=== PATIENT | female | born 1985 | race Caucasian/White ===

== ENCOUNTER 2018-07-19 02:44 | Emergency (ER) | payer MEDICARE, OTHER ==
[2018-07-19 03:05] VITALS: TEMP 98
[2018-07-19] MEDS ORDERED: MORPHINE SULFATE 4 MG/ML SYRINGE IV STA (03:27)
[2018-07-19] MEDS ORDERED: SODIUM CHLORIDE 0.9% 1,000 ML IV STA (03:27)
[2018-07-19 03:29] LABS: Amorphous Sediment,Urine Rare /hpf; Appearance,Urine Cloudy (Clear); Bacteria,Urine Rare /hpf; Bilirubin,Urine Negative (Negative); Blood,Urine Negative (Negative); Color,Urine Yellow; Glucose,Urine (UA) 4+ (Negative); Ketones,Urine Negative (Negative); Leukocyte Esterase,Urine Negative (Negative); Mucus,Urine Occasional /hpf; Nitrite,Urine Negative (Negative); Protein,Urine Negative (Negative); Specific Gravity,Urine 1.022 (1.001-1.035); Squamous Epithelial Cell,Urine 1 /hpf (0-4); Urobilinogen,Urine <2.0 mg/dL (<2.0); WBC,Urine 1 /hpf (0-5)
--- NOTE | 2018-07-19 03:31 | ED ---
General Adult HPI - General Chief complaint: Abdominal Pain Stated complaint: Abd pain Time Seen by Provider: 07/19/18 03:07 Source: patient, RN notes reviewed, old records reviewed Mode of arrival: ambulatory Limitations: no limitations - History of Present Illness Initial comments: 32-year-old female presenting for evaluation of anterior abdominal pain. Patient has previous history of multiple hernias status post repair. She states she feels she may have injured her abdominal wall wall moving furniture. She states she has a constant burning pain in the center and right side of her abdomen worse with movement. She's had some nausea and diaphoresis associated with this pain. No history of appendectomy or cholecystectomy. She denies changes in her bowels. No dysuria or hematuria. - Related Data Home Medications Medication Instructions Recorded Confirmed Albuterol(Dose Unknown) 3 - 4 puff INHALATION DIRECTED 09/05/14 09/30/14 PRN Atenolol [Tenormin] 50 mg PO 1500 09/05/14 09/30/14 Gemfibrozil [Lopid] 600 mg PO BID 09/05/14 09/30/14 HYDROcodone/APAP 7.5-325MG [[place] 1 each PO TID PRN 09/05/14 09/30/14 7.5-325] LORazepam [Ativan] 1 mg PO BID 09/05/14 09/30/14 Omeprazole [PriLOSEC] 20 mg PO 1500 09/05/14 09/30/14 Ondansetron HCl [Zofran] 8 mg PO Q12HR PRN 09/05/14 09/30/14 buPROPion HCL [Wellbutrin XL] 450 mg PO DAILY 09/05/14 09/30/14 metFORMIN HCL 1,000 mg PO BID 09/05/14 09/30/14 ALPRAZolam [Xanax] 0.5 mg PO BID PRN 09/26/14 09/30/14 Allergies Allergy/AdvReac Type Severity Reaction Status Date / Time ketorolac tromethamine Allergy Severe rash,bliste Verified 09/26/14 09:06 [From Toradol] rs prochlorperazine edisylate Allergy Severe Dyspnea Verified 09/26/14 09:06 [From Compazine] prochlorperazine maleate Allergy Severe Dyspnea Verified 09/26/14 09:06 [From Compazine] promethazine HCl Allergy Severe hives, Verified 09/26/14 09:06 [From Phenergan] jittery adhesive tape Allergy Severe BLISTERS Uncoded 09/26/14 09:06 Review of Systems ROS Statement: Those systems with pertinent positive or pertinent negative responses have been documented in the HPI. ROS Other: All systems not noted in ROS Statement are negative. Past Medical History Past Medical History: Asthma, Diabetes Mellitus, GERD/Reflux, Hypertension, Supraventricular Tachycardia (SVT) History of Any Multi-Drug Resistant Organisms: None Reported Past Surgical History: Cardiac Ablation, Hernia Repair Additional Past Surgical History / Comment(s): CARDIAC ABLATION X2, CERVIX SURGERY Past Anesthesia/Blood Transfusion Reactions: Postoperative Nausea & Vomiting (PONV) Past Psychological History: Anxiety, Depression Smoking Status: Never smoker Past Alcohol Use History: None Reported Past Drug Use History: None Reported - Past Family History Father Family Medical History: Cancer, Pulmonary Embolus Mother Family Medical History: Cancer Sister(s) Family Medical History: Cancer General Exam Limitations: no limitations General appearance: alert, in no apparent distress Head exam: Present: atraumatic, normocephalic Eye exam: Present: normal appearance, PERRL ENT exam: Present: normal exam Neck exam: Present: normal inspection. Absent: tenderness, meningismus Respiratory exam: Present: normal lung sounds bilaterally. Absent: respiratory distress, wheezes Cardiovascular Exam: Present: regular rate, normal rhythm GI/Abdominal exam: Present: soft, tenderness (Anterior midline and right upper quadrant abdominal tenderness.). Absent: distended Extremities exam: Present: normal inspection, normal capillary refill. Absent: pedal edema Back exam: Present: normal inspection Neurological exam: Present: alert, oriented X3, CN II-XII intact. Absent: motor sensory deficit Psychiatric exam: Present: normal affect, normal mood Skin exam: Present: warm, dry, intact Course Vital Signs 07/19/18 07/19/18 03:01 04:54 Temperature 98.0 F Pulse Rate 92 70 Respiratory 18 19 Rate Blood Pressure 188/78 128/74 O2 Sat by Pulse 98 96 Oximetry Medical Decision Making - Medical Decision Making 31-year-old female with abdominal pain. CT obtained, negative for any acute intra-abdominal pathology, no hernia, no signs of infection or inflammation, no gallbladder pathology. Patient has mild leukocytosis, other laboratory studies including complete metabolic panel are unremarkable. Patient's given antiemetic and pain medication emergency department. She is feeling somewhat better. Vital signs of normalized. She will be discharged home. She will rest and return with any worsening or changing symptoms. - Lab Data Result diagrams: 07/19/18 03:39 07/19/18 03:39 Lab Results 07/19/18 07/19/18 07/19/18 Range/Units 03:20 03:20 03:39 WBC (3.8-10.6) k/uL RBC (3.80-5.40) m/uL Hgb (11.4-16.0) gm/dL Hct (34.0-46.0) % MCV (80.0-100.0) fL MCH (25.0-35.0) pg MCHC (31.0-37.0) g/dL RDW (11.5-15.5) % Plt Count (150-450) k/uL Neutrophils % % Lymphocytes % % Monocytes % % Eosinophils % % Basophils % % Neutrophils # (1.3-7.7) k/uL Lymphocytes # (1.0-4.8) k/uL Monocytes # (0-1.0) k/uL Eosinophils # (0-0.7) k/uL Basophils # (0-0.2) k/uL Sodium 137 (137-145) mmol/L Potassium 4.3 (3.5-5.1) mmol/L Chloride 105 (98-107) mmol/L Carbon Dioxide 24 (22-30) mmol/L Anion Gap 8 mmol/L BUN 10 (7-17) mg/dL Creatinine 0.54 (0.52-1.04) mg/dL Est GFR (CKD-EPI)AfAm >90 (>60 ml/min/1.73 sqM) Est GFR (CKD-EPI)NonAf >90 (>60 ml/min/1.73 sqM) Glucose 162 H (74-99) mg/dL Calcium 9.6 (8.4-10.2) mg/dL Total Bilirubin 0.5 (0.2-1.3) mg/dL AST 36 (14-36) U/L ALT 47 (9-52) U/L Alkaline Phosphatase 80 (38-126) U/L Total Protein 7.3 (6.3-8.2) g/dL Albumin 4.3 (3.5-5.0) g/dL Amylase 62 (30-110) U/L Lipase 185 (23-300) U/L Urine Color Yellow Urine Appearance Cloudy H (Clear) Urine pH 7.0 (5.0-8.0) Ur Specific [place] 1.022 (1.001-1.035) Urine Protein Negative (Negative) Urine Glucose (UA) 4+ H (Negative) Urine Ketones Negative (Negative) Urine Blood Negative (Negative) Urine Nitrite Negative (Negative) Urine Bilirubin Negative (Negative) Urine Urobilinogen <2.0 (<2.0) mg/dL Ur Leukocyte Esterase Negative (Negative) Urine WBC 1 (0-5) /hpf Ur Squamous Epith Cells 1 (0-4) /hpf Amorphous Sediment Rare H (None) /hpf Urine Bacteria Rare H (None) /hpf Urine Mucus Occasional H (None) /hpf Urine HCG, Qual Not Detected (Not Detectd) 07/19/18 Range/Units 03:39 WBC 12.9 H (3.8-10.6) k/uL RBC 4.94 (3.80-5.40) m/uL Hgb 14.2 (11.4-16.0) gm/dL Hct 41.3 (34.0-46.0) % MCV 83.5 (80.0-100.0) fL MCH 28.8 (25.0-35.0) pg MCHC 34.5 (31.0-37.0) g/dL RDW 13.3 (11.5-15.5) % Plt Count 263 (150-450) k/uL Neutrophils % 68 % Lymphocytes % 23 % Monocytes % 5 % Eosinophils % 2 % Basophils % 1 % Neutrophils # 8.8 H (1.3-7.7) k/uL Lymphocytes # 3.0 (1.0-4.8) k/uL Monocytes # 0.6 (0-1.0) k/uL Eosinophils # 0.2 (0-0.7) k/uL Basophils # 0.1 (0-0.2) k/uL Sodium (137-145) mmol/L Potassium (3.5-5.1) mmol/L Chloride (98-107) mmol/L Carbon Dioxide (22-30) mmol/L Anion Gap mmol/L BUN (7-17) mg/dL Creatinine (0.52-1.04) mg/dL Est GFR (CKD-EPI)AfAm (>60 ml/min/1.73 sqM) Est GFR (CKD-EPI)NonAf (>60 ml/min/1.73 sqM) Glucose (74-99) mg/dL Calcium (8.4-10.2) mg/dL Total Bilirubin (0.2-1.3) mg/dL AST (14-36) U/L ALT (9-52) U/L Alkaline Phosphatase (38-126) U/L Total Protein (6.3-8.2) g/dL Albumin (3.5-5.0) g/dL Amylase (30-110) U/L Lipase (23-300) U/L Urine Color Urine Appearance (Clear) Urine pH (5.0-8.0) Ur Specific [place] (1.001-1.035) Urine Protein (Negative) Urine Glucose (UA) (Negative) Urine Ketones (Negative) Urine Blood (Negative) Urine Nitrite (Negative) Urine Bilirubin (Negative) Urine Urobilinogen (<2.0) mg/dL Ur Leukocyte Esterase (Negative) Urine WBC (0-5) /hpf Ur Squamous Epith Cells (0-4) /hpf Amorphous Sediment (None) /hpf Urine Bacteria (None) /hpf Urine Mucus (None) /hpf Urine HCG, Qual (Not Detectd) Disposition Clinical Impression: Abdominal pain Disposition: HOME SELF-CARE Condition: Good Instructions (If sedation given, give patient instructions): Abdominal Pain (ED) Is patient prescribed a controlled substance at d/c from ED?: No Referrals: America Tijerina MD [Primary Care Provider] - 1-2 days Time of Disposition: 05:03
[2018-07-19] MEDS ORDERED: ONDANSETRON 4 MG/2 ML VIAL IVP STA (03:42)
[2018-07-19 03:56] LABS: Albumin 4.3 g/dL (3.5-5.0); Amylase 62 U/L (30-110); Anion Gap 8 mmol/L; Blood Urea Nitrogen 10 mg/dL (7-17); Calcium 9.6 mg/dL (8.4-10.2); Carbon Dioxide 24 mmol/L (22-30); Chloride 105 mmol/L (98-107); Glucose 162 mg/dL (74-99); Lipase 185 U/L (23-300); Sodium 137 mmol/L (137-145); Total Bilirubin 0.5 mg/dL (0.2-1.3); Total Protein 7.3 g/dL (6.3-8.2)
[2018-07-19 03:58] LABS: Basophils # (A) 0.1 k/uL (0-0.2); Basophils % (A) 1 %; Eosinophils # (A) 0.2 k/uL (0-0.7); Eosinophils % (A) 2 %; HCT 41.3 % (34.0-46.0); HGB 14.2 gm/dL (11.4-16.0); Lymphocytes % (A) 23 %; MCH 28.8 pg (25.0-35.0); MCHC 34.5 g/dL (31.0-37.0); MCV 83.5 fL (80.0-100.0); Mean Platelet Volume 7.6; Monocytes # (A) 0.6 k/uL (0-1.0); Monocytes % (A) 5 %; Neutrophils # (A) 8.8 k/uL (1.3-7.7); Neutrophils % (A) 68 %; Platelet Count 263 k/uL (150-450); RBC 4.94 m/uL (3.80-5.40); RDW 13.3 % (11.5-15.5); WBC 12.9 k/uL (3.8-10.6)
[2018-07-19 04:26] LABS: ALT 47 U/L (9-52); AST 36 U/L (14-36); Alkaline Phosphatase 80 U/L (38-126); Potassium 4.3 mmol/L (3.5-5.1)
--- NOTE | 2018-07-19 04:48 | CT ---
EXAM: CT Abdomen and Pelvis With Intravenous Contrast CLINICAL HISTORY: ITS.REASON CT Reason: abdominal pain TECHNIQUE: Axial computed tomography images of the abdomen and pelvis with intravenous contrast. This CT exam was performed using one or more of the following dose reduction techniques: automated exposure control, adjustment of the mA and/or kV according to patient size, and/or use of iterative reconstruction technique. COMPARISON: No relevant prior studies available. FINDINGS: Lung bases: Unremarkable. No mass. No consolidation. ABDOMEN: Liver: Unremarkable. No mass. Gallbladder and bile ducts: No abnormal ductal dilation or stones. Pancreas: Unremarkable. No mass. No ductal dilation. Spleen: Unremarkable. No splenomegaly. Adrenals: Unremarkable. No mass. Kidneys and ureters: Unremarkable. No solid mass. No hydronephrosis. Stomach and bowel: No obstruction. No mucosal thickening. PELVIS: Appendix: No findings to suggest acute appendicitis. Bladder: Unremarkable. No mass. Reproductive: 3 cm right adnexal cyst. ABDOMEN and PELVIS: Intraperitoneal space: Unremarkable. No free air. No significant fluid collection. Bones/joints: No acute fracture. No dislocation. Soft tissues: Unremarkable. Vasculature: No abdominal aortic aneurysm. Lymph nodes: Unremarkable. No enlarged lymph nodes. IMPRESSION: 3 cm right adnexal cyst.
[2018-07-19 04:55] VITALS: BP 128/74; PULSE 70; RESP 19
== END 2018-07-19 05:14 | disposition home or self-care (01) ==
LOC: EC 02:44
DX: R10.9 Unspecified abdominal pain (principal); R11.0 Nausea; R61 Generalized hyperhidrosis; Z32.02 Encounter for pregnancy test, result negative; D72.829 Elevated white blood cell count, unspecified; J45.909 Unspecified asthma, uncomplicated; E11.9 Type 2 diabetes mellitus without complications; I10 Essential (primary) hypertension; F41.9 Anxiety disorder, unspecified; F32.9 Major depressive disorder, single episode, unspecified; K21.9 Gastro-esophageal reflux disease without esophagitis; Z79.84 Long term (current) use of oral hypoglycemic drugs; Z79.899 Other long term (current) drug therapy; Z88.6 Allergy status to analgesic agent; Z88.8 Allergy status to other drugs, medicaments and biological substances; Z91.048 Other nonmedicinal substance allergy status
CPT/HCPCS: 99284; 96374; 96375; 96361; 36415; 80053; 82150; 83690; 85025; 81001; 81025; 74177; J2270; J2405; Q9967

== ENCOUNTER 2018-11-22 00:43 | Emergency (ER) | payer MEDICARE, OTHER ==
[2018-11-22 00:58] VITALS: TEMP 98.4
[2018-11-22 01:12] LABS: Appearance,Urine Clear (Clear); Bilirubin,Urine Negative (Negative); Blood,Urine Negative (Negative); Color,Urine Yellow; Glucose,Urine (UA) 4+ (Negative); Ketones,Urine Trace (Negative); Leukocyte Esterase,Urine Negative (Negative); Nitrite,Urine Negative (Negative); Protein,Urine Negative (Negative); Specific Gravity,Urine 1.045 (1.001-1.035); Urobilinogen,Urine <2.0 mg/dL (<2.0)
[2018-11-22] MEDS ORDERED: MORPHINE SULFATE 4 MG/ML SYRINGE IVP STA (01:14)
[2018-11-22] MEDS ORDERED: SODIUM CHLORIDE 0.9% 1,000 ML IV ONE (01:14)
[2018-11-22] MEDS ORDERED: SODIUM CHLORIDE 0.9% 1,000 ML IV SCH (01:15)
[2018-11-22 01:47] LABS: African American GFR (CKD) >90 (>60 ml/min/1.73 sqM); Albumin 4.5 g/dL (3.5-5.0); Amylase 64 U/L (30-110); Anion Gap 13 mmol/L; Carbon Dioxide 19 mmol/L (22-30); Chloride 107 mmol/L (98-107); Glucose 144 mg/dL (74-99); Sodium 139 mmol/L (137-145); Total Bilirubin 0.5 mg/dL (0.2-1.3); Total Protein 7.7 g/dL (6.3-8.2)
[2018-11-22 01:49] LABS: Potassium 4.2 mmol/L (3.5-5.1)
[2018-11-22 01:50] LABS: ALT 49 U/L (9-52); AST 35 U/L (14-36); Alkaline Phosphatase 87 U/L (38-126); Blood Urea Nitrogen 11 mg/dL (7-17)
[2018-11-22 02:07] LABS: Basophils # (A) 0.1 k/uL (0-0.2); Basophils % (A) 1 %; Eosinophils # (A) 0.3 k/uL (0-0.7); Eosinophils % (A) 2 %; HCT 39.2 % (34.0-46.0); HGB 15.7 gm/dL (11.4-16.0); Lymphocytes # (A) 3.2 k/uL (1.0-4.8); Lymphocytes % (A) 29 %; MCH 33.8 pg (25.0-35.0); MCV 84.7 fL (80.0-100.0); Mean Platelet Volume 8.2; Monocytes # (A) 0.5 k/uL (0-1.0); Monocytes % (A) 5 %; Neutrophils % (A) 63 %; Platelet Count 264 k/uL (150-450); RBC 4.63 m/uL (3.80-5.40); RDW 15.2 % (11.5-15.5); WBC 11.2 k/uL (3.8-10.6)
--- NOTE | 2018-11-22 02:08 | ED ---
Abdominal Pain HPI - General Source: patient, RN notes reviewed, old records reviewed Mode of arrival: ambulatory Limitations: no limitations <Maddison Gracia - Last Filed: 11/22/18 02:07> <Ruy Mckeon - Last Filed: 11/22/18 07:07> - General Chief Complaint: Abdominal Pain Stated Complaint: Pelvic Pain Time Seen by Provider: 11/22/18 01:13 - History of Present Illness Initial Comments: Patient is a 32-year-old female presents weren't normal today with chief complaint of right-sided lower abdominal pain for the past 3 hours. She complains of nausea and vomiting. No fevers. Patient states that she's had hi story of ovarian problems because a Twisting in her abdomen. She reports she's had this pain off and on for the past year but more persistent and more severe over the past 3 hours. (Maddison Gracia) - Related Data Home Medications Medication Instructions Recorded Confirmed Albuterol(Dose Unknown) 3 - 4 puff INHALATION DIRECTED 09/05/14 09/30/14 PRN Atenolol [Tenormin] 50 mg PO 1500 09/05/14 09/30/14 Gemfibrozil [Lopid] 600 mg PO BID 09/05/14 09/30/14 HYDROcodone/APAP 7.5-325MG [[place] 1 each PO TID PRN 09/05/14 09/30/14 7.5-325] LORazepam [Ativan] 1 mg PO BID 09/05/14 09/30/14 Omeprazole [PriLOSEC] 20 mg PO 1500 09/05/14 09/30/14 Ondansetron HCl [Zofran] 8 mg PO Q12HR PRN 09/05/14 09/30/14 buPROPion HCL [Wellbutrin XL] 450 mg PO DAILY 09/05/14 09/30/14 metFORMIN HCL 1,000 mg PO BID 09/05/14 09/30/14 ALPRAZolam [Xanax] 0.5 mg PO BID PRN 09/26/14 09/30/14 Allergies Allergy/AdvReac Type Severity Reaction Status Date / Time ketorolac tromethamine Allergy Severe rash,bliste Verified 11/22/18 00:58 [From Toradol] rs prochlorperazine edisylate Allergy Severe Dyspnea Verified 11/22/18 00:58 [From Compazine] prochlorperazine maleate Allergy Severe Dyspnea Verified 11/22/18 00:58 [From Compazine] promethazine HCl Allergy Severe hives, Verified 11/22/18 00:58 [From Phenergan] jittery adhesive tape Allergy Severe BLISTERS Uncoded 11/22/18 00:58 Review of Systems ROS Other: All systems not noted in ROS Statement are negative. <Maddison Gracia - Last Filed: 11/22/18 02:07> ROS Other: All systems not noted in ROS Statement are negative. <Ruy Mckeon - Last Filed: 11/22/18 07:07> ROS Statement: Those systems with pertinent positive or pertinent negative responses have been documented in the HPI. Past Medical History Past Medical History: Asthma, Diabetes Mellitus, GERD/Reflux, Hypertension, Supraventricular Tachycardia (SVT) History of Any Multi-Drug Resistant Organisms: None Reported Past Surgical History: Cardiac Ablation, Hernia Repair Additional Past Surgical History / Comment(s): CARDIAC ABLATION X2, CERVIX SURGERY Past Anesthesia/Blood Transfusion Reactions: Postoperative Nausea & Vomiting (PONV) Past Psychological History: Anxiety, Depression Smoking Status: Never smoker Past Alcohol Use History: None Reported Past Drug Use History: None Reported - Past Family History Father Family Medical History: Cancer, Pulmonary Embolus Mother Family Medical History: Cancer Sister(s) Family Medical History: Cancer <Maddison Gracia - Last Filed: 11/22/18 02:07> General Exam Limitations: no limitations General appearance: alert, in no apparent distress Head exam: Present: atraumatic, normocephalic, normal inspection Eye exam: Present: normal appearance, PERRL, EOMI. Absent: scleral icterus, conjunctival injection, periorbital swelling ENT exam: Present: normal exam, mucous membranes moist Neck exam: Present: normal inspection. Absent: tenderness, meningismus, lymphadenopathy Respiratory exam: Present: normal lung sounds bilaterally. Absent: respiratory distress, wheezes, rales, rhonchi, stridor Cardiovascular Exam: Present: regular rate, normal rhythm, normal heart sounds. Absent: systolic murmur, diastolic murmur, rubs, gallop, clicks GI/Abdominal exam: Present: soft, normal bowel sounds. Absent: distended, tenderness, guarding, rebound, rigid <SadiamarcoraviMaddison - Last Filed: 11/22/18 02:07> Course Vital Signs 11/22/18 11/22/18 11/22/18 00:54 03:01 06:03 Temperature 98.4 F Pulse Rate 97 83 82 Respiratory 18 18 16 Rate Blood Pressure 134/99 130/81 135/84 O2 Sat by Pulse 97 95 97 Oximetry Medical Decision Making - Lab Data Result diagrams: 11/22/18 01:25 <Maddison Gracia - Last Filed: 11/22/18 02:07> - Lab Data Result diagrams: 11/22/18 01:25 11/22/18 01:25 <Ruy Mckeon - Last Filed: 11/22/18 07:07> - Lab Data Lab Results 11/22/18 11/22/18 11/22/18 Range/Units 00:58 00:58 01:25 WBC (3.8-10.6) k/uL RBC (3.80-5.40) m/uL Hgb (11.4-16.0) gm/dL Hct (34.0-46.0) % MCV (80.0-100.0) fL MCH (25.0-35.0) pg MCHC (31.0-37.0) g/dL RDW (11.5-15.5) % Plt Count (150-450) k/uL Neutrophils % % Lymphocytes % % Monocytes % % Eosinophils % % Basophils % % Neutrophils # (1.3-7.7) k/uL Lymphocytes # (1.0-4.8) k/uL Monocytes # (0-1.0) k/uL Eosinophils # (0-0.7) k/uL Basophils # (0-0.2) k/uL Sodium 139 (137-145) mmol/L Potassium 4.2 (3.5-5.1) mmol/L Chloride 107 (98-107) mmol/L Carbon Dioxide 19 L (22-30) mmol/L Anion Gap 13 mmol/L BUN 11 (7-17) mg/dL Creatinine 0.66 (0.52-1.04) mg/dL Est GFR (CKD-EPI)AfAm >90 (>60 ml/min/1.73 sqM) Est GFR (CKD-EPI)NonAf >90 (>60 ml/min/1.73 sqM) Glucose 144 H (74-99) mg/dL Calcium 10.0 (8.4-10.2) mg/dL Total Bilirubin 0.5 (0.2-1.3) mg/dL AST 35 (14-36) U/L ALT 49 (9-52) U/L Alkaline Phosphatase 87 (38-126) U/L Total Protein 7.7 (6.3-8.2) g/dL Albumin 4.5 (3.5-5.0) g/dL Amylase 64 (30-110) U/L Lipase 142 (23-300) U/L Urine Color Yellow Urine Appearance Clear (Clear) Urine pH 6.0 (5.0-8.0) Ur Specific [place] 1.045 H (1.001-1.035) Urine Protein Negative (Negative) Urine Glucose (UA) 4+ H (Negative) Urine Ketones Trace H (Negative) Urine Blood Negative (Negative) Urine Nitrite Negative (Negative) Urine Bilirubin Negative (Negative) Urine Urobilinogen <2.0 (<2.0) mg/dL Ur Leukocyte Esterase Negative (Negative) Urine HCG, Qual Not Detected (Not Detectd) Blood Type Blood Type Recheck Bld Type Recheck Status Antibody Screen Spec Expiration Date 11/22/18 11/22/18 Range/Units 01:25 01:25 WBC 11.2 H (3.8-10.6) k/uL RBC 4.63 (3.80-5.40) m/uL Hgb 15.7 (11.4-16.0) gm/dL Hct 39.2 (34.0-46.0) % MCV 84.7 (80.0-100.0) fL MCH 33.8 (25.0-35.0) pg MCHC 39.9 H (31.0-37.0) g/dL RDW 15.2 (11.5-15.5) % Plt Count 264 (150-450) k/uL Neutrophils % 63 % Lymphocytes % 29 % Monocytes % 5 % Eosinophils % 2 % Basophils % 1 % Neutrophils # 7.0 (1.3-7.7) k/uL Lymphocytes # 3.2 (1.0-4.8) k/uL Monocytes # 0.5 (0-1.0) k/uL Eosinophils # 0.3 (0-0.7) k/uL Basophils # 0.1 (0-0.2) k/uL Sodium (137-145) mmol/L Potassium (3.5-5.1) mmol/L Chloride (98-107) mmol/L Carbon Dioxide (22-30) mmol/L Anion Gap mmol/L BUN (7-17) mg/dL Creatinine (0.52-1.04) mg/dL Est GFR (CKD-EPI)AfAm (>60 ml/min/1.73 sqM) Est GFR (CKD-EPI)NonAf (>60 ml/min/1.73 sqM) Glucose (74-99) mg/dL Calcium (8.4-10.2) mg/dL Total Bilirubin (0.2-1.3) mg/dL AST (14-36) U/L ALT (9-52) U/L Alkaline Phosphatase (38-126) U/L Total Protein (6.3-8.2) g/dL Albumin (3.5-5.0) g/dL Amylase (30-110) U/L Lipase (23-300) U/L Urine Color Urine Appearance (Clear) Urine pH (5.0-8.0) Ur Specific [place] (1.001-1.035) Urine Protein (Negative) Urine Glucose (UA) (Negative) Urine Ketones (Negative) Urine Blood (Negative) Urine Nitrite (Negative) Urine Bilirubin (Negative) Urine Urobilinogen (<2.0) mg/dL Ur Leukocyte Esterase (Negative) Urine HCG, Qual (Not Detectd) Blood Type A Positive Blood Type Recheck A Pos Bld Type Recheck Status No Antibody Screen NEGATIVE Spec Expiration Date 11/25/20187 Disposition <Maddison Gracia - Last Filed: 11/22/18 02:07> Is patient prescribed a controlled substance at d/c from ED?: No <Ruy Mckeon - Last Filed: 11/22/18 07:07> Clinical Impression: Abdominal pain Disposition: HOME SELF-CARE Condition: Good Instructions (If sedation given, give patient instructions): Abdominal Pain (ED) Referrals: America Tijerina MD [Primary Care Provider] - 1-2 days Ernestine Austin MD [STAFF PHYSICIAN] - 1-2 days
[2018-11-22 02:25] LABS: MCHC 39.9 g/dL (31.0-37.0)
[2018-11-22] MEDS ORDERED: ONDANSETRON 4 MG/2 ML VIAL IVP STA (02:45)
[2018-11-22] MEDS ORDERED: ONDANSETRON 4 MG/2 ML VIAL ONE (03:59)
[2018-11-22] MEDS ORDERED: MORPHINE SULFATE 4 MG/ML SYRINGE ONE (03:59)
--- NOTE | 2018-11-22 05:34 | US ---
EXAMINATION TYPE: US transvaginal DATE OF EXAM: 11/22/2018 COMPARISON: CT, US CLINICAL HISTORY: Pain. Severe pelvic pain, worse right side. Cervix surgery. . TECHNIQUE: Transvaginal (TV). Date of LMP: Unknown, pt states she hasn't had periods since the surgery on her cervix a couple years ago. EXAM MEASUREMENTS: Uterus: 9.3 x 5.1 x 3.7 cm Endometrial Stripe: not clearly defined Right Ovary: 3.4 x 2.3 x 2.1 cm Left Ovary: 3.2 x 2.0 x 2.0 cm 1. Uterus: Anteverted Anechoic area seen right uterus: 0.8 x 0.6 x 0.6 cm. Consider fibroid versus benign cyst. Cluster of mixed/cystic areas mid uterus measurin.1 x 1.3 x 0.7 cm. Consider fibroids. Anechoic area seen right cervix measuring 1.1 x 1.1 x 1.0 probably represents a nabothian cyst. 2. Endometrium: not clearly defined 3. Right Ovary: Indistinct borders. Limited. No gross abnormalities otherwise. 4. Left Ovary: Indistinct borders. Limited. No gross adenopathy otherwise. Spectral, color and waveform doppler imaging shows good arterial and venous flow within the ovaries; there is no evidence for ovarian torsion. 5. Bilateral Adnexa: Within normal limits. 6. Posterior cul-de-sac: Within normal limits. IMPRESSION: View small fibroids and nabothian cysts. No endometrial complex abnormalities. Normal ovaries with no adnexal masses or significant free pelvic fluid.
[2018-11-22 06:04] VITALS: BP 135/84; PULSE 82; RESP 16
--- NOTE | 2018-11-22 09:01 | CT ---
EXAM: CT Abdomen and Pelvis With Intravenous Contrast CLINICAL HISTORY: Abdominal pain RLQ. TECHNIQUE: Axial computed tomography images of the abdomen and pelvis with intravenous contrast. This CT exam was performed using one or more of the following dose reduction techniques: automated exposure control, adjustment of the mA and/or kV according to patient size, and/or use of iterative reconstruction technique. COMPARISON: CT abdomen pelvis 07/19/18 FINDINGS: Lung bases: Unremarkable. No mass. No consolidation. ABDOMEN: Liver: Unremarkable. No mass. Gallbladder and bile ducts: Unremarkable. No calcified stones. No ductal dilation. Pancreas: Unremarkable. No mass. No ductal dilation. Spleen: Unremarkable. No splenomegaly. Adrenals: Unremarkable. No mass. Kidneys and ureters: Unremarkable. No solid mass. No hydronephrosis. Stomach and bowel: Unremarkable. No obstruction. No mucosal thickening. PELVIS: Appendix: No findings to suggest acute appendicitis. Bladder: Unremarkable. No mass. Reproductive: Unremarkable as visualized. ABDOMEN and PELVIS: Intraperitoneal space: Unremarkable. No free air. No significant fluid collection. Bones/joints: No acute fracture. No dislocation. Soft tissues: Unremarkable. Vasculature: Unremarkable. No abdominal aortic aneurysm. Lymph nodes: Unremarkable. No enlarged lymph nodes. IMPRESSION: No acute or inflammatory disease or bowel obstruction.
== END 2018-11-22 07:11 | disposition home or self-care (01) ==
LOC: EC 00:43
DX: R10.31 Right lower quadrant pain (principal); R11.2 Nausea with vomiting, unspecified; K21.9 Gastro-esophageal reflux disease without esophagitis; E11.9 Type 2 diabetes mellitus without complications; I10 Essential (primary) hypertension; J45.909 Unspecified asthma, uncomplicated; F41.9 Anxiety disorder, unspecified; F32.9 Major depressive disorder, single episode, unspecified; Z79.84 Long term (current) use of oral hypoglycemic drugs; Z79.899 Other long term (current) drug therapy; Z88.6 Allergy status to analgesic agent; Z88.8 Allergy status to other drugs, medicaments and biological substances; Z91.048 Other nonmedicinal substance allergy status; Z98.890 Other specified postprocedural states
CPT/HCPCS: 36415; 86900; 86901; 80053; 82150; 83690; 85025; 86850; 81003; 81025; 93975; 76830; 74177; 99284; 96374; 96375; 96361; J2270; J2405; Q9967

== ENCOUNTER 2019-07-21 18:35 | Emergency (ER) | payer MEDICARE, OTHER ==
[2019-07-21 18:42] VITALS: RESP 18; TEMP 97.9
[2019-07-21] MEDS ORDERED: ASPIRIN 81 MG PO STA (19:13)
--- NOTE | 2019-07-21 19:33 | XR ---
EXAMINATION TYPE: XR chest 1V portable DATE OF EXAM: 07/21/2019 Comparison: None Clinical History: 33-year-old female cough Findings: The cardiomediastinal silhouette, aorta, and pulmonary vasculature are within normal limits. Hazy de nsities related to large patient body habitus. Otherwise, lungs and pleural spaces are clear. Impression: No acute cardiopulmonary process.
[2019-07-21] MEDS ORDERED: LORazepam 1 MG TAB PO STA (19:34)
[2019-07-21 19:36] LABS: Basophils # (A) 0.1 k/uL (0-0.2); Basophils % (A) 1 %; Eosinophils # (A) 0.3 k/uL (0-0.7); Eosinophils % (A) 3 %; HCT 44.8 % (34.0-46.0); HGB 15.3 gm/dL (11.4-16.0); Lymphocytes # (A) 2.3 k/uL (1.0-4.8); Lymphocytes % (A) 24 %; MCH 29.7 pg (25.0-35.0); MCHC 34.1 g/dL (31.0-37.0); MCV 87.1 fL (80.0-100.0); Mean Platelet Volume 8.2; Monocytes # (A) 0.5 k/uL (0-1.0); Monocytes % (A) 6 %; Neutrophils # (A) 6.2 k/uL (1.3-7.7); Neutrophils % (A) 65 %; Platelet Count 304 k/uL (150-450); RBC 5.14 m/uL (3.80-5.40); RDW 12.8 % (11.5-15.5); WBC 9.5 k/uL (3.8-10.6)
--- NOTE | 2019-07-21 19:40 | ED ---
General Adult HPI - General Chief complaint: Chest Pain Stated complaint: Chest pain/sob/sore throat Time Seen by Provider: 07/21/19 18:50 Source: patient, RN notes reviewed Mode of arrival: ambulatory Limitations: no limitations - History of Present Illness Initial comments: 33-year-old female with a past medical history of asthma, diabetes mellitus, h ypertension, SVT with cardiac ablation presents to the emergency department for chest pain. Patient has had chest pressure and pain for the past 3 weeks on and off. She has also had shortness of breath intermittently. She has also had a sore throat and bilateral ear pain. She denies cough. Denies smoking history. States she was seen at [facility] 3 weeks ago and started on Isreal vix.Patient has no other complaints at this time including shortness of breath, chest pain, abdominal pain, nausea or vomiting, headache, or visual changes. - Related Data Home Medications Medication Instructions Recorded Confirmed Albuterol(Dose Unknown) 3 - 4 puff INHALATION DIRECTED 09/05/14 09/30/14 PRN Atenolol [Tenormin] 50 mg PO 1500 09/05/14 09/30/14 Gemfibrozil [Lopid] 600 mg PO BID 09/05/14 09/30/14 HYDROcodone/APAP 7.5-325MG [[place] 1 each PO TID PRN 09/05/14 09/30/14 7.5-325] LORazepam [Ativan] 1 mg PO BID 09/05/14 09/30/14 Omeprazole [PriLOSEC] 20 mg PO 1500 09/05/14 09/30/14 Ondansetron HCl [Zofran] 8 mg PO Q12HR PRN 09/05/14 09/30/14 buPROPion HCL [Wellbutrin XL] 450 mg PO DAILY 09/05/14 09/30/14 metFORMIN HCL 1,000 mg PO BID 09/05/14 09/30/14 ALPRAZolam [Xanax] 0.5 mg PO BID PRN 09/26/14 09/30/14 Allergies Allergy/AdvReac Type Severity Reaction Status Date / Time ketorolac tromethamine Allergy Severe rash,bliste Verified 07/21/19 18:42 [From Toradol] rs prochlorperazine edisylate Allergy Severe Dyspnea Verified 07/21/19 18:42 [From Compazine] prochlorperazine maleate Allergy Severe Dyspnea Verified 07/21/19 18:42 [From Compazine] promethazine HCl Allergy Severe hives, Verified 07/21/19 18:42 [From Phenergan] jittery adhesive tape Allergy Severe BLISTERS Uncoded 07/21/19 18:42 Review of Systems ROS Statement: Those systems with pertinent positive or pertinent negative responses have been documented in the HPI. ROS Other: All systems not noted in ROS Statement are negative. Past Medical History Past Medical History: Asthma, Diabetes Mellitus, GERD/Reflux, Hypertension, Supraventricular Tachycardia (SVT) History of Any Multi-Drug Resistant Organisms: None Reported Past Surgical History: Cardiac Ablation, Hernia Repair Additional Past Surgical History / Comment(s): CARDIAC ABLATION X2, CERVIX SURGERY Past Anesthesia/Blood Transfusion Reactions: Postoperative Nausea & Vomiting (PONV) Past Psychological History: Anxiety, Depression Smoking Status: Never smoker Past Alcohol Use History: None Reported Past Drug Use History: None Reported - Past Family History Father Family Medical History: Cancer, Pulmonary Embolus Mother Family Medical History: Cancer Sister(s) Family Medical History: Cancer General Exam Limitations: no limitations General appearance: alert, in no apparent distress Head exam: Present: atraumatic, normocephalic, normal inspection Eye exam: Present: normal appearance, PERRL, EOMI. Absent: scleral icterus, conjunctival injection, periorbital swelling ENT exam: Present: normal exam, normal oropharynx (Uvula midline, no tonsillar exudates bilaterally), mucous membranes moist, TM's normal bilaterally, normal external ear exam Neck exam: Present: normal inspection, full ROM. Absent: tenderness, meningismus, lymphadenopathy Respiratory exam: Present: normal lung sounds bilaterally, chest wall tenderness (Anterior chest wall tenderness to palpation). Absent: respiratory distress, w heezes, rales, rhonchi, stridor Cardiovascular Exam: Present: regular rate, normal rhythm, normal heart sounds. Absent: systolic murmur, diastolic murmur, rubs, gallop, clicks GI/Abdominal exam: Present: soft, normal bowel sounds. Absent: distended, tenderness, guarding, rebound, rigid Neurological exam: Present: alert Psychiatric exam: Present: normal affect, normal mood Course Vital Signs 0407/21/19 07/21/19 18:38 19:20 20:55 Temperature 97.9 F Pulse Rate 88 95 Pulse Rate [ 81 Ophthalmic Assistant ] Respiratory 18 18 Rate Blood Pressure 148/107 142/97 O2 Sat by Pulse 99 98 Oximetry EKG Findings - EKG Comments: EKG Findings:: Normal sinus rhythm, ventricular rate 90, WI interval 176, QTc 459 Medical Decision Making - Medical Decision Making 33-year-old female presents to the emergency department for a chief complaint of chest pain. Patient states this pain worsens with deep breathing. She has also had shortness of breath associated with this as well as a cough and ear pain. Patient was concerned she could have COVID. She does have reproducible chest pain. Describes the pain as bees staying her chest. Vitals are stable. CBC CMP is unremarkable. EKG shows a normal sinus rhythm without ST elevation or depression. Troponin is negative. D-dimer is negative. Patient symptoms are very atypical. She patient has low cardiac risk and a heart score of 2. This has been ongoing for weeks and troponin is negative. I discussed with the patient and she does feel comfortable going home. She will follow up with primary care and cardiology. She will return here for any worsening symptoms. - Lab Data Result diagrams: 07/21/19 19:05 07/21/19 19:05 Lab Results 07/21/19 07/21/19 07/21/19 Range/Units 19:05 19:05 19:05 WBC 9.5 (3.8-10.6) k/uL RBC 5.14 (3.80-5.40) m/uL Hgb 15.3 (11.4-16.0) gm/dL Hct 44.8 (34.0-46.0) % MCV 87.1 (80.0-100.0) fL MCH 29.7 (25.0-35.0) pg MCHC 34.1 (31.0-37.0) g/dL RDW 12.8 (11.5-15.5) % Plt Count 304 (150-450) k/uL Neutrophils % 65 % Lymphocytes % 24 % Monocytes % 6 % Eosinophils % 3 % Basophils % 1 % Neutrophils # 6.2 (1.3-7.7) k/uL Lymphocytes # 2.3 (1.0-4.8) k/uL Monocytes # 0.5 (0-1.0) k/uL Eosinophils # 0.3 (0-0.7) k/uL Basophils # 0.1 (0-0.2) k/uL PT 9.4 (9.0-12.0) sec INR 0.9 (<1.2) APTT 23.9 (22.0-30.0) sec D-Dimer 0.37 (<0.60) mg/L FEU Sodium 137 (137-145) mmol/L Potassium 3.9 (3.5-5.1) mmol/L Chloride 103 (98-107) mmol/L Carbon Dioxide 21 L (22-30) mmol/L Anion Gap 13 mmol/L BUN 8 (7-17) mg/dL Creatinine 0.59 (0.52-1.04) mg/dL Est GFR (CKD-EPI)AfAm >90 (>60 ml/min/1.73 sqM) Est GFR (CKD-EPI)NonAf >90 (>60 ml/min/1.73 sqM) Glucose 153 H (74-99) mg/dL Calcium 9.1 (8.4-10.2) mg/dL Magnesium 1.6 (1.6-2.3) mg/dL Total Bilirubin 0.3 (0.2-1.3) mg/dL AST 33 (14-36) U/L ALT 46 H (4-34) U/L Alkaline Phosphatase 92 (38-126) U/L Troponin I (0.000-0.034) ng/mL Total Protein 8.0 (6.3-8.2) g/dL Albumin 4.5 (3.5-5.0) g/dL Coronavirus (PCR) (Not Detectd) Group A Strep Rapid (Negative) 07/21/19 07/21/19 Range/Units 19:05 19:17 WBC (3.8-10.6) k/uL RBC (3.80-5.40) m/uL Hgb (11.4-16.0) gm/dL Hct (34.0-46.0) % MCV (80.0-100.0) fL MCH (25.0-35.0) pg MCHC (31.0-37.0) g/dL RDW (11.5-15.5) % Plt Count (150-450) k/uL Neutrophils % % Lymphocytes % % Monocytes % % Eosinophils % % Basophils % % Neutrophils # (1.3-7.7) k/uL Lymphocytes # (1.0-4.8) k/uL Monocytes # (0-1.0) k/uL Eosinophils # (0-0.7) k/uL Basophils # (0-0.2) k/uL PT (9.0-12.0) sec INR (<1.2) APTT (22.0-30.0) sec D-Dimer (<0.60) mg/L FEU Sodium (137-145) mmol/L Potassium (3.5-5.1) mmol/L Chloride (98-107) mmol/L Carbon Dioxide (22-30) mmol/L Anion Gap mmol/L BUN (7-17) mg/dL Creatinine (0.52-1.04) mg/dL Est GFR (CKD-EPI)AfAm (>60 ml/min/1.73 sqM) Est GFR (CKD-EPI)NonAf (>60 ml/min/1.73 sqM) Glucose (74-99) mg/dL Calcium (8.4-10.2) mg/dL Magnesium (1.6-2.3) mg/dL Total Bilirubin (0.2-1.3) mg/dL AST (14-36) U/L ALT (4-34) U/L Alkaline Phosphatase (38-126) U/L Troponin I <0.012 (0.000-0.034) ng/mL Total Protein (6.3-8.2) g/dL Albumin (3.5-5.0) g/dL Coronavirus (PCR) Not Detected (Not Detectd) Group A Strep Rapid Negative (Negative) Disposition Clinical Impression: Atypical chest pain, Pharyngitis Disposition: HOME SELF-CARE Condition: Good Instructions (If sedation given, give patient instructions): Chest Pain (ED) Additional Instructions: Please follow up with primary care and cardiology. Return if you have any worsening symptoms. Is patient prescribed a controlled substance at d/c from ED?: No Referrals: America Tijerina MD [Primary Care Provider] - 1-2 days Time of Disposition: 20:58
[2019-07-21 19:49] LABS: D-Dimer 0.37 mg/L FEU (<0.60); INR 0.9 (<1.2)
[2019-07-21 19:50] LABS: Partial Thromboplastin Time 23.9 sec (22.0-30.0); Prothrombin Time 9.4 sec (9.0-12.0)
[2019-07-21 20:11] LABS: ALT 46 U/L (4-34); AST 33 U/L (14-36); African American GFR (CKD) >90 (>60 ml/min/1.73 sqM); Albumin 4.5 g/dL (3.5-5.0); Alkaline Phosphatase 92 U/L (38-126); Anion Gap 13 mmol/L; Blood Urea Nitrogen 8 mg/dL (7-17); Calcium 9.1 mg/dL (8.4-10.2); Carbon Dioxide 21 mmol/L (22-30); Chloride 103 mmol/L (98-107); Glucose 153 mg/dL (74-99); Magnesium 1.6 mg/dL (1.6-2.3); Non-African American GFR(CKD) >90 (>60 ml/min/1.73 sqM); Potassium 3.9 mmol/L (3.5-5.1); Sodium 137 mmol/L (137-145); Total Bilirubin 0.3 mg/dL (0.2-1.3)
[2019-07-21 20:56] VITALS: BP 142/97; PULSE 95
== END 2019-07-21 21:05 | disposition home or self-care (01) ==
LOC: EC 18:35
DX: Z03.818 Encounter for observation for suspected exposure to other biological agents ruled out (principal); J02.9 Acute pharyngitis, unspecified; R07.89 Other chest pain; J45.909 Unspecified asthma, uncomplicated; I10 Essential (primary) hypertension; K21.9 Gastro-esophageal reflux disease without esophagitis; F41.9 Anxiety disorder, unspecified; F32.9 Major depressive disorder, single episode, unspecified; E11.9 Type 2 diabetes mellitus without complications; Z79.02 Long term (current) use of antithrombotics/antiplatelets; Z79.51 Long term (current) use of inhaled steroids; Z79.84 Long term (current) use of oral hypoglycemic drugs; Z79.899 Other long term (current) drug therapy; Z88.6 Allergy status to analgesic agent; Z88.8 Allergy status to other drugs, medicaments and biological substances; Z91.048 Other nonmedicinal substance allergy status; Z86.79 Personal history of other diseases of the circulatory system; Z98.890 Other specified postprocedural states
CPT/HCPCS: 36415; 71045; 80053; 83735; 84484; 85025; 85379; 85610; 85730; 87081; 87430; 87635; 93005; 99285

== ENCOUNTER → 2019-11-06 | Outpatient (CLI) | payer MEDICARE, OTHER | END | disposition home or self-care (01) | LOC: LABWHC1 14:41 | PROVIDERS: ATTEND Internal Medicine | DX: Z20.828 Contact with and (suspected) exposure to other viral communicable diseases (principal) | CPT/HCPCS: U0003; C9803 ==

== ENCOUNTER → 2019-11-22 | Outpatient (CLI) | payer MEDICARE, OTHER ==
--- NOTE | 2019-11-22 11:42 | FL ---
EXAMINATION TYPE: FL barium swallow DATE OF EXAM: 11/22/2019 CLINICAL INDICATION: 33-year-old female R13.10, dysphagia, pain, difficulty swallowing since tonsille ctomy 2 months ago. COMPARISON: None Total Fluoroscopy Time: 1 minute 43 seconds. Total images: 35 FINDINGS: The swallowing mechanism is normal and hypopharyngeal anatomy is preserved. The cervical and thoracic portions have a normal course and caliber and normal motility. The mucosa is normal and no persistent filling defect is encountered. A tiny hiatal hernia is demonstrated. Gastroesophageal reflux could not be elicited during the course of the exam. IMPRESSION: Incidental tiny hiatal hernia. Gastroesophageal reflux could not be elicited during the course of the exam. Otherwise, unremarkable esophagram.
== END | disposition home or self-care (01) ==
LOC: RADUSWWP 10:06
PROVIDERS: ATTEND Otolaryngology
DX: R13.10 Dysphagia, unspecified (principal)
CPT/HCPCS: 74220

== ENCOUNTER 2020-01-03 07:18 | Day surgery (SDC) | payer MEDICARE, OTHER ==
[2020-01-01 11:20] VITALS: BMI 38.4
[~2020-01-03 07:18] MED LIST: LACTATED RINGERS 1,000 ML IV SCH; LIDOCAINE 1% (10MG/ML) FOR IV START INTRADERMA PRN
[2020-01-03 07:35] VITALS: TEMP 98.1
[2020-01-03] MEDS ORDERED: GLYCOPYRROLATE 0.2 MG/ML 2 ML VIAL ONE (07:53)
[2020-01-03] MEDS ORDERED: KETAMINE 10 MG/ML 20 ML VIAL ONE (07:53)
[2020-01-03] MEDS ORDERED: PROPOFOL 10 MG/ML 20 ML VIAL IV ONE (07:53)
[2020-01-03] MEDS ORDERED: LIDOCAINE 1% INJ 10MG/ML (20 ML MDV) ONE (07:53)
[2020-01-03] MEDS ORDERED: MIDAZOLAM 2 MG/2 ML VIAL ONE (07:53)
--- NOTE | 2020-01-03 07:55 | P.GSHP ---
History of Present Illness H&P Date: 01/03/20 Chief Complaint: Dysphagia, GERD Is a 34-year-old female been safe for EGD. She's had issues with dysphagia and GERD. She is known to have a hiatal hernia. Past Medical History Past Medical History: Asthma, Diabetes Mellitus, GERD/Reflux, Hypertension, Supraventricular Tachycardia (SVT) Additional Past Medical History / Comment(s): SVT- CARDIAC ABLATION CORRECTED IT , MIGRAINE HEADACHES History of Any Multi-Drug Resistant Organisms: None Reported Past Surgical History: Cardiac Ablation, Hernia Repair, Tonsillectomy, Tubal Ligation, Uterine Ablation Additional Past Surgical History / Comment(s): CARDIAC ABLATION X2, CERVIX SURGERY Past Anesthesia/Blood Transfusion Reactions: Postoperative Nausea & Vomiting (PONV) Past Psychological History: Anxiety, Depression Smoking Status: Never smoker Past Alcohol Use History: None Reported Past Drug Use History: None Reported - Past Family History Father Family Medical History: Cancer, Pulmonary Embolus Mother Family Medical History: Cancer Sister(s) Family Medical History: Cancer Medications and Allergies Home Medications Medication Instructions Recorded Confirmed Type Albuterol(Dose Unknown) 2 - 3 puff INHALATION Q4H PRN 09/05/14 01/01/20 History Atenolol [Tenormin] 50 mg PO 1500 09/05/14 01/01/20 History Gemfibrozil [Lopid] 600 mg PO BID 09/05/14 01/01/20 History LORazepam [Ativan] 1 mg PO BID 09/05/14 01/01/20 History Omeprazole [PriLOSEC] 20 mg PO 1500 09/05/14 01/01/20 History Ondansetron HCl [Zofran] 8 mg PO Q12HR PRN 09/05/14 01/01/20 History buPROPion HCL [Wellbutrin XL] 450 mg PO DAILY 09/05/14 01/01/20 History sitaGLIPtin PHOS/metFORMIN HCL 1 each PO DAILY 01/01/20 01/01/20 History [Janumet 50-1,000 mg Tablet] Allergies Allergy/AdvReac Type Severity Reaction Status Date / Time ketorolac tromethamine Allergy Severe rash,bliste Verified 01/01/20 11:06 [From Toradol] rs prochlorperazine edisylate Allergy Severe Dyspnea Verified 01/01/20 11:06 [From Compazine] prochlorperazine maleate Allergy Severe Dyspnea Verified 01/01/20 11:06 [From Compazine] promethazine HCl Allergy Severe hives, Verified 01/01/20 11:06 [From Phenergan] jittery adhesive tape Allergy Severe BLISTERS Uncoded 01/01/20 11:06 Surgical - Exam Vital Signs Temp Pulse Resp BP Pulse Ox 98.1 F 89 20 135/84 97 01/03/20 07:33 01/03/20 07:33 01/03/20 07:33 01/03/20 07:33 01/03/20 07:33 - General well developed, well nourished, no distress - Eyes PERRL - ENT normal pinna - Neck no masses - Respiratory normal expansion - Cardiovascular Rhythm: regular - Abdomen Abdomen: soft, non tender Assessment and Plan Assessment: GERD, dysphagia. We'll perform EGD.
[2020-01-03 07:56] LABS: Glucose,Whole Blood 127 mg/dL (75-99)
--- NOTE | 2020-01-03 08:04 | P.OP ---
Date of Procedure: 01/03/20 Preoperative Diagnosis: GERD Dysphagia Postoperative Diagnosis: Antral gastritis Retained gastric food No evidence of significant esophagitis Procedure(s) Performed: EGD Anesthesia: MAC Surgeon: jC Rudd Pathology: other (Antral, esophagus) Condition: stable Disposition: PACU Description of Procedure: The patient's placed on the endoscopy table in the lateral position which she received IV sedation. The gastro-/oropharynx passed in the esophagus and stomach. Scope was then placed through the pylorus. The first and second portion of the duodenum appeared normal. Scope was then brought back the antrum and this was mildly inflamed. Biopsies performed. The scope was then retroflexed and there was retained food in the stomach. The GE junction was at 440 cm. There was a tiny hiatal hernia. The distal esophagus appeared normal. A random biopsies performed. The proximal esophagus appeared normal. Scope was withdrawn for patient. Due to the patient's minimal endoscopic findings she is scheduled for HIDA scan.
[2020-01-03 08:11] VITALS: RESP 16
[2020-01-03 09:08] VITALS: BP 132/74; PULSE 88
--- NOTE | 2020-01-03 14:42 | NM ---
EXAMINATION TYPE: NM hepatobiliary w CCK DATE OF EXAM: 01/03/2020 COMPARISON: CT abdomen pelvis 11/13 HISTORY: Indigestion TECHNIQUE: After the intravenous administration of 5.0 mCi Tc 99m Mebrofenin hepatobiliary scintigrap hy is performed. Immediate images post injection. FINDINGS: There is satisfactory initial accumulation and clearance of tracer by the liver. The gallbladder is visualized within 45 minutes. The small bowel activity is noted within 30 minutes. At one hour CCK was administered, patient was injected with 2.3 mcg of Kinevac, and gallbladder ejection fraction is calculated at 56 %, in the normal range. Therefore there is no scintigraphic evidence of cystic or c ommon bile duct obstruction, acute or chronic cholecystitis, or biliary dyskinesia. IMPRESSION: Exam is within normal limits.
== END 2020-01-03 09:08 | disposition home or self-care (01) ==
LOC: ORWHC2ENDO 07:18
PROVIDERS: ATTEND Surgery
DX: K29.50 Unspecified chronic gastritis without bleeding (principal); K44.9 Diaphragmatic hernia without obstruction or gangrene; R13.10 Dysphagia, unspecified; K21.9 Gastro-esophageal reflux disease without esophagitis; J45.909 Unspecified asthma, uncomplicated; E11.9 Type 2 diabetes mellitus without complications; I10 Essential (primary) hypertension; I47.1 Supraventricular tachycardia; G43.909 Migraine, unspecified, not intractable, without status migrainosus; F41.9 Anxiety disorder, unspecified; F32.9 Major depressive disorder, single episode, unspecified; Z98.51 Tubal ligation status; Z98.890 Other specified postprocedural states; Z80.9 Family history of malignant neoplasm, unspecified; Z82.49 Family history of ischemic heart disease and other diseases of the circulatory system; Z79.84 Long term (current) use of oral hypoglycemic drugs; Z79.899 Other long term (current) drug therapy; Z88.6 Allergy status to analgesic agent; Z88.8 Allergy status to other drugs, medicaments and biological substances; Z91.09 Other allergy status, other than to drugs and biological substances
CPT/HCPCS: 81025; 88305; 78227; 43239; A9537; J2250; J2805; J2001; J2704

== ENCOUNTER → 2020-08-01 | Outpatient (CLI) | payer MEDICARE, OTHER | END | disposition home or self-care (01) | LOC: LABWHC1 16:24 | PROVIDERS: ATTEND Internal Medicine | DX: U07.1 COVID-19 (principal) | CPT/HCPCS: U0003; C9803; U0005 ==

== ENCOUNTER 2020-12-15 16:38 | Observation (INO) | payer MEDICARE, OTHER ==
[2020-12-15] MEDS ORDERED: SODIUM CHLORIDE 0.9% 1,000 ML IV ONE (17:42)
[2020-12-15] MEDS ORDERED: ONDANSETRON 4 MG/2 ML VIAL IVP STA (17:42)
[2020-12-15] MEDS ORDERED: MORPHINE SULFATE 4 MG/ML SYRINGE IVP STA ×2 (17:42→19:33)
--- NOTE | 2020-12-15 18:01 | ED ---
General Adult HPI - General Chief complaint: Chest Pain Stated complaint: abd pain/vomiting Time Seen by Provider: 12/15/20 17:37 Source: patient, EMS Mode of arrival: EMS Limitations: no limitations - History of Present Illness Initial comments: This is a 35-year-old female with a history of pancreatitis who presents emergency department for abdominal pain and chest pain. She states that her symptoms started 2 days ago. She started having epigastric and right upper quadrant abdominal pain with radiation to her back. She states that yesterday she developed some right-sided burning chest pain as well. She attributes this to the multiple times that she's vomited. She denies any hematemesis. She states that she has had a few episodes of diarrhea however no blood in the stool. Denies fevers or chills. No lightheadedness. She states that this feels similar to when she had pancreatitis in the past. She states this is secondary to her triglycerides. She states he has lost weight however. No other acute complaints. - Related Data Home Medications Medication Instructions Recorded Confirmed LORazepam [Ativan] 1 mg PO TID PRN 09/05/14 12/15/20 Omeprazole [PriLOSEC] 20 mg PO DAILY 09/05/14 12/15/20 Ondansetron HCl [Zofran] 8 mg PO Q12HR PRN 09/05/14 12/15/20 buPROPion HCL [Wellbutrin XL] 150 mg PO DAILY 09/05/14 12/15/20 sitaGLIPtin PHOS/metFORMIN HCL 1 tab PO BID 01/01/20 12/15/20 [Janumet 50-1,000 mg Tablet] Albuterol Nebulized [Ventolin 2.5 mg INHALATION RT-Q6H PRN 12/15/20 12/15/20 Nebulized] Albuterol Sulfate [Ventolin HFA] 2 puff INHALATION RT-QID PRN 12/15/20 12/15/20 Fenofibrate Nanocrystallized 48 mg PO BID 12/15/20 12/15/20 [Fenofibrate] Insulin Glargine,Hum.rec.anlog 10 unit SQ HS 12/15/20 12/15/20 [Basaglar Kwikpen U-100] Insuln Asp Prt/Insulin Aspart See Protocol SQ AC-TID PRN 12/15/20 12/15/20 [NovoLOG MIX 70-30 VIAL] Lurasidone [Latuda] 40 mg PO HS 12/15/20 12/15/20 Rosuvastatin Calcium [Crestor] 20 mg PO DAILY 12/15/20 12/15/20 atenoloL [Tenormin] 25 mg PO DAILY 12/15/20 12/15/20 buPROPion HCL [Wellbutrin XL] 300 mg PO DAILY 12/15/20 12/15/20 Allergies Allergy/AdvReac Type Severity Reaction Status Date / Time ketorolac tromethamine Allergy Severe rash,bliste Verified 12/15/20 18:26 [From Toradol] rs prochlorperazine edisylate Allergy Severe Dyspnea Verified 12/15/20 18:26 [From Compazine] prochlorperazine maleate Allergy Severe Dyspnea Verified 12/15/20 18:26 [From Compazine] promethazine HCl Allergy Severe hives, Verified 12/15/20 18:26 [From Phenergan] jittery adhesive tape Allergy Severe BLISTERS Uncoded 01/01/20 11:06 Review of Systems ROS Statement: Those systems with pertinent positive or pertinent negative responses have been documented in the HPI. ROS Other: All systems not noted in ROS Statement are negative. Past Medical History Past Medical History: Asthma, Diabetes Mellitus, GERD/Reflux, Hypertension, Supraventricular Tachycardia (SVT) Additional Past Medical History / Comment(s): SVT- CARDIAC ABLATION CORRECTED IT , MIGRAINE HEADACHES History of Any Multi-Drug Resistant Organisms: None Reported Past Surgical History: Cardiac Ablation, Hernia Repair, Tonsillectomy, Tubal Ligation, Uterine Ablation Additional Past Surgical History / Comment(s): CARDIAC ABLATION X2, CERVIX SURGERY Past Anesthesia/Blood Transfusion Reactions: Postoperative Nausea & Vomiting (PONV) Past Psychological History: Anxiety, Depression Smoking Status: Never smoker Past Alcohol Use History: None Reported Past Drug Use History: None Reported - Past Family History Father Family Medical History: Cancer, Pulmonary Embolus Mother Family Medical History: Cancer Sister(s) Family Medical History: Cancer General Exam - General Exam Comments Initial Comments: Constitutional: Awake alert Appears comfortable Head: Normocephalic atraumatic Eyes: no conjunctival injection No scleral icterus EOMI Neck: No JVD Supple Heart: Regular rate rhythm normal S1-S2 no murmurs Lungs: Clear to auscultation bilaterally No wheezing No rales Abdomen: Soft nondistended tenderness in the right upper quadrant epigastric region without rebound or guarding Extremities: Non edematous DP pulses intact Radial pulses intact Neuro: A&Ox3 No focal neurologic deficits Psych: Appropriate mood and affect Limitations: no limitations Course Vital Signs 12/15/20 12/15/20 12/15/20 16:44 16:50 17:50 Temperature 99.3 F Pulse Rate 108 H Respiratory 18 18 18 Rate Blood Pressure 150/101 O2 Sat by Pulse 95 Oximetry 12/15/20 19:45 Temperature Pulse Rate 104 H Respiratory 18 Rate Blood Pressure 139/95 O2 Sat by Pulse Oximetry EKG Findings - EKG Comments: EKG Findings:: EKG showing sinus tachycardia with a rate of 111. No abnormal ST 7 changes or T-wave inversions. QTC is 151. Other intervals normal. No ectopy. Medical Decision Making - Medical Decision Making This is a 35 year old female who presents emergency department for epigastric abdominal pain. The patient was quite uncomfortable on arrival to the emergency department. She was tender in the epigastric and right upper quadrant regions.. This may represent her pancreatitis. Ultrasound and blood work was performed that was unremarkable. Patient required another dose of morphine and I tried some Pepcid at the same time. This did not seem to improve her symptoms very much. She was still quite tender on reexam. A computed tomography scan was performed that did not reveal any acute abnormalities. At this time I do not have a good etiology for the patient's symptoms however she continues to have quite a bit of abdominal pain. Going to keep her in observation for further evaluation by GI. Dr. Peña except the patient for admission. - Lab Data Result diagrams: 12/15/20 17:58 12/15/20 17:58 Lab Results 12/15/20 12/15/20 12/15/20 Range/Units 17:58 17:58 17:58 WBC 9.5 (3.8-10.6) k/uL RBC 5.31 (3.80-5.40) m/uL Hgb 15.6 (11.4-16.0) gm/dL Hct 44.0 (34.0-46.0) % MCV 82.9 (80.0-100.0) fL MCH 29.4 (25.0-35.0) pg MCHC 35.4 (31.0-37.0) g/dL RDW 13.3 (11.5-15.5) % Plt Count 299 (150-450) k/uL MPV 10.7 Neutrophils % 78 % Lymphocytes % 12 % Monocytes % 6 % Eosinophils % 2 % Basophils % 0 % Neutrophils # 7.4 (1.3-7.7) k/uL Lymphocytes # 1.2 (1.0-4.8) k/uL Monocytes # 0.6 (0-1.0) k/uL Eosinophils # 0.2 (0-0.7) k/uL Basophils # 0.0 (0-0.2) k/uL PT 11.0 (9.0-12.0) sec INR 1.0 (<1.2) APTT 18.3 L (22.0-30.0) sec D-Dimer (<0.60) mg/L FEU Sodium 137 (137-145) mmol/L Potassium 4.5 (3.5-5.1) mmol/L Chloride 103 (98-107) mmol/L Carbon Dioxide 23 (22-30) mmol/L Anion Gap 11 mmol/L BUN 10 (7-17) mg/dL Creatinine 0.66 (0.52-1.04) mg/dL Est GFR (CKD-EPI)AfAm >90 (>60 ml/min/1.73 sqM) Est GFR (CKD-EPI)NonAf >90 (>60 ml/min/1.73 sqM) Glucose 127 H (74-99) mg/dL Calcium 9.9 (8.4-10.2) mg/dL Magnesium 1.6 (1.6-2.3) mg/dL Total Bilirubin 0.6 (0.2-1.3) mg/dL AST 36 (14-36) U/L ALT 40 H (4-34) U/L Alkaline Phosphatase 78 (38-126) U/L Troponin I (0.000-0.034) ng/mL Total Protein 7.6 (6.3-8.2) g/dL Albumin 4.7 (3.5-5.0) g/dL Amylase 45 (30-110) U/L Lipase 95 (23-300) U/L HCG, Qual Urine Color Urine Appearance (Clear) Urine pH (5.0-8.0) Ur Specific [place] (1.001-1.035) Urine Protein (Negative) Urine Glucose (UA) (Negative) Urine Ketones (Negative) Urine Blood (Negative) Urine Nitrite (Negative) Urine Bilirubin (Negative) Urine Urobilinogen (<2.0) mg/dL Ur Leukocyte Esterase (Negative) 12/15/20 12/15/20 12/15/20 Range/Units 17:58 19:31 21:36 WBC (3.8-10.6) k/uL RBC (3.80-5.40) m/uL Hgb (11.4-16.0) gm/dL Hct (34.0-46.0) % MCV (80.0-100.0) fL MCH (25.0-35.0) pg MCHC (31.0-37.0) g/dL RDW (11.5-15.5) % Plt Count (150-450) k/uL MPV Neutrophils % % Lymphocytes % % Monocytes % % Eosinophils % % Basophils % % Neutrophils # (1.3-7.7) k/uL Lymphocytes # (1.0-4.8) k/uL Monocytes # (0-1.0) k/uL Eosinophils # (0-0.7) k/uL Basophils # (0-0.2) k/uL PT (9.0-12.0) sec INR (<1.2) APTT (22.0-30.0) sec D-Dimer 0.47 (<0.60) mg/L FEU Sodium (137-145) mmol/L Potassium (3.5-5.1) mmol/L Chloride (98-107) mmol/L Carbon Dioxide (22-30) mmol/L Anion Gap mmol/L BUN (7-17) mg/dL Creatinine (0.52-1.04) mg/dL Est GFR (CKD-EPI)AfAm (>60 ml/min/1.73 sqM) Est GFR (CKD-EPI)NonAf (>60 ml/min/1.73 sqM) Glucose (74-99) mg/dL Calcium (8.4-10.2) mg/dL Magnesium (1.6-2.3) mg/dL Total Bilirubin (0.2-1.3) mg/dL AST (14-36) U/L ALT (4-34) U/L Alkaline Phosphatase (38-126) U/L Troponin I <0.012 (0.000-0.034) ng/mL Total Protein (6.3-8.2) g/dL Albumin (3.5-5.0) g/dL Amylase (30-110) U/L Lipase (23-300) U/L HCG, Qual Urine Color Yellow Urine Appearance Clear (Clear) Urine pH 5.5 (5.0-8.0) Ur Specific [place] 1.024 (1.001-1.035) Urine Protein Trace H (Negative) Urine Glucose (UA) Negative (Negative) Urine Ketones 1+ H (Negative) Urine Blood Negative (Negative) Urine Nitrite Negative (Negative) Urine Bilirubin Negative (Negative) Urine Urobilinogen <2.0 (<2.0) mg/dL Ur Leukocyte Esterase Negative (Negative) 12/15/20 Range/Units 21:36 WBC (3.8-10.6) k/uL RBC (3.80-5.40) m/uL Hgb (11.4-16.0) gm/dL Hct (34.0-46.0) % MCV (80.0-100.0) fL MCH (25.0-35.0) pg MCHC (31.0-37.0) g/dL RDW (11.5-15.5) % Plt Count (150-450) k/uL MPV Neutrophils % % Lymphocytes % % Monocytes % % Eosinophils % % Basophils % % Neutrophils # (1.3-7.7) k/uL Lymphocytes # (1.0-4.8) k/uL Monocytes # (0-1.0) k/uL Eosinophils # (0-0.7) k/uL Basophils # (0-0.2) k/uL PT (9.0-12.0) sec INR (<1.2) APTT (22.0-30.0) sec D-Dimer (<0.60) mg/L FEU Sodium (137-145) mmol/L Potassium (3.5-5.1) mmol/L Chloride (98-107) mmol/L Carbon Dioxide (22-30) mmol/L Anion Gap mmol/L BUN (7-17) mg/dL Creatinine (0.52-1.04) mg/dL Est GFR (CKD-EPI)AfAm (>60 ml/min/1.73 sqM) Est GFR (CKD-EPI)NonAf (>60 ml/min/1.73 sqM) Glucose (74-99) mg/dL Calcium (8.4-10.2) mg/dL Magnesium (1.6-2.3) mg/dL Total Bilirubin (0.2-1.3) mg/dL AST (14-36) U/L ALT (4-34) U/L Alkaline Phosphatase (38-126) U/L Troponin I (0.000-0.034) ng/mL Total Protein (6.3-8.2) g/dL Albumin (3.5-5.0) g/dL Amylase (30-110) U/L Lipase (23-300) U/L HCG, Qual Not Detected Urine Color Urine Appearance (Clear) Urine pH (5.0-8.0) Ur Specific [place] (1.001-1.035) Urine Protein (Negative) Urine Glucose (UA) (Negative) Urine Ketones (Negative) Urine Blood (Negative) Urine Nitrite (Negative) Urine Bilirubin (Negative) Urine Urobilinogen (<2.0) mg/dL Ur Leukocyte Esterase (Negative) Disposition Clinical Impression: Epigastric pain Disposition: ADMITTED IP TO THIS [facility] Condition: Stable Referrals: America Tijerina MD [Primary Care Provider] - 1-2 days
[2020-12-15 18:12] LABS: ALT 40 U/L (4-34); AST 36 U/L (14-36); African American GFR (CKD) >90 (>60 ml/min/1.73 sqM); Albumin 4.7 g/dL (3.5-5.0); Alkaline Phosphatase 78 U/L (38-126); Amylase 45 U/L (30-110); Anion Gap 11 mmol/L; Blood Urea Nitrogen 10 mg/dL (7-17); Calcium 9.9 mg/dL (8.4-10.2); Carbon Dioxide 23 mmol/L (22-30); Chloride 103 mmol/L (98-107); Glucose 127 mg/dL (74-99); Lipase 95 U/L (23-300); Magnesium 1.6 mg/dL (1.6-2.3); Non-African American GFR(CKD) >90 (>60 ml/min/1.73 sqM); Potassium 4.5 mmol/L (3.5-5.1); Sodium 137 mmol/L (137-145); Total Bilirubin 0.6 mg/dL (0.2-1.3); Total Protein 7.6 g/dL (6.3-8.2)
[2020-12-15 18:23] LABS: Partial Thromboplastin Time 18.3 sec (22.0-30.0)
[2020-12-15 18:30] LABS: Basophils % (A) 0 %; Eosinophils # (A) 0.2 k/uL (0-0.7); Eosinophils % (A) 2 %; HGB 15.6 gm/dL (11.4-16.0); Lymphocytes # (A) 1.2 k/uL (1.0-4.8); Lymphocytes % (A) 12 %; MCH 29.4 pg (25.0-35.0); MCHC 35.4 g/dL (31.0-37.0); MCV 82.9 fL (80.0-100.0); Mean Platelet Volume 10.7; Monocytes # (A) 0.6 k/uL (0-1.0); Monocytes % (A) 6 %; Neutrophils # (A) 7.4 k/uL (1.3-7.7); Neutrophils % (A) 78 %; Platelet Count 299 k/uL (150-450); RBC 5.31 m/uL (3.80-5.40); RDW 13.3 % (11.5-15.5); WBC 9.5 k/uL (3.8-10.6)
--- NOTE | 2020-12-15 18:36 | XR ---
EXAMINATION TYPE: XR chest 1V portable DATE OF EXAM: 12/15/2020 COMPARISON: 07/21/2019. HISTORY: Right-sided chest pain. TECHNIQUE: Single frontal view of the chest is obtained. FINDINGS: There is no focal air space opacity, pleural effusion, or pneumothorax seen. The cardiac silhouette size is within normal limits. The osseous structures are intact. IMPRESSION: No acute process.
[2020-12-15] MEDS ORDERED: FAMOTIDINE 20 MG/2 ML VIAL IV STA (19:33)
--- NOTE | 2020-12-15 20:30 | US ---
EXAMINATION TYPE: US abdomen limited DATE OF EXAM: 12/15/2020 COMPARISON: NONE CLINICAL HISTORY: RUQ pain. EXAM MEASUREMENTS: Liver Length: 16.1cm Gallbladder Wall: 0.3 cm CBD: 0.3 cm Right Kidney: 13.1 x 4.8 x 5.1 cm Patient of large body habitus. Pancreas: Somewhat obscured by bowel gas, portions visualized wnl Liver: wnl, as seen somewhat limited visualization Gallbladder: wnl Evidence for sonographic Edge's sign: patient very tender CBD: wnl Right Kidney: measures large IMPRESSION: No definite sonographic evidence for acute abnormality or cholelithiasis.
--- NOTE | 2020-12-15 21:36 | CT ---
EXAMINATION TYPE: CT abdomen pelvis w con DATE OF EXAM: 12/15/2020 COMPARISON: Same-day ultrasound. HISTORY: epigastric pain CT DLP: 1686.3 mGycm Automated exposure control for dose reduction was used. TECHNIQUE: Helical acquisition of images was performed from the lung bases through the pelvis. CONTRAST: Performed without Oral Contrast and with IV Contrast, patient injected with 100 mL of Isovue 300. FINDINGS: LUNG BASES: Mild lingula atelectasis. Otherwise no acute abnormality is appreciated. LIVER/GB: No significant abnormality is appreciated. PANCREAS: No significant abnormality is seen. SPLEEN: No significant abnormality is seen. ADRENALS: No significant abnormality is seen. KIDNEYS: No significant abnormality is seen. FREE AIR: No free air is visualized. RETROPERITONEAL ADENOPATHY: None visualized REPRODUCTIVE ORGANS: No significant abnormality is seen URINARY BLADDER: No significant abnormality is seen. PELVIC ADENOPATHY: None visualized. OSSEOUS STRUCTURES: No significant abnormality is seen. BOWEL: No significant abnormality is seen. OTHER: None IMPRESSION: NO DEFINITE ACUTE ABNORMALITY.
[2020-12-15] MEDS ORDERED: MAG HYDROX/AL HYDROX/SIMETH 30 ML, HYOSCYAMINE ELIXIR 10 ML, LIDOCAINE VISCOUS 2% 10 ML PO STA ×3 (21:46)
[2020-12-15 21:58] LABS: Appearance,Urine Clear (Clear); Bilirubin,Urine Negative (Negative); Blood,Urine Negative (Negative); Color,Urine Yellow; Glucose,Urine (UA) Negative (Negative); Ketones,Urine 1+ (Negative); Leukocyte Esterase,Urine Negative (Negative); Nitrite,Urine Negative (Negative); PH, Urine 5.5 (5.0-8.0); Protein,Urine Trace (Negative); Specific Gravity,Urine 1.024 (1.001-1.035); Urobilinogen,Urine <2.0 mg/dL (<2.0)
[2020-12-15] MEDS ORDERED: ACETAMINOPHEN TAB 325 MG TAB PO PRN (22:06)
[2020-12-15] MEDS ORDERED: NALOXONE 0.4 MG/ML 1 ML VIAL IV PRN (22:06)
[2020-12-15] MEDS: SODIUM CHLORIDE 0.9% 1,000 ML IV SCH (22:51)
[2020-12-15] MEDS: MORPHINE SULFATE 4 MG/ML SYRINGE IV PRN (23:35)
[2020-12-16] MEDS ORDERED: ALBUTEROL NEBULIZED 2.5 MG/3 ML INHALATION PRN (00:37)
[2020-12-16] MEDS ORDERED: ALBUTEROL HFA INHALER INHALATION PRN (00:37)
[2020-12-16] MEDS: ONDANSETRON 4 MG/2 ML VIAL IVP PRN ×3 (01:22→14:46)
[2020-12-16 01:23] LABS: Glucose,Whole Blood 131 mg/dL (75-99)
[2020-12-16] MEDS: MORPHINE SULFATE 4 MG/ML SYRINGE IV PRN ×5 (02:35→20:09)
[2020-12-16 06:04] LABS: Basophils % (A) 1 %; Eosinophils # (A) 0.2 k/uL (0-0.7); Eosinophils % (A) 3 %; HGB 12.7 gm/dL (11.4-16.0); Lymphocytes # (A) 2.1 k/uL (1.0-4.8); Lymphocytes % (A) 25 %; MCH 27.9 pg (25.0-35.0); MCHC 32.4 g/dL (31.0-37.0); MCV 85.9 fL (80.0-100.0); Mean Platelet Volume 8.2; Monocytes # (A) 0.7 k/uL (0-1.0); Monocytes % (A) 8 %; Neutrophils % (A) 61 %; Platelet Count 270 k/uL (150-450); RBC 4.54 m/uL (3.80-5.40); RDW 12.8 % (11.5-15.5); WBC 8.2 k/uL (3.8-10.6)
[2020-12-16 06:16] LABS: ALT 37 U/L (4-34); AST 35 U/L (14-36); African American GFR (CKD) >90 (>60 ml/min/1.73 sqM); Albumin 3.7 g/dL (3.5-5.0); Alkaline Phosphatase 60 U/L (38-126); Anion Gap 8 mmol/L; Blood Urea Nitrogen 8 mg/dL (7-17); Carbon Dioxide 23 mmol/L (22-30); Chloride 105 mmol/L (98-107); Glucose 120 mg/dL (74-99); Non-African American GFR(CKD) >90 (>60 ml/min/1.73 sqM); Potassium 3.6 mmol/L (3.5-5.1); Sodium 136 mmol/L (137-145); Total Bilirubin 0.4 mg/dL (0.2-1.3); Total Protein 6.3 g/dL (6.3-8.2)
[2020-12-16 06:39] LABS: Glucose,Whole Blood 120 mg/dL (75-99)
[2020-12-16] MEDS: INSULIN ASPART (NovoLOG) 100 UNIT/ML VIAL SQ SCH ×4 (06:40→20:27)
[2020-12-16] MEDS: SODIUM CHLORIDE 0.9% 1,000 ML IV SCH ×3 (06:40→20:00)
[2020-12-16] MEDS: LORazepam 1 MG TAB PO PRN ×2 (08:19→20:14)
[2020-12-16] MEDS: atenoloL 25 MG TAB PO SCH (08:19)
[2020-12-16] MEDS: buPROPion XL 150 MG TAB.ER.24H PO SCH (08:20)
[2020-12-16] MEDS: ATORVASTATIN 40 MG TAB PO SCH (08:20)
[2020-12-16] MEDS: FENOFIBRATE 54 MG TAB PO SCH ×2 (08:21→20:14)
[2020-12-16] MEDS ORDERED: buPROPion XL 300 MG TAB.ER.24H PO SCH (09:00)
--- NOTE | 2020-12-16 10:22 | P.HPIM ---
History of Present Illness 35-year-old female came in with complains of epigastric abdominal pain along with nausea vomiting as will his diarrhea was started on Tuesday. Patient denied any fever patient denied any flulike symptoms. Patient the nausea did im prove patient diarrhea resolved and didn't have any diarrhea since last night. Patient did have history of hepatitis in the past patient present lipase is within normal limits. Patient had a CT of the abdomen and ultrasound of the abdomen which did not show any significant abnormality no cholelithiasis patient's abdominal pain is mostly on the right side crampy in nature moderate severity. REVIEW OF SYSTEMS: CONSTITUTIONAL: No fever, no malaise, no fatigue. HEENT: No recent visual problems or hearing problems. Denied any sore throat. CARDIOVASCULAR: No chest pain, orthopnea, PND, no palpitations, no syncope. PULMONARY: No shortness of breath, no cough, no hemoptysis. GASTROINTESTINAL: As mentioned in HPI NEUROLOGICAL: No headaches, no weakness, no numbness. HEMATOLOGICAL: Denies any bleeding or petechiae. GENITOURINARY: Denies any burning micturition, frequency, or urgency. MUSCULOSKELETAL/RHEUMATOLOGICAL: Denies any joint pain, swelling, or any muscle pain. ENDOCRINE: Denies any polyuria or polydipsia. The rest of the 14-point review of systems is negative. PHYSICAL EXAMINATION: GENERAL: The patient is alert and oriented x3, not in any acute distress. Well developed, well nourished. HEENT: Pupils are round and equally reacting to light. EOMI. No scleral icterus. No conjunctival pallor. Normocephalic, atraumatic. No pharyngeal erythema. No thyromegaly. CARDIOVASCULAR: S1 and S2 present. No murmurs, rubs, or gallops. PULMONARY: Chest is clear to auscultation, no wheezing or crackles. ABDOMEN: Soft, mild tenderness on the right side of the abdomen, nondistended, normoactive bowel sounds. No palpable organomegaly. MUSCULOSKELETAL: No joint swelling or deformity. EXTREMITIES: No cyanosis, clubbing, or pedal edema. NEUROLOGICAL: Gross neurological examination did not reveal any focal deficits. SKIN: No rashes. Assessment and plan -Abdominal pain: Most probably secondary to gastroenteritis or gastritis continued with Protonix patient will be started on clear liquid diet advance as tolerated. Gastric body was consulted from ER -Tachycardia secondary to intravascular depletion and dehydration with nausea vomiting and diarrhea patient will be continued on IV fluids patient was receiving 1 30 mL/h which will cut down 200s is proud -Asthma without any acute exacerbation and stent-type 2 diabetes mellitus hold off on her home regimen patient will be deciding scale insulin -Gastric esophageal reflux disease -History of for suprapubic tachycardia -Hypertension -Depression DVT prophylaxis: Early ambulation Past Medical History Past Medical History: Asthma, Diabetes Mellitus, GERD/Reflux, Hypertension, Supraventricular Tachycardia (SVT) Additional Past Medical History / Comment(s): SVT- CARDIAC ABLATION CORRECTED IT , MIGRAINE HEADACHES, pancreatitis, 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 COVID in 2020. History of Any Multi-Drug Resistant Organisms: None Reported Past Surgical History: Cardiac Ablation, Hernia Repair, Tonsillectomy, Tubal Ligation, Uterine Ablation Additional Past Surgical History / Comment(s): CARDIAC ABLATION X2, CERVIX SURGERY. Past Anesthesia/Blood Transfusion Reactions: Postoperative Nausea & Vomiting (PONV) Past Psychological History: Anxiety, Depression Smoking Status: Never smoker Past Alcohol Use History: None Reported Past Drug Use History: None Reported - Past Family History Father Family Medical History: Cancer, Pulmonary Embolus Mother Family Medical History: Cancer Sister(s) Family Medical History: Cancer Medications and Allergies Home Medications Medication Instructions Recorded Confirmed Type LORazepam [Ativan] 1 mg PO TID PRN 09/05/14 12/15/20 History Omeprazole [PriLOSEC] 20 mg PO DAILY 09/05/14 12/15/20 History Ondansetron HCl [Zofran] 8 mg PO Q12HR PRN 09/05/14 12/15/20 History buPROPion HCL [Wellbutrin XL] 150 mg PO DAILY 09/05/14 12/15/20 History sitaGLIPtin PHOS/metFORMIN HCL 1 tab PO BID 01/01/20 12/15/20 History [Janumet 50-1,000 mg Tablet] Albuterol Nebulized [Ventolin 2.5 mg INHALATION RT-Q6H PRN 12/15/20 12/15/20 History Nebulized] Albuterol Sulfate [Ventolin HFA] 2 puff INHALATION RT-QID PRN 12/15/20 12/15/20 History Fenofibrate Nanocrystallized 48 mg PO BID 12/15/20 12/15/20 History [Fenofibrate] Insulin Glargine,Hum.rec.anlog 10 unit SQ HS 12/15/20 12/15/20 History [Basaglar Michellepen U-100] Insuln Asp Prt/Insulin Aspart See Protocol SQ AC-TID PRN 12/15/20 12/15/20 Histo ry [NovoLOG MIX 70-30 VIAL] Lurasidone [Latuda] 40 mg PO HS 12/15/20 12/15/20 History Rosuvastatin Calcium [Crestor] 20 mg PO DAILY 12/15/20 12/15/20 History atenoloL [Tenormin] 25 mg PO DAILY 12/15/20 12/15/20 History buPROPion HCL [Wellbutrin XL] 300 mg PO DAILY 12/15/20 12/15/20 History Allergies Allergy/AdvReac Type Severity Reaction Status Date / Time ketorolac tromethamine Allergy Severe rash,bliste Verified 12/16/20 01:38 [From Toradol] rs prochlorperazine edisylate Allergy Severe Dyspnea Verified 12/16/20 01:38 [From Compazine] prochlorperazine maleate Allergy Severe Dyspnea Verified 12/16/20 01:38 [From Compazine] promethazine HCl Allergy Severe hives, Verified 12/16/20 01:38 [From Phenergan] jittery adhesive tape Allergy Severe BLISTERS Uncoded 12/16/20 01:38 Physical Exam Vitals: Vital Signs Temp Pulse Pulse Resp BP BP Pulse Ox 12/16/20 07:55 98.0 F 89 16 122/76 94 L 12/16/20 01:04 98.1 F 91 18 138/93 95 12/15/20 22:46 98.2 F 101 H 20 137/95 95 12/15/20 19:45 104 H 18 139/95 12/15/20 17:50 18 12/15/20 16:50 18 12/15/20 16:44 99.3 F 108 H 18 150/101 95 Intake and Output 12/15/20 12/16/20 12/16/20 22:59 06:59 14:59 Other: Voiding Method Toilet # Voids 2 Weight 106.141 kg 107.1 kg Results CBC & Chem 7: 12/16/20 05:34 12/16/20 05:34 Labs: Abnormal Lab Results - Last 24 Hours (Table) 12/15/20 12/15/20 12/15/20 Range/Units 17:58 17:58 21:36 APTT 18.3 L (22.0-30.0) sec Sodium (137-145) mmol/L Glucose 127 H (74-99) mg/dL POC Glucose (mg/dL) (75-99) mg/dL ALT 40 H (4-34) U/L Urine Protein Trace H (Negative) Urine Ketones 1+ H (Negative) 12/16/20 12/16/20 12/16/20 Range/Units 01:20 05:34 06:37 APTT (22.0-30.0) sec Sodium 136 L (137-145) mmol/L Glucose 120 H (74-99) mg/dL POC Glucose (mg/dL) 131 H 120 H (75-99) mg/dL ALT 37 H (4-34) U/L Urine Protein (Negative) Urine Ketones (Negative) Thrombosis Risk Factor Assmnt - Choose All That Apply Each Factor Represents 1 point: Obesity (BMI >25), Swollen legs (current) Other Risk Factors: Yes Each Risk Factor Represents 3 Points: Family history of DVT/PE Other congenital or acquired thrombophilia - If yes, enter type in comment: No Thrombosis Risk Factor Assessment Total Risk Factor Score: 5 Thrombosis Risk Factor Assessment Level: High Risk
[2020-12-16] MEDS: PANTOPRAZOLE 40 MG/10 ML VIAL IVP SCH ×2 (10:27→20:14)
[2020-12-16 12:24] LABS: Glucose,Whole Blood 123 mg/dL (75-99)
[2020-12-16] MEDS ORDERED: INSULIN ASPART (NovoLOG) 100 UNIT/ML VIAL SQ SCH (12:30)
[2020-12-16 14:43] LABS: Hemoglobin A1C 6.9 % (4.0-6.0)
[2020-12-16] MEDS ORDERED: LACTATED RINGERS 1,000 ML IV SCH (16:00)
--- NOTE | 2020-12-16 17:23 | P.CONS ---
History of Present Illness - Reason for Consult Consult date: 12/16/20 Epigastric pain Requesting physician: Samson Balderrama - Chief Complaint Epigastric pain - History of Present Illness This is a 35-year-old white female who presented to the emergency department yesterday with complaints of epigastric pain associated with nausea, vomiting an d diarrhea that began on Tuesday. She has a past medical history of diabetes mellitus, hypertension and hyperlipidemia. Patient states she does have a history of acid reflux and has been on omeprazole which was recently increased to twice a day. She denies any regular NSAID use. Denies any previous history of peptic ulcer disease. She does have a history of an EGD for dysphagia done in January 2020 by with findings of antral gastritis and retained gastric food in the stomach. Patient denies any history of diabetic gastroparesis. She does state that she was hospitalized in June of this year for coping pneumonia was transferred down to [place], she was also diagnosed with pancreatitis at that time related to high triglycerides in the 13,000. Patient states she still having epigastric discomfort, no further vomiting but some mild nausea. States diarrhea has improved. Last time she had diarrhea was yesterday. States she was having diarrhea up to 8 times a day and noted it to be very dark. She denies any hematemesis or coffee-ground emesis. Labs are unremarkable. WBC 8.2 hemoglobin 12.7 hematocrit 39 platelet count 270,000 INR 1.0 BUN 8 creatinine 0.7 total bilirubin 0.4 AST 35 AST 37 alkaline phosphatase 60 amylase 45 lipase 95. Patient has been afebrile. Abdominal pain improving some. Review of Systems REVIEW OF SYSTEMS: CARDIOPULMONARY: No chest pain or shortness of breath. Gastrointestinal: Epigastric pain associated with nausea and vomiting. No hematemesis, coffee-ground emesis. No rectal bleeding, or melena. Diarrhea, reportedly dark. GENITOURINARY: No dysuria or hematuria. MUSCULOSKELETAL: Reports normal range of motion., Joint pain. SKIN: No rashes. No jaundice. ENDOCRINE: No chills, fevers. No excessive weight gain or loss. No polydipsia or polyuria. PSYCHIATRIC: Unremarkable. NEUROLOGY: No change in mental status. Denies dizziness, headache. ENT: Vision unremarkable. CONSTITUTIONAL: No recent weight loss. No fever, chills, night sweats. Past Medical History Past Medical History: Asthma, Diabetes Mellitus, GERD/Reflux, Hypertension, Supraventricular Tachycardia (SVT) Additional Past Medical History / Comment(s): SVT- CARDIAC ABLATION CORRECTED IT , MIGRAINE HEADACHES, pancreatitis, 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 COVID in 2020. History of Any Multi-Drug Resistant Organisms: None Reported Past Surgical History: Cardiac Ablation, Hernia Repair, Tonsillectomy, Tubal Ligation, Uterine Ablation Additional Past Surgical History / Comment(s): CARDIAC ABLATION X2, CERVIX SURGERY. Past Anesthesia/Blood Transfusion Reactions: Postoperative Nausea & Vomiting (PONV) Past Psychological History: Anxiety, Depression Smoking Status: Never smoker Past Alcohol Use History: None Reported Past Drug Use History: None Reported - Past Family History Father Family Medical History: Cancer, Pulmonary Embolus Mother Family Medical History: Cancer Sister(s) Family Medical History: Cancer Medications and Allergies Home Medications Medication Instructions Recorded Confirmed Type LORazepam [Ativan] 1 mg PO TID PRN 09/05/14 12/15/20 History Omeprazole [PriLOSEC] 20 mg PO DAILY 09/05/14 12/15/20 History Ondansetron HCl [Zofran] 8 mg PO Q12HR PRN 09/05/14 12/15/20 History buPROPion HCL [Wellbutrin XL] 150 mg PO DAILY 09/05/14 12/15/20 History sitaGLIPtin PHOS/metFORMIN HCL 1 tab PO BID 01/01/20 12/15/20 History [Janumet 50-1,000 mg Tablet] Albuterol Nebulized [Ventolin 2.5 mg INHALATION RT-Q6H PRN 12/15/20 12/15/20 History Nebulized] Albuterol Sulfate [Ventolin HFA] 2 puff INHALATION RT-QID PRN 12/15/20 12/15/20 History Fenofibrate Nanocrystallized 48 mg PO BID 12/15/20 12/15/20 History [Fenofibrate] Insulin Glargine,Hum.rec.anlog 10 unit SQ HS 12/15/20 12/15/20 History [Basaglar Kwikpen U-100] Insuln Asp Prt/Insulin Aspart See Protocol SQ AC-TID PRN 12/15/20 12/15/20 History [NovoLOG MIX 70-30 VIAL] Lurasidone [Latuda] 40 mg PO HS 12/15/20 12/15/20 History Rosuvastatin Calcium [Crestor] 20 mg PO DAILY 12/15/20 12/15/20 History atenoloL [Tenormin] 25 mg PO DAILY 12/15/20 12/15/20 History buPROPion HCL [Wellbutrin XL] 300 mg PO DAILY 12/15/20 12/15/20 History Allergies Allergy/AdvReac Type Severity Reaction Status Date / Time ketorolac tromethamine Allergy Severe rash,bliste Verified 12/16/20 01:38 [From Toradol] rs prochlorperazine edisylate Allergy Severe Dyspnea Verified 12/16/20 01:38 [From Compazine] prochlorperazine maleate Allergy Severe Dyspnea Verified 12/16/20 01:38 [From Compazine] promethazine HCl Allergy Severe hives, Verified 12/16/20 01:38 [From Phenergan] jittery adhesive tape Allergy Severe BLISTERS Uncoded 12/16/20 01:38 Physical Exam Vitals: Vital Signs Temp Pulse Pulse Resp BP BP Pulse Ox 12/16/20 07:55 98.0 F 89 16 122/76 94 L 12/16/20 01:04 98.1 F 91 18 138/93 95 12/15/20 22:46 98.2 F 101 H 20 137/95 95 12/15/20 19:45 104 H 18 139/95 12/15/20 17:50 18 12/15/20 16:50 18 12/15/20 16:44 99.3 F 108 H 18 150/101 95 Intake and Output 12/15/20 12/16/20 12/16/20 22:59 06:59 14:59 Other: Voiding Method Toilet # Voids 2 Weight 106.141 kg 107.1 kg General appearance: The patient is alert, oriented, appears in no acute distress. HET: Head is normocephalic and atraumatic. Conjunctiva pink. Sclera anicteric. Neck: Supple without lymphadenopathy. Trachea midline. Heart: S1 S2. Regular rate and rhythm. Lungs: Clear to auscultation. Abdomen: Soft, epigastric tenderness, nondistended with bowel sounds. No guarding or rigidity. Skin: No rashes. No jaundice. Extremities: Normal skin color and turgor. No pedal edema. Neurological: No focal deficits. Alert and oriented 3.. Results CBC & Chem 7: 12/16/20 05:34 12/16/20 05:34 Labs: Abnormal Lab Results - Last 24 Hours (Table) 12/15/20 12/15/20 12/15/20 Range/Units 17:58 17:58 21:36 APTT 18.3 L (22.0-30.0) sec Sodium (137-145) mmol/L Glucose 127 H (74-99) mg/dL POC Glucose (mg/dL) (75-99) mg/dL ALT 40 H (4-34) U/L Urine Protein Trace H (Negative) Urine Ketones 1+ H (Negative) 12/16/20 12/16/20 12/16/20 Range/Units 01:20 05:34 06:37 APTT (22.0-30.0) sec Sodium 136 L (137-145) mmol/L Glucose 120 H (74-99) mg/dL POC Glucose (mg/dL) 131 H 120 H (75-99) mg/dL ALT 37 H (4-34) U/L Urine Protein (Negative) Urine Ketones (Negative) Assessment and Plan (1) Epigastric pain Narrative/Plan: 35-year-old female who presented to the emergency department yesterday with complaints of epigastric pain associated with nausea vomiting and diarrhea since Tuesday. Patient states she was having up to 8 bowel movements a day which she reports as loose and dark. Denies any bright red blood. Denies any hematemesis or coffee-ground emesis. Patient does have a history of acid reflux and takes omeprazole which was recently increased to twice a day. She does have a history of diabetes mellitus, hypertension and hyperlipidemia. She's been afebrile with improvement in her nausea vomiting and diarrhea. Stool cultures have been ordered. He denies any recent traveling or sick contacts. She does have a history of EGD in January 2020 done by or dysphagia. Findings included antral gastritis and retained gastric food in the stomach. Patient denies any previous history of diabetic gastroparesis. Labs are unremarkable. Possible etiologies could include peptic ulcer disease, gastroparesis, gastritis or esophagitis. Will proceed with EGD tomorrow. Patient is agreeable with plan. Current Visit: Yes Status: Acute Code(s): R10.13 - EPIGASTRIC PAIN SNOMED Code(s): 12716013 Plan: 1. Patient may have full liquid diet, nothing by mouth after midnight 2. Protonix 40 mg twice a day 3. Antiemetics as needed 4. Stool cultures ordered 5. Will proceed with EGD tomorrow. Procedure discussed with patient in detail including risk and benefits. Patient is willing to proceed. Thank you for this consultation, we will continue to follow. Dr. Abhishek Austin I agree with the dictator's note, documented as a scribe by Aditi Lomeli.
[2020-12-16 17:44] LABS: Glucose,Whole Blood 101 mg/dL (75-99)
[2020-12-16 20:22] LABS: Glucose,Whole Blood 138 mg/dL (75-99)
[2020-12-16] MEDS ORDERED: LURASIDONE 40 MG TAB PO SCH (21:00)
[2020-12-16] MEDS ORDERED: INSULIN DETEMIR (LEVEMIR) 100 UNIT/ML SYR SQ SCH (21:00)
[2020-12-17] MEDS: ONDANSETRON 4 MG/2 ML VIAL IVP PRN ×3 (00:18→13:39)
[2020-12-17] MEDS: MORPHINE SULFATE 4 MG/ML SYRINGE IV PRN ×3 (00:21→09:22)
[2020-12-17] MEDS: PANTOPRAZOLE 40 MG/10 ML VIAL IVP SCH (05:26)
[2020-12-17] MEDS: SODIUM CHLORIDE 0.9% 1,000 ML IV SCH ×2 (05:26→11:02)
[2020-12-17 06:35] LABS: Glucose,Whole Blood 120 mg/dL (75-99)
[2020-12-17] MEDS: INSULIN ASPART (NovoLOG) 100 UNIT/ML VIAL SQ SCH ×2 (06:39→12:50)
[2020-12-17] MEDS: buPROPion XL 150 MG TAB.ER.24H PO SCH (08:18)
[2020-12-17] MEDS: ATORVASTATIN 40 MG TAB PO SCH (08:18)
[2020-12-17] MEDS: FENOFIBRATE 54 MG TAB PO SCH (08:19)
[2020-12-17] MEDS: atenoloL 25 MG TAB PO SCH (08:21)
[2020-12-17 11:03] LABS: Glucose,Whole Blood 122 mg/dL (75-99)
[2020-12-17] MEDS ORDERED: LACTATED RINGERS 1,000 ML IV SCH (11:30)
[2020-12-17] MEDS ORDERED: MIDAZOLAM 2 MG/2 ML VIAL ONE (11:55)
[2020-12-17] MEDS ORDERED: PROPOFOL 10 MG/ML 20 ML VIAL IV ONE (11:55)
[2020-12-17] MEDS ORDERED: KETAMINE 10 MG/ML 20 ML VIAL ONE (11:55)
[2020-12-17] MEDS ORDERED: LIDOCAINE 1% INJ 10MG/ML (20 ML MDV) ONE (11:55)
[2020-12-17] MEDS ORDERED: fentaNYL (PF) 50 MCG/ML 2 ML AMP ONE (11:55)
[2020-12-17] MEDS ORDERED: IV FLUID CONTINUATION 1,000 ML IV ONE (11:56)
--- NOTE | 2020-12-17 12:09 | P.PCN ---
Date of Procedure: 12/17/20 Procedure(s) Performed: BRIEF HISTORY: Patient is a [35-year-old, pleasant, white female scheduled for an upper endoscopy as a part of evaluation of acute onset of severe epigastric pain for the last 3-4 days duration associated with nausea vomiting.. PROCEDURE PERFORMED: Esophagogastroduodenoscopy with biopsy. PREOPERATIVE DIAGNOSIS: Epigastric pain/nausea vomiting. IV sedation per anesthesia. PROCEDURE: After informed consent was obtained, the patient was brought into the endoscopy unit. IV sedation was administered by Anesthesia under continuous monitoring. Initially the Olympus GIF-140 video endoscope was inserted into the mouth. Esophagus intubated without any difficulty. It was gradually advanced into the stomach and duodenum and carefully examined. The bulb and the second part of the duodenum appeared normal. The scope at this time was withdrawn to the stomach, adequately insufflated with air, and upon careful examination, mucosa of the antrum had mild diffuse gastritis and biopsies were done from this area. There were multiple polyps noted in the body and fundus of the stomach which were biopsied. The rest of the mucosa, body, cardia and the fundus appeared normal. The scope was then withdrawn into the esophagus. The GE junction was located at 39 cm from the incisors. The esophagus appeared normal. There were no erosions or ulcerations seen and the patient tolerated the procedure well. IMPRESSION: 1. Mild diffuse gastritis. 2. And multiple gastric polyps 3. No evidence of esophagitis or peptic ulcer disease,. RECOMMENDATIONS: The findings of this examination were discussed with the patient. She was advised to follow with the biopsy results. Continue with Protonix 40 mg daily and Zofran as needed. Advance diet as tolerated].
[2020-12-17 12:51] LABS: Glucose,Whole Blood 125 mg/dL (75-99)
--- NOTE | 2020-12-17 13:49 | P.DS ---
Providers Date of admission: 12/15/20 22:06 Attending physician: Sandra Peña Consults: 12/15/20 22:07 Consult Physician Routine Consulting Provider: Ernestine Austin Consult Reason/Comments: Epigastric pain Do you want consulting provider notified?: Yes, Notify in am Primary care physician: [facility] Course: 35-year-old female came in with complains of epigastric abdominal pain along with nausea vomiting as will his diarrhea was started on Tuesday. Patient denied any fever patient denied any flulike symptoms. Patient the nausea did improve patient diarrhea resolved and didn't have any diarrhea since last night. Patient did have history of hepatitis in the past patient present lipase is within normal limits. Patient had a CT of the abdomen and ultrasound of the abdomen which did not show any significant abnormality no cholelithiasis patient's abdominal pain is mostly on the right side crampy in nature moderate severity. 11/16/2020 Patient did undergo upper GI endoscopy which showed diffuse gastritis. If patient can tolerate the full liquid diet patient will be discharged today earlier today morning patient was still having abdominal discomfort and was still nauseous. Patient is presently on Protonix patient will be discharged on Protonix 40 g twice a day for about a month with follow-up with gastroneurology and PCP as outpatient. Patient had multiple gastric polyps as well. PHYSICAL EXAMINATION: GENERAL: The patient is alert and oriented x3, not in any acute distress. Well developed, well nourished. HEENT: Pupils are round and equally reacting to light. EOMI. No scleral icterus. No conjunctival pallor. Normocephalic, atraumatic. No pharyngeal erythema. No thyromegaly. CARDIOVASCULAR: S1 and S2 present. No murmurs, rubs, or gallops. PULMONARY: Chest is clear to auscultation, no wheezing or crackles. ABDOMEN: Soft, mild tenderness on the right side of the abdomen, nondistended, normoactive bowel sounds. No palpable organomegaly. MUSCULOSKELETAL: No joint swelling or deformity. EXTREMITIES: No cyanosis, clubbing, or pedal edema. NEUROLOGICAL: Gross neurological examination did not reveal any focal deficits. SKIN: No rashes. Assessment and plan -Abdominal pain: Continue to diffuse gastritis continue with Protonix upper GI endoscopy results as mentioned above no evidence of esophagitis -Tachycardia secondary to intravascular depletion and dehydration with nausea vomiting, improved now patient's IV fluids will be cut down and will be discontinued if she is being discharged -Asthma without any acute exacerbation -type 2 diabetes mellitus -Gastric esophageal reflux disease -History of for suprapubic tachycardia -Hypertension -Depression Patient Condition at Discharge: Stable Plan - Discharge Summary Discharge Rx Participant: No New Discharge Prescriptions: New Pantoprazole Sodium [Protonix] 40 mg PO BID #60 tab Continue Ondansetron HCl [Zofran] 8 mg PO Q12HR PRN PRN Reason: Nausea buPROPion HCL [Wellbutrin XL] 150 mg PO DAILY LORazepam [Ativan] 1 mg PO TID PRN PRN Reason: Anxiety sitaGLIPtin PHOS/metFORMIN HCL [Janumet 50-1,000 mg Tablet] 1 tab PO BID Rosuvastatin Calcium [Crestor] 20 mg PO DAILY Lurasidone [Latuda] 40 mg PO HS Fenofibrate Nanocrystallized [Fenofibrate] 48 mg PO BID Albuterol Sulfate [Ventolin HFA] 2 puff INHALATION RT-QID PRN PRN Reason: Shortness Of Breath Insuln Asp Prt/Insulin Aspart [NovoLOG MIX 70-30 VIAL] See Protocol SQ AC-TID PRN PRN Reason: high blood sugar buPROPion HCL [Wellbutrin XL] 300 mg PO DAILY atenoloL [Tenormin] 25 mg PO DAILY Insulin Glargine,Hum.rec.anlog [Basaglar Kwikpen U-100] 10 unit SQ HS Albuterol Nebulized [Ventolin Nebulized] 2.5 mg INHALATION RT-Q6H PRN PRN Reason: Shortness Of Breath Discontinued Omeprazole [PriLOSEC] 20 mg PO DAILY Discharge Medication List LORazepam [Ativan] 1 mg PO TID PRN 09/05/14 [History] Ondansetron HCl [Zofran] 8 mg PO Q12HR PRN 09/05/14 [History] buPROPion HCL [Wellbutrin XL] 150 mg PO DAILY 09/05/14 [History] sitaGLIPtin PHOS/metFORMIN HCL [Janumet 50-1,000 mg Tablet] 1 tab PO BID 01/01/20 [History] Albuterol Nebulized [Ventolin Nebulized] 2.5 mg INHALATION RT-Q6H PRN 12/15/20 [History] Albuterol Sulfate [Ventolin HFA] 2 puff INHALATION RT-QID PRN 12/15/20 [History] Fenofibrate Nanocrystallized [Fenofibrate] 48 mg PO BID 12/15/20 [History] Insulin Glargine,Hum.rec.anlog [Basaglar Kwikpen U-100] 10 unit SQ HS 12/15/20 [History] Insuln Asp Prt/Insulin Aspart [NovoLOG MIX 70-30 VIAL] See Protocol SQ AC-TID PRN 12/15/20 [History] Lurasidone [Latuda] 40 mg PO HS 12/15/20 [History] Rosuvastatin Calcium [Crestor] 20 mg PO DAILY 12/15/20 [History] atenoloL [Tenormin] 25 mg PO DAILY 12/15/20 [History] buPROPion HCL [Wellbutrin XL] 300 mg PO DAILY 12/15/20 [History] Pantoprazole Sodium [Protonix] 40 mg PO BID #60 tab 12/17/20 [Rx] Follow up Appointment(s)/Referral(s): America Tijerina MD [Primary Care Provider] - 3 Days
[2020-12-17 14:14] VITALS: BP 112/76; PULSE 78; RESP 20; TEMP 98.3
== END 2020-12-17 15:30 | disposition home or self-care (01) ==
LOC: EC 16:38 → 6NMEDSUR 22:06 → 6PED 23:33
PROVIDERS: ADMIT Hospitalist; ATTEND Hospitalist
DX: K29.70 Gastritis, unspecified, without bleeding (principal); K31.7 Polyp of stomach and duodenum; E86.9 Volume depletion, unspecified; E86.0 Dehydration; E11.9 Type 2 diabetes mellitus without complications; I10 Essential (primary) hypertension; J45.909 Unspecified asthma, uncomplicated; K21.9 Gastro-esophageal reflux disease without esophagitis; E78.5 Hyperlipidemia, unspecified; G43.909 Migraine, unspecified, not intractable, without status migrainosus; F32.9 Major depressive disorder, single episode, unspecified; F41.9 Anxiety disorder, unspecified; E66.9 Obesity, unspecified; Z68.39 Body mass index [BMI] 39.0-39.9, adult; Z20.822 Contact with and (suspected) exposure to COVID-19; Z79.4 Long term (current) use of insulin; Z79.899 Other long term (current) drug therapy; Z88.5 Allergy status to narcotic agent; Z88.8 Allergy status to other drugs, medicaments and biological substances; Z91.048 Other nonmedicinal substance allergy status; Z86.79 Personal history of other diseases of the circulatory system; Z98.51 Tubal ligation status; Z98.890 Other specified postprocedural states; Z80.9 Family history of malignant neoplasm, unspecified; Z82.49 Family history of ischemic heart disease and other diseases of the circulatory system
CPT/HCPCS: 96376 ×4; 96375 ×2; 96361; 96374; 99285; 36415; 93005; 85379; 88305; 80053 ×2; 82150; 83690; 83735; 84484; 85025 ×2; 85610; 85730; 81003; 88342; 84703; 87045; 87077; 87186; 87046; 83036; 87635; 71045; 76705; 74177; 43239; G0378 ×3; J2250; J2270 ×3; J2405 ×3; J2001; J3010; J2704; C9113 ×2; Q9967

== ENCOUNTER 2022-04-11 02:19 | Emergency (ER) | payer MEDICARE, OTHER ==
[2022-04-11] MEDS ORDERED: SODIUM CHLORIDE 0.9% 1,000 ML IV STA (02:27)
--- NOTE | 2022-04-11 02:27 | ED ---
Chest Pain HPI <Jeremy Jordan - Last Filed: 04/11/22 08:08> - General Source: patient, RN notes reviewed, old records reviewed Mode of arrival: ambulatory Limitations: no limitations - History of Present Illness MD Complaint: chest pain -: hour(s) Onset: during rest, after eating Pain Location: substernal Pain Radiation: none Severity: moderate Severity scale (1-10): 4 Quality: tightness, sharp Consistency: intermittent Improves With: nothing Worsens With: eating Anginal Symptoms: nausea Other Symptoms: palpitations Treatments Prior to Arrival: none <Jonathon Shay - Last Filed: 04/11/22 21:38> - General Chief Complaint: Chest Pain Stated Complaint: chest pain Time Seen by Provider: 04/11/22 02:27 - History of Present Illness Initial Comments: This is a 36-year-old female to the emergency department for evaluation today. Patient presents today for evaluation of chest pain and abdominal pain with indigestion. She has chest pain / abdominal pain tonight twice the second time more severe both times after eating. THese symptoms are worse and with nausea and vomiting. She has history of diabetes high blood pressureas well as SVT. Patient chest pain tonight was different patient believes it was more abdominal pain and epigastric pain with indigestion. Patient has no cough congestion shortness of breath, no travel history or sick contacts, no fevers (Jonathon Shay) - Related Data Home Medications Medication Instructions Recorded Confirmed LORazepam [Ativan] 1 mg PO TID PRN 09/05/14 12/15/20 Ondansetron HCl [Zofran] 8 mg PO Q12HR PRN 09/05/14 12/15/20 buPROPion HCL [Wellbutrin XL] 150 mg PO DAILY 09/05/14 12/15/20 sitaGLIPtin PHOS/metFORMIN HCL 1 tab PO BID 01/01/20 12/15/20 [Janumet 50-1,000 mg Tablet] Albuterol Nebulized [Ventolin 2.5 mg INHALATION RT-Q6H PRN 12/15/20 12/15/20 Nebulized] Albuterol Sulfate [Ventolin HFA] 2 puff INHALATION RT-QID PRN 12/15/20 12/15/20 Fenofibrate Nanocrystallized 48 mg PO BID 12/15/20 12/15/20 [Fenofibrate] Insulin Glargine,Hum.rec.anlog 10 unit SQ HS 12/15/20 12/15/20 [Basaglar Kwikpen U-100] Insuln Asp Prt/Insulin Aspart See Protocol SQ AC-TID PRN 12/15/20 12/15/20 [NovoLOG MIX 70-30 VIAL] Lurasidone [Latuda] 40 mg PO HS 12/15/20 12/15/20 Rosuvastatin Calcium [Crestor] 20 mg PO DAILY 12/15/20 12/15/20 atenoloL [Tenormin] 25 mg PO DAILY 12/15/20 12/15/20 buPROPion HCL [Wellbutrin XL] 300 mg PO DAILY 12/15/20 12/15/20 Previous Rx's Medication Instructions Recorded Ondansetron Odt [Zofran Odt] 4 mg PO Q8HR PRN #20 tab 12/17/20 Pantoprazole Sodium [Protonix] 40 mg PO BID #60 tab 12/17/20 Allergies Allergy/AdvReac Type Severity Reaction Status Date / Time ketorolac tromethamine Allergy Severe rash,bliste Verified 12/16/20 01:38 [From Toradol] rs prochlorperazine edisylate Allergy Severe Dyspnea Verified 12/16/20 01:38 [From Compazine] prochlorperazine maleate Allergy Severe Dyspnea Verified 12/16/20 01:38 [From Compazine] promethazine HCl Allergy Severe hives, Verified 12/16/20 01:38 [From Phenergan] jittery adhesive tape Allergy Severe BLISTERS Uncoded 12/16/20 01:38 Review of Systems ROS Other: All systems not noted in ROS Statement are negative. <Jeremy Jordan - Last Filed: 04/11/22 08:08> ROS Other: All systems not noted in ROS Statement are negative. <Jonathon Shay - Last Filed: 04/11/22 21:38> ROS Statement: Those systems with pertinent positive or pertinent negative responses have been documented in the HPI. EKG Findings - EKG Comments: EKG Findings:: EKG interpreted by me tachycardia 114 RI 173 QRS 101 QTC 380 <Jonathon Shay - Last Filed: 04/11/22 21:38> Past Medical History Past Medical History: Asthma, Diabetes Mellitus, GERD/Reflux, Hypertension, Supraventricular Tachycardia (SVT) Additional Past Medical History / Comment(s): SVT- CARDIAC ABLATION CORRECTED IT , MIGRAINE HEADACHES History of Any Multi-Drug Resistant Organisms: None Reported Past Surgical History: Cardiac Ablation, Hernia Repair, Tonsillectomy, Tubal Ligation, Uterine Ablation Additional Past Surgical History / Comment(s): CARDIAC ABLATION X2, CERVIX SURGERY Past Anesthesia/Blood Transfusion Reactions: Postoperative Nausea & Vomiting (PO NV) Past Psychological History: Anxiety, Depression Smoking Status: Never smoker Past Alcohol Use History: None Reported Past Drug Use History: None Reported - Past Family History Father Family Medical History: Cancer, Pulmonary Embolus Mother Family Medical History: Cancer Sister(s) Family Medical History: Cancer <Jonathon Shay Last Filed: 04/11/22 21:38> General Exam Limitations: no limitations General appearance: alert, in no apparent distress, anxious Head exam: Present: atraumatic, normocephalic, normal inspection Eye exam: Present: normal appearance, PERRL, EOMI. Absent: scleral icterus, conjunctival injection, periorbital swelling ENT exam: Present: normal exam, mucous membranes moist Neck exam: Present: normal inspection. Absent: tenderness, meningismus, lymphad enopathy Respiratory exam: Present: normal lung sounds bilaterally. Absent: respiratory distress, wheezes, rales, rhonchi, stridor Cardiovascular Exam: Present: normal rhythm, tachycardia, normal heart sounds. Absent: systolic murmur, diastolic murmur, rubs, gallop, clicks GI/Abdominal exam: Present: soft, normal bowel sounds. Absent: distended, tenderness, guarding, rebound, rigid Extremities exam: Present: normal inspection, full ROM, normal capillary refill. Absent: tenderness, pedal edema, joint swelling, calf tenderness Back exam: Present: normal inspection Neurological exam: Present: alert, oriented X3, CN II-XII intact Psychiatric exam: Present: normal affect, normal mood Skin exam: Present: warm, dry, intact, normal color. Absent: rash <Jonathon Shay Last Filed: 04/11/22 21:38> Course <Jonathon Shay Filed: 04/11/22 21:38> Vital Signs 04/11/22 04/11/22 04/11/22 02:22 02:54 06:59 Temperature 97.4 F L Pulse Rate 109 H 113 H 106 H Respiratory 18 16 18 Rate Blood Pressure 158/109 152/94 150/92 O2 Sat by Pulse 97 96 97 Oximetry 04/11/22 08:18 Temperature 98.6 F Pulse Rate 92 Respiratory 20 Rate Blood Pressure 130/95 O2 Sat by Pulse 98 Oximetry - Reevaluation(s) Reevaluation #1: 04/11/22 03:01 Medical record is reviewed (Jonathon Shay) Reevaluation #2: 04/11/22 05:02 patient symptoms are mildly improved after second dosing of medication (Jonathon Shay) Reevaluation #4: 04/11/22 03:02 Differential Chest Pain: Stable Angina, Unstable Angina, STEMI, NSTEMI Aortic Dissection, Pneumothorax, Musculoskeletal, Esophageal Spasm GERD, Cholecystitis, Pancreatitis, Zoster, this is not meant to be an all-inclusive list. (Jonathon Shay) Reevaluation #5: 04/11/22 03:02 Was pt. sent in by a medical professional or institution? @ -no Did you speak to anyone other than the patient for history? @ -no Did you review nursing and triage notes? @ -agree Were old charts reviewed? @ -no Differential Diagnosis? @ -prior EKG interpreted by me (3pts min.)? @ -yes X-rays interpreted by me (1pt min.)? @ -no CT interpreted by me (1pt min.)? @ -[none] U/S interpreted by me (1pt. min.)? @ -[none] What testing was considered but not performed? (CT, X-rays, U/S, labs)? Why? @ -no What meds were considered but not given? Why? @ -[none] Did you discuss the management of the patient with other professionals? @ -no Did you reconcile home meds? @ -[none] Was smoking cessation discussed for >3mins.? @ -[none] Was critical care preformed (if so, how long)? @ -[none] Were there social determinants of health that impacted care today? How? (Homelessness, low income, unemployed, alcoholism, drug addiction, transportation, low edu. Level, literacy, decrease access to med. care, mcc, rehab)? @ -no Was there de-escalation of care discussed even if they declined? (Discuss DNR or withdrawal of care, Hospice)? @ -no What co-morbidities impacted this encounter? (DM, HTN, Smoking, COPD, CAD, Cancer, CVA, Hep., AIDS, mental health diagnosis, sleep apnea, morbid obesity)? @ -no Was patient admitted / discharged? @ - Undiagnosed new problem with uncertain prognosis? @ -[none] Drug Therapy requiring intensive monitoring for toxicity (Heparin, Nitro, Insulin, Cardizem)? @ -[none] Were any procedures done? @ -[none] Diagnosis/symptom? @ -[default] Acute, or Chronic, or Acute on Chronic? @ -[default] Uncomplicated (without systemic symptoms) or Complicated (systemic symptoms)? @ -[default] Side effects of treatment? @ -[none] Exacerbation, Progression, or Severe Exacerbation] @ -[no] Poses a threat to life or bodily function? @ -[no] 04/11/22 05:02 (Jonathon Shay) Chest Pain MDM <Jeremy Jordan - Last Filed: 04/11/22 08:08> - MDM Patient was signed out to me pending results of gallbladder ultrasound as well as lipase and urinalysis. Patient presented for abdominal pain. Workup +5 was relatively unremarkable except for a slightly elevated lactic acid which improved following 1 L fluid bolus. Patient does have slightly elevated ALT as well. Troponin was undetectable. Lipase returned within normal limits. Gbariel arrington does have 4+ glucose in her urine but no evidence of DKA. She is only mildly hyperglycemic in the 200s. Remainder the labs are unremarkable. Gallbladder ultrasound was interpreted by myself and revealed no acute process. No evidence of cholecystitis or cholelithiasis. CT abdomen and pelvis as well as chest x-ray were interpreted by the prior physician as revealing no acute process. Patient does have ovarian cysts according to radiology. Chest x-ray showed no acute process either. Cardiac labs were undetectable and EKG showed sinus tachycardia. On reevaluation, patient's pain is improved. We discussed her workup. I believe it is safer to be discharged home. She was in agreement this plan. I did offer her home antimanic medications which she declined. Strict return precautions were discussed. We discussed that she falls under the category of diagnosis is abdominal pain of unknown etiology. I instructed the patient to follow up with their PCP in the next 1-3 days. I explained that the patient should return to the emergency department if they experience any worsening symptoms. Strict return precautions were discussed with the patient. The patient expressed understanding of these instructions. I answered all questions that the patient had. The patient was discharged home in good condition with their prescriptions and follow up information. Diagnosis/symptom? @ -Abdominal pain of unknown etiology Acute, or Chronic, or Acute on Chronic? @ -Acute Uncomplicated (without systemic symptoms) or Complicated (systemic symptoms)? @ -Uncomplicated Side effects of treatment? @ -none Exacerbation, Progression, or Severe Exacerbation] @ -no Poses a threat to life or bodily function? @ -no (Jeremy Jordan) Disposition Is patient prescribed a controlled substance at d/c from ED?: No Time of Disposition: 08:00 <Jeremy Jordan - Last Filed: 04/11/22 08:08> Is patient prescribed a controlled substance at d/c from ED?: No <Jonathon Shay - Last Filed: 04/11/22 21:38> Clinical Impression: Abdominal pain of unknown etiology, Epigastric pain, Abdominal pain, Atypical chest pain, Nausea and vomiting Disposition: HOME SELF-CARE Condition: Good Instructions (If sedation given, give patient instructions): Abdominal Pain (ED) Referrals: America Tijerina MD [Primary Care Provider] - 1-2 days
[2022-04-11] MEDS ORDERED: ONDANSETRON 4 MG/2 ML VIAL IVP STA (02:46)
[2022-04-11] MEDS ORDERED: MORPHINE SULFATE 4 MG/ML SYRINGE IVP STA (02:46)
[2022-04-11 02:52] LABS: Basophils # (A) 0.1 k/uL (0-0.2); Basophils % (A) 1 %; Eosinophils # (A) 0.2 k/uL (0-0.7); Eosinophils % (A) 2 %; HCT 41.2 % (34.0-46.0); HGB 14.2 gm/dL (11.4-16.0); Lymphocytes # (A) 2.4 k/uL (1.0-4.8); Lymphocytes % (A) 23 %; MCH 28.5 pg (25.0-35.0); MCHC 34.4 g/dL (31.0-37.0); MCV 82.8 fL (80.0-100.0); Mean Platelet Volume 8.6; Monocytes # (A) 0.5 k/uL (0-1.0); Monocytes % (A) 5 %; Neutrophils # (A) 6.9 k/uL (1.3-7.7); Neutrophils % (A) 67 %; Platelet Count 303 k/uL (150-450); RBC 4.98 m/uL (3.80-5.40); RDW 13.9 % (11.5-15.5); WBC 10.3 k/uL (3.8-10.6)
[2022-04-11 03:00] LABS: INR 0.9 (<1.2); Partial Thromboplastin Time 22.7 sec (22.0-30.0); Prothrombin Time 9.9 sec (9.0-12.0)
[2022-04-11 03:04] LABS: ALT 50 U/L (4-34); AST 36 U/L (14-36); African American GFR (CKD) >90 (>60 ml/min/1.73 sqM); Albumin 4.6 g/dL (3.5-5.0); Alkaline Phosphatase 72 U/L (38-126); Anion Gap 12 mmol/L; Blood Urea Nitrogen 11 mg/dL (7-17); Calcium 9.9 mg/dL (8.4-10.2); Carbon Dioxide 20 mmol/L (22-30); Chloride 106 mmol/L (98-107); Glucose 244 mg/dL (74-99); Magnesium 1.4 mg/dL (1.6-2.3); Non-African American GFR(CKD) >90 (>60 ml/min/1.73 sqM); Phosphorus 3.5 mg/dL (2.5-4.5); Sodium 138 mmol/L (137-145); Total Bilirubin 0.3 mg/dL (0.2-1.3); Total Protein 7.4 g/dL (6.3-8.2)
--- NOTE | 2022-04-11 03:13 | XR ---
EXAMINATION TYPE: XR chest 2V DATE OF EXAM: 04/11/2022 COMPARISON: 12/15/2020 HISTORY: Weakness TECHNIQUE: FINDINGS: Heart and mediastinum are normal. Lungs are clear. Diaphragm is normal. Bony thorax appears normal IMPRESSION: Normal chest. No adverse change.
[2022-04-11] MEDS ORDERED: HYDROmorphone 1 MG/ML 1 ML SYRINGE IVP STA ×2 (03:36→07:17)
[2022-04-11] MEDS ORDERED: PANTOPRAZOLE 40 MG/10 ML VIAL IVP STA (03:36)
--- NOTE | 2022-04-11 05:02 | CT ---
EXAMINATION TYPE: CT abdomen pelvis w con DATE OF EXAM: 04/11/2022 COMPARISON: 12/15/2020 HISTORY: WEAKNESS, CHEST PAIN CT DLP: 2075.9 mGycm Automated exposure control for dose reduction was used. CONTRAST: Performed with IV Contrast, patient injected with 100 mL of Isovue 300. Images obtained from the diaphragm to the floor the pelvis with IV contrast. The lung bases are clear. No pleural effusion. Heart size is normal. No pericardial effusion. Liver spleen and stomach pancreas appear intact. Gallbladder is mildly contracted. The bile ducts are not dilated. There is no adrenal mass. Kidneys show satisfactory contrast opacification. No hydronephrosis. Delaye d images show normal renal excretion. No retroperitoneal adenopathy. The bladder distends smoothly. T here is bilateral ovarian cysts that measure 2.8 cm. Uterus is anteverted. No inguinal hernia. No tian e fluid in the pelvis. The lumbar vertebra have normal alignment. Disc spaces are normal. Posterior elements are intact. No compression fracture. The bony pelvis is intact. The hip joints are intact. There is no mesenteric edema. No ascites or free air. No sign of a bowel obstruction. There are sigmo id diverticula. No diverticulitis. Cecum is in the midline. The appendix appears normal and is superi or. IMPRESSION: Negative CT scan abdomen and pelvis. Normal appendix. Bilateral ovarian cysts are increased compared to old exam.
[2022-04-11] MEDS ORDERED: MAG HYDROX/AL HYDROX/SIMETH 30 ML, HYOSCYAMINE ELIXIR 10 ML, LIDOCAINE VISCOUS 2% 10 ML PO STA ×3 (07:32)
[2022-04-11 07:50] LABS: Appearance,Urine Clear (Clear); Bilirubin,Urine Negative (Negative); Blood,Urine Negative (Negative); Color,Urine Light Yellow; Glucose,Urine (UA) 4+ (Negative); Ketones,Urine Trace (Negative); Leukocyte Esterase,Urine Negative (Negative); Nitrite,Urine Negative (Negative); PH, Urine 5.5 (5.0-8.0); Protein,Urine Negative (Negative); Specific Gravity,Urine 1.032 (1.001-1.035); Urobilinogen,Urine <2.0 mg/dL (<2.0)
--- NOTE | 2022-04-11 08:01 | US ---
EXAMINATION TYPE: US gallbladder DATE OF EXAM: 04/11/2022 COMPARISON: NONE CLINICAL HISTORY: pain. TECHNIQUE: Multiple sonographic images of the right upper quadrant are obtained. FINDINGS: EXAM MEASUREMENTS: Liver Length: 18.7 cm Gallbladder Wall: .3 cm CBD: 0.4 cm Right Kidney: 14.4 x 5.0 x 5.1 cm ENT SURGEON NOTES: Pancreas: Tail obscured by overlying bowel gas Liver: Increased attenuation Gallbladder: No stones seen, no wall thickening or pericholecystic fluid. Evidence for sonographic Edge's sign: No CBD: wnl Right Kidney: wnl IMPRESSION: 1. No evidence for acute process. 2. Hepatic steatosis.
[2022-04-11 08:19] VITALS: BP 130/95; PULSE 92; RESP 20; TEMP 98.6
== END 2022-04-11 08:25 | disposition home or self-care (01) ==
LOC: EC 02:19
DX: R10.13 Epigastric pain (principal); R11.2 Nausea with vomiting, unspecified; J45.909 Unspecified asthma, uncomplicated; E11.9 Type 2 diabetes mellitus without complications; I10 Essential (primary) hypertension; F41.9 Anxiety disorder, unspecified; F32.A Depression, unspecified; Z88.6 Allergy status to analgesic agent; Z88.8 Allergy status to other drugs, medicaments and biological substances; Z91.048 Other nonmedicinal substance allergy status; Z79.4 Long term (current) use of insulin; Z79.899 Other long term (current) drug therapy
CPT/HCPCS: 36415; 93005; 80053; 83605; 83690; 83735; 84100; 84443; 84484; 85025; 85610; 85730; 81003; 71046; 76705; 74177; 99285; 96374; 96375 ×4; 96376; 96361; J2270; J2405; J1170; C9113; Q9967; J1790

== ENCOUNTER → 2022-06-10 | Outpatient (CLI) | payer MEDICARE, OTHER ==
[2022-06-10 11:49] VITALS: BP 130/85; PULSE 92; RESP 18; TEMP 98.2
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
== END ==
LOC: PNWHC3 10:27
PROVIDERS: ATTEND Specialist
DX: M47.26 Other spondylosis with radiculopathy, lumbar region (principal); M51.36 Other intervertebral disc degeneration, lumbar region; M48.061 Spinal stenosis, lumbar region without neurogenic claudication; J45.909 Unspecified asthma, uncomplicated; E11.9 Type 2 diabetes mellitus without complications; K21.9 Gastro-esophageal reflux disease without esophagitis; I10 Essential (primary) hypertension; F32.9 Major depressive disorder, single episode, unspecified; F41.9 Anxiety disorder, unspecified; Z91.048 Other nonmedicinal substance allergy status; Z88.1 Allergy status to other antibiotic agents
CPT/HCPCS: 99211

== ENCOUNTER 2022-06-29 09:02 | Day surgery (SDC) | payer MEDICARE, OTHER ==
[2022-06-29 09:29] VITALS: TEMP 97.3
[2022-06-29] MEDS ORDERED: LACTATED RINGERS 1,000 ML IV ONE (09:41)
[2022-06-29] MEDS ORDERED: LIDOCAINE 1% (10MG/ML) FOR IV START INTRADERMA ONE (09:41)
[2022-06-29] MEDS ORDERED: fentaNYL (PF) 50 MCG/ML 2 ML AMP ONE (09:48)
[2022-06-29] MEDS ORDERED: MIDAZOLAM 2 MG/2 ML VIAL ONE (09:48)
[2022-06-29] MEDS ORDERED: IOPAMIDOL M200 10 ML VIAL ONE (09:48)
[2022-06-29] MEDS ORDERED: methylPREDNISolone ACETATE 40 MG/ML 1 ML VIAL ONE (09:48)
--- NOTE | 2022-06-29 10:06 | P.PCN ---
Date of Procedure: 06/29/22 Procedure(s) Performed: PREOPERATIVE DIAGNOSIS: 1-Lumbar radiculopathy . 2-lumbar degenerative disc disease. 3-lumbar spondylosis with lumbar facet arthropathy without myelopathy POSTOPERATIVE DIAGNOSIS: 1-lumbar radiculopathy. 2-lumbar degenerative disc disease. 3-lumbar spondylosis with facet arthropathy without myelopathy PROCEDURE 1. Transforaminal epidural steroid injection under fluoroscopic guidance at bilateral L5-S1 level. (Fluoroscopy images stored on file in the radiology Department ) 2. Lumbar epidurogram . ANESTHESIA: Local with 1% lidocaine 3 ml , moderate sedation with intravenous Versed 2 mg and fentanyle 100 micrograms. Sedation start time : 09 . Sedation. stop time : 1003 . EBL: Minimal PROCEDURE INDICATION: The patient with low back pain and radiculopathy symptoms unresponsive to conservative treatment. PROCEDURE DESCRIPTION / TECHNIQUE: The patient was seen and identified in the preoperative area. Risks, benefits, complications, and alternatives were discussed with the patient. The patient agreed to proceed with the procedure and signed the consent. IV was started, and vital signs were stable. Patient was taken to the OR and time out was completed. The patient was placed in the prone position on procedure table and a pillow was placed under the abdomen to reduce lumbar lordosis. The lumbosacral area was prepped and draped in the usual sterile fashion. Critical pause was taken. Vital signs were closely monitored during the procedure. Conscious sedation was used during the procedure to decrease patient s anxiety. Using oblique fluoroscopy, the chin of the ``Chris dog at right L5-S1 level was identified, and the skin and deeper tissues just below was localized with 1% lidocaine. Subsequently, a 22-gauge 5-inch spinal needle was advanced under a tunneled view fluoroscopic guidance just underneath the chin of the ``Chris dog at the right L5-S1 Under lateral fluoroscopy, the needle was then advanced to the posterior border of the interforaminal space. After negative aspiration of CSF and blood and with no paresthesias, 1 mL Isovue 200 contrast dye was injected excellent epidurogram and outlining of the nerve root Subsequently, 3 mL of block solution containing 20 mg Depo-Medrol and 2 mL of 0.9% normal saline PF was injected. Needle was removed and the same procedure was repeated at the left L5-S1 level . At the end of the procedure, skin was cleansed, and bandages were applied. COMPLICATIONS:none DISPOSITION / PLANS: The patient was placed in a supine position and transferred to the recovery area in a stable condition for observation. There was no evidence of lower extremity motor or sensory deficit after the procedure. Patient was discharged from the recovery room after meeting discharge criteria. Home discharge instructions were given to the patient by the staff. The patient was reexamined prior to discharge.
[2022-06-29] MEDS ORDERED: IV FLUID CONTINUATION 1,000 ML IV ONE (10:07)
[2022-06-29 10:15] VITALS: RESP 15
[2022-06-29 10:26] VITALS: BP 157/93; PULSE 90
[2022-06-29] MEDS ORDERED: LIDOCAINE 1% (10MG/ML) FOR IV START INTRADERMA PRN (11:02)
[2022-06-29] MEDS ORDERED: LACTATED RINGERS 1,000 ML IV SCH (11:02)
--- NOTE | 2022-06-29 11:15 | FL ---
Intraoperative/procedural fluoroscopic services were provided. Total fluoroscopy time is 7 seconds wi th a total of 1 submitted images to PACS. Please see the operative/procedural note for further detail s. DAP: [id number]
== END 2022-06-29 11:00 | disposition home or self-care (01) ==
LOC: ORPAIN 09:02
PROVIDERS: ATTEND Specialist
DX: M51.16 Intervertebral disc disorders with radiculopathy, lumbar region (principal); M47.26 Other spondylosis with radiculopathy, lumbar region; Z88.8 Allergy status to other drugs, medicaments and biological substances
CPT/HCPCS: 81025; 64483; 99152; J2250; J1030; J3010; Q9966

== ENCOUNTER → 2022-07-22 | Outpatient (CLI) | payer MEDICARE, OTHER ==
[2022-07-22 11:36] VITALS: BP 145/95; PULSE 90; RESP 16; TEMP 98
--- NOTE | 2022-07-22 13:52 | P.PAINPG ---
PQRS Measure Charge Sheet Comment: A 36 yr old female with a history of severe and chronic LBP secondary to lumbar DDD and spondylosis with facet arthropathy without myelopathy presents today for evaluation s/p BL TFESI L5-S1. Pt states she experienced 70 % pain relief x 3 wks s/p procedure. Pain level is provoked at 7 /10 in intensity, con stant, localized in the lumbar spine, sharp in character w shooting towards the LLE. Pain is provoked by bending, lifting. Pain is alleviated with medications, topicals, injections, PT integrated with massage in 2018, chiropractic treatments semiweekly for 2 months in 2020 which provoked pain, laying supine and rest. Interventional pain procedures completed include BL TFESI L5-S1 x1 Patient is currently on Ibu Patient denies any side effects of the medication(s), denies excessive drowsiness or sleepiness, denies suicidal ideation and reports that the current pain medication is helping to control the pain and improve activities of daily living. Patient denies any motor or sensory deficits. Patient denies any fever or night sweats, denies any change in the bowel movements or urination. Physical Examination: -Constitutional: Cooperative. Not in acute distress . - Neurologic: Cranial nerve II to XII intact. No focal neurological deficits. - Psychatric: Alert & oriented x 3. Matching mood & appropriate affect. Judgment and insight intact. - Musculoskeletal: Cervical spine: Muscle bulk/ tone/ strength in the bilateral upper extremities normal Vertebral body tenderness to palpation over Spurling test positive Distraction test positive Facet loading test positive TTP Thoracic spine Muscle bulk / tone/ strength in the bilateral paraspinal muscles normal Vertebral body tender to palpation over Facet loading test positive TTP Lumbar spine: Motor bulk/ tone/ strength lower extremities , thigh and legs : 5/5 Deep tendon reflexes : Normal Knee Jerk. Normal Ankle Jerk . Vertebral body tenderness to palpation over L4 Lumbar Facet Loading Test positive Straight Leg Raise: positive at 30 degrees right side/ left side Gaenslen's Test positive Sacral spine : Severe tenderness over the Sacroiliac joint: right side / left side Range of motion: Flexion of the lumbar spine <60 degrees Range of motion: Extension of the lumbar spine <20 degrees Gaenslen's Test positive right side / left side Melanie test: positive right side / left side Thigh Thrust Test positive right side / left side Sacral Thrust Test positive right side / left side Assessment and plan: Chronic LBP secondary to lumbar DDD, spondylosis with facet arthropathy without myelopathy Recommendation of BL TFESI L4-L5 #2. May need a series of injections for optimal pain relief. Risks, benefits of procedure discussed and pt verbalized understanding. Admits to anticoagulant use or medical history of diabetes. Protocol for discontinuation/ continuation of medications edgar procedure discussed. All questions answered. I have spent less than 30 minutes on patient care today. Dr Yarbrough was available by phone for the evaluation of this patient. The time was used to review the medical records including relevant urine studies and Prescription history (MAPs), review of the available imaging, evaluation and examination of the patient, coordination of care with the medical staff and if applicable referring physicians, as well as creation of the medical record PQRS Narrative: Smoking Status Never smoker Hx Alcohol Use (MH) No Home Medications: Ambulatory Orders LORazepam [Ativan] 1 mg PO TID PRN 09/05/14 Ondansetron HCl [Zofran] 8 mg PO Q12HR PRN 09/05/14 buPROPion HCL [Wellbutrin XL] 150 mg PO DAILY 09/05/14 sitaGLIPtin PHOS/metFORMIN HCL [Janumet 50-1,000 mg Tablet] 1 tab PO BID 01/01/20 Albuterol Nebulized [Ventolin Nebulized] 2.5 mg INHALATION RT-Q6H PRN 12/15/20 Albuterol Sulfate [Ventolin HFA] 2 puff INHALATION RT-QID PRN 12/15/20 Fenofibrate Nanocrystallized [Fenofibrate] 48 mg PO BID 12/15/20 Insulin Glargine,Hum.rec.anlog [Basaglar Kwikpen U-100] 10 unit SQ HS 12/15/20 Insuln Asp Prt/Insulin Aspart [NovoLOG MIX 70-30 VIAL] See Protocol SQ AC-TID PRN 12/15/20 Lurasidone [Latuda] 40 mg PO HS 12/15/20 Rosuvastatin Calcium [Crestor] 20 mg PO DAILY 12/15/20 atenoloL [Tenormin] 25 mg PO DAILY 12/15/20 buPROPion HCL [Wellbutrin XL] 300 mg PO DAILY 12/15/20 Ondansetron Odt [Zofran Odt] 4 mg PO Q8HR PRN #20 tab 12/17/20 Pantoprazole Sodium [Protonix] 40 mg PO BID #60 tab 12/17/20 Controlled Substance Measures - Controlled Substance Measures Is patient prescribed a controlled substance at discharge?: No
== END ==
LOC: PNWHC3 08:22
PROVIDERS: ATTEND Anesthesiology
DX: M51.36 Other intervertebral disc degeneration, lumbar region (principal); M47.816 Spondylosis without myelopathy or radiculopathy, lumbar region; G89.29 Other chronic pain; Z88.8 Allergy status to other drugs, medicaments and biological substances; Z88.1 Allergy status to other antibiotic agents; Z91.048 Other nonmedicinal substance allergy status
CPT/HCPCS: 99211

== ENCOUNTER 2022-08-24 06:22 | Day surgery (SDC) | payer MEDICARE, OTHER ==
[2022-08-24 06:41] LABS: Glucose,Whole Blood 74 mg/dL (70-110)
[2022-08-24] MEDS ORDERED: DEXTROSE 50% SYRINGE 50 ML IVP ONE (06:44)
[2022-08-24 06:50] VITALS: RESP 18; TEMP 98.8
[2022-08-24] MEDS ORDERED: LACTATED RINGERS 1,000 ML IV ONE (06:50)
[2022-08-24 06:57] LABS: Glucose,Whole Blood 149 mg/dL (70-110)
[2022-08-24] MEDS ORDERED: LIDOCAINE 1% (10MG/ML) FOR IV START INTRADERMA PRN (06:57)
[2022-08-24] MEDS ORDERED: LACTATED RINGERS 1,000 ML IV SCH (06:57)
[2022-08-24] MEDS ORDERED: methylPREDNISolone ACETATE 40 MG/ML 1 ML VIAL ONE (07:07)
[2022-08-24] MEDS ORDERED: IOPAMIDOL M200 10 ML VIAL ONE (07:07)
[2022-08-24] MEDS ORDERED: fentaNYL (PF) 50 MCG/ML 2 ML AMP ONE (07:07)
[2022-08-24] MEDS ORDERED: MIDAZOLAM 2 MG/2 ML VIAL ONE (07:07)
--- NOTE | 2022-08-24 07:25 | P.PCN ---
Date of Procedure: 08/24/22 Procedure(s) Performed: PREOPERATIVE DIAGNOSIS: 1-Lumbar radiculopathy . 2-lumbar degenerative disc disease. 3-lumbar spondylosis with lumbar facet arthropathy without myelopathy POSTOPERATIVE DIAGNOSIS: 1-lumbar radiculopathy. 2-lumbar degenerative disc disease. 3-lumbar spondylosis with facet arthropathy without myelopathy PROCEDURE 1. Transforaminal epidural steroid injection under fluoroscopic guidance at bilateral L4-5 level. (Fluoroscopy images stored on file in the radiology Department ) 2. Lumbar epidurogram . ANESTHESIA: Local with 1% lidocaine 3 ml , moderate sedation with intravenous Versed 2 mg and fentanyle 100 micrograms. Sedation start time : 706 . Sedation. stop time : 719 . EBL: Minimal PROCEDURE INDICATION: The patient with low back pain and radiculopathy symptoms unresponsive to conservative treatment. PROCEDURE DESCRIPTION / TECHNIQUE: The patient was seen and identified in the preoperative area. Risks, benefits, complications, and alternatives were discussed with the patient. The patient agreed to proceed with the procedure and signed the consent. IV was started, and vital signs were stable. Patient was taken to the OR and time out was completed. The patient was placed in the prone position on procedure table and a pillow was placed under the abdomen to reduce lumbar lordosis. The lumbosacral area was prepped and draped in the usual sterile fashion. Critical pause was taken. Vital signs were closely monitored during the procedure. Conscious sedation was used during the procedure to decrease patient s anxiety. Using oblique fluoroscopy, the chin of the ``Chris dog at right L4-5 level was identified, and the skin and deeper tissues just below was localized with 1% lidocaine. Subsequently, a 22-gauge 5-inch spinal needle was advanced under a tunneled view fluoroscopic guidance just underneath the chin of the ``Chris dog at the right L5-S1 Under lateral fluoroscopy, the needle was then advanced to the posterior border of the interforaminal space. After negative aspiration of CSF and blood and with no paresthesias, 1 mL Isovue 200 contrast dye was injected excellent epidurogram and outlining of the nerve root Subsequently, 3 mL of block solution containing 20 mg Depo-Medrol and 2 mL of 0.9% normal saline PF was injected. Needle was removed and the same procedure was repeated at the left L4-5 level . At the end of the procedure, skin was cleansed, and bandages were applied. COMPLICATIONS:none DISPOSITION / PLANS: The patient was placed in a supine position and transferred to the recovery area in a stable condition for observation. There was no evidence of lower extremity motor or sensory deficit after the procedure. Patient was discharged from the recovery room after meeting discharge criteria. Home discharge instructions were given to the patient by the staff. The patient was reexamined prior to discharge.
[2022-08-24] MEDS ORDERED: IV FLUID CONTINUATION 1,000 ML IV ONE (07:27)
[2022-08-24 07:29] VITALS: BP 142/82; PULSE 90
--- NOTE | 2022-08-24 07:40 | FL ---
Intraoperative/procedural fluoroscopic services were provided. Total fluoroscopy time is 12.0 seconds with a total of 2 submitted images to PACS. Please see the operative/procedural note for further det ails. DAP: [id number] [id number]
== END 2022-08-24 08:10 | disposition home or self-care (01) ==
LOC: ORPAIN 06:22
PROVIDERS: ATTEND Specialist
DX: M51.16 Intervertebral disc disorders with radiculopathy, lumbar region (principal); M47.26 Other spondylosis with radiculopathy, lumbar region
CPT/HCPCS: 81025; 64483; 99152; J2250; J1030; J3010; Q9966

== ENCOUNTER → 2022-10-28 | Outpatient (CLI) | payer MEDICARE, OTHER ==
[2022-10-28 17:01] LABS: Basophils # (A) 0.05 X 10*3/uL (0.00-0.10); Basophils % (A) 0.5 %; Eosinophils # (A) 0.32 X 10*3/uL (0.04-0.35); Eosinophils % (A) 3.5 %; HGB 14.3 d/dL (12.0-15.0); Lymphocytes # (A) 2.52 X 10*3/uL (0.90-5.00); Lymphocytes % (A) 27.4 %; MCH 29.9 pg (27.0-32.0); MCV 87.9 FL (80.0-97.0); Mean Platelet Volume 11.2 FL (9.5-12.2); Monocytes # (A) 0.61 X 10*3/uL (0.20-1.00); Monocytes % (A) 6.6 %; NRBC Per 100 WBC 0 X 10*3/uL (0.00-0.01); Neutrophils # (A) 5.62 X 10*3/uL (1.80-7.70); Neutrophils % (A) 61.2 %; Platelet Count 350 X 10*3/uL (140-440); RBC 4.78 X 10*6/uL (4.10-5.20); RDW 12.8 % (11.5-14.5); WBC 9.19 X 10*3/uL (4.50-10.00)
[2022-10-28 17:13] LABS: BUN/Creat Ratio 13.57 Ratio (12.00-20.00); Blood Urea Nitrogen 9.5 mg/dL (9.0-27.0); Calcium 9.7 mg/dL (8.7-10.3); Carbon Dioxide 20.7 mmol/L (21.6-31.8); Chloride 104 mmol/L (96-109); Glucose 144 mg/dL (70-110); Potassium 4.3 mmol/L (3.5-5.5); Sodium 137 mmol/L (135-145)
== END | disposition home or self-care (01) ==
LOC: LABPAT 10:24
PROVIDERS: ATTEND Orthopaedic Surgery
DX: Z01.818 Encounter for other preprocedural examination (principal); M47.816 Spondylosis without myelopathy or radiculopathy, lumbar region; M48.061 Spinal stenosis, lumbar region without neurogenic claudication; Z22.322 Carrier or suspected carrier of Methicillin resistant Staphylococcus aureus
CPT/HCPCS: 80048; 85025; 87070; 93005

== ENCOUNTER 2022-11-08 11:17 | Inpatient (IN) | payer MEDICARE, OTHER ==
--- NOTE | 2022-11-08 06:27 | P.HPOR ---
History of Present Illness H&P Date: 10/28/22 .D:Date: 10/28/22 : 01:22pm .T:Title: [facility] Date of :[birth year] R14 Allergies: Age: 36 year Height: 5'5" Weight: 250 lbs BP:/ BMI: 41.60 kg/m2 Occupation: Unemployed VAS: 5 CHIEF COMPLAINT: Re-check on low back pain and status post bilateral SI injections DOI: Chronic DOS: N/A HISTORY: Xrays No new xrays taken in office Trauma or injury No Work-Related No Pain description Aching & throbbing Location Posterior Patient notes that their pain radiates to the bilateral lower extremities Activity Modification Yes Hand Dominance Right TREATMENTS COMPLETED: 6 weeks of PT completed? Month and Year of last PT date? Yes, in 2019 How many sessions? 12 Did it help? No, exacerbated symptoms Physician directed home exercise completed? Yes, Patient has trialed the physician directed home exercise program without relief of their symptoms. Medications Yes; List: Ibuprofen Alternative interventions Chiropractic: yes Massage therapy: yes R.I.C.E: yes Brace: No Injections Yes, How many? 3 Did they help? No RFA:No SUBJECTIVE: Mrs. Paulino presents to the office today for a recheck of her low back pain after undergoing bilateral SI joint injections. The patient reports experiencing only 3 days of 75% relief of her symptoms following the injections. The patient continues to report an ache-like, throbbing pain throughout the lumbar spine that radiates down into the posterior aspects of the bilateral lower extremities. The patient notes numbness and tingling throughout the left lower extremity. She states her left leg is worse than her right. The patient states her symptoms are exacerbated by prolonged activity, going from a seated to standing position, and when walking up the stairs. The patient notes that her symptoms make it difficult for her to complete her daily tasks. The patient reports severe sleep disturbances due to her ongoing symptoms. The patient states her symptoms have become unlivable. She has trialed conservative treatment measures in the form of physical therapy, at home stretches/exercises, at home ice/heat therapies, activity modification, lumbar epidural steroid injections, SI joint injections, manager care management, and massage therapy, all with no significant or sustained relief. The patient is currently taking Ibup rofen for relief of her symptoms. The patient ambulates independently today. HPI: Mrs. Paulino presents to the office on 09/23/22 for a recheck of her low back pain after undergoing bilateral transforaminal injections at L5-S1. The patient denies experiencing any relief of her symptoms following the injections. The patient continues to report an ache-like, throbbing pain throughout the lumbar spine that radiates down into the posterior aspects of the bilateral lower extremities. The patient notes increased numbness throughout the left lower extremity. The patient states her symptoms are exacerbated by prolonged activity, going from a seated to standing position, and when walking up the stairs. The patient notes that her symptoms make it difficult for her to complete her daily tasks. The patient reports severe sleep disturbances due to her ongoing symptoms. The patient states her symptoms have become intractable. She has trialed conservative treatment measures in the form of physical therapy, at home stretches/exercises, at home ice/heat therapies, activity modification, lumbar epidural steroid injections, manager care management, and massage therapy, all with no significant or sustained relief. The patient is currently taking Ibup rofen for relief of her symptoms. The patient ambulates independently today. Mrs. Paulino presents to the office on 06/16/2022 for a recheck of her low back pain Patient continues to report an increasing lower back pain. Patient reports an aching and throbbing lumbar pain that radiates into the right lower extremity, associated with numbness and tingling. Patient denies any falls or injuries since last visit. She states she is unable to do the activities she would like and the pain is impeding her daily living. For her symptoms, she has been taking motrin with little relief. Patient feels at this time she has exhausted all conservative measures. Mrs. Paulino presents to the office on 05/17/2022 for a recheck of her low back pain and MRI and CT results. Patient continues to report an increasing lower back pain. Patient reports an aching and throbbing lumbar pain that radiates into the right lower extremity, associated with numbness and tingling. Patient denies any falls or injuries since last visit. Patient is very emotional throughout visit. She states she is unable to do the activities she would like and the pain is impeding her daily living. For her symptoms, she has been taking meloxicam with little relief. CT scan and MRI results have been reviewed and discussed. Patient feels at this time she has exhausted all conservative measures. Discussed with patient to consult with PM&R to discuss treatment plans and trial injections. Patient verbalizes understanding and is agreeable, but would like to speak with Dr. Stone. Ms. Paulino presents to the office on 04/28/2022 for an evaluation of their low back pain. Patient reports an aching and throbbing lumbar pain ongoing for a few years and has progressed since 2019 with no known injury or trauma to indicate an exact onset of their symptoms. In addition to their lumbar pain, they do report that it radiates into the right lower extremity, associated with numbness and tingling. Patient has complaints of having multiple falls and current being on a treadmill. Patient states she utilizes a cane when she can feel her legs getting tired. Overall the patient has seen a progressive increase in symptoms since their onset. Ms. Paulino symptoms are exacerbated with any prolonged activity, ambulation, sitting, standing, and changing positions, due to this they notes that it is increasingly difficult for Ms. Paulino to complete many of their daily tasks. Patient is having moderate sleep disturbances as well due to their ongoing pain and associated symptoms. Regarding treatments, the patient has previously trialed the above listed modalities. Patient denies trialing any other modalities at this time. For their symptoms, the patient has been taking Motrin 800mg. Otherwise the patient denies any f/c/sob/cp, no bladder or bowel retention/incontinence, no perineal numbness/tingling, and ambulates independently. The patients' past social, medical, family, surgical history, as well as review of systems, have been reviewed. Please refer to the Neurosurgery History and Physical form that has been scanned in to our electronic medical record system. 14 points review of systems completed and as stated in HPI, all other systems reviewed are negative. Social History: Reviewed, see appropriate section of the chart for details. P3 Family History: Reviewed, see appropriate section of the chart for details. P2 Past Medical History: Reviewed, see appropriate section of the chart for details. [id number] Medications: Rx: CeleBREX 200 mg capsule Ref: 0 PHYSICALEXAMINATION: General:Awake, alert, appropriate for age, in no acute distress. HEENT:No unusual neck masses around region of lateral neck triangle, thyroid, supraclavicular groove Heart:Regular rate and rhythm, normal S1, S2 and no murmur/gallop. Lungs:Clear to auscultation bilaterally with no use of accessory muscles. Extremities:Skin warm and dry without acute lesions, coloration, temperature, skin intact, no tenderness or erythema Integument: Hairy patches: ABSENT Dorsal skin dimples:ABSENT Cafe au lait spots:ABSENT Surgical incisions:n/a Palpation: Please see Pain drawing on Intake sheet for further detail. Midline spinal tenderness: No E6 Cervical Tenderness: No E6 Paralumbar tenderness: Yes E6 Parathoracic tenderness: No E6 Buttocks tenderness: No E6 Sacroiliac Tenderness: No POSTURAL and MUSCULO-SKELETAL EVALUATION: Coronal Balance: NEUTRAL Recumbent testing: Patient is able to lay flat on back Sagittal Balance: NEUTRAL Shoulder Profile: LEVEL Pelvic Girdle: LEVEL Neck ROM: UNRESTRICTED Lumbar ROM: RESTRICTED Shoulder ROM: Symmetrical Hip ROM: Symmetrical Knee ROM: Symmetrical Hands: Normal appearance, symmetrical Feet: Normal appearance, Symmetrical VASCULAR STATUS : LEFTRIGHT Wrist Pulses INTACT INTACT Pedal Pulses (Dors. pedis & post.tibialis) INTACT INTACT Color NORMAL NORMAL Edema Absent Absent NEUROLOGIC EXAMINATION: Mental Status:Awake and alert, fully oriented, with normal attention, concentration and memory, and fluent, appropriate speech. Cranial Nerves: I: Olfactory not tested. II: Visual acuity normal, no visual field deficit noted with confrontation. III,IV: Normal pupillary reflexes & intact extraocular movements without nystagmus. V,: Intact symmetrical facial sensation. VII: Intact symmetrical facial motor movement VIII: Hearing intact. IX,X: Intact gag, swallow, & normal voice. XI: Sternocleidomastoid, trapezius function intact. XII: Tongue midline with normal movements. L'hermitte's Sign: Negative / absent Spurling'Sign: Absent bilaterally. Cubital percussion test: Absent bilaterally. Brownlee-Tinel sign - Carpal region: Absent bilaterally. Straight Leg Raising: Absent bilaterally. Crossed straight leg raise: negative O8 MOTOR EXAM (0-5/5, N/T Muscle appearance: Symmetrical, without signs of atrophy or dystrophy UPPER EXTREMITY RIGHT LEFT Shoulder Abduction 5/5 5/5 Biceps 5/5 5/5 Triceps 5/5 5/5 Wrist Extension 5/5 5/5 Hand Intrinsic 5/5 5/5 Knitting Machine Fixer 5/5 5/5 Hand and finger dexterity intact bilaterally? yes Disdiadochokinesis examination negative bilaterally? yes LOWER EXTREMITY RIGHT LEFT Hip Flexion 4/5 4/5 Knee Extension 4/5 4/5 Knee Flexion 4/5 4/5 Dorsiflexion 4/5 4/5 Plantarflexion 4/5 4/5 EHL 4/5 4/5 FHL 4/5 4/5 Toe heel walk / heel-toe walk intact while maintaining satisfactory balance? yes Squatting/straightening w/o assistance to a min of 60 degree knee flexion? No Single leg stance: intact Trendelenburg sign negative bilaterally REFLEXES(0-4/2, NT)Upper Extremity Lower Extremity Right 2 2 Left 2 2 Pathological Reflexes RIGHT LEFT Brownlee's Absent Absent Clonus Absent Absent Babinski Absent Absent Sensory system (0-4, N/T) Test type RU MITCHELL RL LL Joint-Position 2 2 2 2 Vibration 2 2 2 2 Pain & LT sense 2 2 2 2 Dermatomal Deficit: None None L4-L5 L5-S1 Gait and Functional Evaluation: Ambulatory aids:Cane, Independent Romberg's test:Intact bilaterally Steady Gait RADIOGRAPHIC STUDIES: XRay Lumbar Multiview (AP, Lateral, Flexion, Extension) with AP pelvis; 5 views taken at [facility] on 04/28/22: Mild spondylitic and degenerative changes with preserved alignment. Mild grade 1 anterior listhesis L5 on S1 vertebral body heights are preserved. Multilevel degenerative disc space. No acute osseous abnormalities. CT scancompleted at [facility] from 05/06/22 of LumbarSpine: IMPRESSION: 1. No evidence of fracture of the lumbar spine. 2. Facet arthropathy worse in the lower lumbar spine with at least moderate L5- S1 neural foraminal stenosis. MRI scancompleted [facility] from05/05/22 of LumbarSpine: IMPRESSION: 1. Disc desiccation L4-5 and L5-S1. 2. Facet hypertrophy L5-S1 and L4-5. Some minimal posterior lateral thecal sac compression at L4-5 from facet hypertrophy and ligamentum flavum laxity may be present. 3. Very minimal grade 1 spondylolisthesis of L5 anteriorly on S1 may be present. IMPRESSION: It was my pleasure to have seen and examined Gaby. I reviewed the patient's clinical syndrome, physical findings, and imaging studies during the appointment today. It is my impression that the patient has a diagnosis of. 1. L5-S1 grade 1 spondylolisthesis 2.L5-S1 spondylosis and stenosis 3. L4-5 spondylosis 4. Bilateral Sacroiliitis I outlined the natural course history without intervention and various interventional options. PLAN: Based on my findings I suggest the following course of action: -I discussed treatment options with the patient, including operative and non- operative options, and they have elected to proceed with the following surgical procedure: lumbar L5-S1 Minimally Invasive Transforaminal Lumbar Interbody Fusion The indications, risks, benefits, and alternatives to surgery were discussed with the patient and family at length. Specifically (but not limited to) the risks of infection, stiffness, recurrence of symptoms, need for revision surgery, local numbness, neurovascular injury, and blood clots were discussed. The patient's questions were answered. The decision to proceed was made. Consent will be obtained for the procedure. -Patient to obtain pre-operative clearance from primary care physician -Ambulate daily -Take medications as directed -Ice and rest for pain and swelling control. Spine Surgery Risk Review Ms. Paulino is presenting for evaluation of low back pain. It was my pleasure to have seen and examined Ms. Paulino. In our visit today we have had a chance to go over subjective complaints, physical examination findings and treatments including the natural course history without intervention and various interventional options. The patients imaging demonstrates: XRay Lumbar Multiview (AP, Lateral, Flexion, Extension) with AP pelvis; 5 views taken at [facility] on 04/28/22: Mild spondylitic and degenerative changes with preserved alignment. Mild grade 1 anterior listhesis L5 on S1 vertebral body heights are preserved. Multilevel degenerative disc space. No acute osseous abnormalities. CT scancompleted at [facility] from 05/06/22 of LumbarSpine: IMPRESSION: 1. No evidence of fracture of the lumbar spine. 2. Facet arthropathy worse in the lower lumbar spine with at least moderate L5- S1 neural foraminal stenosis. MRI scancompleted [facility] from05/05/22 of LumbarSpine: IMPRESSION: 1. Disc desiccation L4-5 and L5-S1. 2. Facet hypertrophy L5-S1 and L4-5. Some minimal posterior lateral thecal sac compression at L4-5 from facet hypertrophy and ligamentum flavum laxity may be present. 3. Very minimal grade 1 spondylolisthesis of L5 anteriorly on S1 may be present. On physical exam, Ms. Paulino demonstrates: Mrs. Paulino presents to the office today for a recheck of her low back pain after undergoing bilateral SI joint injections. The patient reports experiencing only 3 days of 75% relief of her symptoms following the injections. The patient continues to report an ache-like, throbbing pain throughout the lumbar spine that radiates down into the posterior aspects of the bilateral lower extremiti es. The patient notes numbness and tingling throughout the left lower extremity. She states her left leg is worse than her right. The patient states her symptoms are exacerbated by prolonged activity, going from a seated to standing position, and when walking up the stairs. The patient notes that her symptoms make it difficult for her to complete her daily tasks. The patient reports severe sleep disturbances due to her ongoing symptoms. The patient states her symptoms have become unlivable. She has trialed conservative treatment measures in the form of physical therapy, at home stretches/exercises, at home ice/heat therapies, activity modification, lumbar epidural steroid injections, SI joint injections, manager care management, and massage therapy, all with no significant or sustained relief. The patient is currently taking Ibuprofen for relief of her symptoms. The patient ambulates independently today. I have explained to the patient that as their condition progresses it will cause further neurological deficits and eventual paralysis. Based on the patients imaging, physical exam, and the rapid progression and disabling nature of their symptoms, at this time I recommend surgery in the form of a: lumbar L5-S1 Minimally Invasive Transforaminal Lumbar Interbody Fusion I discussed the risk and benefits of this procedure at length with Ms. Paulino. The patient [significant other] agreed to considered pursuing the procedure abovementioned. Prior to surgery, she should follow up with her PCP (Cardio, ID, IM etc) for clearance. Questions were invited and answered, and the patient wishes to proceed as outlined below. Currently, I am recommendin. lumbar L5-S1 Minimally Invasive Transforaminal Lumbar Interbody Fusion 2.Follow up with PCP for surgical clearance 3.Review of surgical risks and benefits as well as an educational packet on the proposed surgical procedure. Risks: All surgical procedures come with inherent risks, including those related to positioning, anesthesia, intraoperative findings, and postoperative complications. It is important to understand that surgery does not come with any guarantee of a successful outcome as complications and adverse events are always possible. The patient was given a handout in office today discussing the surgical procedure and risks associated with the intervention, both of which were discussed with the patient. These risks include but are not limited to the following: * Experiencing same, different or even worse symptoms in back, neck, arms, or legs compared to before surgery. Requiring further surgery or other forms of treatment presently or at some time in the future at same or other levels of the intended spine surgery. On an extreme but fortunately relatively rare basis severe complication such as blindness, stroke, heart attack, temporary and/or permanent nerve injury, paralysis, coma, or may occur, sometimes without known explanation. Surgical complications may include but are not limited to risk of infection, fluid accumulation in the surgical dissection site, including a seroma or hematoma, that requires additional surgery, wound drainage, bleeding, new numbness or weakness, vision changes/loss, spinal fluid leakage, non-healing and/or infected incision, headaches, difficulty or inability to swallow, hoarseness, hemopneumothorax, pneumothorax, impotence, retrograde ejaculation, vaginal dryness; injury to nerves, spinal cord, blood vessels, lymphatics or other vital organs (i.e., bowel injury, injury to the great vessels); heterotopic bone formation; complications related to the hardware such as s crews, rods, cages including misplaced hardware, device failure, instrumentation at the wrong spine level, hardware fracture/breakage, or hardware loosening; vertebral failure of the spinal column above or below the newly placed hardware; retained surgical instrumentations or devices and the need for further surgery. * Medical risks of the planned spine surgery include but are not limited to generalized Infections to the whole body or local areas outside of the surgical site (sepsis), heart attack, bleeding, anaphylaxis, meningitis, seizure, epilepsy, hearing loss, burn swartz, laceration of the head or other areas of the body, bruising, hypersensitivity of the skin, bladder over distension; allergic reaction; shoulder injury related to positioning; fat, blood and air clots to other areas of the body like heart, lungs, brain; failure of internal organs such as lungs, kidneys, liver and excessive bleeding. If blood transfusions are necessary, note that transfusions may cause intolerance reactions such as anaphylaxis or other complex reactions. Despite best efforts, the results of spine surgery might not heal in terms of bone, soft tissues such as skin, fascia, ligaments, and joints. Additionally, in order to achieve best possible results, spine surgery may be carried out beyond the initially planned levels and involve decompression, fusion including insertion of hardware at levels other than the original intended area of surgical interest change some portions of the procedure in order to ensure the best possible outcomes. With spine surgery and spinal fusion, there are different off label uses of instrumentation (devices, implants and hardware) as well as biological substances (bone morphogenic proteins, demineralized bone matrix) as well as using extra bone from allograft sources (i.e. cadaver bone) or autograft (iliac crest bone, ribs, or the spine itself). The patient has been given information about these practices and their inherent risks and benefits. [facility] is an educational center that serves as a training facility for neurosurgical and orthopedic [employer] and Nursing students. Physician assistants are medically trained surgical providers who function in the outpatient, inpatient, and operating room setting under the direct supervision of the attending surgeon. [facility] has multiple operating rooms with single and overlapping rooms running daily. They currently function under the required guidelines as produced by the [facility] Finance Committee with regards to the overlapping rooms and will continue to comply with changes to this policy as they occur. The requirements include and are complied with as follows: (1) the critical portions of the overlapping rooms will not occur at the same time, (2) the attending physician will be physically present during the critical portions of the procedure and immediately available during the entire case, and (3) a back-up attending is designated should the primary attending not be immediately available. The patient has had a chance to review all the listed information, has been given print outs detailing this information, and has had all his/her questions answered to their satisfaction. It was my pleasure to have seen and examined Ms. Paulino. In our visit today we have had a chance to go over my understanding of our patient's current condition, the natural course history without intervention and various interventional options. Questions were invited and answered, and the patient wishes to proceed as outlined above. I have seen and examined the patient for 25 minutes and we have spent more than 50% of the time in repeat and detailed counseling about the patient's condition, its natural course history with out and as much as can be predicted with surgery and re-review of various surgical treatment options. In conclusion, Ms. Paulino and her spouse requested we proceed with the above suggested surgery and are willing to accept risks and limitations of the suggested surgery as nature of the disease process and our best attempts at treatment for the condition. Thank you again for allowing us to be part of your patient's care. Please don't hesitate to contact me if you have any further questions. Signed and authenticated by: rizwan Stone DO [facility] [address] [place] [address] Follow- up: Pre-operatively Patient Education: (Informational booklet, instructions, etc) given at today's appointment: Yes .ED:Patient Education: Y Medications Reviewed: YES In our visit today Ms. Paulino and I have had a chance to go over my understanding of the patient's current condition, the natural course history without intervention and various interventional options. Questions were invited and answered, and the patient wishes to proceed as outlined above. I will be sure to keep you updated afterMs. Paulino returns here for further follow-up. Thank you again for your referral. Please do not hesitate to contact me if you have any further questions. Signed and authenticated by: Bandar Stone DO [facility] [address] [place] [address] This message is confidential, intended only for the named recipient(s) and may contain information that is privileged or exempt from disclosure under applicable law. If you are not the intended recipient(s), you are notified that the dissemination, distribution or copying of this information is strictly prohibited. If you received this message in error, please notify the sender then delete this message. Patient verbalizes understanding of the information discussed. The above note was initiated by Mark Beatty, physician recording assistant education director for Dr. Bandar Stone. This note has been reviewed by Dr. Stone, who has made his personal changes and impressions for this document. CC: America Tijerina M.D. # SIGNED BY Bandar Stone ([facility])11/08/2022 06:26AM Past Medical History Past Medical History: Asthma, Diabetes Mellitus, GERD/Reflux, Hypertension, Musculoskeletal Disorder, Supraventricular Tachycardia (SVT) Additional Past Medical History / Comment(s): SVT- CARDIAC ABLATION CORRECTED IT , MIGRAINE HEADACHES History of Any Multi-Drug Resistant Organisms: None Reported Past Surgical History: Cardiac Ablation, Hernia Repair, Tonsillectomy, Tubal Ligation, Uterine Ablation Additional Past Surgical History / Comment(s): CARDIAC ABLATION X2, CERVIX SURGERY ,PAIN CLINIC PROCEDURES Past Anesthesia/Blood Transfusion Reactions: Postoperative Nausea & Vomiting (PONV) Additional Past Anesthesia/Blood Transfusion Reaction / Comment(s): only antinausea med. can take is zofran Smoking Status: Never smoker - Past Family History Mother Family Medical History: Cancer, CVA/TIA Additional Family Medical History / Comment(s): of a CVA. Father Family Medical History: Cancer, Pulmonary Embolus Sister(s) Family Medical History: Cancer Medications and Allergies Home Medications Medication Instructions Recorded Confirmed Type LORazepam [Ativan] 1 mg PO TID PRN 09/05/14 11/01/22 History Ondansetron HCl [Zofran] 8 mg PO Q12HR PRN 09/05/14 11/01/22 History buPROPion HCL [Wellbutrin XL] 150 mg PO 1500 09/05/14 11/01/22 History Albuterol Nebulized [Ventolin 2.5 mg INHALATION RT-Q6H PRN 12/15/20 11/01/22 History Nebulized] Albuterol Sulfate [Ventolin HFA] 2 puff INHALATION RT-QID PRN 12/15/20 11/01/22 History Fenofibrate Nanocrystallized 96 mg PO 1500 12/15/20 11/01/22 History [Fenofibrate] Insulin Glargine,Hum.rec.anlog 16 unit SQ 0800,199912/15/20 11/01/22 History [Basaglar Kwikpen U-100] Rosuvastatin Calcium [Crestor] 20 mg PO 1500 12/15/20 11/01/22 History atenoloL [Tenormin] 25 mg PO 1500 12/15/20 11/01/22 History buPROPion HCL [Wellbutrin XL] 300 mg PO 1500 12/15/20 11/01/22 History Pantoprazole Sodium [Protonix] 40 mg PO BID #60 tab 12/17/20 11/01/22 Rx metFORMIN HCL [Glucophage] 1,000 mg PO BID 08/20/22 11/01/22 History Dulaglutide [Trulicity] 3 mg SQ FR 11/01/22 11/01/22 History Insulin Aspart [NovoLOG Flexpen] See Protocol SQ DIRECTED 11/01/22 11/01/22 History Allergies Allergy/AdvReac Type Severity Reaction Status Date / Time ketorolac tromethamine Allergy Severe rash,bliste Verified 11/01/22 10:15 [From Toradol] rs prochlorperazine edisylate Allergy Severe Dyspnea Verified 11/01/22 10:15 [From Compazine] prochlorperazine maleate Allergy Severe Dyspnea Verified 11/01/22 10:15 [From Compazine] promethazine HCl Allergy Severe hives, Verified 11/01/22 10:15 [From Phenergan] jittery droperidol Allergy Dyspnea Verified 11/01/22 10:15 adhesive tape Allergy Severe BLISTERS Uncoded 11/01/22 10:15 Physical Examination Osteopathic Statement: *. No significant issues noted on an osteopathic structural exam other than those noted in the History and Physical/Consult.
[~2022-11-08 11:17] MED LIST changes: +ACETAMINOPHEN TAB 500 MG TAB PO PRN; +DEXAMETHASONE SOD PHOSPHATE 4 MG/ML 1 ML VIAL IV ONE; +GABAPENTIN 300 MG CAP PO PRN; +HYDROmorphone 0.5 MG/0.5 ML SYRINGE IVP PRN; -LACTATED RINGERS 1,000 ML IV SCH; +ONDANSETRON 4 MG/2 ML VIAL IVP ONE; +ONDANSETRON 4 MG/2 ML VIAL IVP PRN; +TRANEXAMIC 1,000 MG/100ML-NACL 1,000 MG in SALINE 1 100ML.BAG IVPB PRN; +droPERidol 5 MG/2 ML VIAL IVP ONE
[2022-11-08 12:39] LABS: Glucose,Whole Blood 132 mg/dL (70-110)
[2022-11-08] MEDS ORDERED: MIDAZOLAM 2 MG/2 ML VIAL IVP ONE (12:50)
[2022-11-08] MEDS ORDERED: DEXAMETHASONE SOD PHOSPHATE 4 MG/ML 1 ML VIAL IVP ONE (12:56)
[2022-11-08] MEDS: LACTATED RINGERS 1,000 ML IV SCH ×3 (12:56→20:27)
[2022-11-08] MEDS ORDERED: LIDOCAINE 2% INJ 20 MG/ML (2 ML VIAL) ONE (13:37)
[2022-11-08] MEDS ORDERED: KETAMINE 10 MG/ML 20 ML VIAL ONE (13:37)
[2022-11-08] MEDS ORDERED: PROPOFOL 10 MG/ML 20 ML VIAL IV ONE (13:37)
[2022-11-08] MEDS ORDERED: MIDAZOLAM 2 MG/2 ML VIAL ONE (13:37)
[2022-11-08] MEDS ORDERED: fentaNYL (PF) 50 MCG/ML 2 ML AMP ONE (13:37)
[2022-11-08] MEDS ORDERED: ROCURONIUM 10 MG/ML (5 ML VIAL) IV ONE (13:37)
[2022-11-08] MEDS ORDERED: SUCCINYLCHOLINE CHLORIDE 200 MG/10 ML VIAL IV ONE (13:37)
[2022-11-08] MEDS ORDERED: TRANEXAMIC 1,000 MG/100ML-NACL PREMIX BAG ONE (13:37)
[2022-11-08] MEDS ORDERED: GELATIN SPONGE,ABSORB (LARGE) 1 EACH SPONGE TOPICAL ONE (13:42)
[2022-11-08] MEDS ORDERED: THROMBIN (BOVINE) 5,000 UNIT VIAL TOPICAL ONE (14:23)
[2022-11-08] MEDS ORDERED: HYDROcodone/APAP 5-325MG 1 EACH TAB PO PRN (15:41)
[2022-11-08] MEDS ORDERED: CYCLOBENZAPRINE 5 MG TAB PO PRN (15:41)
[2022-11-08] MEDS ORDERED: HYDROcodone/APAP 10-325MG 1 EACH TAB PO PRN ×2 (15:41→16:36)
[2022-11-08] MEDS ORDERED: MAGNESIUM HYDROXIDE 2,400 MG/30 ML CUP PO PRN (15:41)
[2022-11-08] MEDS ORDERED: SENNOSIDES-DOCUSATE SODIUM 1 EACH TAB PO PRN (15:41)
[2022-11-08] MEDS ORDERED: LACTATED RINGERS 1,000 ML IV ONE (15:56)
--- NOTE | 2022-11-08 16:04 | P.OP ---
Date of Procedure: 11/08/22 Preoperative Diagnosis: 1. L5-S1 SPONDYLOLISTHESIS, GRADE I WITH SPONDYLOSIS AND STENOSIS 2. LOW BACK PAIN 3. LLE RADICULOPATHY WITH WEAKNESS 4. LE PARESTHESIAS Postoperative Diagnosis: 1. L5-S1 SPONDYLOLISTHESIS, GRADE I WITH SPONDYLOSIS AND STENOSIS 2. LOW BACK PAIN 3. LLE RADICULOPATHY WITH WEAKNESS 4. LE PARESTHESIAS Procedure(s) Performed: 1. L5-S1 POSTERIOLATERAL AND INTERBODY FUSION (60262) 2. L5-S1 INSTRUMENTATION (75870) 3. LAMINOFORAMINOTOMY L5-S1 FOR DECOMPRESSION AND CAGE PLACEMENT (12964) 4. INSERTION OF INTERBODY DEVICE (96408) USE OF IONM ALL SCREWS TESTING 20 MA AND ABOVE USE OF IO MICROSCOPE Implants: -GLOBUS CREO MIS SCREW AND SAMMY SYSTEM -LIE SPINE PROLIFT CAGE -MAGNATOS, ALLOCELL, AUTOGRAFT Anesthesia: LEEANN Surgeon: Bandar Stone Ramp Manager #1: Armond Ramos (WAS PRESENT AND ASSISTED WITH ALL ASPECTS OF THE CASE FROM POSITION TO CLOSURE) Estimated Blood Loss (ml): 150 IV fluids (ml): 1,600 Urine output (ml): 250 Pathology: none sent Condition: stable Disposition: PACU Indications for Procedure: Ms. Paulino is presenting for evaluation of low back pain. It was my pleasure to have seen and examined Ms. Paulino. In our visit today we have had a chance to go over subjective complaints, physical examination findings and treatments including the natural course history without intervention and various interventional options. The patients imaging demonstrates: XRay Lumbar Multiview (AP, Lateral, Flexion, Extension) with AP pelvis; 5 views taken at [facility] on 04/28/22: Mild spondylitic and degenerative changes with preserved alignment. Mild grade 1 anterior listhesis L5 on S1 vertebral body heights are preserved. Multilevel degenerative disc space. No acute osseous abnormalities. CT [facility] from 05/06/22 of LumbarSpine: IMPRESSION: 1. No evidence of fracture of the lumbar spine. 2. Facet arthropathy worse in the lower lumbar spine with at least moderate L5- S1 neural foraminal stenosis[facility]: IMPRESSION: 1. Disc desiccation L4-5 and L5-S1. 2. Facet hypertrophy L5-S1 and L4-5. Some minimal posterior lateral thecal sac compression at L4-5 from facet hypertrophy and ligamentum flavum laxity may be present. 3. Very minimal grade 1 spondylolisthesis of L5 anteriorly on S1 may be present. On physical exam, Ms. Paulino demonstrates: Mrs. Paulino presents to the office today for a recheck of her low back pain after undergoing bilateral SI joint injections. The patient reports experiencing only 3 days of 75% relief of her symptoms following the injections. The patient continues to report an ache-like, throbbing pain throughout the lumbar spine that radiates down into the posterior aspects of the bilateral lower extremities. The patient notes numbness and tingling throughout the left lower extremity. She states her left leg is worse than her right. The patient states her symptoms are exacerbated by prolonged activity, going from a seated to standing position, and when walking up the stairs. The patient notes that her symptoms make it difficult for her to complete her daily tasks. The patient reports severe sleep disturbances due to her ongoing symptoms. The patient states her symptoms have become unlivable. She has trialed conservative treatment measures in the form of physical therapy, at home stretches/exercises, at home ice/heat therapies, activity modification, lumbar epidural steroid injections, SI joint injections, direct care supervisor, and massage therapy, all with no significant or sustained relief. The patient is currently taking Ibuprofen for relief of her symptoms. The patient ambulates independently today. I have explained to the patient that as their condition progresses it will cause further neurological deficits and eventual paralysis. Based on the patients imaging, physical exam, and the rapid progression and disabling nature of their symptoms, at this time I recommend surgery in the form of a: lumbar L5-S1 Minimally Invasive Transforaminal Lumbar Interbody Fusion I discussed the risk and benefits of this procedure at length with Ms. Paulino. The patient [significant other] agreed to considered pursuing the procedure abovementioned. Prior to surgery, she should follow up with her PCP (Cardio, ID, IM etc) for clearance. Questions were invited and answered, and the patient wishes to proceed as outlined below. Currently, I am recommendin. lumbar L5-S1 Minimally Invasive Transforaminal Lumbar Interbody Fusion Description of Procedure: L5-S1 MIS TLIF The patient was seen and examined in the preoperative area. All preoperative protocols were followed. Informed consent was obtained risks and benefits of the procedure were discussed at length. Risks including bleeding infection damage to the surrounding tissue and risk of reoperation were discussed with the patient. Risk of anesthesia up to and including was a discussed with the patient. These are outlined in the risk review. They were willing to accept these risks and all the risks of surgery. The patient was given a weight-based dose of antibiotics in the form of 2 g Ancef. The patient was seen and evaluated by the anesthesia team who deemed them fit for surgery. The site was marked, the patient was willing to proceed with the procedure. The patient was transferred to the operative suite by the Department of anesthesia. They were then drifted off to sleep by the department anesthesia and GETA was performed. The patient tolerated this well. Hadring catheter was placed by nursing staff, a-traumatically. Once confirmation of lines and ventilation the patient was transferred to a prone Darnell table very carefully. All bony prominences including wrists, elbows, axilla, chest, hips, and thighs, and feet were padded very well. Special attention was paid to the genitalia, and these were padded accordingly. SCDs were placed on bilateral lower extremities and were connected. Arms were well padded and placed on arm boards up and out in the 90/90 position. Once in position, again we confirmed good ventilation capabilities and that lines were running appropriately. The patients Lumbar spine was then exposed. 1010s were placed outlining the incision site. Standard alcohol was used to clean the incision site and allowed to dry. C-arm was used to needle localize the pedicles at L5-S1 and bio-lyly the patient and confirm level for incision which was marked with a skin marker. Operative briefing was performed with all teams and everyone in agreement to proceed. The patient was then prepped and draped in a normal sterile fashion. Timeout was then performed, and all parties agreed with the procedure to be performed. C arm was then used to target pedicles bilaterally at L5-S1. Jamshidi was used and bi-planar fluoroscopy was used to access L5 pedicles. Once accessed wires were placed in their void. This was repeated at S1 bilaterally. Skin incision was then made along these wires and perfect scalpel was used over the wire to create a path and measure screw length. Screws were then placed over wires on the contralateral side. Once screw was at the back of the body wire was removed. The screws were confirmed to be in good position on AP and lateral. We then tested screws and they all tested above 20 mA. Attention was then turned to interbody fusion at L5-S1. Tubular retractor system was placed at the interspace of L5-S1 using biplanar c arm. Once in position and dilated up to 26mm tube it was locked to the bed and confirmed in good position. Microscope was then brought in for visualization. Limited myomectomy was performed and laminectomy, complete facetectomy and foraminotomy performed at L5-S1 using high speed jono and Kerrison rongure. The ligamentum was removed and dural sac decompressed. Exiting and traversing roots visualized and decompressed. Neural elements were then protected, and disc space accessed with an osteotome. Sequential shaving then done under lateral imaging and complete discectomy performed using annalise, pituitary and curette. Once good bleeding endplates accomplished and good height congregation with trials, a combination of autograft, allograft and synthetic placed anterior in the disc space. The cage was then selected and impacted into place under lateral imaging. The cage was then expanded restoring height, lordosis and alignment. The cage was backfilled with bone graft through a funnel. The loading unit operator crimping removed and area inspected. Good cage placement, stable cage and no injuries. Area was irrigated copiously, and meticulous hemostasis achieved. The tubular retractor was then removed under direct visualization. Screws were then selected and placed over the previously placed wires on the ipsilateral side. This was done in the fashion described above. Screws were then tested, and all tested above 20 mA. Shells were then placed on the tabs. Sammy length was then measured, and rods selected. They were then placed through the MIS tabs, subfascial. These were then locked into place with set screws and final tightened. Sammy holders removed and images taken showing good placement of rods good lordosis and congregation of height. Tabs were broken off. Wounds were then copiously irrigated with NSS. Whitewood used for TP decortication and mixture of MagnatOs, allograft and autograft packed posterolateral. Facia was then closed with 0 Vircyl on a Scorpion suture passer for MIS closure. Deep subq closed with 0 Vicryl. Superficial subq closed with 2-0 Vicryl and skin with shweta. Wound edges approximated very well. Wound was then cleaned with alcohol and dried. Wounds dressed in Optifoam dressings. The patient was then transferred off the table back to their hospital bed a- traumatically. They were extubated by the department of anesthesia. They were then transferred to PACU in stable condition having tolerated the procedure with no complications.
[2022-11-08 16:24] LABS: Glucose,Whole Blood 169 mg/dL (70-110)
[2022-11-08] MEDS ORDERED: LORazepam 2 MG/ML INJ IV ONE (16:41)
[2022-11-08] MEDS ORDERED: HYDROmorphone 1 MG/ML 1 ML SYRINGE IVP ONE (16:41)
[2022-11-08] MEDS: HYDROmorphone 0.5 MG/0.5 ML SYRINGE IVP PRN (16:50)
--- NOTE | 2022-11-08 16:57 | FL ---
Intraoperative/procedural fluoroscopic services were provided. Total fluoroscopy time is 2 minutes 28 seconds with a total of 3 submitted images to PACS. Please see the operative/procedural note for fur ther details. DAP: 2.6329 Gycm2
[2022-11-08] MEDS ORDERED: fentaNYL (PF) 50 MCG/ML 2 ML AMP IVP ONE ×2 (17:22→17:32)
[2022-11-08] MEDS: HYDROmorphone 1 MG/ML 1 ML SYRINGE IVP PRN ×2 (18:55→21:59)
[2022-11-08] MEDS: GABAPENTIN 300 MG CAP PO SCH ×2 (19:57→19:59)
[2022-11-08] MEDS: ACETAMINOPHEN TAB 325 MG TAB PO SCH ×2 (19:59→23:50)
[2022-11-08] MEDS: ONDANSETRON 4 MG/2 ML VIAL IVP PRN (21:07)
[2022-11-08 21:22] LABS: Glucose,Whole Blood 163 mg/dL (70-110)
[2022-11-08] MEDS: diazePAM 5 MG TAB PO PRN (22:08)
[2022-11-08] MEDS ORDERED: CALCIUM CARBONATE 500 MG CHEWABLE PO STA (23:11)
[2022-11-08] MEDS ORDERED: PANTOPRAZOLE 40 MG/10 ML VIAL IVP ONE (23:33)
--- NOTE | 2022-11-09 00:39 | P.CONS ---
History of Present Illness - Reason for Consult Consult date: 11/08/22 - History of Present Illness The patient is a 36-year-old female with a PMH of type II DM, hypertension, asthma, hyperlipidemia who was admitted to the hospital for elective lumbosacral decompression and fusion fusion with interbody device insertion. The patient was seen postoperatively on the surgical unit. She reported ongoing 5 out of 10 lower back pain. She also reported nausea with nonbloody nonbilious emesis. She denied experienced chest discomfort or shortness of breath. She also denied sore throat, fever, chills. The patient also reported mild left hand numbness without weakness. Denied speech or visual abnormalities. Review of systems: Pertinent positives and negatives as discussed in HPI, a complete review of systems was performed and all other systems are negative. Physical examination: Vital signs reviewed General: non toxic, no distress, appears at stated age, morbidly obese Derm: no unusual rashes/lesions, warm Head: atraumatic, normocephalic, symmetric Eyes: EOMI, no lid lag, anicteric sclera, pupils equal round reactive to light ENT: Nose and ears atraumatic Neck: No cervical lymphadenopathy, trachea midline, supple Mouth: no lip lesion, mucus membranes moist Cardiovascular: S1S2 reg, no murmur, positive dorsalis pedis pulse bilateral, no edema Lungs: CTA bilateral, no rhonchi, no rales, no accessory muscle use Abdominal: soft, nontender to palpation, no guarding Ext: muscle strength 5 out of 5 in all 4 extremities grossly, no gross muscle atrophy, no contractures, multiple lumbosacral dressings noted without surrounding abnormalities Neuro: CN II-XI grossly intact, no gross focal neuro deficits Psych: Alert, oriented, appropriate affect Assessment: Postoperative nausea and vomiting Status post lumbosacral decompression and fusion with interbody device insertion Chronic conditions: Type II DM, hypertension, asthma, hyperlipidemia Plan: Zofran ordered Anesthesiology made aware regarding the patient's left hand numbness without any additional deficits Continue with patient's home medications with insulin sliding scale and blood glucose monitoring Defer management of pain control and DVT prophylaxis to the primary surgery service We appreciate this opportunity to be involved in this patient's care. We will follow the patient with you. For any further questions, please not hesitate to contact the sound inpatient team. Past Medical History Past Medical History: Asthma, Diabetes Mellitus, GERD/Reflux, Hypertension, Musculoskeletal Disorder, Supraventricular Tachycardia (SVT) Additional Past Medical History / Comment(s): SVT- CARDIAC ABLATION CORRECTED IT , MIGRAINE HEADACHES History of Any Multi-Drug Resistant Organisms: None Reported Past Surgical History: Cardiac Ablation, Hernia Repair, Tonsillectomy, Tubal Ligation, Uterine Ablation Additional Past Surgical History / Comment(s): CARDIAC ABLATION X2, CERVIX SURGERY ,PAIN CLINIC PROCEDURES Past Anesthesia/Blood Transfusion Reactions: Postoperative Nausea & Vomiting (PONV) Additional Past Anesthesia/Blood Transfusion Reaction / Comm: only antinausea med. can take is zofran Smoking Status: Never smoker - Past Family History Mother Family Medical History: Cancer, CVA/TIA Additional Family Medical History / Comment(s): of a CVA. Father Family Medical History: Cancer, Pulmonary Embolus Sister(s) Family Medical History: Cancer Medications and Allergies Home Medications Medication Instructions Recorded Confirmed Type LORazepam [Ativan] 1 mg PO TID PRN 09/05/14 11/08/22 History Ondansetron HCl [Zofran] 8 mg PO Q12HR PRN 09/05/14 11/08/22 History buPROPion HCL [Wellbutrin XL] 150 mg PO 1500 09/05/14 11/08/22 History Albuterol Nebulized [Ventolin 2.5 mg INHALATION RT-Q6H PRN 12/15/20 11/08/22 History Nebulized] Albuterol Sulfate [Ventolin HFA] 2 puff INHALATION RT-QID PRN 12/15/20 11/08/22 History Fenofibrate Nanocrystallized 96 mg PO 149912/15/20 11/08/22 History [Fenofibrate] Insulin Glargine,Hum.rec.anlog 16 unit SQ 0800,199912/15/20 11/08/22 History [Basaglar Kwikpen U-100] Rosuvastatin Calcium [Crestor] 20 mg PO 149912/15/20 11/08/22 History atenoloL [Tenormin] 25 mg PO 1500 12/15/20 11/08/22 History buPROPion HCL [Wellbutrin XL] 300 mg PO 1500 12/15/20 11/08/22 History Pantoprazole Sodium [Protonix] 40 mg PO BID #60 tab 12/17/20 11/08/22 Rx metFORMIN HCL [Glucophage] 1,000 mg PO BID 08/20/22 11/08/22 History Dulaglutide [Trulicity] 3 mg SQ FR 11/01/22 11/08/22 History Insulin Aspart [NovoLOG Flexpen] See Protocol SQ DIRECTED 11/01/22 11/08/22 History Allergies Allergy/AdvReac Type Severity Reaction Status Date / Time ketorolac tromethamine Allergy Severe rash,bliste Verified 11/08/22 11:59 [From Toradol] rs prochlorperazine edisylate Allergy Severe Dyspnea Verified 11/08/22 11:59 [From Compazine] prochlorperazine maleate Allergy Severe Dyspnea Verified 11/08/22 11:59 [From Compazine] promethazine HCl Allergy Severe hives, Verified 11/08/22 11:59 [From Phenergan] jittery droperidol Allergy Dyspnea Verified 11/08/22 11:59 metoclopramide [From Reglan] AdvReac Unknown Verified 11/08/22 11:59 adhesive tape Allergy Severe BLISTERS Uncoded 11/08/22 11:59 Physical Exam Vitals: Vital Signs Temp Pulse Resp BP Pulse Ox 11/08/22 18:12 115 H 17 128/68 93 L 11/08/22 17:42 121 H 16 136/72 93 L 11/08/22 17:27 115 H 16 149/92 97 11/08/22 17:12 115 H 18 140/72 95 11/08/22 16:57 112 H 15 154/84 98 11/08/22 16:42 112 H 22 181/116 98 11/08/22 16:27 110 H 20 156/78 94 L 11/08/22 16:12 97.7 F 112 H 16 161/83 95 11/08/22 12:54 98.5 F 74 16 159/74 98 Intake and Output 11/08/22 11/08/22 11/09/22 14:59 22:59 06:59 Intake Total 1550 500 Output Total 1825 Balance 1550 -1325 Intake: IV 1550 500 Output: Urine 1675 Estimated Blood Loss 150 Other: Weight 109.4 kg Results Labs: Abnormal Lab Results - Last 24 Hours (Table) 08/14/23 08/14/23 08/14/23 Range/Units 12:34 16:18 21:18 POC Glucose (mg/dL) 132 H 169 H 163 H (70-110) mg/dL
[2022-11-09] MEDS: HYDROmorphone 1 MG/ML 1 ML SYRINGE IVP PRN ×6 (01:01→23:39)
[2022-11-09] MEDS: ONDANSETRON 4 MG/2 ML VIAL IVP PRN ×2 (02:45→09:06)
[2022-11-09] MEDS: ACETAMINOPHEN TAB 325 MG TAB PO SCH ×4 (05:11→23:45)
[2022-11-09 07:31] LABS: Glucose,Whole Blood 140 mg/dL (70-110)
[2022-11-09] MEDS: INSULIN ASPART (NovoLOG) 100 UNIT/ML VIAL SQ SCH ×4 (07:33→21:42)
[2022-11-09] MEDS ORDERED: DEXAMETHASONE SOD PHOSPHATE 4 MG/ML 1 ML VIAL IVP ONE (08:35)
[2022-11-09] MEDS: diazePAM 5 MG TAB PO PRN ×2 (08:53→22:32)
[2022-11-09] MEDS: CYCLOBENZAPRINE 5 MG TAB PO SCH ×3 (08:53→21:42)
[2022-11-09] MEDS: GABAPENTIN 300 MG CAP PO SCH ×4 (08:53→20:02)
[2022-11-09] MEDS: PANTOPRAZOLE 40 MG TABLET PO SCH ×2 (08:53→20:01)
[2022-11-09 09:10] LABS: BUN/Creat Ratio 14.29 Ratio (12.00-20.00); Carbon Dioxide 21.8 mmol/L (21.6-31.8); Chloride 99 mmol/L (96-109); Glucose 121 mg/dL (70-110); Potassium 3.7 mmol/L (3.5-5.5); Sodium 134 mmol/L (135-145)
[2022-11-09 09:23] LABS: HCT 38.5 % (37.2-46.3); HGB 12.7 d/dL (12.0-15.0); MCH 28.3 pg (27.0-32.0); MCV 85.9 FL (80.0-97.0); Mean Platelet Volume 10.9 FL (9.5-12.2); NRBC Per 100 WBC 0 X 10*3/uL (0.00-0.01); Platelet Count 326 X 10*3/uL (140-440); RBC 4.48 X 10*6/uL (4.10-5.20); RDW 12.8 % (11.5-14.5); WBC 12.65 X 10*3/uL (4.50-10.00)
[2022-11-09 09:24] LABS: Basophils # (A) 0.03 X 10*3/uL (0.00-0.10); Basophils % (A) 0.2 %; Eosinophils # (A) 0.04 X 10*3/uL (0.04-0.35); Eosinophils % (A) 0.3 %; Lymphocytes % (A) 17.4 %; Monocytes # (A) 1.14 X 10*3/uL (0.20-1.00); Neutrophils # (A) 9.19 X 10*3/uL (1.80-7.70); Neutrophils % (A) 72.7 %
--- NOTE | 2022-11-09 09:44 | CT ---
EXAMINATION TYPE: CT lumbar spine wo con CT DLP: 1986.3 mGycm, Automated exposure control for dose reduction was used. DATE OF EXAM: 11/09/2022 8:37 AM COMPARISON: 05/06/2022 . CLINICAL INDICATION:Female, 36 years old with history of s/p L5-S1 MIS TLIF; PHH, s/p L5-S1 MIS TLIF TECHNIQUE: Multiple axial images were obtained from the midportion of T11 through the sacroiliac daily nts. Soft tissue and bone windows in coronal and sagittal planes were obtained and reviewed. Contrast used: mL of , none. Oral contrast used: none. FINDINGS: Alignment: There are 5 lumbar type vertebral bodies within normal alignment. Bone: No evidence of fracture is identified. Interval postsurgical change at L5-S1. Hardware appears intact. Mild multilevel facet joint arthropathy. Discs: T12-L1: No spinal canal or neural foraminal stenosis is identified. L1-L2: No spinal canal or neural foraminal stenosis is identified. L2-L3: No spinal canal or neural foraminal stenosis is identified. L3-L4: Facet joint arthropathy and disc bulging result with mild spinal canal stenosis and mild to mo derate bilateral neural foraminal stenosis. L4-L5: Facet joint arthropathy and disc bulging result with mild spinal canal stenosis and moderate bilateral neural foraminal stenosis. L5-S1: Discectomy at this level. Post surgical changes at this level with hardware intact. There brenden ins moderate to severe right neural foraminal stenosis. The left neural foramen appears patent second ariadna to postsurgical change. Other: Small hiatal hernia. IMPRESSION: L5-S1 post surgical change with severe right neural foraminal stenosis. The left neural foramen is pa tent secondary to post surgical change. No evidence of fracture. No evidence for significant spinal c anal stenosis.
--- NOTE | 2022-11-09 10:06 | P.PN ---
Subjective Progress Note Date: 11/09/22 Principal diagnosis: 1. L5-S1 grade 1 spondylolisthesis 2.L5-S1 spondylosis and stenosis 3. L4-5 spondylosis 4. Bilateral Sacroiliitis Patient seen and examined this morning. Upon entering the room patient is very tearful, resting in bed. Patient has complained of significant lower back pain. Ice packs are present. Medications will be adjusted. Surgical dressings to the paralumbar region are clean dry and intact. VSS. Patient does report since procedure she continues to have right lower extremity numbness into her toes. Educated patient that she will be working with physical therapy today. Encouraged use of incentive spirometer. No acute events overnight. Objective - Vital Signs Vital signs: Vital Signs Temp 98.5 F 11/09/22 07:26 Pulse 98 11/09/22 07:26 Resp 18 11/09/22 07:26 BP 124/82 11/09/22 07:26 Pulse Ox 96 11/09/22 07:26 FiO2 Intake & Output 11/08/22 11/09/22 11/09/22 18:59 06:59 18:59 Intake Total 2049 60 Output Total 825 2100 Balance 1225 -2039 Weight 109.4 kg Intake: IV 2049 Oral 60 Output: Urine 675 1500 Oral Regurgitation 600 Estimated Blood Loss 150 Other: Voiding Method Indwelling Catheter - Exam Physical Examination General: The patient is awake and alert, in no acute distress Skin: Skin is warm and dry with no obvious rashes or lesions. Surgical incisions to the paralumbar region, dressing is clean dry and intact. No active drainage. Eye: Pupils are equal, round and reactive to light, extra-ocular movements are intact; there is normal conjunctiva bilaterally. Neck: The neck is supple, there is no tenderness and ROM intact. Cardiovascular: There is a regular rate and rhythm. No murmur, rub or gallop is appreciated. Respiratory: Lungs are clear to auscultation, respirations are non-labored, breath sounds are equal. Gastrointestinal: Soft, non-distended, non-tender abdomen. Back: There is no tenderness to palpation in the midline, paralumbar, parathoracic or buttocks region. There is no obvious deformity . Musculoskeletal: ROM limited secondary to pain and stiffness from surgical procedure. Muscle strength in all major muscle groups of bilateral upper extremities 5/5, bilateral lower extremities 4/5. Neurological: CN 2-12 intact. There are no obvious motor or sensory deficits. Movement and coordination equal and intact. Sensory exam to light touch intact C5-T1 and intact from L2-S1. Reflexes 2/4 in bilateral upper and lower extremities. Negative Hoffmans, babinski, and clonus signs. Psychiatric: Cooperative, appropriate mood & affect, normal judgment. - Labs CBC & Chem 7: 11/09/22 05:27 11/09/22 05:27 Labs: Abnormal Lab Results - Last 24 Hours (Table) 11/08/22 11/08/22 11/08/22 Range/Units 12:34 16:18 21:18 POC Glucose (mg/dL) 132 H 169 H 163 H (70-110) mg/dL 11/09/22 Range/Units 07:29 POC Glucose (mg/dL) 140 H (70-110) mg/dL Assessment and Plan Assessment: Postop day 1: L5-S1 minimally invasive TLIF 1. L5-S1 grade 1 spondylolisthesis 2.L5-S1 spondylosis and stenosis 3. L4-5 spondylosis 4. Bilateral Sacroiliitis Plan: -Appreciate senior business consultant and team management. -Activity: Ambulate QID, OOB all meals, up and about, limit lifting bending twisting to less than 5 lbs. Use walker or cane if needed for stability. -Daily PT/OT, increase ambulation strength and balance. -Pain control: Medications adjusted -Meds: reviewed -GI ppx: senna, Miralax -DVT PPX: OK to restart Heparin tonight -Hygiene: Shower today. Maintain dressing clean and dry. Meticulous cleaning after BMs away from the incision site -Encourage IS 10x/hr -Dispo: Anticipate discharge home tomorrow with homecare *I reviewed and discussed this case with my attending Dr. Stone, whom has reviewed this chart and films and is in agreement with assessment and plan of care as outlined above. I have personally seen and examined the patient, performed the documentation and the assessment and plan as written. Number of minutes spent on the visit: 20m.
--- NOTE | 2022-11-09 10:55 | P.PN ---
Subjective Progress Note Date: 11/09/22 Pt still nauseous and in pain this AM. Gen: awake, alert HEENT: normocephalic, atraumatic, good hearing acuity, moist mucous membranes Resp: good air exchange, breathing comfortably with no accessory muscle use CVS: good distal perfusion x 4, GI: soft, NTTP, ND : no SPT, no CVAT, franks catheter not present MSK: no pitting edema, no clubbing Neuro: non-focal, moving all extremities Psych: cooperative, euthymic mood Hospital Course: The patient is a 36-year-old female with a PMH of type II DM, hypertension, asthma, hyperlipidemia who was admitted to the hospital for elective lumbosacral decompression and fusion fusion with interbody device insertion. Assessment: Postoperative nausea and vomiting Status post lumbosacral decompression and fusion with interbody device insertion Chronic conditions: Type II DM, hypertension, asthma, hyperlipidemia Plan: Zofran ordered Anesthesiology made aware regarding the patient's left hand numbness without any additional deficits Continue with patient's home medications with insulin sliding scale and blood glucose monitoring Defer management of pain control and DVT prophylaxis to the primary surgery service Objective - Vital Signs Vital signs: Vital Signs Temp 98.5 F 11/09/22 07:26 Pulse 98 11/09/22 07:26 Resp 18 11/09/22 07:26 BP 124/82 11/09/22 07:26 Pulse Ox 96 11/09/22 07:26 FiO2 Intake & Output 11/08/22 11/09/22 11/09/22 18:59 06:59 18:59 Intake Total 2049 60 Output Total 825 2100 Balance 1225 -204 Weight 109.4 kg Intake: IV 0 Oral 60 Output: Urine 675 1500 Oral Regurgitation 600 Estimated Blood Loss 150 Other: Voiding Method Indwelling Catheter Indwelling Catheter - Labs CBC & Chem 7: 11/09/22 05:27 11/09/22 05:27 Labs: Abnormal Lab Results - Last 24 Hours (Table) 11/08/22 11/08/22 11/08/22 Range/Units 12:34 16:18 21:18 WBC (4.50-10.00) X 10*3/uL Neutrophils # (1.80-7.70) X 10*3/uL Monocytes # (0.20-1.00) X 10*3/uL Sodium (135-145) mmol/L Anion Gap (4.00-12.00) mmol/L Glucose (70-110) mg/dL POC Glucose (mg/dL) 132 H 169 H 163 H (70-110) mg/dL 11/09/22 11/09/22 11/09/22 Range/Units 05:27 05:27 07:29 WBC 12.65 H (4.50-10.00) X 10*3/uL Neutrophils # 9.19 H (1.80-7.70) X 10*3/uL Monocytes # 1.14 H (0.20-1.00) X 10*3/uL Sodium 134 L (135-145) mmol/L Anion Gap 13.20 H (4.00-12.00) mmol/L Glucose 121 H (70-110) mg/dL POC Glucose (mg/dL) 140 H (70-110) mg/dL
[2022-11-09 12:03] LABS: Glucose,Whole Blood 194 mg/dL (70-110)
[2022-11-09] MEDS: LACTATED RINGERS 1,000 ML IV SCH (14:26)
[2022-11-09] MEDS: atenoloL 25 MG TAB PO SCH (15:18)
[2022-11-09] MEDS: buPROPion XL 300 MG TAB.ER.24H PO SCH (15:19)
[2022-11-09] MEDS: ATORVASTATIN 40 MG TAB PO SCH (15:19)
[2022-11-09] MEDS: buPROPion XL 150 MG TAB.ER.24H PO SCH (15:20)
[2022-11-09 17:18] LABS: Glucose,Whole Blood 193 mg/dL (70-110)
[2022-11-09 21:26] LABS: Glucose,Whole Blood 161 mg/dL (70-110)
[2022-11-10] MEDS: HYDROmorphone 1 MG/ML 1 ML SYRINGE IVP PRN ×4 (03:23→15:21)
[2022-11-10] MEDS: ACETAMINOPHEN TAB 325 MG TAB PO SCH ×3 (06:24→17:58)
[2022-11-10 07:08] LABS: Glucose,Whole Blood 147 mg/dL (70-110)
[2022-11-10] MEDS: INSULIN ASPART (NovoLOG) 100 UNIT/ML VIAL SQ SCH ×4 (07:18→21:24)
--- NOTE | 2022-11-10 08:25 | P.PN ---
Subjective Progress Note Date: 11/10/22 Principal diagnosis: 1. L5-S1 grade 1 spondylolisthesis 2.L5-S1 spondylosis and stenosis 3. L4-5 spondylosis 4. Bilateral Sacroiliitis Patient seen and examined this morning. Patient resting comfortably in bed. She has complaint of significant lower back pain with activity. Medications have been adjusted. Surgical dressings to the paralumbar region are clean dry and intact. VSS. Patient does report improvement of LLE radiculopathy since the procedure. She states she has been up to [facility], urinating without difficulty. Pateint has not had BM yet, is requesting stool softeners. Patient is looking forward to working with PT and ambulating in hallway. If patient tolerates activity and her pain is managed, she may be discharged later today vs tomorrow. Encouraged use of incentive spirometer. No acute events overnight. Objective - Vital Signs Vital signs: Vital Signs Temp 97.9 F 11/10/22 07:09 Pulse 77 11/10/22 07:09 Resp 18 11/10/22 07:09 BP 110/73 11/10/22 07:09 Pulse Ox 95 11/10/22 07:09 FiO2 Intake & Output 11/09/22 11/10/22 11/10/22 18:59 06:59 18:59 Intake Total 600 Output Total 200 Balance -200 600 Intake: Oral 600 Output: Urine 200 Other: Voiding Method Indwelling Catheter Indwelling Catheter # Voids 1 1 - Exam Physical Examination General: The patient is awake and alert, in no acute distress Skin: Skin is warm and dry with no obvious rashes or lesions. Surgical incisions to the paralumbar region, dressing is clean dry and intact. No active drainage. Eye: Pupils are equal, round and reactive to light, extra-ocular movements are intact; there is normal conjunctiva bilaterally. Neck: The neck is supple, there is no tenderness and ROM intact. Cardiovascular: There is a regular rate and rhythm. No murmur, rub or gallop is appreciated. Respiratory: Lungs are clear to auscultation, respirations are non-labored, breath sounds are equal. Gastrointestinal: Soft, non-distended, non-tender abdomen. Back: There is no tenderness to palpation in the midline, paralumbar, parathoracic or buttocks region. There is no obvious deformity . Musculoskeletal: ROM limited secondary to pain and stiffness from surgical procedure. Muscle strength in all major muscle groups of bilateral upper extremities 5/5, bilateral lower extremities 4/5. Neurological: CN 2-12 intact. There are no obvious motor or sensory deficits. Movement and coordination equal and intact. Sensory exam to light touch intact C5-T1 and intact from L2-S1. Reflexes 2/4 in bilateral upper and lower e xtremities. Negative Hoffmans, babinski, and clonus signs. Psychiatric: Cooperative, appropriate mood & affect, normal judgment. - Labs CBC & Chem 7: 11/09/22 05:27 11/09/22 05:27 Labs: Abnormal Lab Results - Last 24 Hours (Table) 11/09/22 11/09/22 11/09/22 Range/Units 05:27 05:27 12:01 WBC 12.65 H (4.50-10.00) X 10*3/uL Neutrophils # 9.19 H (1.80-7.70) X 10*3/uL Monocytes # 1.14 H (0.20-1.00) X 10*3/uL Sodium 134 L (135-145) mmol/L Anion Gap 13.20 H (4.00-12.00) mmol/L Glucose 121 H (70-110) mg/dL POC Glucose (mg/dL) 194 H (70-110) mg/dL 11/09/22 11/09/22 11/10/22 Range/Units 17:17 21:24 07:07 WBC (4.50-10.00) X 10*3/uL Neutrophils # (1.80-7.70) X 10*3/uL Monocytes # (0.20-1.00) X 10*3/uL Sodium (135-145) mmol/L Anion Gap (4.00-12.00) mmol/L Glucose (70-110) mg/dL POC Glucose (mg/dL) 193 H 161 H 147 H (70-110) mg/dL Assessment and Plan Assessment: Postop day 2: L5-S1 minimally invasive TLIF 1. L5-S1 grade 1 spondylolisthesis 2.L5-S1 spondylosis and stenosis 3. L4-5 spondylosis 4. Bilateral Sacroiliitis Plan: -Appreciate territory sales consultant and team management. -Activity: Ambulate QID, OOB all meals, up and about, limit lifting bending twisting to less than 5 lbs. Use walker or cane if needed for stability. -Daily PT/OT, increase ambulation strength and balance. -Pain control: Medications adjusted -Meds: reviewed -GI ppx: senna, Miralax -DVT PPX: Heparin -Hygiene: Shower today. Maintain dressing clean and dry. Meticulous cleaning after BMs away from the incision site -Encourage IS 10x/hr -Dispo: Anticipate discharge home later today vs tomorrow with homecare *I reviewed and discussed this case with my attending Dr. Stone, whom has reviewed this chart and films and is in agreement with assessment and plan of care as outlined above. I have personally seen and examined the patient, performed the documentation and the assessment and plan as written. Number of minutes spent on the visit: 20m.
[2022-11-10] MEDS: GABAPENTIN 300 MG CAP PO SCH ×3 (08:43→19:50)
[2022-11-10] MEDS: PANTOPRAZOLE 40 MG TABLET PO SCH ×2 (08:51→21:23)
[2022-11-10] MEDS: CYCLOBENZAPRINE 10 MG TAB PO SCH ×3 (08:51→21:24)
[2022-11-10] MEDS: oxyCODONE-APAP 10-325MG 1 EACH TAB PO PRN ×3 (08:51→22:33)
[2022-11-10] MEDS: diazePAM 5 MG TAB PO PRN ×2 (10:28→21:24)
--- NOTE | 2022-11-10 10:29 | P.PN ---
Subjective Progress Note Date: 11/10/22 No new complaints. Gen: awake, alert HEENT: normocephalic, atraumatic, good hearing acuity, moist mucous membranes Resp: good air exchange, breathing comfortably with no accessory muscle use CVS: good distal perfusion x 4, GI: soft, NTTP, ND : no SPT, no CVAT, franks catheter not present MSK: no pitting edema, no clubbing Neuro: non-focal, moving all extremities Psych: cooperative, euthymic mood Hospital Course: The patient is a 36-year-old female with a PMH of type II DM, hypertension, asthma, hyperlipidemia who was admitted to the hospital for elective lumbosacral decompression and fusion fusion with interbody device insertion. Assessment: Postoperative nausea and vomiting Status post lumbosacral decompression and fusion with interbody device insertion Chronic conditions: Type II DM, hypertension, asthma, hyperlipidemia Plan: Zofran ordered Anesthesiology made aware regarding the patient's left hand numbness without any additional deficits Continue with patient's home medications with insulin sliding scale and blood glucose monitoring Defer management of pain control and DVT prophylaxis to the primary surgery service Objective - Vital Signs Vital signs: Vital Signs Temp 97.9 F 11/10/22 07:09 Pulse 77 11/10/22 07:09 Resp 18 11/10/22 07:09 BP 110/73 11/10/22 07:09 Pulse Ox 95 11/10/22 07:09 FiO2 Intake & Output 11/09/22 11/10/22 11/10/22 18:59 06:59 18:59 Intake Total 600 Output Total 200 Balance -200 600 Intake: Oral 600 Output: Urine 200 Other: Voiding Method Indwelling Catheter Indwelling Catheter Indwelling Catheter # Voids 1 1 2 - Labs CBC & Chem 7: 11/09/22 05:27 11/09/22 05:27 Labs: Abnormal Lab Results - Last 24 Hours (Table) 11/09/22 11/09/22 11/09/22 Range/Units 12:01 17:17 21:24 POC Glucose (mg/dL) 194 H 193 H 161 H (70-110) mg/dL 11/10/22 Range/Units 07:07 POC Glucose (mg/dL) 147 H (70-110) mg/dL
[2022-11-10 11:57] LABS: Glucose,Whole Blood 264 mg/dL (70-110)
[2022-11-10] MEDS: LACTATED RINGERS 1,000 ML IV SCH (13:30)
[2022-11-10] MEDS: atenoloL 25 MG TAB PO SCH (15:21)
[2022-11-10] MEDS: buPROPion XL 300 MG TAB.ER.24H PO SCH (15:21)
[2022-11-10] MEDS: buPROPion XL 150 MG TAB.ER.24H PO SCH (15:21)
[2022-11-10] MEDS: ATORVASTATIN 40 MG TAB PO SCH (15:21)
[2022-11-10 17:10] LABS: Glucose,Whole Blood 268 mg/dL (70-110)
[2022-11-10 21:03] LABS: Glucose,Whole Blood 184 mg/dL (70-110)
[2022-11-10] MEDS: HEPARIN SODIUM,PORCINE 5,000 UNIT/ML 1 ML VIAL SQ SCH (21:24)
[2022-11-11] MEDS: ACETAMINOPHEN TAB 325 MG TAB PO SCH ×3 (00:17→11:58)
[2022-11-11] MEDS: HYDROmorphone 0.5 MG/0.5 ML SYRINGE IVP PRN (00:44)
[2022-11-11] MEDS: oxyCODONE-APAP 10-325MG 1 EACH TAB PO PRN ×4 (02:29→14:56)
[2022-11-11 07:06] LABS: Glucose,Whole Blood 106 mg/dL (70-110)
[2022-11-11] MEDS: INSULIN ASPART (NovoLOG) 100 UNIT/ML VIAL SQ SCH ×2 (07:29→13:46)
[2022-11-11] MEDS: PANTOPRAZOLE 40 MG TABLET PO SCH (08:54)
[2022-11-11] MEDS: GABAPENTIN 300 MG CAP PO SCH (08:54)
[2022-11-11] MEDS: HEPARIN SODIUM,PORCINE 5,000 UNIT/ML 1 ML VIAL SQ SCH (08:54)
[2022-11-11] MEDS: CYCLOBENZAPRINE 10 MG TAB PO SCH (08:54)
--- NOTE | 2022-11-11 10:43 | P.PN ---
Subjective Progress Note Date: 11/11/22 Principal diagnosis: s/p L5-S1 MIS TLIF Patient was evaluated today at bedside, patient is resting in the hospital bed. Patient is feeling a lot better today after having no pain medications which around. She was able to have a bowel movement yesterday. She is urinating with no difficulty. She is utilizing a walker for ambulation. She is very eager home at this time. She denies headaches, lightheadedness, chest pain or shortness of breath. Objective - Vital Signs Vital signs: Vital Signs Temp 98.0 F 11/11/22 07:07 Pulse 86 11/11/22 07:07 Resp 16 11/11/22 07:07 BP 122/87 11/11/22 07:07 Pulse Ox 93 L 11/11/22 07:07 FiO2 Intake & Output 11/10/22 11/11/22 11/11/22 18:59 06:59 18:59 Other: Voiding Method Indwelling Catheter Toilet # Voids 1 1 # Bowel Movements 1 - Exam Gen: AOx3, NAD VSS stable at this time Integument: Postoperative bandages are in good position condition, no drainage is appreciated Palpation: Mild tenderness with palpation of the lower lumbar spine ROM: Full range of motion in all major muscles of the bilateral upper and lower extremities, no focal deficits Sensory Exam: Senory exam to light touch is intact C5-T1 Senosry exam to light touch is intact L2-S1 Motor: 5/5 strength operation the bilateral upper extremities with shoulder elevation, shoulder abduction, elbow extension, elbow, wrist extension, wrist flexion, cornice upholsterer 4+/5 strength appreciated in the bilateral lower extremities with hip flexion, knee extension, knee flexion, plantar flexion, dorsiflexion, EHL, FHL Reflexes: 2/4 in all UE and LE Negative Lars's, Babinski, clonus bilaterally Special Test: Negative straight leg raise bilaterally, negative logroll maneuver bilaterally - Labs CBC & Chem 7: 11/09/22 05:27 11/09/22 05:27 Labs: Abnormal Lab Results - Last 24 Hours (Table) 11/10/22 11/10/22 11/10/22 Range/Units 11:56 17:09 21:02 POC Glucose (mg/dL) 264 H 268 H 184 H (70-110) mg/dL Assessment and Plan Assessment: Postoperative day #3 status post L5-S1 minimally invasive TLIF Plan: Pain control, plan for discharge home on Percocet 10 mg/325 mg. We'll also utilize Flexeril Wound care instructions were discussed, this to include when to remove bandages and shower instructions Recommending weight-bear as tolerated with walker. Patient will avoid bending, lifting and twisting at this time GI prophylaxis, patient was sent home on postoperative Other medical office supervisor recommendations appreciated Discharge planning: Patient stable for discharge home today Time with Patient: Less than 30
--- NOTE | 2022-11-11 10:52 | P.DS ---
Providers Date of admission: 11/11/22 07:20 Expected date of discharge: 11/11/22 Attending physician: Bandar Stone DO Consults: 11/08/22 15:41 Consult Physician Routine Consulting Provider: Yohana Macias Consult Reason/Comments: medical management s/p L5-S1 MIS TLIF Do you want consulting provider notified?: Yes Primary care physician: America Tijerina Hospital Course: Date of admission: 11/08/2022 Date of discharge: 11/11/2022 Admission diagnosis: Low back pain, L4-L5 spondylosis, L5-S1 spondylosis and stenosis, grade 1 spondylolisthesis listhesis of L5-S1 Discharge diagnosis: Status post L5-S1 minimally invasive TLIF Attending physician: Dr. Stone Surgical procedures: L5-S1 minimally invasive TLIF Brief history: Patient is a 36-year-old female who has been following in the outpatient setting with Dr. Stone with regards to low back pain and bilateral sacroiliitis. Patient has undergone previous SI joint injections. She has also undergone multiple conservative measures with regards to L4-S1 spondylosis with L5-S1 stenosis and spondylolisthesis. Patient had failed outpatient conservative measures, she was scheduled for a elective L5-S1 mini katlyn invasive transforaminal lumbar interbody fusion Hospital course: Details of patient's surgery can be found in operative report. Patient tolerated the procedure well and was subsequently transported to orthopedic floor. Patient's orthopeidc and medical care was provided daily. Patient had daily laboratory tests performed for evaluation of overall blood counts. Patient had daily physical therapy to include strengthening range of motion as well as education with walker ambulation. Patient was treated with heparin for their postoperative DVT prophylaxis during their inpatient stay. Patient was noted to have a relatively uneventful postoperative course. Patient reported satisfactory pain control with oral pain medications by postoperative day 3 Patient showed satisfactory progress with physical therapy. Patient moved steadily through the program and had no difficulty meeting the goals by postoperative day 3. Given patient's otherwise satisfactory course and having met physical therapy goals, plan is to discharge patient home on postoperative day 3. Discharge condition/disposition: Patient will be discharged home in stable condition. Discharge medications: Instructions are given on resumption of patient's normal daily medications per primary care recommendation, in addition patient will be prescribed Percocet 10 mg/325 mg, Flexeril 10 mg, Duricef 500 mg, senna S, Mi rilax. Spine Discharge and Recovery Instructions Medications: See medication list All medication refills should be obtained through your primary care doctor or your clinic spine surgeon. Please discuss prescription refills at your follow up appointment. Do not call the hospital for medication refills. Dressing: Leave your dressing in place for a total of 5 days post operatively. Then you may remove your dressing and leave open to air. Keep the area clean and if not able to keep area clean, then cover with sterile gauze and tape. Showering: You may shower 3 days after your procedure allowing soap and water to run over incision. Do not scrub. Do not soak. Blot dry. Follow up: Please confirm a follow up appointment with your surgeon 3 weeks post operatively. Please make an appointment to follow up with your PCP in 1-2 weeks after surgery for evaluation 3 phase, 3-week plan POST OP WEEKS 1-3 1. Lifting/carrying/pushing/pulling limited to less than 5 pounds. 2. Do not sit for longer than 15 minutes at one time. Get up and walk around. Prolonged sitting is NOT advised. If you lay down, see if you can tolerate laying down on you front (belly side) 3. Walk for periods of 15 minutes = 1 mile but no longer; do it multiple times times each day. 4. Ice your low back after activity. POST OP WEEKS 3-6 1. Lifting limited to less than 20 pounds. 2. Do not sit for longer than 30 minutes at a time. Frequently change positions. Use a sit-to stand workstation or take frequent breaks from sitting if you have returned to work. 3. Walk for 30 minutes each day. If possible, do these three or more times a day POST OP WEEKS 6+ At your 6-week appointment we will give you a physical therapy referral to focus on a core stabilization and strengthening program. You should also work on leg & buttock strengthening, hamstring & quadriceps stretching, and continue a low impact aerobic activity program such as swimming, walking, or riding a stationary bicycle. During the initial 6 weeks after your surgery, you are at the highest risk of re-injuring your spine. You should generally avoid BLTs (bending, lifting and twisting combination motions) and follow the above guidelines to reduce the chance of reinjury. You can anticipate post op appointments in our office at approximately 3 weeks and 6 weeks after your surgery. INCISION CARE: If your incision is not draining you do NOT need to cover it with a dressing. Keep your incision clean, dry and intact. In most cases, we apply skin glue, shweta or sutures to the incision at the time of surgery. This will be like a crust or have the appearance of a scab and will fall off in time on its own. The stitches or shweta need to be removed at 3 weeks post op appointment. You may begin to shower 3 days after surgery (this allows the glue to slaughter well). However, please avoid scrubbing the incision site or peeling off any of the skin glue. This will ensure optimal healing of your incision. Also, during this time avoid soaking the incision area in water - this includes swimming pools, hot tubs or baths. No ointments, lotions or oils on the incision until your surgeon allows. Leave shweta, sutures or glue in place. Neurological dysfunction that comes on suddenly can also be a sign of a stroke. Below some common symptoms of a stroke are listed: B - balance difficulty such as sudden onset walking or leaning to one side - NEW E - eye problem such as sudden double vision or trouble seeing on one side - NEW F - Facial weakness or numbness on one side - NEW A - Arm or leg weakness or numbness on one side - NEW S - Slurred speech or difficulty with word finding - NEW T - Time is BRAIN! Call 911 as soon as you recognize these symptoms Diet: Consume a regular diet rich in vegetables and lean protein such as chicken or fish. You should consume in a ratio of approximately 20% fats|40% carbohydrates|40%protein. Vegetables, sweet potatoes, brown rice or quinoa are examples of good carbohydrates. Chips, white bread, cookies and sweets/sugar are examples of bad carbohydrates. Limit your bad carbs, go wild with good carbs. "Life's Simple 7" Guidelines as per [place] [employer] These will help you reclaim your life after surgery and dry plasterer helper in your recovery, keeping in mind your restrictions. (1) Get Active. Physical activity can help people lose weight, control high blood pressure and cholesterol, feel emotionally better, and sleep better. (2) Control Cholesterol. Avoid a diet high in saturated fat, trans fat, & cholesterol. Limit whole milk & cream, ice cream, butter, egg yolks, processed meats (like sausage and hot dogs), and fatty meats. Choose healthy foods that are low in saturated fat, trans fat and cholesterol which include: Fruits and vegetables, fiber rich grain products (like whole grain pasta and brown rice), lean meat such as chicken, fish, nuts, seeds, and legumes. (3) Eat Better. Eat small portions. Shop at the grocery with a list and do not stray from it. Tips for a healthy diet include: Limit sodium intake to less than 1500mg daily, avoid prepackaged, processed, and fast foods, choose a diet rich in fruits, vegetables, and whole grain, high fiber foods, and limit saturated & cholesterol in your diet. (4) Manage Blood Pressure. If you have high blood pressure, you should have a cuff at home so that you can check your blood pressure regularly. Be sure you have a good cuff. An arm one is generally better than a wrist one. Bring the cuff to a doctor's appointment to validate that the measurements that your cuff are taking are accurate. Take your blood pressure twice daily when you are sitting down and relaxing. Record the numbers in a log and bring this log with you to your doctors' appointments. (5) Lose Weight if your BMI is above 25. A healthy BMI is between 19-25. To calculate Your BMI, you may use a Standard BMI Calculator on the NIH BMI website: <www.nhlbi.nih.gov/guidelines/obesity/BMI/bmicalc.htm>. Weigh oneself daily. If you are overweight, set a goal to lose weight. A pound a week loss if needed is a good target. (6) Reduce Blood Sugar. Limit foods and liquids with "added sugars." (Added sugars include sucrose, fructose, glucose, maltose, dextrose, high fructose corn syrup, corn syrup, concentrated fruit juice and honey). (7) Stop Smoking. If you smoke, quitting smoking is one of the best things that you can do for your health. Smoking increases your risk of heart attack, stroke, and peripheral vascular disease, which is a build-up of plaque in your arteries. Please discard all the cigarettes and lighters in your house. Have a plan for what you will do when you have the urge to smoke. Direct and second- hand smoke shortens your life as well as the lives of your family, friends and others around you. For your health and the health of those around you, please consider quitting! Proper Bending Body Mechanics: Maintain a wide stance with one foot slightly in front of the other. Keep your back straight. Bend utilizing the strength in your hips and knees. Do not bend at the waist. Maintain the lifted object at your waist-level close to your body. Avoid lifting weight that causes immediately pain or pain anywhere in the body afterwards. Smoking/Nicotine If there was ever one thing that you could do to increase your overall health, decrease your risk of cardiovascular problems by about 39% the second you make the choice, it is to STOP SMOKING. Your body's most instant gratification is the second you stop smoking. We have all heard the studies, read the articles but it is true, smoking is extremely bad for your overall health, and moreover it is detrimental to your bone health. Nicotine, IN ANY FORM, kills bone cells, prevents your body from healing fractures, and significantly prolongs healing after surgery. In spine surgery specifically, it increases your risk of not healing your bones to create a fusion and increases your risk of having a revision surgery due to this up to 60%. I know it is hard. I know it feels impossible. But there are ways. Take control of your life. We are here to help you through it. And when you are ready, ask us and we can direct you to help if you desire. Use the START Plan to Quit Smoking (please visit the Helpguide.org website listed below for more information): S = Set a quit date. Choose a date within the next 2 weeks, so you have enough time to prepare without losing your motivation to quit. If you mainly smoke at work, quit on the weekend, so you have a few days to adjust to the change. T = Tell family, friends, and co-workers that you plan to quit. Let your friends and family in on your plan to quit smoking and tell them you need their support and encouragement to stop. Look for a quit dean who wants to stop smoking as well. You can help each other get through the rough times. A = Anticipate and plan for the challenges you'll face while quitting. Most people who begin smoking again do so within the first 3 months. You can help yourself make it through by preparing ahead for common challenges, such as nicotine withdrawal and cigarette cravings. R = Remove cigarettes and other tobacco products from your home, car, and work. Throw away all your cigarettes (no emergency pack!), lighters, ashtrays, and matches. Wash your clothes and freshen up anything that smells like smoke. Shampoo your car, clean your drapes and carpet, and steam your furniture. T = Talk to your doctor about getting help to quit. Your doctor can prescribe medication to help with withdrawal and suggest other alternatives. If you can't see a doctor, you can get many products over the counter at your local pharmacy or grocery store, including the nicotine patch, nicotine lozenges, and nicotine gum. Resources for Quitting Smoking: <https://www.[facility].gov/documents/[facility]/Quit_Tobacco_Resources_for_patients_313480_7.pdf> Supplementation: Take recommended dosages of Vitamin D and Calcium to help fortify your bones and help them to heal. See your health maintenance packet for dosages and recommended levels. DVT/VTE prophylaxis: You will be given compression stockings from the hospital. Wear these daily for the first two weeks after surgery. You may take them off at night. You may be prescribed a medication to help thin your blood. Take this as directed. If you are not prescribed this medication, early and frequent ambulation has been shown to be the best prophylaxis to deep vein thrombosis and sequelae related to this event. Procedures: L5-S1 minimally invasive TLIF Patient Condition at Discharge: Good Plan - Discharge Summary Discharge Rx Participant: Yes New Discharge Prescriptions: New cefaDROXiL [Duricef] 500 mg PO Q12HR 5 Days #10 cap Cyclobenzaprine [Flexeril] 10 mg PO TID PRN #30 tab PRN Reason: Muscle Spasm oxyCODONE HCL/ACETAMINOPHEN [Percocet 10-325 mg] 1 - 2 tab PO Q4HR PRN 3 Days #42 tab PRN Reason: Pain Sennosides/Docusate Sodium [Senna-S 8.6-50 mg Tablet] 2 each PO DAILY PRN #30 tablet PRN Reason: Constipation polyethylene glycoL 3350 [Miralax] 17 gm PO DAILY PRN #21 packet PRN Reason: Constipation Continue Ondansetron HCl [Zofran] 8 mg PO Q12HR PRN PRN Reason: Nausea buPROPion HCL [Wellbutrin XL] 150 mg PO 1500 Rosuvastatin Calcium [Crestor] 20 mg PO 1500 Fenofibrate Nanocrystallized [Fenofibrate] 96 mg PO 1500 Albuterol Sulfate [Ventolin HFA] 2 puff INHALATION RT-QID PRN PRN Reason: Shortness Of Breath Insulin Aspart [NovoLOG Flexpen] See Protocol SQ DIRECTED Dulaglutide [Trulicity] 3 mg SQ FR buPROPion HCL [Wellbutrin XL] 300 mg PO 1500 atenoloL [Tenormin] 25 mg PO 1500 Insulin Glargine,Hum.rec.anlog [Basaglar Kwikpen U-100] 16 unit SQ 0800,1999 Albuterol Nebulized [Ventolin Nebulized] 2.5 mg INHALATION RT-Q6H PRN PRN Reason: Shortness Of Breath Pantoprazole Sodium [Protonix] 40 mg PO BID #60 tab metFORMIN HCL [Glucophage] 1,000 mg PO BID No Action LORazepam [Ativan] 1 mg PO TID PRN PRN Reason: Anxiety Discharge Medication List LORazepam [Ativan] 1 mg PO TID PRN 09/05/14 [History] Ondansetron HCl [Zofran] 8 mg PO Q12HR PRN 09/05/14 [History] buPROPion HCL [Wellbutrin XL] 150 mg PO 1500 09/05/14 [History] Albuterol Nebulized [Ventolin Nebulized] 2.5 mg INHALATION RT-Q6H PRN 12/15/20 [History] Albuterol Sulfate [Ventolin HFA] 2 puff INHALATION RT-QID PRN 12/15/20 [History] Fenofibrate Nanocrystallized [Fenofibrate] 96 mg PO 1500 12/15/20 [History] Insulin Glargine,Hum.rec.anlog [Basaglar Kwikpen U-100] 16 unit SQ 0800,2000 12/15/20 [History] Rosuvastatin Calcium [Crestor] 20 mg PO 1500 12/15/20 [History] atenoloL [Tenormin] 25 mg PO 1500 12/15/20 [History] buPROPion HCL [Wellbutrin XL] 300 mg PO 1500 12/15/20 [History] Pantoprazole Sodium [Protonix] 40 mg PO BID #60 tab 12/17/20 [Rx] metFORMIN HCL [Glucophage] 1,000 mg PO BID 08/20/22 [History] Dulaglutide [Trulicity] 3 mg SQ FR 11/01/22 [History] Insulin Aspart [NovoLOG Flexpen] See Protocol SQ DIRECTED 11/01/22 [History] Cyclobenzaprine [Flexeril] 10 mg PO TID PRN #30 tab 11/11/22 [Rx] Sennosides/Docusate Sodium [Senna-S 8.6-50 mg Tablet] 2 each PO DAILY PRN #30 tablet 11/11/22 [Rx] cefaDROXiL [Duricef] 500 mg PO Q12HR 5 Days #10 cap 11/11/22 [Rx] oxyCODONE HCL/ACETAMINOPHEN [Percocet 10-325 mg] 1 - 2 tab PO Q4HR PRN 3 Days #42 tab 11/11/22 [Rx] polyethylene glycoL 3350 [Miralax] 17 gm PO DAILY PRN #21 packet 11/11/22 [Rx] Follow up Appointment(s)/Referral(s): America Tijerina MD [Primary Care Provider] - 1 Week Bandar Stone DO [Doctor of Osteopathic Medicine] - 2 Weeks Activity/Diet/Wound Care/Special Instructions: Diabetic Instructions: - Resume metformin and Trulicity - Continue to monitor blood sugar on your dexcom - Tomorrow resume Basaglar 10 units in the morning, then monitor sugars throughout the day if they remain greater than 180 and your morning fasting is greater than 150 the following morning then resume basaglar 10 units in the evening. THen slow up titrate back to your 16 units twice daily based on blood sugars. Spine Discharge and Recovery Instructions Medications: See medication list All medication refills should be obtained through your primary care doctor or your clinic spine surgeon. Please discuss prescription refills at your follow up appointment. Do not call the hospital for medication refills. Dressing: Leave your dressing in place for a total of 5 days post operatively. Then you may remove your dressing and leave open to air. Keep the area clean and if not able to keep area clean, then cover with sterile gauze and tape. Showering: You may shower 3 days after your procedure allowing soap and water to run over incision. Do not scrub. Do not soak. Blot dry. Follow up: Please confirm a follow up appointment with your surgeon 3 weeks post operatively. Please make an appointment to follow up with your PCP in 1-2 weeks after surgery for evaluation 3 phase, 3-week plan POST OP WEEKS 1-3 1. Lifting/carrying/pushing/pulling limited to less than 5 pounds. 2. Do not sit for longer than 15 minutes at one time. Get up and walk around. Prolonged sitting is NOT advised. If you lay down, see if you can tolerate laying down on you front (belly side) 3. Walk for periods of 15 minutes = 1 mile but no longer; do it multiple times times each day. 4. Ice your low back after activity. POST OP WEEKS 3-6 1. Lifting limited to less than 20 pounds. 2. Do not sit for longer than 30 minutes at a time. Frequently change positions. Use a sit-to stand workstation or take frequent breaks from sitting if you have returned to work. 3. Walk for 30 minutes each day. If possible, do these three or more times a day POST OP WEEKS 6+ At your 6-week appointment we will give you a physical therapy referral to focus on a core stabilization and strengthening program. You should also work on leg & buttock strengthening, hamstring & quadriceps stretching, and continue a low impact aerobic activity program such as swimming, walking, or riding a [employer] bicycle. During the initial 6 weeks after your surgery, you are at the highest risk of re-injuring your spine. You should generally avoid BLTs (bending, lifting and twisting combination motions) and follow the above guidelines to reduce the chance of reinjury. You can anticipate post op appointments in our office at approximately 3 weeks and 6 weeks after your surgery. INCISION CARE: If your incision is not draining you do NOT need to cover it with a dressing. Keep your incision clean, dry and intact. In most cases, we apply skin glue, shweta or sutures to the incision at the time of surgery. This will be like a crust or have the appearance of a scab and will fall off in time on its own. The stitches or shweta need to be removed at 3 weeks post op appointment. You may begin to shower 3 days after surgery (this allows the glue to slaughter well). However, please avoid scrubbing the incision site or peeling off any of the skin glue. This will ensure optimal healing of your incision. Also, during this time avoid soaking the incision area in water - this includes swimming pools, hot tubs or baths. No ointments, lotions or oils on the incision until your surgeon allows. Leave shweta, sutures or glue in place. Neurological dysfunction that comes on suddenly can also be a sign of a stroke. Below some common symptoms of a stroke are listed: B - balance difficulty such as sudden onset walking or leaning to one side - NEW E - eye problem such as sudden double vision or trouble seeing on one side - NEW F - Facial weakness or numbness on one side - NEW A - Arm or leg weakness or numbness on one side - NEW S - Slurred speech or difficulty with word finding - NEW T - Time is BRAIN! Call 911 as soon as you recognize these symptoms Diet: Consume a regular diet rich in vegetables and lean protein such as chicken or fish. You should consume in a ratio of approximately 20% fats|40% carbo hydrates|40%protein. Vegetables, sweet potatoes, brown rice or quinoa are examples of good carbohydrates. Chips, white bread, cookies and sweets/sugar are examples of bad carbohydrates. Limit your bad carbs, go wild with good carbs. "Life's Simple 7" Guidelines as per [place] [employer] These will help you reclaim your life after surgery and dry plasterer helper in your recovery, keeping in mind your restrictions. (1) Get Active. Physical activity can help people lose weight, control high blood pressure and cholesterol, feel emotionally better, and sleep better. (2) Control Cholesterol. Avoid a diet high in saturated fat, trans fat, & cholesterol. Limit whole milk & cream, ice cream, butter, egg yolks, processed meats (like sausage and hot dogs), and fatty meats. Choose healthy foods that are low in saturated fat, trans fat and cholesterol which include: Fruits and vegetables, fiber rich grain products (like whole grain pasta and brown rice), lean meat such as chicken, fish, nuts, seeds, and legumes. (3) Eat Better. Eat small portions. Shop at the grocery with a list and do not stray from it. Tips for a healthy diet include: Limit sodium intake to less than 1500mg daily, avoid prepackaged, processed, and fast foods, choose a diet rich in fruits, vegetables, and whole grain, high fiber foods, and limit saturated & cholesterol in your diet. (4) Manage Blood Pressure. If you have high blood pressure, you should have a cuff at home so that you can check your blood pressure regularly. Be sure you have a good cuff. An arm one is generally better than a wrist one. Bring the cuff to a doctor's appointment to validate that the measurements that your cuff are taking are accurate. Take your blood pressure twice daily when you are sitting down and relaxing. Record the numbers in a log and bring this log with you to your doctors' appointments. (5) Lose Weight if your BMI is above 25. A healthy BMI is between 19-25. To calculate Your BMI, you may use a Standard BMI Calculator on the NIH BMI website: <www.nhlbi.nih.gov/guidelines/obesity/BMI/bmicalc.htm>. Weigh oneself daily. If you are overweight, set a goal to lose weight. A pound a week loss if needed is a good target. (6) Reduce Blood Sugar. Limit foods and liquids with "added sugars." (Added sugars include sucrose, fructose, glucose, maltose, dextrose, high fructose corn syrup, corn syrup, concentrated fruit juice and honey). (7) Stop Smoking. If you smoke, quitting smoking is one of the best things that you can do for your health. Smoking increases your risk of heart attack, stroke, and peripheral vascular disease, which is a build-up of plaque in your arteries. Please discard all the cigarettes and lighters in your house. Have a plan for what you will do when you have the urge to smoke. Direct and second- hand smoke shortens your life as well as the lives of your family, friends and others around you. For your health and the health of those around you, please consider quitting! Proper Bending Body Mechanics: Maintain a wide stance with one foot slightly in front of the other. Keep your back straight. Bend utilizing the strength in your hips and knees. Do not bend at the waist. Maintain the lifted object at your waist-level close to your body. Avoid lifting weight that causes immediately pain or pain anywhere in the body afterwards. Smoking/Nicotine If there was ever one thing that you could do to increase your overall health, decrease your risk of cardiovascular problems by about 39% the second you make the choice, it is to STOP SMOKING. Your body's most instant gratification is the second you stop smoking. We have all heard the studies, read the articles but it is true, smoking is extremely bad for your overall health, and moreover it is detrimental to your bone health. Nicotine, IN ANY FORM, kills bone cells, prevents your body from healing frac tures, and significantly prolongs healing after surgery. In spine surgery specifically, it increases your risk of not healing your bones to create a fusion and increases your risk of having a revision surgery due to this up to 60%. I know it is hard. I know it feels impossible. But there are ways. Take control of your life. We are here to help you through it. And when you are ready, ask us and we can direct you to help if you desire. Use the START Plan to Quit Smoking (please visit the Helpguide.org website listed below for more information): S = Set a quit date. Choose a date within the next 2 weeks, so you have enough time to prepare without losing your motivation to quit. If you mainly smoke at work, quit on the weekend, so you have a few days to adjust to the change. T = Tell family, friends, and co-workers that you plan to quit. Let your friends and family in on your plan to quit smoking and tell them you need their support and encouragement to stop. Look for a quit dean who wants to stop smoking as well. You can help each other get through the rough times. A = Anticipate and plan for the challenges you'll face while quitting. Most people who begin smoking again do so within the first 3 months. You can help yourself make it through by preparing ahead for common challenges, such as nicotine withdrawal and cigarette cravings. R = Remove cigarettes and other tobacco products from your home, car, and work. Throw away all your cigarettes (no emergency pack!), lighters, ashtrays, and matches. Wash your clothes and freshen up anything that smells like smoke. Shampoo your car, clean your drapes and carpet, and steam your furniture. T = Talk to your doctor about getting help to quit. Your doctor can prescribe medication to help with withdrawal and suggest other alternatives. If you can't see a doctor, you can get many products over the counter at your local pharmacy or grocery store, including the nicotine patch, nicotine lozenges, and nicotine gum. Resources for Quitting Smoking: <https://www.[place].gov/documents/[facility]/Quit_Tobacco_Resources_for_patients_313 480_7.pdf> Supplementation: Take recommended dosages of Vitamin D and Calcium to help fortify your bones and help them to heal. See your health maintenance packet for dosages and recommended levels. DVT/VTE prophylaxis: You will be given compression stockings from the hospital. Wear these daily for the first two weeks after surgery. You may take them off at night. You may be prescribed a medication to help thin your blood. Take this as directed. If you are not prescribed this medication, early and frequent ambulation has been shown to be the best prophylaxis to deep vein thrombosis and sequelae related to this event. Discharge Disposition: HOME SELF-CARE
[2022-11-11 11:56] LABS: Glucose,Whole Blood 230 mg/dL (70-110)
[2022-11-11] MEDS: LACTATED RINGERS 1,000 ML IV SCH (12:34)
[2022-11-11 12:59] VITALS: BP 131/85; PULSE 93; RESP 18; TEMP 98.4
--- NOTE | 2022-11-11 14:22 | P.PN ---
Subjective Progress Note Date: 11/11/22 (delayed charting seen at 0930) Patient is a ezmyhcyb-drxi-kdx female with diabetes mellitus type 2 on insulin with dexcom, obesity, and chronic back pain who presented for L4 5 minimally invasive TLI asked. Patient seen and examined at bedside. Her pain is much better controlled today. She is anxious to go home. She denies any chest pain or shortness of breath. It is very long discussion about her diabetes. She wears a continuous glucose monitor and follows closely. They have been decreasing her Levemir as she has had some episodes of hypoglycemia. We discussed that her blood sugars have been on the lower side since her started hospitalization. She reports that her appe tite is slowly increasing. We discussed that she should resume her Levemir 10 units in the morning and follow her blood sugars and if they remain above 180 throughout the day at 150 fasting the next morning she can resume her nighttime Levemir. We discussed that she should have an appointment with Dr. Tijerina next week Vital signs reviewed General: nontoxic, no distress, appears at stated age, Obese Cardiovascular: S1S2 reg, no murmur, positive posterior tibial pulse bilateral, Lungs: CTA bilateral, no rhonchi, no rales , no accessory muscle use Abdominal: soft, nontender to palpation, no guarding, no appreciable organomegaly Ext: no gross muscle atrophy, no edema b/l lower extremities, no contractures Neuro: CN II-XI grossly intact, no focal neuro deficits Psych: Alert, oriented, appropriate affect Assessment/Plan: 36-year-old female status post L4 5 minimally invasive TLIF Diabetes mellitus type 2 insulin requiring with hyperglycemia - AM fasting BS this morning was 106. The following instrutions were added to her discharge tab; Diabetic Instructions: - Resume metformin and Trulicity - Continue to monitor blood sugar on your dexcom - Tomorrow resume Basaglar 10 units in the morning, then monitor sugars throughout the day - if they remain greater than 180 and your morning fasting is greater than 150 the following morning then resume basaglar 10 units in the evening. Then slowly titrate back to your 16 units twice daily based on blood sugars. Dyslipidemia -Resume Crestor 20 mg at home, fenofibrate 96 mg daily Hypertension -Resume atenolol 25 mg daily Class III Obesity Patient medically optimized for discharge at the discretion of orthopedicspine surgery Imaging: NONE NEW Data Review: BS reviewe 106 fasting 2100 184. Thank you for allowing us to participate in the care of this pleasant patient. Do not hesitate to contact us with questions. Someone can be reached from the [facility] hospitalist group all hours of the day at [phone] or via perfect serve. This dictation was prepared using [employer] voice recognition software. Though every attempt is made to correct errors during dictation some may still exist. Objective - Vital Signs Vital signs: Vital Signs Temp 98.4 F 11/11/22 12:43 Pulse 93 11/11/22 12:43 Resp 18 11/11/22 12:43 BP 131/85 11/11/22 12:43 Pulse Ox 94 L 11/11/22 12:43 FiO2 Intake & Output 11/10/22 11/11/22 11/11/22 18:59 06:59 18:59 Other: Voiding Method Indwelling Catheter Toilet # Voids 1 1 # Bowel Movements 1 - Labs CBC & Chem 7: 11/09/22 05:27 11/09/22 05:27 Labs: Abnormal Lab Results - Last 24 Hours (Table) 11/10/22 11/10/22 11/11/22 Range/Units 17:09 21:02 11:54 POC Glucose (mg/dL) 268 H 184 H 230 H (70-110) mg/dL
[2022-11-11] MEDS: buPROPion XL 300 MG TAB.ER.24H PO SCH (15:00)
[2022-11-11] MEDS: buPROPion XL 150 MG TAB.ER.24H PO SCH (15:01)
[2022-11-11] MEDS: ATORVASTATIN 40 MG TAB PO SCH (15:02)
[2022-11-11] MEDS: atenoloL 25 MG TAB PO SCH (15:02)
== END 2022-11-11 15:42 | disposition home or self-care (01) | DRG 460 ==
LOC: OR 11:17 → 5NMEDONC 18:18 → OR 11-11 07:20
PROVIDERS: ADMIT Orthopaedic Surgery; ATTEND Orthopaedic Surgery
PROC: 01NB0ZZ Release Lumbar Nerve, Open Approach (ICD-10-PCS; 2022-11-08)
PROC: 01NR0ZZ Release Sacral Nerve, Open Approach (ICD-10-PCS; 2022-11-08)
PROC: 0SG30AJ Fusion of Lumbosacral Joint with Interbody Fusion Device, Posterior Approach, Anterior Column, Open Approach (ICD-10-PCS; principal; 2022-11-08 12:55)
DX: M43.17 Spondylolisthesis, lumbosacral region (principal); Z68.41 Body mass index [BMI] 40.0-44.9, adult; E11.649 Type 2 diabetes mellitus with hypoglycemia without coma; E66.01 Morbid (severe) obesity due to excess calories; Z79.4 Long term (current) use of insulin; I10 Essential (primary) hypertension; J45.909 Unspecified asthma, uncomplicated; M47.27 Other spondylosis with radiculopathy, lumbosacral region; M48.07 Spinal stenosis, lumbosacral region; G47.9 Sleep disorder, unspecified; E78.5 Hyperlipidemia, unspecified; R11.2 Nausea with vomiting, unspecified; K21.9 Gastro-esophageal reflux disease without esophagitis; R29.6 Repeated falls; G89.29 Other chronic pain; Z86.79 Personal history of other diseases of the circulatory system; Z79.899 Other long term (current) drug therapy; Z79.84 Long term (current) use of oral hypoglycemic drugs; Z79.85 Long-term (current) use of injectable non-insulin antidiabetic drugs; Z88.6 Allergy status to analgesic agent; Z88.8 Allergy status to other drugs, medicaments and biological substances; Z91.048 Other nonmedicinal substance allergy status; Z91.81 History of falling
CPT/HCPCS: 72100; 72131; 80048; 81025; 85025; 86850; 86900; 86901

== ENCOUNTER 2023-01-22 23:30 | Emergency (ER) | payer MEDICARE, OTHER ==
[2023-01-22 23:38] VITALS: TEMP 97.9
[2023-01-23] MEDS ORDERED: predniSONE 50 MG TAB PO STA (00:18)
[2023-01-23] MEDS ORDERED: MORPHINE SULFATE 4 MG/ML SYRINGE IM STA (00:19)
[2023-01-23] MEDS ORDERED: ORPHENADRINE 30 MG/ML 2 ML VIAL IM STA (00:19)
[2023-01-23] MEDS ORDERED: HYDROmorphone 0.5 MG/0.5 ML SYRINGE IM STA (00:59)
--- NOTE | 2023-01-23 01:37 | ED ---
Back Pain HPI - General Chief Complaint: Back Pain/Injury Stated Complaint: Post Op back pain Time Seen by Provider: 01/23/23 00:00 Source: patient Limitations: no limitations - History of Present Illness Initial Comments: This patient is a 37-year-old woman who presents to have evaluation of low back pain. Patient states that this been going on for some days and that she had not been able to get in with her surgeon. She states she had a low back surgery November [address] Goodman herrera. She states that the postoperative period went relatively well. She has not noticed accompanying symptoms, no fever or chills. No neurologic symptoms. No abdominal pain. MD Complaint: back pain -: days(s) Similar Symptoms Previously: Yes Place: home Radiation: none, right leg Severity: severe Quality: burning, aching Consistency: constant Improves With: none Worsens With: sitting upright Associated Symptoms: denies other symptoms - Related Data Home Medications Medication Instructions Recorded Confirmed LORazepam [Ativan] 1 mg PO TID PRN 09/05/14 11/08/22 Ondansetron HCl [Zofran] 8 mg PO Q12HR PRN 09/05/14 11/08/22 buPROPion HCL [Wellbutrin XL] 150 mg PO 1500 09/05/14 11/08/22 Albuterol Nebulized [Ventolin 2.5 mg INHALATION RT-Q6H PRN 12/15/20 11/08/22 Nebulized] Albuterol Sulfate [Ventolin HFA] 2 puff INHALATION RT-QID PRN 12/15/20 11/08/22 Fenofibrate Nanocrystallized 96 mg PO 149912/15/20 11/08/22 [Fenofibrate] Insulin Glargine,Hum.rec.anlog 16 unit SQ 0800,199912/15/20 11/08/22 [Basaglar Kwikpen U-100] Rosuvastatin Calcium [Crestor] 20 mg PO 1500 12/15/20 11/08/22 atenoloL [Tenormin] 25 mg PO 1500 12/15/20 11/08/22 buPROPion HCL [Wellbutrin XL] 300 mg PO 1500 12/15/20 11/08/22 metFORMIN HCL [Glucophage] 1,000 mg PO BID 08/20/22 11/08/22 Dulaglutide [Trulicity] 3 mg SQ FR 11/01/22 11/08/22 Insulin Aspart [NovoLOG Flexpen] See Protocol SQ DIRECTED 11/01/22 11/08/22 Previous Rx's Medication Instructions Recorded Pantoprazole Sodium [Protonix] 40 mg PO BID #60 tab 12/17/20 Cyclobenzaprine [Flexeril] 10 mg PO TID PRN #30 tab 11/11/22 Sennosides/Docusate Sodium 2 each PO DAILY PRN #30 tablet 11/11/22 [Senna-S 8.6-50 mg Tablet] cefaDROXiL [Duricef] 500 mg PO Q12HR 5 Days #10 cap 11/11/22 oxyCODONE HCL/ACETAMINOPHEN 1 - 2 tab PO Q4HR PRN 3 Days #42 11/11/22 [Percocet 10-325 mg] tab polyethylene glycoL 3350 [Miralax] 17 gm PO DAILY PRN #21 packet 11/11/22 HYDROcodone/APAP 5-325MG [Starks 1 tab PO Q4HR PRN 3 Days #18 tab 01/23/23 5-325] predniSONE 60 mg PO DAILY #30 tab 01/23/23 Allergies Allergy/AdvReac Type Severity Reaction Status Date / Time ketorolac tromethamine Allergy Severe rash,bliste Verified 01/22/23 23:37 [From Toradol] rs prochlorperazine edisylate Allergy Severe Dyspnea Verified 01/22/23 23:37 [From Compazine] prochlorperazine maleate Allergy Severe Dyspnea Verified 01/22/23 23:37 [From Compazine] promethazine HCl Allergy Severe hives, Verified 01/22/23 23:37 [From Phenergan] jittery droperidol Allergy Dyspnea Verified 01/22/23 23:37 metoclopramide [From Reglan] AdvReac Unknown Verified 01/22/23 23:37 adhesive tape Allergy Severe BLISTERS Uncoded 01/22/23 23:37 Review of Systems ROS Statement: Those systems with pertinent positive or pertinent negative responses have been documented in the HPI. ROS Other: All systems not noted in ROS Statement are negative. Constitutional: Denies: fever, chills, weakness Respiratory: Denies: cough, dyspnea Cardiovascular: Denies: chest pain, edema Gastrointestinal: Denies: abdominal pain, diarrhea, constipation Genitourinary: Denies: urgency, dysuria, frequency, hematuria Musculoskeletal: Reports: as per HPI, back pain Skin: Denies: rash, lesions Neurological: Denies: headache, weakness, numbness Past Medical History Past Medical History: Asthma, Diabetes Mellitus, GERD/Reflux, Hypertension, Musculoskeletal Disorder, Supraventricular Tachycardia (SVT) Additional Past Medical History / Comment(s): SVT- CARDIAC ABLATION CORRECTED IT , MIGRAINE HEADACHES History of Any Multi-Drug Resistant Organisms: None Reported Past Surgical History: Cardiac Ablation, Hernia Repair, Tonsillectomy, Tubal Ligation, Uterine Ablation Additional Past Surgical History / Comment(s): CARDIAC ABLATION X2, CERVIX SURGERY ,PAIN CLINIC PROCEDURES, back surgry oct 2022 Past Anesthesia/Blood Transfusion Reactions: Postoperative Nausea & Vomiting (PONV) Additional Past Anesthesia/Blood Transfusion Reaction / Comment(s): only antinausea med. can take is zofran Past Psychological History: Anxiety, Depression Smoking Status: Never smoker Past Alcohol Use History: None Reported Past Drug Use History: None Reported - Past Family History Mother Family Medical History: Cancer, CVA/TIA Additional Family Medical History / Comment(s): of a CVA. Father Family Medical History: Cancer, Pulmonary Embolus Sister(s) Family Medical History: Cancer General Exam Limitations: no limitations General appearance: alert, in no apparent distress Head exam: Present: atraumatic, normocephalic Neck exam: Present: normal inspection, full ROM. Absent: tenderness Respiratory exam: Present: normal lung sounds bilaterally. Absent: respiratory distress, wheezes, rales, rhonchi, stridor Cardiovascular Exam: Present: regular rate, normal rhythm, normal heart sounds. Absent: systolic murmur, diastolic murmur, rubs, gallop GI/Abdominal exam: Present: soft. Absent: distended, tenderness, guarding, pulsatile mass Extremities exam: Present: normal inspection, normal capillary refill. Absent: pedal edema, calf tenderness Back exam: Present: normal inspection, paraspinal tenderness, other (Patient's surgical site looks normal. No abnormal warmth, erythema.). Absent: CVA tenderness (R), CVA tenderness (L), vertebral tenderness Neurological exam: Present: alert, reflexes normal. Absent: motor sensory deficit Skin exam: Present: warm, dry, intact, normal color. Absent: rash Course Vital Signs 01/22/23 01/23/23 23:33 01:43 Temperature 97.9 F Pulse Rate 96 89 Respiratory 18 19 Rate Blood Pressure 151/104 131/98 O2 Sat by Pulse 99 98 Oximetry Medical Decision Making - Medical Decision Making Was pt. sent in by a medical professional or institution (TORSTEN Beck, BUILDING OPERATOR, urgent care, hospital, or half-way...) When possible be specific @ -[No] Did you speak to anyone other than the patient for history (EMS, parent, family, police, friend...)? What history was obtained from this source @ -[No] Did you review nursing and triage notes (agree or disagree)? Why? @ -[I reviewed and agree with nursing and triage notes] Were old charts reviewed (outside hosp., previous admission, EMS record, old EKG, old radiological studies, urgent care reports/EKG's, half-way records)? Report findings @ -[No old charts were reviewed] Differential Diagnosis (chest pain, altered mental status, abdominal pain women, abdominal pain men, vaginal bleeding, weakness, fever, dyspnea, syncope, headache, dizziness, GI bleed, back pain, seizure, CVA, palpatations, mental health, musculoskeletal)? @ -[Differential Back Pain: Strain, zoster, cauda equina syndrome, epidural abscess, vertebral osteomyelitis, discitis, fracture, subluxation, disc herniation, DJD, spinal stenosis, dissection, AAA, pancreatitis, peptic ulcer disease, pyelonephritis, kidney stone, this is not meant to be an all-inclusive list. EKG interpreted by me (3pts min.). @ -[As above] X-rays interpreted by me (1pt min.). @ -[None done] CT interpreted by me (1pt min.). @ -[None done] U/S interpreted by me (1pt. min.). @ -[None done] What testing was considered but not performed or refused? (CT, X-rays, U/S, labs)? Why? @ -[None] What meds were considered but not given or refused? Why? @ -[None] Did you discuss the management of the patient with other professionals (professionals i.e. TORSTEN Beck, BUILDING OPERATOR, lab, RT, psych nurse, social and political studies professor, human factors scientist, teacher, professional security officer, geriatric case manager)? Give summary @ -[No] Was smoking cessation discussed for >3mins.? @ -[No] Was critical care preformed (if so, how long)? @ -[No] Were there social determinants of health that impacted care today? How? (Homel essness, low income, unemployed, alcoholism, drug addiction, transportation, low edu. Level, literacy, decrease access to med. care, retirement, rehab)? @ -[No] Was there de-escalation of care discussed even if they declined (Discuss DNR or withdrawal of care, Hospice)? DNR status @ -[No] What co-morbidities impacted this encounter? (DM, HTN, Smoking, COPD, CAD, Cancer, CVA, ARF, Chemo, Hep., AIDS, mental health diagnosis, sleep apnea, morbid obesity)? @ -[None] Was patient admitted / discharged? Hospital course, mention meds given and route, prescriptions, significant lab abnormalities, going to OR and other pertinent info. @ -[Patient is 37-year-old woman with history of back pain, status post surgery approximately 10 weeks ago. No findings concerning for infection. No red flag signs or symptoms. The patient feeling better following medication here she wi ll follow with her physician. We discussed appropriate further care and follow- up as well as return parameters Undiagnosed new problem with uncertain prognosis? @ -[No] Drug Therapy requiring intensive monitoring for toxicity (Heparin, Nitro, Insulin, Cardizem)? @ -[No] Were any procedures done? @ -[No] Diagnosis/symptom? @ -[Acute lumbar radiculopathy Acute, or Chronic, or Acute on Chronic? @ -[Acute Uncomplicated (without systemic symptoms) or Complicated (systemic symptoms)? @ -[Uncomplicated Side effects of treatment? @ -[No] Exacerbation, Progression, or Severe Exacerbation? @ -[No] Poses a threat to life or bodily function? How? (Chest pain, [place], [place], pneumonia, PE, COPD, DKA, ARF, appy, cholecystitis, CVA, Diverticulitis, Homicidal, Suicidal, threat to staff... and all critical care pts) @ -[No] Disposition Clinical Impression: Sciatica Disposition: HOME SELF-CARE Condition: Good Instructions (If sedation given, give patient instructions): Lumbar Radiculopathy (ED) Prescriptions: HYDROcodone/APAP 5-325MG [Starks 5-325] 1 tab PO Q4HR PRN 3 Days #18 tab PRN Reason: Pain predniSONE 60 mg PO DAILY #30 tab Is patient prescribed a controlled substance at d/c from ED?: Yes When asked, does pt state using other controlled substances?: No If prescribed controlled substance>3 days was MAPS reviewed?: Prescribed <3 Days If opioid is for acute pain is fill amount 7 days or less?: Yes If Rx opioid, was Start Talking consent form obtained?: Yes Referrals: America Tijerina MD [Primary Care Provider] - 1-2 days
[2023-01-23 02:04] VITALS: BP 131/98; PULSE 89; RESP 19
== END 2023-01-23 01:46 | disposition home or self-care (01) ==
LOC: EC 23:30
DX: M54.40 Lumbago with sciatica, unspecified side (principal); M54.16 Radiculopathy, lumbar region; J45.909 Unspecified asthma, uncomplicated; K21.9 Gastro-esophageal reflux disease without esophagitis; E11.9 Type 2 diabetes mellitus without complications; I10 Essential (primary) hypertension; F32.A Depression, unspecified; F41.9 Anxiety disorder, unspecified; Z88.8 Allergy status to other drugs, medicaments and biological substances; Z79.84 Long term (current) use of oral hypoglycemic drugs; Z79.4 Long term (current) use of insulin; Z79.899 Other long term (current) drug therapy
CPT/HCPCS: 99283; 96372 ×3; J2270; J2360; J7512; J1170

== ENCOUNTER → 2023-05-10 | Outpatient (CLI) | payer MEDICARE, OTHER ==
[2023-05-10 15:11] VITALS: BP 135/87; PULSE 114; RESP 16; TEMP 97.7; BMI 41.6
--- NOTE | 2023-05-10 16:12 | P.HPBAR ---
Bariatric H&P - History & Physicial H&P Date: 05/10/23 History & Physicial: Visit/CC: Initial Visit Patient initial contact: Initial weight: 115.212 kg Initial weight in pounds: 254.00 Height: 5 ft 5.5 in Initial BMI: 41.6 Last weight: Current weight: 115.212 kg Current weight in pounds: 254.00 Current BMI: 41.6 [place] body weight (based on NIH guidelines): 57.833 kg Excess body weight loss: 0.0% The patient is a 37 year-old F who presents for Bariatric Assessment. Patient presents to discuss weight loss surgery. She is interested in sleeve gastrectomy. States she does not want gastric bypass. Patient with history of hypertension, hypercholesterolemia, type 1 diabetes, hypertriglyceridemia, pancreatitis, cardiac ablation with SVT, GERD. Patient says she had severe pancreatitis from hypertriglyceridemia several years ago. This led to a prolonged hospital stay with ventilatory support. Patient states following that she became type I diabetic. Surgical history includes back, tonsils, tubal ligation, cardiac ablation, multiple umbilical hernias, right inguinal hernia. Patient says she has mesh. No history of DVT or dysphagia. No tobacco use. Current BMI 41. Patient has had CAT scans intermittently over the years with her last CAT scan a few months ago. She admits that she did have a pseudocyst at 1 point in the past but thinks that it is resolved. She has also had upper endoscopies in the past. Looking at our system here she had a CAT scan last March. This was reviewed. No hiatal hernia, no pancreatic pathology noted. Her last EGD here was in 2019. She had some retained food. Review of Systems The patient denies any acute changes in vision or hearing, no dysphagia or odynophagia, no chest pain or shortness of breath, no dysuria or hematuria, no headache, no runny nose, no rectal bleeding or melena, no unexplained weight loss Past Medical History Past Medical History: Asthma, Diabetes Mellitus, GERD/Reflux, Hypertension, Musculoskeletal Disorder, Supraventricular Tachycardia (SVT) Additional Past Medical History / Comment(s): SVT- CARDIAC ABLATION CORRECTED IT , MIGRAINE HEADACHES History of Any Multi-Drug Resistant Organisms: None Reported Past Surgical History: Cardiac Ablation, Hernia Repair, Tonsillectomy, Tubal Ligation, Uterine Ablation Additional Past Surgical History / Comment(s): CARDIAC ABLATION X2, CERVIX SURGERY ,PAIN CLINIC PROCEDURES, back surgry oct 2022 Past Anesthesia/Blood Transfusion Reactions: Postoperative Nausea & Vomiting (PONV) Additional Past Anesthesia/Blood Transfusion Reaction / Comm: only antinausea med. can take is zofran Past Psychological History: Anxiety, Depression Smoking Status: Never smoker Past Alcohol Use History: None Reported Past Drug Use History: None Reported - Past Family History Mother Family Medical History: Cancer, CVA/TIA Additional Family Medical History / Comment(s): of a CVA. Father Family Medical History: Cancer, Pulmonary Embolus Sister(s) Family Medical History: Cancer Surgical - Exam Vital Signs Temp Pulse Resp BP 97.7 F 114 H 16 135/87 05/10/23 14:54 05/10/23 14:54 05/10/23 14:54 05/10/23 14:54 Physical exam: General: Well-developed, well-nourished HEENT: Normocephalic, sclerae nonicteric Abdomen: Nontender, nondistended Extremities: No edema Neuro: Alert and oriented Bariatric Assessment & Plan (1) Morbid obesity with BMI of 40.0-44.9, adult Narrative/Plan: 37-year-old female with morbid obesity and associated comorbidities. Patient is interested in weight loss surgery. Specifically patient is interested in sleeve gastrectomy rather than gastric bypass because of the long-term complications associated with bypass. We discussed the risks, benefits, and anticipated weight loss with both surgeries in detail. The impact of the surgeries on her diabetes and chronic reflux discussed in detail. Patient states she will continue to consider her options but remains interested in sleeve gastrectomy at this time. Will schedule for upper endoscopy in the next few months. Tentatively plan to proceed with laparoscopic da Amelia assisted sleeve gastrectomy following that. The risks of bleeding, infection, stenosis, stricture, leak, abscess, fistula formation, peritonitis, poor weight loss, reflux, vomiting, conversion to an open procedure, aborting sleeve gastrectomy, LA, PE, DVT, and were discussed. The patient understands and wishes to proceed. Status: Acute Bariatric Checklist Checklist: Plan: Checklist: EGD: 1. Hiatal hernia: 2. H. Pylori: HgbA1c: Vitamin D: Smoking: Never smoker Primary care physician referral: Dr. Tijerina Psychiatry clearance: Cardiology clearance: Sleep study: Diet journal: VTE risk score: VTE risk level: Rehab needs at discharge:
[2023-05-11 02:14] LABS: HCT 41.7 % (37.2-46.3); HGB 14.1 g/dL (12.0-15.0); MCH 28.3 pg (27.0-32.0); MCHC 33.8 g/dL (32.0-37.0); MCV 83.7 FL (80.0-97.0); Mean Platelet Volume 11.6 FL (9.5-12.2); NRBC Per 100 WBC 0 X 10*3/uL (0.00-0.01); Platelet Count 350 X 10*3/uL (140-440); RBC 4.98 X 10*6/uL (4.10-5.20); RDW 13.6 % (11.5-14.5); WBC 8.62 X 10*3/uL (4.50-10.00)
[2023-05-11 02:45] LABS: ALT 44 U/L (8-44); AST 22 U/L (13-35); Albumin 4.6 g/dL (3.8-4.9); Albumin/Globulin Ratio 1.84 Ratio (1.60-3.17); Alkaline Phosphatase 76 U/L (41-126); Blood Urea Nitrogen 9.6 mg/dL (9.0-27.0); Calcium 10.1 mg/dL (8.7-10.3); Carbon Dioxide 24.6 mmol/L (21.6-31.8); Chloride 102 mmol/L (96-109); Globulin 2.5 g/dL (1.6-3.3); Glucose 206 mg/dL (70-110); Iron 63 UG/DL (50-170); Potassium 4.6 mmol/L (3.5-5.5); Sodium 140 mmol/L (135-145); Total Bilirubin <0.2 mg/dL (0.3-1.2); Total Protein 7.1 g/dL (6.2-8.2)
== END ==
LOC: BARWHC3 14:29
PROVIDERS: ATTEND Surgery
DX: K21.9 Gastro-esophageal reflux disease without esophagitis (principal); E66.01 Morbid (severe) obesity due to excess calories; K90.89 Other intestinal malabsorption; E55.9 Vitamin D deficiency, unspecified; J45.909 Unspecified asthma, uncomplicated; E11.9 Type 2 diabetes mellitus without complications; I10 Essential (primary) hypertension; F41.9 Anxiety disorder, unspecified; F32.A Depression, unspecified; Z87.39 Personal history of other diseases of the musculoskeletal system and connective tissue; Z68.41 Body mass index [BMI] 40.0-44.9, adult; Z86.79 Personal history of other diseases of the circulatory system; Z88.2 Allergy status to sulfonamides; Z88.1 Allergy status to other antibiotic agents; Z88.8 Allergy status to other drugs, medicaments and biological substances; Z91.048 Other nonmedicinal substance allergy status; Z79.85 Long-term (current) use of injectable non-insulin antidiabetic drugs; Z79.4 Long term (current) use of insulin; Z79.899 Other long term (current) drug therapy; Z79.84 Long term (current) use of oral hypoglycemic drugs
CPT/HCPCS: 84425; 80053; 82607; 82746; 83540; 85027; 82306; 83036; G0480; G0463; 80323; 99202

== ENCOUNTER 2023-05-11 17:21 | Emergency (ER) | payer MEDICARE, OTHER ==
--- NOTE | 2023-05-11 18:37 | ED ---
Recheck HPI - General Chief Complaint: Recheck/Abnormal Lab/Rx Stated Complaint: Elevated blood pressure Time Seen by Provider: 05/11/23 18:35 Source: patient, RN notes reviewed Mode of arrival: ambulatory Limitations: no limitations - History of Present Illness Initial Comments: Patient is a 37-year-old female presented to ER with chief complaint of hy pertension, headache and left hip/back pain. Patient reports for the past 3 weeks she has been having increasing back pain after a slip and fall in February. Patient has had rods placed in her back prior she is being worked up outpatient for this. Denies any fevers, saddle paresthesias, weakness, history of IV drug use, bowel or bladder incontinence. She does report that her left heel is numb. Patient states for the past 2 weeks she has been having high blood pressures in the 200s/110s. She states she has also been having a headache and seeing black dots out of her left eye. Patient denies any nausea or vomiting. She has tried [id number] medications without relief. Denies any neck pain. Patient is diabetic and takes atenolol. Denies any shortness of breath, chest pain, abdominal pain, peripheral edema. - Related Data Home Medications Medication Instructions Recorded Confirmed LORazepam [Ativan] 1 mg PO TID PRN 09/05/14 05/11/23 Ondansetron HCl [Zofran] 8 mg PO Q12HR PRN 09/05/14 05/11/23 buPROPion HCL [Wellbutrin XL] 150 mg PO 1500 09/05/14 05/11/23 Albuterol Nebulized [Ventolin 2.5 mg INHALATION RT-Q6H PRN 12/15/20 05/11/23 Nebulized] Albuterol Sulfate [Ventolin HFA] 2 puff INHALATION RT-QID PRN 12/15/20 05/11/23 Fenofibrate Nanocrystallized 96 mg PO 1500 12/15/20 05/11/23 [Fenofibrate] Insulin Glargine,Hum.rec.anlog 16 unit SQ 0800,199912/15/20 05/11/23 [Basaglar Kwikpen U-100] Rosuvastatin Calcium [Crestor] 20 mg PO 1500 12/15/20 05/11/23 atenoloL [Tenormin] 25 mg PO 1500 12/15/20 05/11/23 buPROPion HCL [Wellbutrin XL] 300 mg PO 1500 12/15/20 05/11/23 metFORMIN HCL [Glucophage] 1,000 mg PO BID 08/20/22 05/11/23 Dulaglutide [Trulicity] 4.5 mg SQ FR 11/01/22 05/11/23 Insulin Aspart [NovoLOG Flexpen] See Protocol SQ DIRECTED 11/01/22 05/11/23 Previous Rx's Medication Instructions Recorded Pantoprazole Sodium [Protonix] 40 mg PO BID #60 tab 12/17/20 Allergies Allergy/AdvReac Type Severity Reaction Status Date / Time ketorolac tromethamine Allergy Severe rash,bliste Verified 05/11/23 17:31 [From Toradol] rs prochlorperazine edisylate Allergy Severe Dyspnea Verified 05/11/23 17:31 [From Compazine] prochlorperazine maleate Allergy Severe Dyspnea Verified 05/11/23 17:31 [From Compazine] promethazine HCl Allergy Severe hives, Verified 05/11/23 17:31 [From Phenergan] jittery droperidol Allergy Dyspnea Verified 05/11/23 17:31 metoclopramide [From Reglan] AdvReac Unknown Verified 05/11/23 17:31 adhesive tape Allergy Severe BLISTERS Uncoded 05/11/23 17:31 Review of Systems ROS Statement: Those systems with pertinent positive or pertinent negative responses have been documented in the HPI. ROS Other: All systems not noted in ROS Statement are negative. Past Medical History Past Medical History: Asthma, Diabetes Mellitus, GERD/Reflux, Hypertension, Musculoskeletal Disorder, Supraventricular Tachycardia (SVT) Additional Past Medical History / Comment(s): SVT- CARDIAC ABLATION CORRECTED IT , MIGRAINE HEADACHES History of Any Multi-Drug Resistant Organisms: None Reported Past Surgical History: Cardiac Ablation, Hernia Repair, Tonsillectomy, Tubal Ligation, Uterine Ablation Additional Past Surgical History / Comment(s): CARDIAC ABLATION X2, CERVIX KATE RGERY ,PAIN CLINIC PROCEDURES, back surgry oct 2022 Past Anesthesia/Blood Transfusion Reactions: Postoperative Nausea & Vomiting (PONV) Additional Past Anesthesia/Blood Transfusion Reaction / Comment(s): only antinausea med. can take is zofran Past Psychological History: Anxiety, Depression Smoking Status: Never smoker Past Alcohol Use History: None Reported Past Drug Use History: None Reported - Past Family History Mother Family Medical History: Cancer, CVA/TIA Additional Family Medical History / Comment(s): of a CVA. Father Family Medical History: Cancer, Pulmonary Embolus Sister(s) Family Medical History: Cancer General Exam Limitations: no limitations Course Vital Signs 05/11/23 05/11/23 05/11/23 17:24 18:35 22:15 Temperature 98.1 F 97.9 F 98.4 F Pulse Rate 97 91 78 Respiratory 20 20 18 Rate Blood Pressure 147/104 137/95 129/97 O2 Sat by Pulse 97 100 99 Oximetry Medical Decision Making - Medical Decision Making Was pt. sent in by a medical professional or institution (, PA, RISK TECH, urgent care, hospital, or assisted...) When possible be specific @ -No Did you speak to anyone other than the patient for history (EMS, parent, family, police, friend...)? What history was obtained from this source @ -No Did you review nursing and triage notes (agree or disagree)? Why? @ -I reviewed and agree with nursing and triage notes Were old charts reviewed (outside hosp., previous admission, EMS record, old EKG, old radiological studies, urgent care reports/EKG's, assisted records)? Report findings @ -No old charts were reviewed Differential Diagnosis (chest pain, altered mental status, abdominal pain women, abdominal pain men, vaginal bleeding, weakness, fever, dyspnea, syncope, headache, dizziness, GI bleed, back pain, seizure, CVA, palpatations, mental health, musculoskeletal)? @ -Differential Headache:Migraine, tension, cluster, carbon monoxide, central venous thrombosis, pension karma temporal arteritis, acute closure glaucoma, intercranial hemorrhage, mastoiditis, sinusitis, head injury, this is not meant to be an all-inclusive list. EKG interpreted by me (3pts min.). @ -As above X-rays interpreted by me (1pt min.). @ -None done CT interpreted by me (1pt min.). @ -None done U/S interpreted by me (1pt. min.). @ -None done What testing was considered but not performed or refused? (CT, X-rays, U/S, labs)? Why? @ -None What meds were considered but not given or refused? Why? @ -None Did you discuss the management of the patient with other professionals (professionals i.e. , PA, RISK TECH, lab, RT, psych nurse, social media content manager, mine engineering manager, teacher, training systems officer, case management assistant)? Give summary @ -No Was smoking cessation discussed for >3mins.? @ -No Was critical care preformed (if so, how long)? @ -No Were there social determinants of health that impacted care today? How? (Homelessness, low income, unemployed, alcoholism, drug addiction, transportation, low edu. Level, literacy, decrease access to med. care, fci, rehab)? @ -No Was there de-escalation of care discussed even if they declined (Discuss DNR or withdrawal of care, Hospice)? DNR status @ -No What co-morbidities impacted this encounter? (DM, HTN, Smoking, COPD, CAD, Cancer, CVA, ARF, Chemo, Hep., AIDS, mental health diagnosis, sleep apnea, morbid obesity)? @ -DM, HTN, back pain Was patient admitted / discharged? Hospital course, mention meds given and route, prescriptions, significant lab abnormalities, going to OR and other pertinent info. @ -Discharged. Patient is a 37 year old female presenting to the ER with multiple complaints including headache, back pain, hypertension. History and physical exam were completed. Vitals stable. Blood pressure on exam was 137/95. Patient has a past medical history significnat for HTN, DM, back surgery. Patient is currently follow-up outpatient for chronic back pain. Denies any red flag back pain symptoms indicative of cauda equina syndrome. Patient in no signs of acute distress and nontoxic-appearing. Labs obtained in the ER are unremarkable. EKG without signs of acute ischemia or infarct. Patient received IV fluids, Dilaudid, Zofran and PO Benadryl for symptom control in the ER. Results discussed with patient, all questions answered. Patient given starter pack of tramadol. Advised her to follow-up with orthopedics and PCP as scheduled. I educated her on the importance to continue taking medications as prescribed. Return parameters were discussed. Patient be discharged in stable condition with follow-up to PCP. Patient expressed understanding and agreement with care plan. Undiagnosed new problem with uncertain prognosis? @ -No Drug Therapy requiring intensive monitoring for toxicity (Heparin, Nitro, Insulin, Cardizem)? @ -No Were any procedures done? @ -No Diagnosis/symptom? @ -Hypertension/back pain Acute, or Chronic, or Acute on Chronic? @ -Chronic Uncomplicated (without systemic symptoms) or Complicated (systemic symptoms)? @ -Uncomplicated Side effects of treatment? @ -No Exacerbation, Progression, or Severe Exacerbation? @ -No Poses a threat to life or bodily function? How? (Chest pain, USA, VT, pneumonia, PE, COPD, DKA, ARF, appy, cholecystitis, CVA, Diverticulitis, Homicidal, Suicidal, threat to staff... and all critical care pts) @ -No - Lab Data Result diagrams: 05/11/23 18:40 05/11/23 20:54 Lab Results 05/11/23 05/11/23 Range/Units 18:40 20:54 WBC 9.4 (3.8-10.6) k/uL RBC 4.65 (3.80-5.40) m/uL Hgb 13.5 (11.4-16.0) gm/dL Hct 39.3 (34.0-46.0) % MCV 84.4 (80.0-100.0) fL MCH 29.0 (25.0-35.0) pg MCHC 34.3 (31.0-37.0) g/dL RDW 14.2 (11.5-15.5) % Plt Count 313 (150-450) k/uL MPV 9.3 Sodium 138 (137-145) mmol/L Potassium 4.4 (3.5-5.1) mmol/L Chloride 111 H (98-107) mmol/L Carbon Dioxide 18 L (22-30) mmol/L Anion Gap 9 mmol/L BUN 7 (7-17) mg/dL Creatinine 0.49 L (0.52-1.04) mg/dL Est GFR (CKD-EPI)AfAm >90 (>60 ml/min/1.73 sqM) Est GFR (CKD-EPI)NonAf >90 (>60 ml/min/1.73 sqM) Glucose 115 H (74-99) mg/dL Calcium 8.3 L (8.4-10.2) mg/dL Total Bilirubin 0.6 (0.2-1.3) mg/dL AST 40 H (14-36) U/L ALT 38 H (4-34) U/L Alkaline Phosphatase 52 (38-126) U/L Total Protein 6.5 (6.3-8.2) g/dL Albumin 3.8 (3.5-5.0) g/dL - EKG Data -: EKG Interpreted by Me EKG Comments: EKG taken at 19: 00 trauma levels are normal sinus rhythm with no acute ST segment or T wave abnormalities. Ventricular rate 86, OH interval 178, QRS duration 95, QT/QTc 375/418. Disposition Clinical Impression: Back pain Disposition: HOME SELF-CARE Condition: Stable Instructions (If sedation given, give patient instructions): Chronic Hypertension (ED) Additional Instructions: Please follow-up with PCP in the next 1 to 2 days. Follow-up with your orthopedic spine surgeon as scheduled. Return to the ER for any new or worsening symptoms. Is patient prescribed a controlled substance at d/c from ED?: No Referrals: America Tijerina MD [Primary Care Provider] - 1-2 days Time of Disposition: 21:40
[2023-05-11] MEDS: SODIUM CHLORIDE 0.9% 1,000 ML IV STA (19:36)
[2023-05-11] MEDS: ONDANSETRON 4 MG/2 ML VIAL IVP STA (19:36)
[2023-05-11] MEDS: HYDROmorphone 0.5 MG/0.5 ML SYRINGE IVP STA (19:37)
[2023-05-11] MEDS: diphenhydrAMINE 50 MG CAP PO STA (19:37)
[2023-05-11] MEDS: diphenhydrAMINE 50 MG/ML 1 ML VIAL IVP STA (19:42)
[2023-05-11 20:01] LABS: HCT 39.3 % (34.0-46.0); HGB 13.5 gm/dL (11.4-16.0); MCHC 34.3 g/dL (31.0-37.0); MCV 84.4 fL (80.0-100.0); Mean Platelet Volume 9.3; Platelet Count 313 k/uL (150-450); RBC 4.65 m/uL (3.80-5.40); RDW 14.2 % (11.5-15.5); WBC 9.4 k/uL (3.8-10.6)
[2023-05-11 21:22] LABS: ALT 38 U/L (4-34); African American GFR (CKD) >90 (>60 ml/min/1.73 sqM); Anion Gap 9 mmol/L; Blood Urea Nitrogen 7 mg/dL (7-17); Calcium 8.3 mg/dL (8.4-10.2); Carbon Dioxide 18 mmol/L (22-30); Chloride 111 mmol/L (98-107); Glucose 115 mg/dL (74-99); Non-African American GFR(CKD) >90 (>60 ml/min/1.73 sqM); Sodium 138 mmol/L (137-145); Total Bilirubin 0.6 mg/dL (0.2-1.3)
[2023-05-11 21:25] LABS: AST 40 U/L (14-36); Albumin 3.8 g/dL (3.5-5.0); Alkaline Phosphatase 52 U/L (38-126); Potassium 4.4 mmol/L (3.5-5.1); Total Protein 6.5 g/dL (6.3-8.2)
[2023-05-11] MEDS: traMADol 50 MG STARTER PACK 3 TAB BTL PO STA (22:12)
[2023-05-11 22:23] VITALS: BP 129/97; PULSE 78; RESP 18; TEMP 98.4
== END 2023-05-11 22:16 | disposition home or self-care (01) ==
LOC: EC 17:21
DX: M54.9 Dorsalgia, unspecified (principal); I10 Essential (primary) hypertension; E11.9 Type 2 diabetes mellitus without complications; J45.909 Unspecified asthma, uncomplicated; K21.9 Gastro-esophageal reflux disease without esophagitis; F41.9 Anxiety disorder, unspecified; F32.A Depression, unspecified; Z79.4 Long term (current) use of insulin; Z79.899 Other long term (current) drug therapy; Z79.84 Long term (current) use of oral hypoglycemic drugs; Z88.8 Allergy status to other drugs, medicaments and biological substances
CPT/HCPCS: 36415; 93005; 80053; 85027; 99284; 96374; 96375; 96361; J2405; J1170

== ENCOUNTER 2023-05-16 21:21 | Emergency (ER) | payer MEDICARE, OTHER ==
[2023-05-16 21:50] VITALS: TEMP 98
--- NOTE | 2023-05-16 21:51 | ED ---
General Adult HPI - General Source: patient, RN notes reviewed Mode of arrival: ambulatory Limitations: no limitations <Mirta Macedo - Last Filed: 05/16/23 21:48> - General Source: patient, RN notes reviewed, old records reviewed Mode of arrival: ambulatory Limitations: no limitations <Juan Vila - Last Filed: 05/17/23 00:29> - General Chief complaint: Headache Stated complaint: Head Pressure Time Seen by Provider: 05/16/23 21:48 - History of Present Illness Initial comments: 37-year-old female presents to the emergency department for evaluation of head pressure and pressure behind her left eye. She states that this has been going on for around 5 weeks now. She states that she was seen here 5 days ago at the same thing. She notes elevated blood pressure recently. She saw her PCP recent ly and was prescribed a migraine medication which she states has not been helping. (Mirta Macedo) Patient is a pleasant 37-year-old female presenting to the emergency department with concerns for headache. Patient has discomfort behind her left eye. Patient states she does have a history of migraine headaches that are somewhat similar however not for a long time now. Patient has had previous imaging. Patient has seen a neurologist however not for this problem recently. Patient states discomfort is mostly behind her left eye and does have associated blurred vision. Patient denies discomfort of the eye itself. Discomfort is almost daily. Discomfort is waxing and waning. Discomfort has been over a month now. Patient does have photophobia. No weakness. No confusion (Juan Vila) - Related Data Home Medications Medication Instructions Recorded Confirmed LORazepam [Ativan] 1 mg PO TID PRN 09/05/14 05/11/23 Ondansetron HCl [Zofran] 8 mg PO Q12HR PRN 09/05/14 05/11/23 buPROPion HCL [Wellbutrin XL] 150 mg PO 1500 09/05/14 05/11/23 Albuterol Nebulized [Ventolin 2.5 mg INHALATION RT-Q6H PRN 12/15/20 05/11/23 Nebulized] Albuterol Sulfate [Ventolin HFA] 2 puff INHALATION RT-QID PRN 12/15/20 05/11/23 Fenofibrate Nanocrystallized 96 mg PO 1500 12/15/20 05/11/23 [Fenofibrate] Insulin Glargine,Hum.rec.anlog 16 unit SQ 08,199912/15/20 05/11/23 [Basaglar Kwikpen U-100] Rosuvastatin Calcium [Crestor] 20 mg PO 1500 12/15/20 05/11/23 atenoloL [Tenormin] 25 mg PO 1500 12/15/20 05/11/23 buPROPion HCL [Wellbutrin XL] 300 mg PO 1500 12/15/20 05/11/23 metFORMIN HCL [Glucophage] 1,000 mg PO BID 08/20/22 05/11/23 Dulaglutide [Trulicity] 4.5 mg SQ FR 11/01/22 05/11/23 Insulin Aspart [NovoLOG Flexpen] See Protocol SQ DIRECTED 11/01/22 05/11/23 Previous Rx's Medication Instructions Recorded Pantoprazole Sodium [Protonix] 40 mg PO BID #60 tab 12/17/20 Allergies Allergy/AdvReac Type Severity Reaction Status Date / Time ketorolac tromethamine Allergy Severe rash,bliste Verified 05/16/23 21:33 [From Toradol] rs prochlorperazine edisylate Allergy Severe Dyspnea Verified 05/16/23 21:33 [From Compazine] prochlorperazine maleate Allergy Severe Dyspnea Verified 05/16/23 21:33 [From Compazine] promethazine HCl Allergy Severe hives, Verified 05/16/23 21:33 [From Phenergan] jittery droperidol Allergy Dyspnea Verified 05/16/23 21:33 metoclopramide [From Reglan] AdvReac Unknown Verified 05/16/23 21:33 adhesive tape Allergy Severe BLISTERS Uncoded 05/16/23 21:33 Review of Systems ROS Other: All systems not noted in ROS Statement are negative. <Mirta Macedo - Last Filed: 05/16/23 21:48> ROS Other: All systems not noted in ROS Statement are negative. Constitutional: Denies: fever Eyes: Reports: as per HPI ENT: Denies: ear pain Respiratory: Denies: cough Cardiovascular: Denies: chest pain Neurological: Reports: headache. Denies: weakness, confusion <Juan Vila - Last Filed: 05/17/23 00:29> ROS Statement: Those systems with pertinent positive or pertinent negative responses have been documented in the HPI. Past Medical History Past Medical History: Asthma, Diabetes Mellitus, GERD/Reflux, Hypertension, Musculoskeletal Disorder, Supraventricular Tachycardia (SVT) Additional Past Medical History / Comment(s): SVT- CARDIAC ABLATION CORRECTED IT , MIGRAINE HEADACHES History of Any Multi-Drug Resistant Organisms: None Reported Past Surgical History: Cardiac Ablation, Hernia Repair, Tonsillectomy, Tubal Ligation, Uterine Ablation Additional Past Surgical History / Comment(s): CARDIAC ABLATION X2, CERVIX SURGERY ,PAIN CLINIC PROCEDURES, back surgry oct 2022 Past Anesthesia/Blood Transfusion Reactions: Postoperative Nausea & Vomiting (PONV) Additional Past Anesthesia/Blood Transfusion Reaction / Comment(s): only antinausea med. can take is zofran Past Psychological History: Anxiety, Depression Smoking Status: Never smoker Past Alcohol Use History: None Reported Past Drug Use History: None Reported - Past Family History Mother Family Medical History: Cancer, CVA/TIA Additional Family Medical History / Comment(s): of a CVA. Father Family Medical History: Cancer, Pulmonary Embolus Sister(s) Family Medical History: Cancer <Mirta Macedo - Last Filed: 05/16/23 21:48> General Exam Limitations: no limitations <Mirta Macedo - Last Filed: 05/16/23 21:48> Limitations: no limitations General appearance: alert, in no apparent distress Head exam: Present: normocephalic, other (No tenderness over the temporal artery) Eye exam: Present: normal appearance, PERRL, EOMI, other (Funduscopic exam within normal limits. No conjunctival injection. No epithelial edema. No pain or firmness on palpation of the globe. ). Absent: conjunctival injection Pupils: Present: normal accommodation Expanded Eyelids: Normal Inspection: Bilateral Pupils: Regular, Round: Bilateral Sclera/Conjunctival: Normal Inspection: Bilateral Posterior chamber: Normal Inspection: Bilateral Visual acuity (R) = 20/: 30 Visual acuity (L) = 20/: 30 With correction: Yes IOP (R) in mmH IOP (L) in mmH ENT exam: Present: normal oropharynx Neck exam: Present: normal inspection Respiratory exam: Present: normal lung sounds bilaterally Cardiovascular Exam: Present: regular rate, normal rhythm GI/Abdominal exam: Present: soft. Absent: tenderness Extremities exam: Present: normal inspection Neurological exam: Present: alert, oriented X3, CN II-XII intact. Absent: motor sensory deficit Expanded Neurological exam: Present: protecting the airway Speech: Present: fluid speech Cranial nerves: EOM's Intact: Normal Motor strength exam: RUE: 5, LUE: 5, RLE: 5, LLE: 5 Eye Response: (4) open spontaneously Motor Response: (6) obeys commands Verbal Response: (5) oriented Psychiatric exam: Present: normal affect, normal mood Skin exam: Present: normal color <Juan Vila - Last Filed: 05/17/23 00:29> - General Exam Comments Initial Comments: Visual Physical Exam Vital signs reviewed General: Well-appearing, nontoxic, no acute distress. Head: Normocephalic, atraumatic Eyes: PERRLA, EOMI ENT: Airway patent Chest: Nonlabored breathing Skin: No visual rash, normal skin tone Neuro: Alert and oriented 3 Musculoskeletal: No gross abnormalities (Mirta Macedo) Course Vital Signs 05/16/23 21:32 Temperature 98 F Pulse Rate 98 Respiratory 18 Rate Blood Pressure 146/100 O2 Sat by Pulse 96 Oximetry Medical Decision Making <Mirta Macedo - Last Filed: 05/16/23 21:48> - Lab Data Result diagrams: 05/16/23 21:52 05/16/23 21:52 <Juan Vila - Last Filed: 05/17/23 00:29> - Medical Decision Making Quick note preformed by Mirta Macedo PA-C (Mirta Macedo) Was pt. sent in by a medical professional or institution (TORSTEN Beck, DINING ROOM SUPERVISOR, urgent care, hospital, or fci...) When possible be specific @ -No Did you speak to anyone other than the patient for history (EMS, parent, family, police, friend...)? What history was obtained from this source @ -No Did you review nursing and triage notes (agree or disagree)? Why? @ -I reviewed and agree with nursing and triage notes Were old charts reviewed (outside hosp., previous admission, EMS record, old EKG, old radiological studies, urgent care reports/EKG's, fci records)? Report findings @ -Previous visits and medications reviewed Differential Diagnosis (chest pain, altered mental status, abdominal pain women, abdominal pain men, vaginal bleeding, weakness, fever, dyspnea, syncope, headache, dizziness, GI bleed, back pain, seizure, CVA, palpatations, mental health, musculoskeletal)? @ -Differential Headache: Migraine, tension, cluster, carbon monoxide, central venous thrombosis, pension karma temporal arteritis, acute closure glaucoma, intercranial hemorrhage, mastoiditis, sinusitis, head injury, this is not meant to be an all-inclusive list. EKG interpreted by me (3pts min.). @ -As above X-rays interpreted by me (1pt min.). @ -None done CT interpreted by me (1pt min.). @ -CT brain reveals no acute process U/S interpreted by me (1pt. min.). @ -None done What testing was considered but not performed or refused? (CT, X-rays, U/S, labs)? Why? @ -None What meds were considered but not given or refused? Why? @ -None Did you discuss the management of the patient with other professionals (professionals i.e. , PA, DINING ROOM SUPERVISOR, lab, RT, psych nurse, social media community manager, gis specialist, teacher, fisheries officer, major case detective)? Give summary @ -No Was smoking cessation discussed for >3mins.? @ -No Was critical care preformed (if so, how long)? @ -No Were there social determinants of health that impacted care today? How? (Homelessness, low income, unemployed, alcoholism, drug addiction, transportation, low edu. Level, literacy, decrease access to med. care, alf, rehab)? @ -No Was there de-escalation of care discussed even if they declined (Discuss DNR or withdrawal of care, Hospice)? DNR status @ -No What co-morbidities impacted this encounter? (DM, HTN, Smoking, COPD, CAD, Cancer, CVA, ARF, Chemo, Hep., AIDS, mental health diagnosis, sleep apnea, morbid obesity)? @ -None Was patient admitted / discharged? Hospital course, mention meds given and route, prescriptions, significant lab abnormalities, going to OR and other pertinent info. @ -Patient updated on results and need for follow-up. Patient is comfortable with discharge home. Patient is advised ophthalmology follow-up. Patient is also advised to follow-up with her neurologist. Visual acuity 20/30 bilateral with correction. Patient will be given medications for cephalgia Undiagnosed new problem with uncertain prognosis? @ -No Drug Therapy requiring intensive monitoring for toxicity (Heparin, Nitro, Insulin, Cardizem)? @ -No Were any procedures done? @ -No Diagnosis/symptom? @ -Cephalgia Acute, or Chronic, or Acute on Chronic? @ -Acute Uncomplicated (without systemic symptoms) or Complicated (systemic symptoms)? @ -Default Side effects of treatment? @ -No Exacerbation, Progression, or Severe Exacerbation? @ -No Poses a threat to life or bodily function? How? (Chest pain, [place], [place], pneumonia, PE, COPD, DKA, ARF, appy, cholecystitis, CVA, Diverticulitis, Homicidal, Suicidal, threat to staff... and all critical care pts) @ -No (Juan Vila) - Lab Data Lab Results 05/16/23 05/16/23 05/16/23 Range/Units 21:52 21:52 21:52 WBC 10.0 (3.8-10.6) k/uL RBC 4.73 (3.80-5.40) m/uL Hgb 13.6 (11.4-16.0) gm/dL Hct 40.0 (34.0-46.0) % MCV 84.4 (80.0-100.0) fL MCH 28.7 (25.0-35.0) pg MCHC 34.0 (31.0-37.0) g/dL RDW 13.8 (11.5-15.5) % Plt Count 315 (150-450) k/uL MPV 8.2 Neutrophils % 55 % Lymphocytes % 34 % Monocytes % 5 % Eosinophils % 3 % Basophils % 1 % Neutrophils # 5.6 (1.3-7.7) k/uL Lymphocytes # 3.4 (1.0-4.8) k/uL Monocytes # 0.5 (0-1.0) k/uL Eosinophils # 0.3 (0-0.7) k/uL Basophils # 0.1 (0-0.2) k/uL Sodium (137-145) mmol/L Potassium (3.5-5.1) mmol/L Chloride (98-107) mmol/L Carbon Dioxide (22-30) mmol/L Anion Gap mmol/L BUN (7-17) mg/dL Creatinine (0.52-1.04) mg/dL Est GFR (CKD-EPI)AfAm (>60 ml/min/1.73 sqM) Est GFR (CKD-EPI)NonAf (>60 ml/min/1.73 sqM) Glucose (74-99) mg/dL Calcium (8.4-10.2) mg/dL Total Bilirubin (0.2-1.3) mg/dL AST (14-36) U/L ALT (4-34) U/L Alkaline Phosphatase (38-126) U/L Total Protein (6.3-8.2) g/dL Albumin (3.5-5.0) g/dL Urine Color Yellow Urine Appearance Clear (Clear) Urine pH 5.5 (5.0-8.0) Ur Specific Viola 1.028 (1.001-1.035) Urine Protein Negative (Negative) Urine Glucose (UA) 1+ H (Negative) Urine Ketones Trace H (Negative) Urine Blood Negative (Negative) Urine Nitrite Negative (Negative) Urine Bilirubin Negative (Negative) Urine Urobilinogen <2.0 (<2.0) mg/dL Ur Leukocyte Esterase Negative (Negative) Urine HCG, Qual Not Detected (Not Detectd) 05/16/23 Range/Units 21:52 WBC (3.8-10.6) k/uL RBC (3.80-5.40) m/uL Hgb (11.4-16.0) gm/dL Hct (34.0-46.0) % MCV (80.0-100.0) fL MCH (25.0-35.0) pg MCHC (31.0-37.0) g/dL RDW (11.5-15.5) % Plt Count (150-450) k/uL MPV Neutrophils % % Lymphocytes % % Monocytes % % Eosinophils % % Basophils % % Neutrophils # (1.3-7.7) k/uL Lymphocytes # (1.0-4.8) k/uL Monocytes # (0-1.0) k/uL Eosinophils # (0-0.7) k/uL Basophils # (0-0.2) k/uL Sodium 138 (137-145) mmol/L Potassium 3.9 (3.5-5.1) mmol/L Chloride 107 (98-107) mmol/L Carbon Dioxide 21 L (22-30) mmol/L Anion Gap 10 mmol/L BUN 10 (7-17) mg/dL Creatinine 0.64 (0.52-1.04) mg/dL Est GFR (CKD-EPI)AfAm >90 (>60 ml/min/1.73 sqM) Est GFR (CKD-EPI)NonAf >90 (>60 ml/min/1.73 sqM) Glucose 143 H (74-99) mg/dL Calcium 10.1 (8.4-10.2) mg/dL Total Bilirubin 0.4 (0.2-1.3) mg/dL AST 40 H (14-36) U/L ALT 45 H (4-34) U/L Alkaline Phosphatase 75 (38-126) U/L Total Protein 6.9 (6.3-8.2) g/dL Albumin 4.2 (3.5-5.0) g/dL Urine Color Urine Appearance (Clear) Urine pH (5.0-8.0) Ur Specific Viola (1.001-1.035) Urine Protein (Negative) Urine Glucose (UA) (Negative) Urine Ketones (Negative) Urine Blood (Negative) Urine Nitrite (Negative) Urine Bilirubin (Negative) Urine Urobilinogen (<2.0) mg/dL Ur Leukocyte Esterase (Negative) Urine HCG, Qual (Not Detectd) Disposition <Mirta Macedo - Last Filed: 05/16/23 21:48> Is patient prescribed a controlled substance at d/c from ED?: No Time of Disposition: 00:28 <Juan Vila - Last Filed: 05/17/23 00:29> Clinical Impression: Cephalgia Disposition: HOME SELF-CARE Condition: Stable Instructions (If sedation given, give patient instructions): Acute Headache (ED) Additional Instructions: Please follow-up with your primary care physician, your neurologist and milk collector in the next 1 to 2 days for recheck. Return for increased pain, fever, confusion, vomiting, worsening change in symptoms, worsening vision, or other concerns. Referrals: Amreica Tijerina MD [Primary Care Provider] - 1-2 days Lee Martin MD [STAFF PHYSICIAN] - 1-2 days Trung Muse MD [Medical Doctor] - 1-2 days
[2023-05-16 22:48] LABS: Basophils # (A) 0.1 k/uL (0-0.2); Basophils % (A) 1 %; Eosinophils # (A) 0.3 k/uL (0-0.7); Eosinophils % (A) 3 %; HGB 13.6 gm/dL (11.4-16.0); Lymphocytes # (A) 3.4 k/uL (1.0-4.8); Lymphocytes % (A) 34 %; MCH 28.7 pg (25.0-35.0); MCV 84.4 fL (80.0-100.0); Mean Platelet Volume 8.2; Monocytes # (A) 0.5 k/uL (0-1.0); Monocytes % (A) 5 %; Neutrophils # (A) 5.6 k/uL (1.3-7.7); Neutrophils % (A) 55 %; Platelet Count 315 k/uL (150-450); RBC 4.73 m/uL (3.80-5.40); RDW 13.8 % (11.5-15.5)
[2023-05-16 23:02] LABS: ALT 45 U/L (4-34); AST 40 U/L (14-36); African American GFR (CKD) >90 (>60 ml/min/1.73 sqM); Albumin 4.2 g/dL (3.5-5.0); Alkaline Phosphatase 75 U/L (38-126); Anion Gap 10 mmol/L; Blood Urea Nitrogen 10 mg/dL (7-17); Calcium 10.1 mg/dL (8.4-10.2); Carbon Dioxide 21 mmol/L (22-30); Chloride 107 mmol/L (98-107); Glucose 143 mg/dL (74-99); Non-African American GFR(CKD) >90 (>60 ml/min/1.73 sqM); Potassium 3.9 mmol/L (3.5-5.1); Sodium 138 mmol/L (137-145); Total Bilirubin 0.4 mg/dL (0.2-1.3); Total Protein 6.9 g/dL (6.3-8.2)
[2023-05-16 23:03] LABS: Appearance,Urine Clear (Clear); Bilirubin,Urine Negative (Negative); Blood,Urine Negative (Negative); Color,Urine Yellow; Glucose,Urine (UA) 1+ (Negative); Ketones,Urine Trace (Negative); Leukocyte Esterase,Urine Negative (Negative); Nitrite,Urine Negative (Negative); PH, Urine 5.5 (5.0-8.0); Protein,Urine Negative (Negative); Specific Gravity,Urine 1.028 (1.001-1.035); Urobilinogen,Urine <2.0 mg/dL (<2.0)
--- NOTE | 2023-05-16 23:55 | CT ---
EXAM: CT Head Without Intravenous Contrast CLINICAL HISTORY: ITS.REASON CT Reason: headache TECHNIQUE: Axial computed tomography images of the head/brain without intravenous contrast. CTDI is 49.1 mGy and DLP is 1077.4 mGy-cm. This CT exam was performed using one or more of the following dose reduction techniques: automated exposure control, adjustment of the mA and/or kV according to patient size, and/or use of iterative reconstruction technique. COMPARISON: No relevant prior studies available. FINDINGS: No acute intracranial hemorrhage. No midline shift or mass effect. The territorial brown-white matter differentiation is maintained throughout. The ventricles and sulci are commensurate with age. The visualized orbits appear grossly unremarkable. The calvarium is intact. The visualized paranasal sinuses and mastoid air cells are grossly clear. IMPRESSION: No acute intracranial hemorrhage, midline shift, or mass effect.
[2023-05-17] MEDS: PROPARACAINE 0.5% OPHTH DROPS 15 ML BTL BOTH EYES STA (00:07)
[2023-05-17] MEDS: MORPHINE SULFATE 4 MG/ML SYRINGE IM STA (00:32)
[2023-05-17] MEDS: DEXAMETHASONE SOD PHOSPHATE 4 MG/ML 1 ML VIAL IM STA (00:33)
[2023-05-17] MEDS: diphenhydrAMINE 50 MG/ML 1 ML VIAL IM STA (00:34)
[2023-05-17] MEDS: atenoloL 25 MG TAB PO STA (01:02)
[2023-05-17 01:32] VITALS: BP 151/103; PULSE 78; RESP 16
== END 2023-05-17 01:18 | disposition home or self-care (01) ==
LOC: EC 21:21
DX: R51.9 Headache, unspecified (principal); J45.909 Unspecified asthma, uncomplicated; E11.9 Type 2 diabetes mellitus without complications; I10 Essential (primary) hypertension; F41.9 Anxiety disorder, unspecified; F32.A Depression, unspecified; Z79.899 Other long term (current) drug therapy; Z79.84 Long term (current) use of oral hypoglycemic drugs; Z79.4 Long term (current) use of insulin; Z88.6 Allergy status to analgesic agent; Z88.8 Allergy status to other drugs, medicaments and biological substances; Z91.09 Other allergy status, other than to drugs and biological substances
CPT/HCPCS: 36415; 70450; 80053; 81003; 81025; 85025; 96372; 99285

== ENCOUNTER → 2023-06-06 | Outpatient (CLI) | payer MEDICARE, OTHER ==
[2023-06-06 14:41] VITALS: BMI 41.9
== END ==
LOC: BARWHC3 13:05
PROVIDERS: ATTEND Surgery
DX: E66.01 Morbid (severe) obesity due to excess calories (principal); Z71.3 Dietary counseling and surveillance; Z91.048 Other nonmedicinal substance allergy status; Z88.6 Allergy status to analgesic agent; Z88.8 Allergy status to other drugs, medicaments and biological substances; Z88.5 Allergy status to narcotic agent
CPT/HCPCS: 97804; 99211

== ENCOUNTER 2023-06-07 08:33 | Day surgery (SDC) | payer MEDICARE, OTHER ==
[2023-06-07 09:14] LABS: Glucose,Whole Blood 177 mg/dL (70-110)
[2023-06-07 09:24] VITALS: TEMP 98
[2023-06-07] MEDS: LIDOCAINE 1% (10MG/ML) FOR IV START INTRADERMA ONE (09:29)
[2023-06-07] MEDS: LACTATED RINGERS 1,000 ML IV SCH (09:29)
[2023-06-07] MEDS ORDERED: LIDOCAINE 2% (PF) 20 MG/ML 5 ML VIAL ONE (09:31)
[2023-06-07] MEDS ORDERED: fentaNYL (PF) 50 MCG/ML 2 ML AMP ONE (09:31)
[2023-06-07] MEDS ORDERED: PROPOFOL 10 MG/ML 20 ML VIAL IV ONE (09:31)
--- NOTE | 2023-06-07 09:34 | P.GSHP ---
History of Present Illness H&P Date: 06/07/23 Chief Complaint: GERD 37-year-old female here for EGD. Patient with mild reflux. Patient being evaluated for sleeve gastrectomy. No dysphagia. Past Medical History Past Medical History: Asthma, Diabetes Mellitus, GERD/Reflux, Hyperlipidemia, Hypertension, Musculoskeletal Disorder, Supraventricular Tachycardia (SVT) Additional Past Medical History / Comment(s): SVT- CARDIAC ABLATION CORRECTED IT , MIGRAINE HEADACHES History of Any Multi-Drug Resistant Organisms: None Reported Past Surgical History: Cardiac Ablation, Hernia Repair, Tonsillectomy, Tubal Ligation, Uterine Ablation Additional Past Surgical History / Comment(s): CARDIAC ABLATION X2, endometrial ablation, Umbilical hernia repair x 4, Rt. inguinal hernia repair, pain clinic procedures, lumbar surgery w/ hardware 10/2022 Past Anesthesia/Blood Transfusion Reactions: Postoperative Nausea & Vomiting (PONV) Additional Past Anesthesia/Blood Transfusion Reaction / Comment(s): only antinausea med. can take is zofran Smoking Status: Never smoker - Past Family History Mother Family Medical History: Cancer, CVA/TIA Additional Family Medical History / Comment(s): of a CVA. Father Family Medical History: Cancer, Pulmonary Embolus Sister(s) Family Medical History: Cancer Medications and Allergies Home Medications Medication Instructions Recorded Confirmed Type LORazepam [Ativan] 1 mg PO TID PRN 09/05/14 06/07/23 History Ondansetron HCl [Zofran] 8 mg PO Q12HR PRN 09/05/14 06/07/23 History buPROPion HCL [Wellbutrin XL] 150 mg PO 1500 09/05/14 06/07/23 History Albuterol Nebulized [Ventolin 2.5 mg INHALATION RT-Q6H PRN 12/15/20 06/07/23 History Nebulized] Albuterol Sulfate [Ventolin HFA] 2 puff INHALATION RT-QID PRN 12/15/20 06/07/23 History Fenofibrate Nanocrystallized 96 mg PO 1500 12/15/20 06/07/23 History [Fenofibrate] Insulin Glargine,Hum.rec.anlog 16 unit SQ 0800,199912/15/20 06/07/23 History [Basaglar Kwikpen U-100] Rosuvastatin Calcium [Crestor] 20 mg PO 1500 12/15/20 06/07/23 History atenoloL [Tenormin] 25 mg PO 1500 12/15/20 06/07/23 History buPROPion HCL [Wellbutrin XL] 300 mg PO 1500 12/15/20 06/07/23 History Pantoprazole Sodium [Protonix] 40 mg PO BID #60 tab 12/17/20 06/07/23 Rx metFORMIN HCL [Glucophage] 1,000 mg PO BID 08/20/22 06/07/23 History Dulaglutide [Trulicity] 4.5 mg SQ FR 11/01/22 06/07/23 History Insulin Aspart [NovoLOG Flexpen] See Protocol SQ DIRECTED 11/01/22 06/07/23 History Allergies Allergy/AdvReac Type Severity Reaction Status Date / Time droperidol Allergy Severe Dyspnea Verified 06/07/23 09:00 ketorolac tromethamine Allergy Severe rash,bliste Verified 06/07/23 09:00 [From Toradol] rs metoclopramide [From Reglan] Allergy Severe Nausea & Verified 06/07/23 09:00 Vomiting prochlorperazine edisylate Allergy Severe Dyspnea Verified 06/07/23 09:00 [From Compazine] prochlorperazine maleate Allergy Severe Dyspnea Verified 06/07/23 09:00 [From Compazine] promethazine HCl Allergy Severe hives, Verified 06/07/23 09:00 [From Phenergan] jittery adhesive tape Allergy Severe BLISTERS Uncoded 06/07/23 09:00 Surgical - Exam Vital Signs Temp Pulse Resp BP Pulse Ox 98.0 F 93 20 129/75 98 06/07/23 09:18 06/07/23 09:18 06/07/23 09:18 06/07/23 09:18 06/07/23 09:18 Physical exam: General: Well-developed, well-nourished HEENT: Normocephalic, sclerae nonicteric Abdomen: Nontender, nondistended Extremities: No edema Neuro: Alert and oriented Results - Labs Abnormal Lab Results - Last 24 Hours (Table) 06/07/23 Range/Units 09:12 POC Glucose (mg/dL) 177 H (70-110) mg/dL Assessment and Plan (1) GERD (gastroesophageal reflux disease) Narrative/Plan: Will proceed with EGD at this time. Current Visit: Yes Status: Acute Code(s): K21.9 - GASTRO-ESOPHAGEAL REFLUX DISEASE WITHOUT ESOPHAGITIS SNOMED Code(s): 471941873
--- NOTE | 2023-06-07 09:41 | P.PCN ---
Date of Procedure: 06/07/23 Procedure(s) Performed: Preoperative Dx: GERD, presurgical Postoperative Dx: Large volume of retained liquid and solids food, mild gastritis Procedure: EGD with Bx Anesthesia: Sedation Endoscopist: Dr. Bowen Specimens: Duodenum, antrum Endoscopic Procedure: The patient was on the endoscopy table in the left decubitus position. The Olympus gastroscope was inserted into the oropharynx and passed under direct visualization to the region of the third portion of the duodenum. From that point the scope was slowly withdrawn inspecting all surfaces carefully. There was mild inflammation of the duodenum. A biopsy of the duodenum took place. No obstruction was seen. The patient's stomach and even the duodenum had a large amount of retained liquid and solid food. The pylorus was widely patent. There was no evidence of obstruction. The patient's stomach had mild gastritis as well. A biopsy of the antrum took place. I could not visualize most of the body and fundus of the stomach because of the retained food. No definite hiatal hernia was seen. The esophagus appeared normal. The patient was then taken to the recovery room in stable condition per anesthesia guidelines. Recommendations: Await biopsy results. Patient may require gastric emptying study. Will discuss endoscopic findings in detail with the patient.
[2023-06-07 10:35] VITALS: BP 130/89; PULSE 91; RESP 18
== END 2023-06-07 10:34 | disposition home or self-care (01) ==
LOC: ORWHC2ENDO 08:33
PROVIDERS: ATTEND Surgery
DX: K29.80 Duodenitis without bleeding (principal); K29.50 Unspecified chronic gastritis without bleeding; K21.00 Gastro-esophageal reflux disease with esophagitis, without bleeding; J45.909 Unspecified asthma, uncomplicated; I10 Essential (primary) hypertension; E78.5 Hyperlipidemia, unspecified; E11.9 Type 2 diabetes mellitus without complications; I47.10 Supraventricular tachycardia, unspecified; F41.9 Anxiety disorder, unspecified; F32.A Depression, unspecified; Z79.84 Long term (current) use of oral hypoglycemic drugs; Z88.8 Allergy status to other drugs, medicaments and biological substances; Z98.51 Tubal ligation status; Z79.899 Other long term (current) drug therapy; Z79.4 Long term (current) use of insulin; Z88.6 Allergy status to analgesic agent; Z79.85 Long-term (current) use of injectable non-insulin antidiabetic drugs; Z79.51 Long term (current) use of inhaled steroids
CPT/HCPCS: 88305; 88342; 43239; J3010; J2704; J2001

== ENCOUNTER → 2023-06-21 | Outpatient (CLI) | payer MEDICARE, OTHER ==
[2023-06-21 14:52] VITALS: BP 130/95; PULSE 101; RESP 16; TEMP 98.7; BMI 40.3
--- NOTE | 2023-06-21 16:57 | P.BASOAP ---
Subjective Progress Note Date: 06/21/23 Principal diagnosis: Morbid obesity Patient returns for recheck. Underwent EGD on 06/06. Patient was found to have retained food. She thinks on prior EGD this may have happened in the past although this time she is attributing this to her Trulicity. BMI today is 40. She has since stopped her Trulicity. Objective - Vital Signs Vital signs: Vital Signs Temp 98.7 F 06/21/23 14:26 Pulse 101 H 06/21/23 14:26 Resp 16 06/21/23 14:26 BP 130/95 06/21/23 14:26 Pulse Ox FiO2 Intake & Output 06/20/23 06/21/23 06/21/23 18:59 06:59 18:59 Weight 111.584 kg - Exam Abdomen: Soft, nontender, nondistended Assessment/Plan (1) Morbid obesity with BMI of 40.0-44.9, adult Narrative/Plan: 37-year-old female with morbid obesity. Surgical consent form reviewed in detail. Patient remains interested in sleeve gastrectomy. Recent EGD shows retained food in stomach. Patient will be at increased risk of postoperative reflux and nausea as a result of this if it is not secondary to her Trulicity medications. Will check gastric emptying study. If gastric emptying study is normal we would be comfortable with proceeding with sleeve gastrectomy. Patient will be on a liquid diet preoperatively. Plan: Date: 06/21/23 Initial Weight: 115.212 kg Initial BMI: 41.6 Current Weight: 111.584 kg Current BMI: 40.3 Type of Surgery: Total Volume in Band: Previous Volume: Volume Removed: Volume Added: Band Size:
== END ==
LOC: BARWHC3 14:10
PROVIDERS: ATTEND Surgery
DX: E66.01 Morbid (severe) obesity due to excess calories (principal); Z68.41 Body mass index [BMI] 40.0-44.9, adult; Z88.8 Allergy status to other drugs, medicaments and biological substances; Z91.048 Other nonmedicinal substance allergy status
CPT/HCPCS: 99211

== ENCOUNTER → 2023-06-30 | Outpatient (CLI) | payer MEDICARE, OTHER ==
--- NOTE | 2023-06-30 13:06 | NM ---
EXAMINATION TYPE: NM gastric emptying static DATE OF EXAM: 06/30/2023 COMPARISON: NONE CLINICAL INDICATION: Female, 37 years old with history of K34.84 gastroparesis; Following administration of 1.8 mCi Tc 99m Sulfur Colloid with 4 ounces eggs, 1/2 piece of toast with butter & jelly, 8 ounces of water, projection images of the abdomen were obtained 10 minutes post in gestion. Patient Emptying Values 1 Hour 44 % 2 Hours 88 % 3 Hours 100 % 4 Hours 100 % Gastroesophagel reflux: None IMPRESSION: Normal gastric imaging study.
== END | disposition home or self-care (01) ==
LOC: RADNMMAIN 07:01
PROVIDERS: ATTEND Surgery Plastic and Reconstructive Surgery
DX: K31.84 Gastroparesis (principal)
CPT/HCPCS: 78264; A9541

== ENCOUNTER → 2023-07-18 | Outpatient (CLI) | payer MEDICARE, OTHER ==
--- NOTE | 2023-07-18 17:53 | MR ---
EXAMINATION TYPE: MR knee LT wo con DATE OF EXAM: 07/18/2023 COMPARISON: Outside radiograph 06/22/2023 HISTORY: 37-year-old female M25.562, Lt knee pain TECHNIQUE: Multiplanar, multisequence imaging of the left knee is performed without IV contrast. FINDINGS: ACL is intact. There is some inhomogeneity and slight thickening of the PCL to 7 mm. Correlate for PCL sprain. Mild edema on either side of the otherwise intact MCL. Heterogeneity and thickening at the femoral attachment of the LCL proper. LCL complex are otherwise i ntact. The posterior root of the medial meniscus is not well defined. Degenerative signal within the body of the medial meniscus. Mild irregular cartilage thinning throughout the medial compartment. Lateral meniscus is intact. Overall lateral compartment articular cartilage volume is maintained. There is moderate irregular cartilage thinning along the lateral trochlear facet within the patellofe moral compartment. Extensor mechanism is intact. Some anterior soft tissue swelling is present. There is a small to moderate-sized Romano's cyst measuring 6.8 x 3.2 cm. Small to moderate joint effus ion. Patchy red marrow hyperplasia can be seen with anemia, obesity, smoking, and chronic disease. IMPRESSION: 1. Inhomogeneity of the PCL and borderline thickening at 7 mm. Correlate for possible PCL sprain. 2. Grade 1 MCL sprain and grade 1 sprain femoral attachment of the LCL proper. 3. Nearly full-thickness posterior root tear of the medial meniscus. 4. Mild degenerative change in the medial compartment and also patellofemoral compartment (localized to the lateral trochlear facet). 5. Dmcty-et-[id number] knee joint effusion as well as a small to moderate-sized leaking Romano's cyst.
== END | disposition home or self-care (01) ==
LOC: RADMRIMAIN 08:56
PROVIDERS: ATTEND Orthopaedic Surgery
DX: M17.12 Unilateral primary osteoarthritis, left knee (principal); M25.462 Effusion, left knee; M23.322 Other meniscus derangements, posterior horn of medial meniscus, left knee; M23.632 Other spontaneous disruption of medial collateral ligament of left knee; M23.642 Other spontaneous disruption of lateral collateral ligament of left knee; M71.22 Synovial cyst of popliteal space [Baker], left knee; M23.622 Other spontaneous disruption of posterior cruciate ligament of left knee

== ENCOUNTER → 2023-08-12 | Outpatient (CLI) | payer MEDICARE, OTHER ==
[2023-08-12 15:20] LABS: Basophils # (A) 0.04 X 10*3/uL (0.00-0.10); Basophils % (A) 0.4 %; Eosinophils # (A) 0.03 X 10*3/uL (0.04-0.35); Eosinophils % (A) 0.3 %; HCT 39.1 % (37.2-46.3); HGB 12.8 g/dL (12.0-15.0); Lymphocytes # (A) 2.26 X 10*3/uL (0.90-5.00); Lymphocytes % (A) 23.7 %; MCH 27.8 pg (27.0-32.0); MCHC 32.7 g/dL (32.0-37.0); Mean Platelet Volume 11.5 FL (9.5-12.2); Monocytes # (A) 0.65 X 10*3/uL (0.20-1.00); Monocytes % (A) 6.8 %; NRBC Per 100 WBC 0 X 10*3/uL (0.00-0.01); Neutrophils # (A) 6.52 X 10*3/uL (1.80-7.70); Neutrophils % (A) 68.3 %; Platelet Count 309 X 10*3/uL (140-440); RDW 13.2 % (11.5-14.5); WBC 9.55 X 10*3/uL (4.50-10.00)
[2023-08-12 15:33] LABS: ALT 30 U/L (8-44); AST 19 U/L (13-35); Albumin 4.5 g/dL (3.8-4.9); Albumin/Globulin Ratio 1.96 Ratio (1.60-3.17); Alkaline Phosphatase 67 U/L (41-126); BUN/Creat Ratio 21.25 Ratio (12.00-20.00); Calcium 9.6 mg/dL (8.7-10.3); Carbon Dioxide 24.1 mmol/L (21.6-31.8); Chloride 105 mmol/L (96-109); Globulin 2.3 g/dL (1.6-3.3); Glucose 158 mg/dL (70-110); Potassium 4.4 mmol/L (3.5-5.5); Sodium 141 mmol/L (135-145); Total Bilirubin 0.3 mg/dL (0.3-1.2); Total Protein 6.8 g/dL (6.2-8.2)
== END | disposition home or self-care (01) ==
LOC: LABPAT 09:25
PROVIDERS: ATTEND Surgery
DX: Z01.812 Encounter for preprocedural laboratory examination (principal)
CPT/HCPCS: 36415; 80053; 85025; 86850; 86900; 86901

== ENCOUNTER → 2023-09-06 | Outpatient (CLI) | payer MEDICARE, OTHER ==
[2023-09-06 13:36] VITALS: RESP 16; BMI 34.7
[2023-09-06] MEDS: SODIUM CHLORIDE 0.9% 1,000 ML IV SCH (14:20)
[2023-09-06 14:24] VITALS: BP 114/76; PULSE 76; TEMP 97.8
[2023-09-06 14:46] LABS: Basophils # (A) 0.1 k/uL (0-0.2); Basophils % (A) 1 %; Eosinophils # (A) 0.1 k/uL (0-0.7); Eosinophils % (A) 2 %; Lymphocytes # (A) 1.6 k/uL (1.0-4.8); Lymphocytes % (A) 26 %; MCH 27.5 pg (25.0-35.0); MCHC 31.7 g/dL (31.0-37.0); MCV 86.7 fL (80.0-100.0); Monocytes # (A) 0.4 k/uL (0-1.0); Monocytes % (A) 6 %; Neutrophils % (A) 64 %; Platelet Count 228 k/uL (150-450); RBC 4.73 m/uL (3.80-5.40); RDW 14.5 % (11.5-15.5); WBC 6.2 k/uL (3.8-10.6)
[2023-09-06 14:57] LABS: ALT 27 U/L (4-34); AST 30 U/L (14-36); African American GFR (CKD) >90 (>60 ml/min/1.73 sqM); Albumin 4.3 g/dL (3.5-5.0); Alkaline Phosphatase 54 U/L (38-126); Anion Gap 8 mmol/L; Blood Urea Nitrogen 7 mg/dL (7-17); Calcium 9.5 mg/dL (8.4-10.2); Carbon Dioxide 24 mmol/L (22-30); Chloride 106 mmol/L (98-107); Glucose 79 mg/dL (74-99); Non-African American GFR(CKD) >90 (>60 ml/min/1.73 sqM); Potassium 4.3 mmol/L (3.5-5.1); Sodium 138 mmol/L (137-145); Total Bilirubin 0.7 mg/dL (0.2-1.3); Total Protein 6.6 g/dL (6.3-8.2)
--- NOTE | 2023-09-06 16:57 | P.BASOAP ---
Subjective Progress Note Date: 09/06/23 Principal diagnosis: Morbid obesity Patient returns for recheck. Last seen 2 weeks ago. She has lost 9 pounds since her last visit. Unfortunately has been doing very poorly with her liquid and protein intake. Yesterday she had about 10 to 15 ounces of liquids. She has probably getting less than 20 g of protein daily. No longer even trying protein shakes. Complaining of some discomfort right lower abdomen. Also having some tightness sensation when drinking again. Patient very tearful today. States some of the symptoms remind her of when she had a hernia in the past. Heart rate is normal. No fevers. She was sent for labs showing a normal white blood cell count normal BUN and creatinine. Hemoglobin is stable. She was then sent for 2 L IV fluid infusion. CAT scan was also ordered. Objective - Vital Signs Vital signs: Vital Signs Temp 97.8 F 09/06/23 14:18 Pulse 76 09/06/23 14:18 Resp 16 09/06/23 14:18 BP 114/76 09/06/23 14:18 Pulse Ox FiO2 Intake & Output 09/05/23 09/06/23 09/06/23 18:59 06:59 18:59 Weight 96.162 kg - Exam Abdomen: Soft, nondistended, mild incisional tenderness, incisions clean and dry - Labs CBC & Chem 7: 09/06/23 14:20 09/06/23 14:20 Assessment/Plan (1) Morbid obesity Narrative/Plan: 37-year-old female with morbid obesity and history of sleeve gastrectomy 1 month ago. Patient having recurrent issues of dysphagia and pain. Labs and fluid bolus ordered. CAT scan is currently pending. Will review that study. She was seen today by dietitian. Plan recheck 1 to 2 weeks. Plan: Date: 09/06/23 Initial Weight: 115.212 kg Initial BMI: 41.6 Current Weight: 96.162 kg Current BMI: 34.7 Type of Surgery: Vertical Sleeve Gastrectomy Total Volume in Band: Previous Volume: Volume Removed: Volume Added: Band Size:
== END ==
LOC: BARWHC3 13:03
PROVIDERS: ATTEND Surgery
DX: E86.0 Dehydration (principal)
CPT/HCPCS: 80053; 85025; 97802; 96360; 96361; G0463; 99211

== ENCOUNTER → 2023-09-06 | Outpatient (CLI) | payer MEDICARE, OTHER ==
--- NOTE | 2023-09-06 18:17 | CT ---
EXAMINATION TYPE: CT abdomen pelvis w con DATE OF EXAM: 09/06/2023 HISTORY: Abdominal/epigastric Pain, gastric sleeve x [address] DLP: 1606.3mGycm Automated Exposure Control for Dose Reduction was Utilized. CONTRAST: CT scan of the abdomen and pelvis is performed with oral and with IV Contrast, patient injected with 100 mL of Isovue 300. COMPARISON: Prior CT August 18, 2023 FINDINGS: LUNG BASES: No significant abnormality is appreciated. LIVER/GB: No significant abnormality is appreciated. PANCREAS: No significant abnormality is seen. SPLEEN: No significant abnormality is seen. ADRENALS: No significant abnormality is seen. KIDNEYS: No significant abnormality is seen. BOWEL: Oral contrast extends to jejunal loops in the left abdomen. No contrast extravasation to sugge st leak. Surgical changes from gastric sleeve procedure are redemonstrated. No abnormal small or larg e bowel dilatation. UTERUS/ADNEXA: Anteverted uterus. There is 3.3 x 2.7 cm thin-walled cyst or cystic lesion in the righ t ovary image 71. This can be better evaluated and characterized with pelvic ultrasound if desired. LYMPH NODES: No greater than 1cm abdominal or pelvic lymph nodes are appreciated. OSSEOUS STRUCTURES: Postsurgical change at lumbosacral junction is redemonstrated. OTHER: Vertical oriented scars in the anterior wall of the abdomen redemonstrated. Slightly more prom inent soft tissue or presumed scar just above the umbilicus axial image 56 has similar appearance to prior CT. IMPRESSION: No contrast extravasation to suggest leak. No bowel obstruction. No suspicious new or acu te findings seen to account for patient's symptoms
== END | disposition home or self-care (01) ==
LOC: RADCTMAIN 16:50
PROVIDERS: ATTEND Surgery
DX: R10.13 Epigastric pain (principal)
CPT/HCPCS: 74177; Q9967

== ENCOUNTER 2023-09-07 01:33 | Emergency (ER) | payer MEDICARE, OTHER ==
[2023-09-07 01:43] VITALS: RESP 20; TEMP 97.7
--- NOTE | 2023-09-07 02:31 | ED ---
Abdominal Pain HPI - General Chief Complaint: Abdominal Pain Stated Complaint: Post op pain Time Seen by Provider: 09/07/23 01:56 Source: patient, RN notes reviewed, old records reviewed Mode of arrival: ambulatory Limitations: no limitations - History of Present Illness Initial Comments: 37-year-old female presents to the ED with complaints of abdominal pain. Patient recently had vertical gastrectomy done by Dr. Bowen on 08/15/2023. Patient reports she has had decreased oral intake since then. Reports 3 days ago started to develop some pain in her right lower abdomen. Had blood work and imaging ordered at her follow-up appointment with Dr. Bowen yesterday. Denies diarrhea constipation or blood in the stool. Denies dysuria, hematuria, urge ncy, frequency. No fever or chills. No chest pain shortness of breath. No other complaints at this time. Denies vaginal bleeding. - Related Data Home Medications Medication Instructions Recorded Confirmed LORazepam [Ativan] 1 mg PO TID PRN 09/05/14 08/23/23 buPROPion HCL [Wellbutrin XL] 150 mg PO 1500 09/05/14 08/23/23 Albuterol Nebulized [Ventolin 2.5 mg INHALATION RT-Q6H PRN 12/15/20 08/23/23 Nebulized] Albuterol Sulfate [Ventolin HFA] 2 puff INHALATION RT-QID PRN 12/15/20 08/23/23 Fenofibrate Nanocrystallized 96 mg PO 1500 12/15/20 08/23/23 [Fenofibrate] Rosuvastatin Calcium [Crestor] 20 mg PO 1500 12/15/20 08/23/23 atenoloL [Tenormin] 25 mg PO 1500 12/15/20 08/23/23 buPROPion HCL [Wellbutrin XL] 300 mg PO 1500 12/15/20 08/23/23 Insulin Aspart [NovoLOG Flexpen] See Protocol SQ DIRECTED 11/01/22 08/23/23 Pantoprazole Sodium [Protonix] 40 mg PO DAILY 08/23/23 08/23/23 Previous Rx's Medication Instructions Recorded HYDROcodone/APAP 5-325MG [[place] 1 tab PO Q6HR PRN 3 Days #12 tab 08/19/23 5-325] Allergies Allergy/AdvReac Type Severity Reaction Status Date / Time droperidol Allergy Severe Dyspnea Verified 09/07/23 01:44 ketorolac tromethamine Allergy Severe rash,bliste Verified 09/07/23 01:44 [From Toradol] rs metoclopramide [From Reglan] Allergy Severe Nausea & Verified 09/07/23 01:44 Vomiting prochlorperazine edisylate Allergy Severe Dyspnea Verified 09/07/23 01:44 [From Compazine] prochlorperazine maleate Allergy Severe Dyspnea Verified 09/07/23 01:44 [From Compazine] promethazine HCl Allergy Severe hives, Verified 09/07/23 01:44 [From Phenergan] jittery adhesive tape Allergy Severe BLISTERS Uncoded 09/07/23 01:44 Review of Systems ROS Statement: Those systems with pertinent positive or pertinent negative responses have been documented in the HPI. ROS Other: All systems not noted in ROS Statement are negative. Past Medical History Past Medical History: Asthma, Diabetes Mellitus, GERD/Reflux, Hyperlipidemia, Hypertension, Musculoskeletal Disorder, Supraventricular Tachycardia (SVT) Additional Past Medical History / Comment(s): SVT- CARDIAC ABLATION CORRECTED IT , MIGRAINE HEADACHES History of Any Multi-Drug Resistant Organisms: None Reported Past Surgical History: Bariatric Surgery, Cardiac Ablation, Hernia Repair, Tonsillectomy, Tubal Ligation, Uterine Ablation Additional Past Surgical History / Comment(s): CARDIAC ABLATION X2, endometrial ablation, Umbilical hernia repair x 4, Rt. inguinal hernia repair, pain clinic procedures, lumbar surgery w/ hardware 10/2022. Gastric sleeve 08/15/23. Past Anesthesia/Blood Transfusion Reactions: Postoperative Nausea & Vomiting (PONV) Additional Past Anesthesia/Blood Transfusion Reaction / Comment(s): only antinausea med. can take is zofran Past Psychological History: Anxiety, Depression Smoking Status: Never smoker Past Alcohol Use History: None Reported Past Drug Use History: None Reported - Past Family History Mother Family Medical History: Cancer, CVA/TIA Additional Family Medical History / Comment(s): of a CVA. Father Family Medical History: Cancer, Pulmonary Embolus Sister(s) Family Medical History: Cancer General Exam Limitations: no limitations General appearance: alert, in no apparent distress Eye exam: Present: normal appearance Neck exam: Present: normal inspection Respiratory exam: Present: normal lung sounds bilaterally Cardiovascular Exam: Present: regular rate GI/Abdominal exam: Present: soft (Right lower quadrant tenderness to palpation. No rebound guarding or rigidity.) Course Vital Signs 09/07/23 01:38 Temperature 97.7 F Pulse Rate 106 H Respiratory 20 Rate Blood Pressure 162/105 O2 Sat by Pulse 100 Oximetry Medical Decision Making - Medical Decision Making Was pt. sent in by a medical professional or institution (, PA, BIBLICAL STUDIES PROFESSOR, urgent care, hospital, or assisted...) When possible be specific @ -No Did you speak to anyone other than the patient for history (EMS, parent, family, police, friend...)? What history was obtained from this source @ -No Did you review nursing and triage notes (agree or disagree)? Why? @ -I reviewed and agree with nursing and triage notes Were old charts reviewed (outside hosp., previous admission, EMS record, old EKG, old radiological studies, urgent care reports/EKG's, assisted records)? Report findings @ -Prior labs and imaging studies were performed on 09/06/2023 which were reviewed. CBC CMP unremarkable. CT abdomen pelvis revealed no evidence of acute finding however there is a note of a 3.3 x 2.7 cm thin-walled cyst or cystic lesion in the right ovary. Differential Diagnosis (chest pain, altered mental status, abdominal pain women, abdominal pain men, vaginal bleeding, weakness, fever, dyspnea, syncope, headache, dizziness, GI bleed, back pain, seizure, CVA, palpatations, mental health, musculoskeletal)? @ -Differential Abdominal Pain Women: Appendicitis, Cholecystitis, diverticulosis, ischemic bowel, pancreatitis, hepatitis, UTI, gastroenteritis, AAA, incarcerated hernia, bowel obstruction, constipation, inflammatory bowel, hepatitis, peptic ulcer disease, splenic infarction, perforated viscus, vulvitis, ovarian torsion, PID, kidney stone, placenta abruption, this is not meant to be an all-inclusive list EKG interpreted by me (3pts min.). @ -None X-rays interpreted by me (1pt min.). @ -None done CT interpreted by me (1pt min.). @ -None done U/S interpreted by me (1pt. min.). @ -None done What testing was considered but not performed or refused? (CT, X-rays, U/S, labs)? Why? @ -None What meds were considered but not given or refused? Why? @ -None Did you discuss the management of the patient with other professionals (professionals i.e. DrJayme, PA, BIBLICAL STUDIES PROFESSOR, lab, RT, psych nurse, social media designer, record filing clerk, teacher, penal officer, showcase maker)? Give summary @ -Case discussed with Dr. Rudd, who advises outpatient follow-up with Dr. Bowen in the morning. Was smoking cessation discussed for >3mins.? @ -No Was critical care preformed (if so, how long)? @ -No Were there social determinants of health that impacted care today? How? (Homelessness, low income, unemployed, alcoholism, drug addiction, transportation, low edu. Level, literacy, decrease access to med. care, care home, rehab)? @ -No Was there de-escalation of care discussed even if they declined (Discuss DNR or withdrawal of care, Hospice)? DNR status @ -No What co-morbidities impacted this encounter? (DM, HTN, Smoking, COPD, CAD, Cancer, CVA, ARF, Chemo, Hep., AIDS, mental health diagnosis, sleep apnea, morbid obesity)? @ -None Was patient admitted / discharged? Hospital course, mention meds given and route, prescriptions, significant lab abnormalities, going to OR and other pertinent info. @ -Discharge 37-year-old female presents to the ED with complaints of right lower quadrant abdominal pain for the last 3 days. Patient had labs and imaging performed yesterday which were reviewed. Labs including CBC CMP largely unremarkable. CT abdomen pelvis did not show any evidence of acute finding however did show a cystic lesion of the right ovary. This may be what pain is secondary to. After discussion with surgery on-call here, recommended outpatient follow-up with her surgeon in the morning. Patient provided pain control here and discharged home in stable condition. Patient notes that she follows w [facility] and has a dominga ointment scheduled in August. Undiagnosed new problem with uncertain prognosis? @ -No Drug Therapy requiring intensive monitoring for toxicity (Heparin, Nitro, Insulin, Cardizem)? @ -No Were any procedures done? @ -No Diagnosis/symptom? @ -Abdominal pain Acute, or Chronic, or Acute on Chronic? @ -Acute Uncomplicated (without systemic symptoms) or Complicated (systemic symptoms)? @ -Uncomplicated Side effects of treatment? @ -No Exacerbation, Progression, or Severe Exacerbation? @ -No Poses a threat to life or bodily function? How? (Chest pain, [place], [place], pneumonia, PE, COPD, DKA, ARF, appy, cholecystitis, CVA, Diverticulitis, Homicidal, Suicidal, threat to staff... and all critical care pts) @ -No Disposition Clinical Impression: Abdominal pain Disposition: HOME SELF-CARE Condition: Good Additional Instructions: Please return to the Emergency Department if symptoms worsen or any other concerns. Please follow-up with Dr. Bowen. Is patient prescribed a controlled substance at d/c from ED?: No Referrals: America Tijerina MD [Primary Care Provider] - 1-2 days Time of Disposition: 02:34
[2023-09-07 03:00] VITALS: BP 135/89; PULSE 83
[2023-09-07] MEDS: ONDANSETRON 4 MG/2 ML VIAL IVP STA (03:07)
[2023-09-07] MEDS: SODIUM CHLORIDE 0.9% 1,000 ML IV STA (03:07)
[2023-09-07] MEDS: HYDROmorphone 0.5 MG/0.5 ML SYRINGE IVP STA (03:08)
[2023-09-07] MEDS: ACETAMINOPHEN TAB 500 MG TAB PO STA (03:10)
== END 2023-09-07 03:30 | disposition home or self-care (01) ==
LOC: EC 01:33
DX: R10.31 Right lower quadrant pain (principal); Z91.048 Other nonmedicinal substance allergy status; Z88.8 Allergy status to other drugs, medicaments and biological substances
CPT/HCPCS: 99284; 96374; 96375; J2405; J1170

== ENCOUNTER → 2023-09-20 | Outpatient (CLI) | payer MEDICARE, OTHER ==
[2023-09-20 15:04] VITALS: BP 126/84; PULSE 76; TEMP 98.1; BMI 32.4
--- NOTE | 2023-09-20 15:43 | P.BASOAP ---
Subjective Progress Note Date: 09/20/23 Principal diagnosis: Morbid obesity Patient returns for reevaluation. Last seen a few weeks ago. Was having significant pain and dysphagia issues. Those symptoms have improved. Right lower quadrant pain has been attributed to a large right ovarian cyst. Saw gynecology this morning. Has a pelvic ultrasound scheduled for next week. Apparently she was started on antibiotics by her PCP she states for the ovarian cyst. Heart rate is normal. She has lost 14 pounds. She is quite happy with her weight loss. Still with poor protein intake. Objective - Vital Signs Vital signs: Vital Signs Temp 98.1 F 09/20/23 15:00 Pulse 76 09/20/23 15:00 Resp BP 126/84 09/20/23 15:00 Pulse Ox FiO2 Intake & Output 09/19/23 09/20/23 09/20/23 18:59 06:59 18:59 Weight 89.811 kg - Exam Abdomen: Soft, nondistended, mild incisional tenderness Assessment/Plan (1) Morbid obesity Narrative/Plan: 37-year-old female doing well after recent sleeve gastrectomy. Much improved from previous visit. Continue increasing protein amount's. Continue pushing for adequate liquid intake as well. Monitor abdominal pain complaints. Await upcoming pelvic ultrasound. Continue antiacids. Recheck 1 month. Check labs at that time. Plan: Date: 09/20/23 Initial Weight: 115.212 kg Initial BMI: 41.6 Current Weight: 89.811 kg Current BMI: 32.4 Type of Surgery: Total Volume in Band: Previous Volume: Volume Removed: Volume Added: Band Size:
== END ==
LOC: BARWHC3 14:36
PROVIDERS: ATTEND Surgery
DX: E66.01 Morbid (severe) obesity due to excess calories (principal); R10.31 Right lower quadrant pain; R13.10 Dysphagia, unspecified; N83.201 Unspecified ovarian cyst, right side; Z88.8 Allergy status to other drugs, medicaments and biological substances; Z98.84 Bariatric surgery status; Z90.3 Acquired absence of stomach [part of]; Z71.3 Dietary counseling and surveillance; Z91.048 Other nonmedicinal substance allergy status; Z68.32 Body mass index [BMI] 32.0-32.9, adult
CPT/HCPCS: 97803; G0463; 99211

== ENCOUNTER → 2023-11-23 | Outpatient (CLI) | payer MEDICARE, OTHER ==
[2023-11-23 15:17] LABS: HCT 41.6 % (37.2-46.3); HGB 13.6 g/dL (12.0-15.0); MCH 28.9 pg (27.0-32.0); MCHC 32.7 g/dL (32.0-37.0); MCV 88.5 FL (80.0-97.0); Mean Platelet Volume 12.6 FL (9.5-12.2); NRBC Per 100 WBC 0 X 10*3/uL (0.00-0.01); Platelet Count 222 X 10*3/uL (140-440); RDW 15.4 % (11.5-14.5)
[2023-11-23 16:24] LABS: ALT 40 U/L (8-44); AST 34 U/L (13-35); Albumin 4.5 g/dL (3.8-4.9); Albumin/Globulin Ratio 2.14 Ratio (1.60-3.17); Alkaline Phosphatase 42 U/L (41-126); BUN/Creat Ratio 14.12 Ratio (12.00-20.00); Blood Urea Nitrogen 11.3 mg/dL (9.0-27.0); Calcium 10.3 mg/dL (8.7-10.3); Carbon Dioxide 23.7 mmol/L (21.6-31.8); Chloride 105 mmol/L (96-109); Globulin 2.1 g/dL (1.6-3.3); Glucose 86 mg/dL (70-110); Iron 75 UG/DL (50-170); Potassium 3.6 mmol/L (3.5-5.5); Sodium 142 mmol/L (135-145); Total Bilirubin 0.3 mg/dL (0.3-1.2); Total Protein 6.6 g/dL (6.2-8.2)
== END | disposition home or self-care (01) ==
LOC: LABWHC1 11:02
PROVIDERS: ATTEND Surgery
DX: E66.01 Morbid (severe) obesity due to excess calories
CPT/HCPCS: 36415; 80053; 82306; 82607; 82746; 83540; 84425; 85027

== ENCOUNTER → 2023-12-20 | Outpatient (CLI) | payer MEDICARE, OTHER ==
[2023-12-20 14:46] VITALS: BP 119/80; PULSE 79; RESP 16; TEMP 97; BMI 26.0
--- NOTE | 2023-12-20 21:12 | P.BASOAP ---
Subjective Progress Note Date: 12/20/23 Principal diagnosis: Morbid obesity Patient returns for recheck. Feels well. Has lost 12 pounds since her last visit. She is lost over 100 pounds now. Her heartburn is controlled by not eating after 5 PM. Still takes Protonix twice daily. Recent labs from a few weeks ago was normal. Objective - Vital Signs Vital signs: Vital Signs Temp 97 F L 12/20/23 14:43 Pulse 79 12/20/23 14:43 Resp 16 12/20/23 14:43 BP 119/80 12/20/23 14:43 Pulse Ox FiO2 Intake & Output 12/20/23 12/20/23 12/21/23 06:59 18:59 06:59 Weight 72.121 kg - Exam Abdomen: Soft, nontender, nondistended Assessment/Plan (1) Morbid obesity Narrative/Plan: Patient doing well at this time. Continue dietary and exercise regimen. Continue antiacids in the form of Protonix. Patient considering back surgery which is reasonable at this point to proceed. Plan follow-up 6 weeks. Plan: Date: 12/20/23 Initial Weight: 115.212 kg Initial BMI: 41.6 Current Weight: 72.121 kg Current BMI: 26.0 Type of Surgery: Vertical Sleeve Gastrectomy Total Volume in Band: Previous Volume: Volume Removed: Volume Added: Band Size:
== END ==
LOC: BARWHC3 13:44
PROVIDERS: ATTEND Surgery
CPT/HCPCS: 97803; 99211

== ENCOUNTER → 2024-01-31 | Outpatient (CLI) | payer MEDICARE, OTHER ==
[2024-01-31 13:06] VITALS: BP 127/80; PULSE 77; RESP 16; TEMP 97.3; BMI 24.0
--- NOTE | 2024-01-31 13:55 | P.BASOAP ---
Subjective Progress Note Date: 01/31/24 Principal diagnosis: Morbid obesity Patient returns for recheck. She was last seen in November. She has done well with her weight loss. She has lost 12 more pounds. Now within normal BMI of 24. Mild heartburn. Takes antiacids twice daily. Patient starting last week has had crampy abdominal pain with bright red blood per rectum. She has had multiple episodes. Feels more comfortable today. Some constipation at times. Thinks she had a fever when this was going on. No history of colitis. She apparently has had a colonoscopy in the past but does not recall why. It was many years ago. She had recent labs by her primary care physician. These look fairly normal. There is no vitamin B1, B12, or iron. Her vitamin D was normal. Objective - Vital Signs Vital signs: Vital Signs Temp 97.3 F L 01/31/24 13:03 Pulse 77 01/31/24 13:03 Resp 16 01/31/24 13:03 BP 127/80 01/31/24 13:03 Pulse Ox FiO2 Intake & Output 01/30/24 01/31/24 01/31/24 18:59 06:59 18:59 Weight 66.678 kg - Exam Abdomen: Soft, nontender, nondistended Assessment/Plan (1) GERD (gastroesophageal reflux disease) Narrative/Plan: 38-year-old female doing well after sleeve gastrectomy. Unfortunately recently has been having rectal bleeding. Will proceed with colonoscopy next week. Recheck 6 weeks. Continue antiacids for now. Plan: Date: 01/31/24 Initial Weight: 115.212 kg Initial BMI: 41.6 Current Weight: 66.678 kg Current BMI: 24.0 Type of Surgery: Vertical Sleeve Gastrectomy Total Volume in Band: Previous Volume: Volume Removed: Volume Added: Band Size:
== END ==
LOC: BARWHC3 12:54
PROVIDERS: ATTEND Surgery
DX: E66.01 Morbid (severe) obesity due to excess calories (principal); K21.9 Gastro-esophageal reflux disease without esophagitis; Z68.24 Body mass index [BMI] 24.0-24.9, adult; Z88.8 Allergy status to other drugs, medicaments and biological substances; Z88.1 Allergy status to other antibiotic agents; Z91.048 Other nonmedicinal substance allergy status
CPT/HCPCS: 97803; G0463; 99211

== ENCOUNTER 2024-02-07 08:50 | Day surgery (SDC) | payer MEDICARE, OTHER ==
[2024-02-03 10:45] VITALS: BMI 24.4
[2024-02-07 09:11] VITALS: TEMP 97.2
[2024-02-07 09:33] LABS: Glucose,Whole Blood 83 mg/dL (70-110)
[2024-02-07] MEDS: LACTATED RINGERS 1,000 ML IV SCH (09:33)
[2024-02-07] MEDS: IV FLUID CONTINUATION 1,000 ML IV ONE (09:35)
[2024-02-07] MEDS ORDERED: LIDOCAINE 2% (PF) 20 MG/ML 5 ML VIAL ONE (09:47)
[2024-02-07] MEDS ORDERED: PROPOFOL 10 MG/ML 20 ML VIAL IV ONE (09:47)
--- NOTE | 2024-02-07 09:50 | P.GSHP ---
History of Present Illness H&P Date: 02/07/24 Chief Complaint: GERD, rectal bleeding 38-year-old female here for upper and lower endoscopy. Patient with worsening reflux over the last week. History of previous sleeve gastrectomy. Has done well with her weight loss. No dysphagia. Was seen in the office last week. C omplaining of bright red blood per rectum. Past Medical History Past Medical History: Asthma, CVA/TIA, Diabetes Mellitus, GERD/Reflux, Hyperlipidemia, Hypertension, Musculoskeletal Disorder, Supraventricular Tachycardia (SVT) Additional Past Medical History / Comment(s): SVT- CARDIAC ABLATION CORRECTED IT , MIGRAINE HEADACHES History of Any Multi-Drug Resistant Organisms: None Reported Past Surgical History: Bariatric Surgery, Cardiac Ablation, Hernia Repair, Tonsillectomy, Tubal Ligation, Uterine Ablation Additional Past Surgical History / Comment(s): CARDIAC ABLATION X2, endometrial ablation, Umbilical hernia repair x 4, Rt. inguinal hernia repair, pain clinic procedures, lumbar surgery w/ hardware 10/2022. Gastric sleeve 08/15/23. Past Anesthesia/Blood Transfusion Reactions: Postoperative Nausea & Vomiting (PONV) Additional Past Anesthesia/Blood Transfusion Reaction / Comment(s): only antinausea med. can take is zofran no blood transfusion Smoking Status: Never smoker - Past Family History Mother Family Medical History: Cancer, CVA/TIA Additional Family Medical History / Comment(s): of a CVA. Father Family Medical History: Cancer, Pulmonary Embolus Additional Family Medical History / Comment(s): stomach Sister(s) Family Medical History: Cancer Additional Family Medical History / Comment(s): breast, cervical and bone Medications and Allergies Home Medications Medication Instructions Recorded Confirmed Type LORazepam [Ativan] 1 mg PO TID PRN 09/05/14 02/07/24 History buPROPion HCL [Wellbutrin XL] 150 mg PO 1500 09/05/14 02/07/24 History Albuterol Nebulized [Ventolin 2.5 mg INHALATION RT-Q6H PRN 12/15/20 02/07/24 History Nebulized] Albuterol Sulfate [Ventolin HFA] 2 puff INHALATION RT-QID PRN 12/15/20 02/07/24 History Fenofibrate Nanocrystallized 96 mg PO 1500 12/15/20 02/07/24 History [Fenofibrate] Rosuvastatin Calcium [Crestor] 20 mg PO 1500 12/15/20 02/07/24 History atenoloL [Tenormin] 25 mg PO 1500 12/15/20 02/07/24 History buPROPion HCL [Wellbutrin XL] 300 mg PO 1500 12/15/20 02/07/24 History Pantoprazole Sodium [Protonix] 40 mg PO BID 08/23/23 02/07/24 History Allergies Allergy/AdvReac Type Severity Reaction Status Date / Time droperidol Allergy Severe Dyspnea Verified 02/07/24 09:15 ketorolac tromethamine Allergy Severe rash,bliste Verified 02/07/24 09:15 [From Toradol] rs metoclopramide [From Reglan] Allergy Severe Nausea & Verified 02/07/24 09:15 Vomiting prochlorperazine edisylate Allergy Severe Dyspnea Verified 02/07/24 09:15 [From Compazine] prochlorperazine maleate Allergy Severe Dyspnea Verified 02/07/24 09:15 [From Compazine] promethazine HCl Allergy Severe hives, Verified 02/07/24 09:15 [From Phenergan] jittery adhesive tape Allergy Severe BLISTERS Uncoded 02/07/24 09:15 Surgical - Exam Vital Signs Temp Pulse Resp BP Pulse Ox 97.2 F L 72 16 147/87 96 02/07/24 09:09 02/07/24 09:09 02/07/24 09:09 02/07/24 09:09 02/07/24 09:09 Physical exam: General: Well-developed, well-nourished HEENT: Normocephalic, sclerae nonicteric Abdomen: Nontender, nondistended Extremities: No edema Neuro: Alert and oriented Assessment and Plan (1) GERD (gastroesophageal reflux disease) Narrative/Plan: Will proceed with upper and lower endoscopy Current Visit: No Status: Acute Code(s): K21.9 - GASTRO-ESOPHAGEAL REFLUX DISEASE WITHOUT ESOPHAGITIS SNOMED Code(s): 815065344
--- NOTE | 2024-02-07 10:06 | P.PCN ---
Date of Procedure: 02/07/24 Procedure(s) Performed: PREOPERATIVE DIAGNOSIS: GI bleed, GERD POSTOPERATIVE DIAGNOSIS: Gastritis, normal colon PROCEDURE: 1. EGD with biopsy 2. Colonoscopy ANESTHESIA: MAC SURGEON: Khari Bowen M.D. SPECIMENS: Antrum ENDOSCOPIC PROCEDURE: The patient was on the endoscopy table in the left decubitus position. The Olympus gastroscope was inserted into the oropharynx and passed under direct visualization to the region of the third portion of the duodenum. From that point the scope was slowly withdrawn inspecting all surfaces carefully. There were no neoplastic inflammatory or polypoid lesions throughout the duodenum. The pylorus was widely patent. The stomach was carefully inspected. There was gastritis present with linear inflammatory changes in the antrum and body of the stomach. A biopsy of the antrum took place to rule out H. pylori. There was no visible hiatal hernia. The esophagus was then carefully examined. There were no neoplastic inflammatory or polypoid lesions throughout the visualized esophagus. The patient was kept on the endoscopy table in the left decubitus position. The Olympus colonoscope was inserted into the anus and passed under direct visualization to the base of the cecum. The appendiceal orifice was visualized. From that point the scope was slowly withdrawn inspecting all surfaces carefully. There were no neoplastic inflammatory or polypoid lesions throughout the cecum, ascending, transverse, descending, sigmoid and rectum. There was no visible diverticulosis noted. Digital rectal examination was normal. The patient was taken to the recovery room in stable condition per anesthesia guidelines. RECOMMENDATIONS: Continue antiacid therapy. Stool softeners. Monitor for recurrent bleeding.
[2024-02-07 10:24] VITALS: RESP 16
[2024-02-07 10:40] VITALS: BP 131/80; PULSE 68
== END 2024-02-07 11:00 | disposition home or self-care (01) ==
LOC: ORWHC2ENDO 08:50
PROVIDERS: ATTEND Surgery
DX: K62.5 Hemorrhage of anus and rectum (principal); K29.50 Unspecified chronic gastritis without bleeding; K21.9 Gastro-esophageal reflux disease without esophagitis; E11.9 Type 2 diabetes mellitus without complications; J45.909 Unspecified asthma, uncomplicated; I10 Essential (primary) hypertension; E78.5 Hyperlipidemia, unspecified; G43.909 Migraine, unspecified, not intractable, without status migrainosus; Z98.84 Bariatric surgery status; Z79.899 Other long term (current) drug therapy; Z86.73 Personal history of transient ischemic attack (TIA), and cerebral infarction without residual deficits; Z98.890 Other specified postprocedural states; Z98.51 Tubal ligation status; Z90.89 Acquired absence of other organs; Z91.09 Other allergy status, other than to drugs and biological substances; Z88.8 Allergy status to other drugs, medicaments and biological substances
CPT/HCPCS: 81025; 88305; 45378; 43239; J2704; J2003

== ENCOUNTER → 2024-03-06 | Outpatient (CLI) | payer MEDICARE, OTHER ==
--- NOTE | 2024-03-08 00:20 | MR ---
EXAMINATION TYPE: MR cervical spine wo con DATE OF EXAM: 03/06/2024 8:44 PM COMPARISON: None. CLINICAL INDICATION: Female, 38 years old with history of M54.2, R20.2, Severe neck pain especially l eft side, bilat hands swollen, Headaches TECHNIQUE: Multiplanar multiecho imaging on a 3.0 Digna magnet is performed through the cervical spin e. IV Contrast: mL (None, if empty) FINDINGS: The craniovertebral junction is normal. Vertebral body alignment is normal. C7-T1: No focal disc herniation or significant disc bulge is evident. No spinal canal stenosis or n eural foraminal stenosis is present. C6-7: No focal disc herniation or significant disc bulge is evident. No spinal canal stenosis or chapis ral foraminal stenosis is present. C5-6: There is a central right and paracentral disc bulge with mild anterior thecal sac compression. This comes in close approximation with the spinal cord. No cord deformity or spinal canal stenosis ev ident. Neural foramen are patent. C4-5: Minimal disc bulge is present without spinal canal stenosis or cord contact No spinal canal miles nosis or neural foraminal stenosis is present. C3-4: Minimal disc bulge is present centrally without cord contact or spinal canal stenosis. Mild lef t foraminal narrowing is present. C2-3: No focal disc herniation or significant disc bulge is evident. No spinal canal stenosis or chapis ral foraminal stenosis is present. IMPRESSION: 1. Small broad-based disc bulge C5-6 without cord formality or spinal canal stenosis. 2. There is some minimal disc bulging C3-4 C4-5 without stenosis. [facility], , 03/08/2024 12:17 AM
== END | disposition home or self-care (01) ==
LOC: RADMRIMAIN 20:15
PROVIDERS: ATTEND Orthopaedic Surgery
DX: M50.321 Other cervical disc degeneration at C4-C5 level (principal); M50.31 Other cervical disc degeneration, high cervical region; R20.0 Anesthesia of skin
CPT/HCPCS: 72141

== ENCOUNTER → 2024-06-12 | Outpatient (CLI) | payer MEDICARE, OTHER ==
[2024-06-12 13:53] VITALS: BP 142/79; PULSE 77; RESP 16; TEMP 98.1; BMI 23.7
--- NOTE | 2024-06-12 14:06 | P.BASOAP ---
Subjective Progress Note Date: 06/12/24 Principal diagnosis: Morbid obesity Patient returns for recheck. Was last seen in January. Has lost 2 pounds since then. Going to the gym regularly. No nausea or vomiting. Takes Protonix twice daily with good control of her reflux symptoms unless she eats after 6 PM. No rectal bleeding since her endoscopy last fall. Objective - Vital Signs Vital signs: Vital Signs Temp 98.1 F 06/12/24 13:50 Pulse 77 06/12/24 13:50 Resp 16 06/12/24 13:50 BP 142/79 06/12/24 13:50 Pulse Ox FiO2 Intake & Output 06/11/24 06/12/24 06/12/24 18:59 06:59 18:59 Weight 65.771 kg - Exam Abdomen: Soft, nontender, nondistended Assessment/Plan (1) Morbid obesity Narrative/Plan: Patient doing well at this time. Continue dietary and exercise regimen. Continue Protonix twice daily. Patient says she had her 6-month labs drawn at her primary care office. Follow-up this July. That will be her 1 year anniversary. Check annual labs at that time. Patient interested in possible abdominoplasty down the line. Will discuss further in July. Plan: Date: 06/12/24 Initial Weight: 115.212 kg Initial BMI: 41.6 Current Weight: 65.771 kg Current BMI: 23.7 Type of Surgery: Vertical Sleeve Gastrectomy Total Volume in Band: Previous Volume: Volume Removed: Volume Added: Band Size:
== END ==
LOC: BARWHC3 13:33
PROVIDERS: ATTEND Surgery
DX: E66.01 Morbid (severe) obesity due to excess calories (principal); Z68.23 Body mass index [BMI] 23.0-23.9, adult; Z88.8 Allergy status to other drugs, medicaments and biological substances; Z88.6 Allergy status to analgesic agent; Z91.09 Other allergy status, other than to drugs and biological substances
CPT/HCPCS: 97803; G0463; 99211

== ENCOUNTER 2024-06-13 12:37 | Emergency (ER) | payer MEDICARE, OTHER ==
--- NOTE | 2024-06-13 13:22 | ED ---
Fall HPI - General Chief Complaint: Fall Stated Complaint: back pain Time Seen by Provider: 06/13/24 13:20 Source: patient, RN notes reviewed, old records reviewed Mode of arrival: ambulatory Limitations: no limitations - History of Present Illness Initial Comments: 38-year-old female presented to the ER for evaluation of a fall. Patient reports she was walking down a flight of stairs carrying her make-up bag and phone. She states she accidentally missed a step and her right leg fell out from under her. She states she landed on her tailbone and right elbow. She denies any head injury, loss of consciousness or blood thinner use. She is reporting "stiff neck". No paresthesias to bilateral upper and lower extremities. Patient does report a history of lumbar spinal surgery completed by Dr. Stone approximately 1 year ago. She denies any saddle paresthesias, fevers, bowel/bladder incontinence/retention or history of IV drug abuse. Rachel ent states given pain she was unable to get up from the bottom of the stairs for approximately 20 minutes due to pain. witnessed event. She has not taken anything for pain at this time. Denies any dizziness, lightheadedness, shortness of breath or chest pain prior to fall. No other complaints at this time. - Related Data Home Medications Medication Instructions Recorded Confirmed LORazepam [Ativan] 1 mg PO TID 09/05/14 06/15/24 buPROPion HCL [Wellbutrin XL] 150 mg PO DAILY@149909/05/14 06/15/24 Albuterol Sulfate [Ventolin HFA] 2 puff INHALATION RT-QID PRN 12/15/20 06/15/24 Fenofibrate Nanocrystallized 96 mg PO DAILY@149912/15/20 06/15/24 [Fenofibrate] Rosuvastatin Calcium [Crestor] 20 mg PO DAILY@149912/15/20 06/15/24 atenoloL [Tenormin] 25 mg PO DAILY@149912/15/20 06/15/24 buPROPion HCL [Wellbutrin XL] 300 mg PO DAILY@149912/15/20 06/15/24 Pantoprazole Sodium [Protonix] 40 mg PO BID 08/23/23 06/15/24 Aspirin EC [Ecotrin Low Dose] 81 mg PO DAILY@149906/15/24 06/15/24 Rimegepant Sulfate [Nurtec Odt] 75 mg PO DAILY PRN 06/15/24 06/15/24 Topiramate [Topamax] 50 mg PO BID 06/15/24 06/15/24 Allergies Allergy/AdvReac Type Severity Reaction Status Date / Time droperidol Allergy Severe Dyspnea Verified 06/15/24 08:26 ketorolac tromethamine Allergy Severe rash,bliste Verified 06/15/24 08:26 [From Toradol] rs prochlorperazine edisylate Allergy Severe Dyspnea Verified 06/15/24 08:26 [From Compazine] prochlorperazine maleate Allergy Severe Dyspnea Verified 06/15/24 08:26 [From Compazine] promethazine HCl Allergy Severe hives, Verified 06/15/24 08:26 [From Phenergan] jittery metoclopramide [From Reglan] AdvReac Severe Nausea & Verified 06/15/24 08:26 Vomiting adhesive tape Allergy Severe BLISTERS Uncoded 06/15/24 08:26 Review of Systems ROS Statement: Those systems with pertinent positive or pertinent negative responses have been documented in the HPI. ROS Other: All systems not noted in ROS Statement are negative. Past Medical History Past Medical History: Asthma, CVA/TIA, Diabetes Mellitus, GERD/Reflux, Hyperlipidemia, Hypertension, Musculoskeletal Disorder, Supraventricular Tachycardia (SVT) Additional Past Medical History / Comment(s): SVT- CARDIAC ABLATION CORRECTED IT , MIGRAINE HEADACHES History of Any Multi-Drug Resistant Organisms: None Reported Past Surgical History: Back Surgery, Bariatric Surgery, Cardiac Ablation, Hernia Repair, Tonsillectomy, Tubal Ligation, Uterine Ablation Additional Past Surgical History / Comment(s): CARDIAC ABLATION X2, endometrial ablation, Umbilical hernia repair x 4, Rt. inguinal hernia repair, pain clinic procedures, lumbar surgery w/ hardware 10/2022. Gastric sleeve 08/15/23. Past Anesthesia/Blood Transfusion Reactions: Postoperative Nausea & Vomiting (PONV) Additional Past Anesthesia/Blood Transfusion Reaction / Comment(s): only antinausea med. can take is zofran no blood transfusion Past Psychological History: Anxiety, Depression Smoking Status: Never smoker Past Alcohol Use History: None Reported Past Drug Use History: None Reported - Past Family History Mother Family Medical History: Cancer, CVA/TIA Additional Family Medical History / Comment(s): of a CVA. Father Family Medical History: Cancer, Pulmonary Embolus Additional Family Medical History / Comment(s): stomach Sister(s) Family Medical History: Cancer Additional Family Medical History / Comment(s): breast, cervical and bone General Exam Limitations: no limitations General appearance: alert, in no apparent distress Neck exam: Present: normal inspection. Absent: tenderness, meningismus, lymphadenopathy Respiratory exam: Present: normal lung sounds bilaterally. Absent: respiratory distress, wheezes, rales, rhonchi, stridor Cardiovascular Exam: Present: regular rate, normal rhythm, normal heart sounds. Absent: systolic murmur, diastolic murmur, rubs, gallop, clicks Extremities exam: Present: normal inspection, full ROM, normal capillary refill (2+ bilateral DP/PT and radial pulses). Absent: tenderness, pedal edema, joint swelling, calf tenderness Back exam: Present: normal inspection, tenderness (L4-L5) Neurological exam: Present: alert, oriented X3, CN II-XII intact Psychiatric exam: Present: anxious Skin exam: Present: warm, dry, intact, normal color. Absent: rash Course Vital Signs 06/13/24 06/13/24 12:39 15:06 Temperature 97.8 F 98.1 F Pulse Rate 71 86 Respiratory 20 18 Rate Blood Pressure 152/97 141/87 O2 Sat by Pulse 100 100 Oximetry Medical Decision Making - Medical Decision Making Was pt. sent in by a medical professional or institution ([facility], [facility], urgent care, hospital, or group home...) When possible be specific @ -No Did you speak to anyone other than the patient for history (EMS, parent, family, police, friend...)? What history was obtained from this source @ -No Did you review nursing and triage notes (agree or disagree)? Why? @ -I reviewed and agree with nursing and triage notes Were old charts reviewed (outside hosp., previous admission, EMS record, old EKG, old radiological studies, urgent care reports/EKG's, group home records)? Report findings @ -No old charts were reviewed Differential Diagnosis (chest pain, altered mental status, abdominal pain women, abdominal pain men, vaginal bleeding, weakness, fever, dyspnea, syncope, headache, dizziness, GI bleed, back pain, seizure, CVA, palpatations, mental health, musculoskeletal)? @ -Differential Back Pain:Strain, zoster, cauda equina syndrome, epidural abscess, vertebral osteomyelitis, discitis, fracture, subluxation, disc sue iation, DJD, spinal stenosis, dissection, AAA, pancreatitis, peptic ulcer disease, pyelonephritis, kidney stone, this is not meant to be an all-inclusive list. EKG interpreted by me (3pts min.). @ -None done X-rays interpreted by me (1pt min.). @ -Right elbow x-ray interpreted me negative for acute fractures or dislocations. Cervical spine interpreted me negative for acute fractures or dislocations. CT interpreted by me (1pt min.). @ -CT lumbar spine showing no acute spinal fractures. There is posterior spinal fusions changes noted at L4 S1 hardware appears intact. Multilevel degenerative disc disease with facet arthropathy to the lower lumbar spine. U/S interpreted by me (1pt. min.). @ -None done What testing was considered but not performed or refused? (CT, X-rays, U/S, labs)? Why? @ -None What meds were considered but not given or refused? Why? @ -None Did you discuss the management of the patient with other professionals (professionals i.e. , PA, BALE STACKER, lab, RT, psych nurse, social scientist, auto club travel counselor, teacher, submarine advisory team watch officer, top case assembler)? Give summary @ -No Was smoking cessation discussed for >3mins.? @ -No Was critical care preformed (if so, how long)? @ -No Were there social determinants of health that impacted care today? How? (Homelessness, low income, unemployed, alcoholism, drug addiction, transportation, low edu. Level, literacy, decrease access to med. care, halfway, rehab)? @ -No Was there de-escalation of care discussed even if they declined (Discuss DNR or withdrawal of care, Hospice)? DNR status @ -No What co-morbidities impacted this encounter? (DM, HTN, Smoking, COPD, CAD, Cancer, CVA, ARF, Chemo, Hep., AIDS, mental health diagnosis, sleep apnea, morbid obesity)? @ -History of spinal fusion Was patient admitted / discharged? Hospital course, mention meds given and route, prescriptions, significant lab abnormalities, going to OR and other pertinent info. @ -Discharge. 38-year-old female presented to the ER for evaluation of a fall. Upon rooming vitals within acceptable limits. Patient is pacing exam room with no signs of acute distress. No red flag back pain symptoms indicative of cauda equina syndrome. Patient is neurovascularly intact. Imaging completed in the ER including CT lumbar spine, right elbow and cervical spine x-rays negative for acute fractures or dislocations. CT showing intact hardware from spinal fusion. Patient given symptomatic control in the ER with lidocaine patch, Dilaudid and Tylenol. Upon reevaluation, patient reports improvement of pain and is comfortable for discharge at this time. Strict return parameters discussed. Patient discharged in stable condition with follow-up to PCP and orthopedics, Dr. Stone. Patient verbally expressed understanding and agreement with care plan. discussed with ED attending, Dr. Jordan. Undiagnosed new problem with uncertain prognosis? @ -No Drug Therapy requiring intensive monitoring for toxicity (Heparin, Nitro, Insulin, Cardizem)? @ -No Were any procedures done? @ -No Diagnosis/symptom? @ -Fall/back pain Acute, or Chronic, or Acute on Chronic? @ -Acute Uncomplicated (without systemic symptoms) or Complicated (systemic symptoms)? @ -Uncomplicated Side effects of treatment? @ -No Exacerbation, Progression, or Severe Exacerbation? @ -No Poses a threat to life or bodily function? How? (Chest pain, [place], [place], pneumonia, PE, COPD, DKA, ARF, appy, cholecystitis, CVA, Diverticulitis, Homicidal, Suicidal, threat to staff... and all critical care pts) @ -No Disposition Clinical Impression: Fall Disposition: HOME SELF-CARE Condition: Stable Instructions (If sedation given, give patient instructions): Fall Prevention (ED) Additional Instructions: Follow-up with Dr. Stone and PCP. Return to the ER for any new or worsening symptoms. Is patient prescribed a controlled substance at d/c from ED?: No Referrals: America Tijerina MD [Primary Care Provider] - 1-2 days Bandar Stone DO [Doctor of Osteopathic Medicine] - 1-2 days Time of Disposition: 14:31
[2024-06-13] MEDS: ACETAMINOPHEN TAB 325 MG TAB PO STA (13:36)
[2024-06-13] MEDS: LIDOCAINE 4% PATCH TOPICAL ONE (13:37)
--- NOTE | 2024-06-13 13:38 | CT ---
EXAMINATION TYPE: CT lumbar spine wo con CT DLP: 822.5 mGycm, Automated exposure control for dose reduction was used. DATE OF EXAM: 06/13/2024 1:23 PM COMPARISON: CT abdomen and pelvis 09/06/2023, 08/15/2023, CT lumbar spine 11/09/2022, MRI lumbar spine . CLINICAL INDICATION:Female, 38 years old with history of back pain s/p fall hx surgery; PHH, back varsha n s/p fall hx of surgery, pain TECHNIQUE: Multiple axial images were obtained from the midportion of T11 through the sacroiliac daily nts. Soft tissue and bone windows in coronal and sagittal planes were obtained and reviewed. Contrast used: none. Oral contrast used: none. FINDINGS: Alignment: There are 5 lumbar type vertebral bodies within normal alignment. Minimal levoscoliotic cu rvature of the lumbar spine with apex at L3. Bone: Postsurgical changes from bilateral pedicular screws and rods with disc spacer involving L5-S1 . Hardware appears intact with appropriate alignment. No evidence of acute fracture is identified. Gaudencio th SI joints are intact. Discs: T12-L1: No spinal canal or neural foraminal stenosis is identified. L1-L2: No spinal canal or neural foraminal stenosis is identified. L2-L3: No spinal canal or neural foraminal stenosis is identified. L3-L4: Broad-based disc bulge with minimal effacement of the thecal sac. No significant neural forami nal stenosis. L4-L5: Broad-based disc bulge with mild spinal canal stenosis. Bilateral facet arthropathy with mild to moderate bilateral neural foraminal stenosis. L5-S1: Postsurgical changes. No spinal canal and no cysts. Bilateral facet arthropathy with mild to m oderate bilateral neuroforaminal stenosis. Other: Post surgical changes of the stomach. Mild atherosclerotic calcification of the aorta. Anterio r abdominal wall scarring redemonstrated. IMPRESSION: 1. No evidence for acute spinal fracture. 2. Posterior fusion changes of the spine at L5-S1. Hardware appears intact. 3. Multilevel degenerative disc disease and facet arthropathy of the lower lumbar spine as described above. [facility], , 06/13/2024 1:36 PM
--- NOTE | 2024-06-13 13:58 | XR ---
EXAMINATION TYPE: XR cervical spine comp DATE OF EXAM: 06/13/2024 1:34 PM COMPARISON: 08/16/2023 CLINICAL INDICATION: Female, 38 years old with history of fall; PHH, pain TECHNIQUE: The cervical spine was imaged in frontal, lateral, odontoid and bilateral oblique. FINDINGS: The osseous structures show normal alignment without evidence of an acute fracture. There are osteoph ytes noted throughout the cervical spine on the anterior and lateral aspects of the vertebral bodies. The intervertebral disk spaces are narrowed at multiple levels. Pedicles are intact. Soft tissues a re within normal limits. The odontoid appears intact. IMPRESSION: 1. No fracture or dislocation. 2. Mild degenerative disc disease changes of the cervical spine. [facility], , 06/13/2024 1:56 PM
--- NOTE | 2024-06-13 14:00 | XR ---
EXAMINATION TYPE: XR elbow complete RT DATE OF EXAM: 06/13/2024 1:35 PM COMPARISON: None. CLINICAL INDICATION: Female, 38 years old with history of fall;, pain TECHNIQUE: XR elbow complete RT; elbow was examined in AP, lateral, and oblique projections. FINDINGS: No evidence of any acute osseous pathology, joint dislocation, or soft tissue swelling is n oted. No evidence of joint effusion is present. IMPRESSION: No evidence of acute fracture. [facility], , 06/13/2024 1:57 PM
[2024-06-13] MEDS: HYDROmorphone 1 MG/ML 1 ML SYRINGE IM STA (14:52)
[2024-06-13 15:08] VITALS: BP 141/87; PULSE 86; RESP 18; TEMP 98.1
== END 2024-06-13 15:06 | disposition home or self-care (01) ==
LOC: EC 12:37
DX: M54.9 Dorsalgia, unspecified (principal); Z98.1 Arthrodesis status; Z88.8 Allergy status to other drugs, medicaments and biological substances; W01.0XXA Fall on same level from slipping, tripping and stumbling without subsequent striking against object, initial encounter; Y93.01 Activity, walking, marching and hiking
CPT/HCPCS: 72050; 73080; 72131; 99284; 96372; J1171

== ENCOUNTER 2024-06-15 01:38 | Observation (INO) | payer MEDICARE, OTHER ==
--- NOTE | 2024-06-15 02:20 | ED ---
Back Pain HPI - General Chief Complaint: Back Pain/Injury Stated Complaint: Ortho Consult Time Seen by Provider: 06/15/24 01:54 Source: patient, EMS, RN notes reviewed Mode of arrival: ambulatory Limitations: no limitations - History of Present Illness Initial Comments: This is a 38-year-old female presenting for ongoing lumbosacral pain since fall yesterday. Patient was seen in this ER yesterday on 06/13/2024 when she suffered a fall down 6-7 stairs, landing on her tailbone with significant pain (9/10) and bowel incontinence at the time. Lumbar spine CT was performed at the time showing no obvious fracture. Patient was discharged and advised to follow-up with Dr. Stone. Patient then gone to [facility] ER where a lumbar sacral CT scan was performed with no obvious fracture before ER to ER transfer was performed for Ortho consult and MRI imaging due to increased incidence of bowel/urinary incontinence x 4. Patient endorses worsening left lower extremity paresthesia and pain that worsens while seated. MD Complaint: back pain, back injury, fall Onset/Timin -: days(s) Radiation: left leg Severity scale (1-10): 9 Quality: tingling Consistency: constant Improves With: immobilization Worsens With: medication, sitting upright Context: fall Associated Symptoms: difficulty walking, incontinence - Related Data Home Medications Medication Instructions Recorded Confirmed LORazepam [Ativan] 1 mg PO TID PRN 09/05/14 02/07/24 buPROPion HCL [Wellbutrin XL] 150 mg PO 1500 09/05/14 02/07/24 Albuterol Nebulized [Ventolin 2.5 mg INHALATION RT-Q6H PRN 12/15/20 02/07/24 Nebulized] Albuterol Sulfate [Ventolin HFA] 2 puff INHALATION RT-QID PRN 12/15/20 02/07/24 Fenofibrate Nanocrystallized 96 mg PO 1500 12/15/20 02/07/24 [Fenofibrate] Rosuvastatin Calcium [Crestor] 20 mg PO 1500 12/15/20 02/07/24 atenoloL [Tenormin] 25 mg PO 1500 12/15/20 02/07/24 buPROPion HCL [Wellbutrin XL] 300 mg PO 1500 12/15/20 02/07/24 Pantoprazole Sodium [Protonix] 40 mg PO BID 08/23/23 02/07/24 Allergies Allergy/AdvReac Type Severity Reaction Status Date / Time droperidol Allergy Severe Dyspnea Verified 06/13/24 12:43 ketorolac tromethamine Allergy Severe rash,bliste Verified 06/13/24 12:43 [From Toradol] rs metoclopramide [From Reglan] Allergy Severe Nausea & Verified 06/13/24 12:43 Vomiting prochlorperazine edisylate Allergy Severe Dyspnea Verified 06/13/24 12:43 [From Compazine] prochlorperazine maleate Allergy Severe Dyspnea Verified 06/13/24 12:43 [From Compazine] promethazine HCl Allergy Severe hives, Verified 06/13/24 12:43 [From Phenergan] jittery adhesive tape Allergy Severe BLISTERS Uncoded 06/13/24 12:43 Review of Systems ROS Statement: Those systems with pertinent positive or pertinent negative responses have been documented in the HPI. ROS Other: All systems not noted in ROS Statement are negative. Past Medical History Past Medical History: Asthma, CVA/TIA, Diabetes Mellitus, GERD/Reflux, Hyperlipidemia, Hypertension, Musculoskeletal Disorder, Supraventricular Tachycardia (SVT) Additional Past Medical History / Comment(s): SVT- CARDIAC ABLATION CORRECTED IT , MIGRAINE HEADACHES History of Any Multi-Drug Resistant Organisms: None Reported Past Surgical History: Back Surgery, Bariatric Surgery, Cardiac Ablation, Hernia Repair, Tonsillectomy, Tubal Ligation, Uterine Ablation Additional Past Surgical History / Comment(s): CARDIAC ABLATION X2, endometrial ablation, Umbilical hernia repair x 4, Rt. inguinal hernia repair, pain clinic procedures, lumbar surgery w/ hardware 10/2022. Gastric sleeve 08/15/23. Past Anesthesia/Blood Transfusion Reactions: Postoperative Nausea & Vomiting (PONV) Additional Past Anesthesia/Blood Transfusion Reaction / Comment(s): only antinausea med. can take is zofran no blood transfusion Past Psychological History: Anxiety, Depression Smoking Status: Never smoker Past Alcohol Use History: None Reported Past Drug Use History: None Reported - Past Family History Mother Family Medical History: Cancer, CVA/TIA Additional Family Medical History / Comment(s): of a CVA. Father Family Medical History: Cancer, Pulmonary Embolus Additional Family Medical History / Comment(s): stomach Sister(s) Family Medical History: Cancer Additional Family Medical History / Comment(s): breast, cervical and bone General Exam General appearance: alert, in no apparent distress Head exam: Present: atraumatic, normocephalic, normal inspection Eye exam: Present: normal appearance, PERRL, EOMI. Absent: scleral icterus, conjunctival injection, periorbital swelling ENT exam: Present: normal exam, mucous membranes moist Neck exam: Present: normal inspection. Absent: tenderness, meningismus, l ymphadenopathy Respiratory exam: Present: normal lung sounds bilaterally. Absent: respiratory distress, wheezes, rales, rhonchi, stridor Cardiovascular Exam: Present: regular rate, normal rhythm, normal heart sounds. Absent: systolic murmur, diastolic murmur, rubs, gallop, clicks GI/Abdominal exam: Present: soft, normal bowel sounds. Absent: distended, tenderness, guarding, rebound, rigid Rectal exam: Present: deferred Extremities exam: Present: normal inspection, full ROM, normal capillary refill, other (Positive bilateral hip flexor, knee extension/flexion, dorsi/plantarflexion 5/5. DTR +2 bilaterally. Bilateral posterior tibialis pulse +2.). Absent: tenderness, pedal edema, joint swelling, calf tenderness Back exam: Present: paraspinal tenderness (Para lumbosacral tenderness), vertebral tenderness (Positive lumbosacral spinal tenderness) Neurological exam: Present: alert, oriented X3, CN II-XII intact Psychiatric exam: Present: normal affect, normal mood Skin exam: Present: warm, dry, intact, normal color. Absent: rash Course Vital Signs 06/15/24 01:42 Temperature 97.8 F Pulse Rate 52 L Respiratory 16 Rate Blood Pressure 116/86 O2 Sat by Pulse 99 Oximetry Medical Decision Making - Medical Decision Making Was pt. sent in by a medical professional or institution (, PA, PRINT BINDING WORKER, urgent care, hospital, or intermediate...) When possible be specific @ -Patient sent from [facility] for ER to ER transfer and Ortho consult Did you speak to anyone other than the patient for history (EMS, parent, family, police, friend...)? What history was obtained from this source @ -[No] Did you review nursing and triage notes (agree or disagree)? Why? @ -[I reviewed and agree with nursing and triage notes] Were old charts reviewed (outside hosp., previous admission, EMS record, old EKG, old radiological studies, urgent care reports/EKG's, intermediate records)? Report findings @ -Chart and imaging from 06/13/2024 reviewed. ER note and CT imaging sent with patient from [facility] reviewed, again indicating no fracture seen on CT scan. Differential Diagnosis (chest pain, altered mental status, abdominal pain women, abdominal pain men, vaginal bleeding, weakness, fever, dyspnea, syncope, headache, dizziness, GI bleed, back pain, seizure, CVA, palpatations, mental health, musculoskeletal)? @ -Differential Back Pain: Strain, zoster, cauda equina syndrome, epidural abscess, vertebral osteomyelitis, discitis, fracture, subluxation, disc herniation, DJD, spinal stenosis, dissection, AAA, pancreatitis, peptic ulcer disease, pyelonephritis, kidney stone, this is not meant to be an all-inclusive list. EKG interpreted by me (3pts min.). @ -Not done X-rays interpreted by me (1pt min.). @ -[None done] CT interpreted by me (1pt min.). @ -[None done] U/S interpreted by me (1pt. min.). @ -[None done] What testing was considered but not performed or refused? (CT, X-rays, U/S, labs)? Why? @ -[None] What meds were considered but not given or refused? Why? @ -[None] Did you discuss the management of the patient with other professionals (professionals i.e. , PA, PRINT BINDING WORKER, lab, RT, psych nurse, child welfare social worker, intellectual property lawyer, teacher, information assurance officer, case supervisor)? Give summary @ -Spoke to Jos Ramos PA-C, who works with Dr. Juarez advising order MRI and admit through medicine. Spoke to Gaby Del Valle from [facility] who agreed to patient admission Was smoking cessation discussed for >3mins.? @ -[No] Was critical care preformed (if so, how long)? @ -[No] Were there social determinants of health that impacted care today? How? (Homelessness, low income, unemployed, alcoholism, drug addiction, transportation, low edu. Level, literacy, decrease access to med. care, halfway, rehab)? @ -[No] Was there de-escalation of care discussed even if they declined (Discuss DNR or withdrawal of care, Hospice)? DNR status @ -[No] What co-morbidities impacted this encounter? (DM, HTN, Smoking, COPD, CAD, Cancer, CVA, ARF, Chemo, Hep., AIDS, mental health diagnosis, sleep apnea, morbid obesity)? @ -[None] Was patient admitted / discharged? Hospital course, mention meds given and route, prescriptions, significant lab abnormalities, going to OR and other pertinent info. @ -[hospital course] Undiagnosed new problem with uncertain prognosis? @ -[No] Drug Therapy requiring intensive monitoring for toxicity (Heparin, Nitro, Insulin, Cardizem)? @ -[No] Were any procedures done? @ -[No] Diagnosis/symptom? @ -Lumbosacral pain, fecal incontinence Acute, or Chronic, or Acute on Chronic? @ -Acute Uncomplicated (without systemic symptoms) or Complicated (systemic symptoms)? @ -Complicated Side effects of treatment? @ -[No] Exacerbation, Progression, or Severe Exacerbation? @ -Progression Poses a threat to life or bodily function? How? (Chest pain, [place], CA, pneumonia, PE, COPD, DKA, ARF, appy, cholecystitis, CVA, Diverticulitis, Homicidal, Suicidal, threat to staff... and all critical care pts) @ -Threat to bodily function, incontinence Disposition Clinical Impression: Fecal incontinence, Lumbosacral pain Disposition: ADMITTED IP TO THIS [facility] Condition: Good Instructions (If sedation given, give patient instructions): Acute Low Back Pain (ED) Is patient prescribed a controlled substance at d/c from ED?: No Referrals: America Tijerina MD [Primary Care Provider] - 1-2 days Time of Disposition: 03:00 Decision Date: 06/15/24 Decision Time: 03:00
[2024-06-15] MEDS: ONDANSETRON ODT 4 MG TAB PO STA (03:15)
[2024-06-15] MEDS: MORPHINE SULFATE 4 MG/ML SYRINGE IVP STA (03:16)
[2024-06-15] MEDS: LIDOCAINE 4% PATCH TOPICAL ONE (03:23)
[2024-06-15] MEDS ORDERED: ACETAMINOPHEN TAB 325 MG TAB PO PRN (04:28)
[2024-06-15] MEDS ORDERED: NALOXONE 0.4 MG/ML 1 ML VIAL IV PRN (04:28)
[2024-06-15] MEDS: HYDROmorphone 1 MG/ML 1 ML SYRINGE IVP STA (04:54)
[2024-06-15] MEDS ORDERED: MORPHINE SULFATE 4 MG/ML SYRINGE IVP SCH (06:30)
[2024-06-15] MEDS: MORPHINE SULFATE 4 MG/ML SYRINGE IV PRN (07:34)
[2024-06-15] MEDS: ONDANSETRON 4 MG/2 ML VIAL IVP PRN (08:06)
[2024-06-15] MEDS: DEXAMETHASONE SOD PHOSPHATE 10 MG/ML 1 ML VIAL IVP STA (08:39)
--- NOTE | 2024-06-15 11:01 | P.CNOR ---
History of Present Illness - [facility] Consult date: 06/15/24 Consult reason: back pain History of present illness: Patient is a 38-year-old female who reported to [facility] initially on 06/13/2024 after falling down stairs at her home and at that time had a episo de of fecal incontinence. Patient has history of previous lumbar surgery, Dr. Lopez's and in our practice today minimally invasive L5-S1 transforaminal lumbar interbody fusion back in October 2022. Patient has been following up in our office with regards to a cervical issue also, she was actually scheduled to see one of our providers here in the next few weeks. Patient was discharged home from the hospital on 06/13/[address] scan of the lumbar spine, elbow x- rays and cervical x-rays demonstrated no acute pathology. Patient reported back to the hospital early on 06/15/2024 for continuing episodes of fecal incontinence. I was contacted by the emergency room staff, patient was admitted to the hospital under internal medicine with our orthopedic group on consult. A stat MRI of the lumbar spine was ordered. Patient was evaluated today at bedside she is still in the emergency room. Patient was noted up and ambulating with no assist devices. Patient was very emotional on exam today. She complains of discomfort to the left side low back area that radiates into the left lower extremity. She does admit to some paresthesias to the left lower extremity. She denies any right lower extremity symptoms at this time. She denies any bowel incontinence since being in the hospital but she did have a few episodes from the initial fall till yesterday. She denies any numbness or tingling to the genital or perineal region at this time. She denies any myles weakness to the bilateral lower extremities. She denies any myles weakness to the bilateral upper extremities. She denied h itting her head during the fall. Review of Systems Constitutional: Reports as per HPI Past Medical History Past Medical History: Asthma, CVA/TIA, Diabetes Mellitus, GERD/Reflux, Hyperlipidemia, Hypertension, Musculoskeletal Disorder, Supraventricular Tachycardia (SVT) Additional Past Medical History / Comment(s): SVT- CARDIAC ABLATION CORRECTED IT , MIGRAINE HEADACHES History of Any Multi-Drug Resistant Organisms: None Reported Past Surgical History: Back Surgery, Bariatric Surgery, Cardiac Ablation, Hernia Repair, Tonsillectomy, Tubal Ligation, Uterine Ablation Additional Past Surgical History / Comment(s): CARDIAC ABLATION X2, endometrial ablation, Umbilical hernia repair x 4, Rt. inguinal hernia repair, pain clinic procedures, lumbar surgery w/ hardware 10/2022. Gastric sleeve 08/15/23. Past Anesthesia/Blood Transfusion Reactions: Postoperative Nausea & Vomiting (PONV) Additional Past Anesthesia/Blood Transfusion Reaction / Comm: only antinausea med. can take is zofran no blood transfusion Past Psychological History: Anxiety, Depression Smoking Status: Never smoker Past Alcohol Use History: None Reported Past Drug Use History: None Reported - Past Family History Mother Family Medical History: Cancer, CVA/TIA Additional Family Medical History / Comment(s): of a CVA. Father Family Medical History: Cancer, Pulmonary Embolus Additional Family Medical History / Comment(s): stomach Sister(s) Family Medical History: Cancer Additional Family Medical History / Comment(s): breast, cervical and bone Medications and Allergies Home Medications Medication Instructions Recorded Confirmed Type LORazepam [Ativan] 1 mg PO TID 09/05/14 06/15/24 History buPROPion HCL [Wellbutrin XL] 150 mg PO DAILY@149909/05/14 06/15/24 History Albuterol Sulfate [Ventolin HFA] 2 puff INHALATION RT-QID PRN 12/15/20 06/15/24 History Fenofibrate Nanocrystallized 96 mg PO DAILY@149912/15/20 06/15/24 History [Fenofibrate] Rosuvastatin Calcium [Crestor] 20 mg PO DAILY@149912/15/20 06/15/24 History atenoloL [Tenormin] 25 mg PO DAILY@149912/15/20 06/15/24 History buPROPion HCL [Wellbutrin XL] 300 mg PO DAILY@149912/15/20 06/15/24 History Pantoprazole Sodium [Protonix] 40 mg PO BID 08/23/23 06/15/24 History Aspirin EC [Ecotrin Low Dose] 81 mg PO DAILY@149906/15/24 06/15/24 History Rimegepant Sulfate [Nurtec Odt] 75 mg PO DAILY PRN 06/15/24 06/15/24 History Topiramate [Topamax] 50 mg PO BID 06/15/24 06/15/24 History Allergies Allergy/AdvReac Type Severity Reaction Status Date / Time droperidol Allergy Severe Dyspnea Verified 06/15/24 08:26 ketorolac tromethamine Allergy Severe rash,bliste Verified 06/15/24 08:26 [From Toradol] rs prochlorperazine edisylate Allergy Severe Dyspnea Verified 06/15/24 08:26 [From Compazine] prochlorperazine maleate Allergy Severe Dyspnea Verified 06/15/24 08:26 [From Compazine] promethazine HCl Allergy Severe hives, Verified 06/15/24 08:26 [From Phenergan] jittery metoclopramide [From Reglan] AdvReac Severe Nausea & Verified 06/15/24 08:26 Vomiting adhesive tape Allergy Severe BLISTERS Uncoded 06/15/24 08:26 Physical Examination Gen: AOx3, NAD VSS stable at this time Integument: 2 incisions to the lower lumbar spine are well-healed, there is no surrounding erythema or soft tissue swelling. Palpation: She demonstrates tenderness with palpation to the left-sided paraspinal region in the lower lumbar region and also left-sided SI joint. She demonstrates no point tenderness to the right lower extremity or bilateral upper extremities. She demonstrates no acute cervical or thoracic pain both midline and paraspinal ROM: Full range of motion in all major muscle groups of the bilateral upper and lower extremities, no focal deficits appreciated Sensory Exam: Senory exam to light touch is intact C5-T1 Senosry exam to light touch is intact L2-S1 Motor: 5/5 strength appreciate the bilateral upper extremities with shoulder elevation, shoulder abduction, elbow extension, elbow flexion, wrist extension, wrist flexion, forest worker 5/5 strength appreciated in the right lower extremity with hip flexion, knee extension, knee flexion, plantarflexion, dorsiflexion, EHL, FHL 4/5 strength appreciated in the left lower extremity with hip flexion, knee extension, knee flexion, plantarflexion, dorsiflexion, EHL, FHL Reflexes: 2/4 in all UE and LE Negative Lars's bilaterally Special Test: Straight leg raise of the left lower extremity does reproduce low back pain Negative straight leg raise right lower extremity Results - Diagnostic results Cervical AP/lateral x-ray: report reviewed, image reviewed (Report and x-rays were reviewed of the cervical spine, no acute fractures or dislocations) CT Scan - lumbar: report reviewed, image reviewed (Report and images were reviewed of the lumbar spine that was taken on 06/13/2024, no acute fractures or dislocations were noted. Postsurgical hardware at L5-S1 appears stable. Mild degenerative changes at L3-L4, L4-L5) Assessment and Plan Assessment: Acute on chronic low back pain Left lower extremity radiculopathy Bowel incontinence History of previous L5-S1 MIS TLIF stable appearing hardware Lumbar spondylosis Other medical comorbidities Plan: I was able to discuss the case, this to include both physical exam findings and imaging studies with my attending Dr. Stone. Stat MRI of the lumbar spine has been ordered. Decadron 10 mg IV was given, followed by 6 mg IV every 6 hours. Patient has taken gabapentin and Lyrica in the past which she states she would like to avoid due to adverse reactions of other medications. She also has allergies to Toradol which we will avoid at this time. DVT prophylaxis per primary medical service Other medical specialty recommendations appreciated Further recommendations to follow after reviewing MRI study Time with Patient: Less than 30
[2024-06-15 11:39] LABS: Basophils % (A) 0 %; Eosinophils % (A) 1 %; HCT 41.5 % (34.0-46.0); HGB 13.6 gm/dL (11.4-16.0); Lymphocytes # (A) 0.6 k/uL (1.0-4.8); Lymphocytes % (A) 11 %; MCHC 32.8 g/dL (31.0-37.0); MCV 91.5 fL (80.0-100.0); Mean Platelet Volume 7.7; Monocytes # (A) 0.1 k/uL (0-1.0); Monocytes % (A) 2 %; Neutrophils # (A) 4.8 k/uL (1.3-7.7); Neutrophils % (A) 85 %; Platelet Count 266 k/uL (150-450); RBC 4.54 m/uL (3.80-5.40); RDW 12.6 % (11.5-15.5); WBC 5.6 k/uL (3.8-10.6)
--- NOTE | 2024-06-15 11:40 | XR ---
EXAMINATION TYPE: XR chest 1V portable DATE OF EXAM: 06/15/2024 11:25 AM COMPARISON: None CLINICAL INDICATION: Female, 38 years old with history of shortness of breath; [facility] TECHNIQUE: XR chest 1V portable Frontal view of the chest. FINDINGS: Lungs/Pleura: There is no evidence of pleural effusion, focal consolidation, or pneumothorax. Pulmonary vascularity: Unremarkable. Heart/mediastinum: Cardiomediastinal silhouette is unremarkable. Musculoskeletal: No acute osseous pathology. Other findings: None IMPRESSION: No acute cardiopulmonary disease/process. [facility], , 06/15/2024 11:37 AM
[2024-06-15 11:53] LABS: ALT 20 U/L (4-34); AST 21 U/L (14-36); African American GFR (CKD) 81 (>60 ml/min/1.73 sqM); Albumin 4.6 g/dL (3.5-5.0); Albumin/Globulin Ratio 1.8; Alkaline Phosphatase 39 U/L (38-126); Anion Gap 10 mmol/L; Blood Urea Nitrogen 16 mg/dL (7-17); Calcium 9.7 mg/dL (8.4-10.2); Carbon Dioxide 24 mmol/L (22-30); Chloride 105 mmol/L (98-107); Globulin 2.5 g/dL; Glucose 173 mg/dL (74-99); Magnesium 1.8 mg/dL (1.6-2.3); Non-African American GFR(CKD) 70 (>60 ml/min/1.73 sqM); Potassium 4.4 mmol/L (3.5-5.1); Sodium 139 mmol/L (137-145); Total Bilirubin 0.5 mg/dL (0.2-1.3); Total Protein 7.1 g/dL (6.3-8.2)
[2024-06-15] MEDS: DEXAMETHASONE SOD PHOSPHATE 10 MG/ML 1 ML VIAL IVP SCH (12:30)
[2024-06-15] MEDS: ORPHENADRINE 30 MG/ML 2 ML VIAL IM STA (12:43)
[2024-06-15] MEDS ORDERED: ALBUTEROL NEBULIZED 2.5 MG/3 ML INHALATION PRN (14:28)
[2024-06-15] MEDS ORDERED: PATIENT'S OWN (Rimegepant Sulfate [Nurtec Odt] 75 MG Tablet) PO PRN (14:28)
[2024-06-15] MEDS ORDERED: DEXTROSE 50% SYRINGE 50 ML IVP PRN ×2 (14:29)
[2024-06-15] MEDS: ASPIRIN 81 MG PO SCH (16:40)
[2024-06-15] MEDS: ATORVASTATIN 40 MG TAB PO SCH (16:40)
[2024-06-15] MEDS: LORazepam 1 MG TAB PO SCH (16:40)
[2024-06-15] MEDS: buPROPion XL 150 MG TAB.ER.24H PO SCH (16:40)
[2024-06-15] MEDS: atenoloL 25 MG TAB PO SCH (16:40)
[2024-06-15] MEDS: FENOFIBRATE 54 MG TAB PO SCH (16:40)
[2024-06-15] MEDS: buPROPion XL 300 MG TAB.ER.24H PO SCH (16:41)
[2024-06-15 17:16] LABS: Glucose,Whole Blood 122 mg/dL (70-110)
[2024-06-15] MEDS: INSULIN LISPRO (HumaLOG) 100 UNIT/ML 10 mL VL SQ SCH (18:16)
[2024-06-15] MEDS: PANTOPRAZOLE 40 MG TABLET PO SCH (19:50)
[2024-06-15] MEDS: HEPARIN SODIUM,PORCINE 5,000 UNIT/ML 1 ML VIAL SQ SCH (19:50)
[2024-06-15] MEDS: TOPIRAMATE 25 MG TAB PO SCH (19:50)
[2024-06-15 19:53] LABS: Glucose,Whole Blood 174 mg/dL (70-110)
[2024-06-15] MEDS: diazePAM 5 MG TAB PO STA (20:56)
--- NOTE | 2024-06-15 21:18 | HP ---
HISTORY AND PHYSICAL CHIEF COMPLAINT: Back pain and injury. HISTORY OF PRESENT ILLNESS: This is a 38-year-old woman with a past medical history of multiple medical problems including lumbar surgery, had a fall about 6 to 7 stairs. The patient is complaining of severe pain in the back and as well as radiating to the leg also. The patient had a CT scan of the back, which showed no evidence of acute fracture, but multilevel DJD. The patient is being admitted for further evaluation. Orthopedic consultation is in progress. There is no history of any fever, rigors, or chills at this time. PAST MEDICAL HISTORY: History of back pain and surgery, asthma, multiple medical issues reviewed. HOME MEDICATIONS: Reviewed include Toprol and dose and rest of medications reviewed. ALLERGIES: Ketoralac, rest of allergies noted. FAMILY HISTORY: History of CVA, TIA. SOCIAL HISTORY: No history of smoking or alcohol. REVIEW OF SYSTEMS: Fourteen-point review of systems is negative except as mentioned earlier. PHYSICAL EXAMINATION: VITAL SIGNS: Pulse is 72, blood pressure 145/100, respirations 18. HEENT: Conjunctivae normal. NECK: No JVD. CARDIOVASCULAR: S1, S2. RESPIRATIONS: Breath sounds diminished at the bases. A few scattered rhonchi and crackles. ABDOMEN: Soft, nontender. LEGS: No edema. No swelling. BACK: Tenderness present. LABORATORY DATA: Reviewed. ASSESSMENT: 1. Fall and severe back pain and degenerative joint disease. 2. History of back pain and surgery. 3. Acute on chronic low back pain. 4. Radiculopathy. 5. History of asthma. 6. Diabetes mellitus. 7. Hypertension. 8. Hyperlipidemia. 9. History of supraventricular tachycardia. RECOMMENDATIONS: Recommend to continue current medications and continue symptomatic treatment. Otherwise, at this time, steroids have been initiated. Monitor blood sugars closely. Resume the home medications once they are confirmed. Prognosis guarded. Further recommendations to follow. See orders for further details. MMODL / IJN: [id number] /
--- NOTE | 2024-06-15 22:28 | MR ---
INDICATION: Patient age:Female; 38 years old; Reason for study: bowl incontinence; [facility]. COMPARISONS: CT lumbar spine 06/13/2024, 11/09/2022, lumbar spine radiograph 11/08/2022. TECHNIQUE: Multi planar, multi sequence imaging was performed utilizing: T1-weighted, T2-weighted, a nd turbo inversion recovery imaging of the lumbar spine. The patient was not given contrast. FINDINGS: Postsurgical changes from posterior lumbar fusion L5-S1 with disc spacer. This creates susc eptibility artifact which limits evaluation. The lumbar vertebral bodies do have preserved heights an d alignment. Disc desiccation is present at the L4-L5 disc. The remaining discs demonstrate normal s ignal intensity. No abnormal STIR signal identified. The conus medullaris and the distal spinal cord do appear unremarkable with regards to their signal intensity and morphology. L1-L2: No significant disc pathology is identified. The spinal canal and neural foramen are patent. L2-L3: No significant disc pathology is identified. The spinal canal and neural foramen are patent. L3-L4: No significant disc pathology is identified. The spinal canal and neural foramen are patent. L4-L5: Broad-based disc bulge with ligamentum flavum buckling resulting in mild central canal stenosi s. Bilateral facet arthropathy with moderate left and moderate to severe right neural foraminal steno sis. L5-S1: Postsurgical changes without evidence of disc herniation, protrusion or disc bulge. No signif icant central canal or neuroforaminal stenosis. Other significant findings: None. IMPRESSION: 1. Postsurgical change at L5-S1. No evidence of significant central canal stenosis. 2. L4-L5 degenerative disc disease with bilateral facet arthropathy resulting in mild central canal stenosis. There is moderate left and [id number] right neural foraminal stenosis at this level . [facility], , 06/15/2024 10:26 PM
[2024-06-16] MEDS: HYDROmorphone 1 MG/ML 1 ML SYRINGE IVP PRN (01:53)
[2024-06-16 05:50] LABS: Glucose,Whole Blood 121 mg/dL (70-110)
[2024-06-16] MEDS: HYDROcodone/APAP 5-325MG 1 EACH TAB PO PRN (08:07)
[2024-06-16 10:03] LABS: Basophils # (A) 0.01 X 10*3/uL (0.00-0.10); Basophils % (A) 0.1 %; Eosinophils # (A) 0 X 10*3/uL (0.04-0.35); Eosinophils % (A) 0 %; HCT 37.9 % (37.2-46.3); HGB 12.9 g/dL (12.0-15.0); Lymphocytes # (A) 0.58 X 10*3/uL (0.90-5.00); Lymphocytes % (A) 6.2 %; MCH 30.5 pg (27.0-32.0); MCV 89.6 FL (80.0-97.0); Mean Platelet Volume 10.9 FL (9.5-12.2); Monocytes # (A) 0.29 X 10*3/uL (0.20-1.00); Monocytes % (A) 3.1 %; NRBC Per 100 WBC 0 X 10*3/uL (0.00-0.01); Neutrophils # (A) 8.43 X 10*3/uL (1.80-7.70); Neutrophils % (A) 90.2 %; Platelet Count 260 X 10*3/uL (140-440); RBC 4.23 X 10*6/uL (4.10-5.20); RDW 12.3 % (11.5-14.5); WBC 9.35 X 10*3/uL (4.50-10.00)
[2024-06-16 10:21] LABS: BUN/Creat Ratio 21.12 Ratio (12.00-20.00); Blood Urea Nitrogen 16.9 mg/dL (9.0-27.0); Calcium 9.8 mg/dL (8.7-10.3); Carbon Dioxide 21.6 mmol/L (21.6-31.8); Chloride 109 mmol/L (96-109); Glucose 121 mg/dL (70-110); Potassium 4.3 mmol/L (3.5-5.5); Sodium 142 mmol/L (135-145)
[2024-06-16 12:28] LABS: Glucose,Whole Blood 130 mg/dL (70-110)
--- NOTE | 2024-06-16 13:57 | P.PN ---
Subjective Progress Note Date: 06/16/24 Principal diagnosis: Back pain, fecal incontinence, history of previous lumbar surgery Patient is evaluated today at bedside, she is feels that the pain is better under control at this time. She admits to 1 small episode of fecal incontinence yesterday evening but none since then. She continues to ambulate with minimal assistance. She remains on the 6 mg of IV Decadron every 6 hours, she is also taking Wheeler and Dilaudid as needed. She did receive the MRI of the lumbar s pine last night. She denies any headaches, lightheadedness, chest pain or shortness of breath Objective - Vital Signs Vital signs: Vital Signs Temp 98.1 F 06/16/24 06:50 Pulse 69 06/16/24 06:50 Resp 16 06/16/24 06:50 BP 96/57 06/16/24 06:50 Pulse Ox 100 06/16/24 06:50 FiO2 Intake & Output 06/15/24 06/16/24 06/16/24 18:59 06:59 18:59 Intake Total 591 590 Balance 591 590 Weight 64.864 kg Intake: Oral 591 590 Other: Voiding Method Toilet Toilet # Voids 1 2 # Bowel Movements 1 - Exam Gen: AOx3, NAD VSS stable at this time Integument: 2 incisions to the lower lumbar spine are well-healed, there is no surrounding e rythema or soft tissue swelling. Palpation: She demonstrates tenderness with palpation to the left-sided paraspinal region in the lower lumbar region and also left-sided SI joint. She demonstrates no point tenderness to the right lower extremity or bilateral upper extremities. She demonstrates no acute cervical or thoracic pain both midline and paraspinal ROM: Full range of motion in all major muscle groups of the bilateral upper and lower extremities, no focal deficits appreciated Sensory Exam: Senory exam to light touch is intact C5-T1 Senosry exam to light touch is intact L2-S1 Motor: 5/5 strength appreciate the bilateral upper extremities with shoulder elevation, shoulder abduction, elbow extension, elbow flexion, wrist extension, wrist flexion, telecommunication engineer 5/5 strength appreciated in the right lower extremity with hip flexion, knee extension, knee flexion, plantarflexion, dorsiflexion, EHL, FHL 4/5 strength appreciated in the left lower extremity with hip flexion, knee extension, knee flexion, plantarflexion, dorsiflexion, EHL, FHL Reflexes: 2/4 in all UE and LE Negative Lars's bilaterally Special Test: Straight leg raise of the left lower extremity does reproduce low back pain Negative straight leg raise right lower extremity - Labs CBC & Chem 7: 06/16/24 05:09 06/16/24 05:09 Labs: Abnormal Lab Results - Last 24 Hours (Table) 06/15/24 06/15/24 06/16/24 Range/Units 17:15 19:50 05:09 Neutrophils # 8.43 H (1.80-7.70) X 10*3/uL Lymphocytes # 0.58 L (0.90-5.00) X 10*3/uL Eosinophils # 0 L (0.04-0.35) X 10*3/uL BUN/Creatinine Ratio (12.00-20.00) Ratio Glucose (70-110) mg/dL POC Glucose (mg/dL) 122 H 174 H (70-110) mg/dL 06/16/24 06/16/24 06/16/24 Range/Units 05:09 05:45 12:22 Neutrophils # (1.80-7.70) X 10*3/uL Lymphocytes # (0.90-5.00) X 10*3/uL Eosinophils # (0.04-0.35) X 10*3/uL BUN/Creatinine Ratio 21.12 H (12.00-20.00) Ratio Glucose 121 H (70-110) mg/dL POC Glucose (mg/dL) 121 H 130 H (70-110) mg/dL Assessment and Plan Assessment: Acute on chronic low back pain Left lower extremity radiculopathy Neuropraxia L4-L5 facet arthropathy with mild/moderate neuroforaminal stenosis No significant central cord compression/space-occupying lesions Bowel incontinence History of previous L5-S1 MIS TLIF stable appearing hardware Lumbar spondylosis Other medical comorbidities Plan: I was able to review the physical exam along with the MRI report and images with my attending surgeon. No space-occupying/ severe central cord compression that we can see that would be causing the patient's fecal incontinence. Patient's hardware from her previous surgery remains very stable. She does have some degenerative changes with mild neuroforaminal stenosis at the L4-L5 region, unlikely to be contributing to her current symptoms. We did discuss with the patient yesterday at bedside the possibility of neuro praxia due to the fall which is likely the causative agent of her current state. Plan at this time is to continue to lower the IV Decadron over the next 24 hours with hopeful discharge to home on an oral taper DVT prophylaxis per primary medical service Other medical specialty recommendations appreciated Discharge planning: Anticipate discharge home in the next 24 hours pending patient's symptoms
[2024-06-16 17:11] LABS: Glucose,Whole Blood 152 mg/dL (70-110)
--- NOTE | 2024-06-16 17:36 | PN ---
PROGRESS NOTE DATE OF SERVICE: 06/14/2024 SUBJECTIVE: This is a 38-year-old woman admitted with severe back pain and DJD. Orthopedics recommended conservative line of management. PHYSICAL EXAMINATION: VITAL SIGNS: Pulse is 69, blood pressure 90/57. CHEST: Clear to auscultation. CARDIOVASCULAR: S1 and S2. ABDOMEN: Soft. BACK: Some tenderness. LABORATORY DATA: Reviewed. ASSESSMENT: 1. Fall and severe back pain, possibly degenerative joint disease. 2. History of back pain and surgery. 3. Acute on chronic low back pain. 4. Multiple medical issues. RECOMMENDATIONS: Recommend to continue current management and continue symptomatic treatment. Pain management. Closely follow with Orthopedic Surgery. Continue with steroids. Monitor blood sugars closely. Further recommendations to follow. MMODL / IJN: [id number] /
[2024-06-16] MEDS ORDERED: DEXAMETHASONE SOD PHOSPHATE 10 MG/ML 1 ML VIAL IVP SCH (18:00)
[2024-06-16] MEDS: DEXAMETHASONE SOD PHOSPHATE 4 MG/ML 1 ML VIAL IVP SCH (18:54)
[2024-06-16 19:42] LABS: Glucose,Whole Blood 153 mg/dL (70-110)
[2024-06-17 05:28] LABS: Glucose,Whole Blood 140 mg/dL (70-110)
[2024-06-17 08:01] VITALS: BP 107/64; PULSE 80; RESP 16; TEMP 97.8
[2024-06-17 12:15] LABS: Glucose,Whole Blood 100 mg/dL (70-110)
--- NOTE | 2024-06-17 12:31 | P.PN ---
Subjective Progress Note Date: 06/17/24 Principal diagnosis: Back pain, fecal incontinence, history of previous lumbar surgery Patient is evaluated today at bedside, she is feels that the pain is better under control at this time. She denies any episodes of incontinence over the last 24 hours. She continues to ambulate with minimal assistance. She denies any headaches, lightheadedness, chest pain or shortness of breath Objective - Vital Signs Vital signs: Vital Signs Temp 97.8 F 06/17/24 06:55 Pulse 80 06/17/24 06:55 Resp 16 06/17/24 06:55 BP 107/64 06/17/24 06:55 Pulse Ox 100 06/17/24 06:55 FiO2 Intake & Output 06/16/24 06/17/24 06/17/24 18:59 06:59 18:59 Intake Total 830 Balance 830 Intake: Oral 830 Other: Voiding Method Toilet Toilet Toilet # Voids 2 3 # Bowel Movements 1 1 - Exam Gen: AOx3, NAD VSS stable at this time Integument: 2 incisions to the lower lumbar spine are well-healed, there is no surrounding erythema or soft tissue swelling. Palpation: She demonstrates tenderness with palpation to the left-sided paraspinal region in the lower lumbar region and also left-sided SI joint. She demonstrates no point tenderness to the right lower extremity or bilateral upper extremities. She demonstrates no acute cervical or thoracic pain both midline and paraspinal ROM: Full range of motion in all major muscle groups of the bilateral upper and lower extremities, no focal deficits appreciated Sensory Exam: Senory exam to light touch is intact C5-T1 Senosry exam to light touch is intact L2-S1 Motor: 5/5 strength appreciate the bilateral upper extremities with shoulder elevation, shoulder abduction, elbow extension, elbow flexion, wrist extension, wrist flexion, smoke eater 5/5 strength appreciated in the right lower extremity with hip flexion, knee extension, knee flexion, plantarflexion, dorsiflexion, EHL, FHL 4/5 strength appreciated in the left lower extremity with hip flexion, knee extension, knee flexion, plantarflexion, dorsiflexion, EHL, FHL Reflexes: 2/4 in all UE and LE Negative Lars's bilaterally Special Test: Straight leg raise of the left lower extremity does reproduce low back pain Negative straight leg raise right lower extremity - Labs CBC & Chem 7: 06/16/24 05:09 06/16/24 05:09 Labs: Abnormal Lab Results - Last 24 Hours (Table) 06/16/24 06/16/24 06/17/24 Range/Units 17:09 19:41 05:25 POC Glucose (mg/dL) 152 H 153 H 140 H (70-110) mg/dL Assessment and Plan Assessment: Acute on chronic low back pain Left lower extremity radiculopathy Neuropraxia L4-L5 facet arthropathy with mild/moderate neuroforaminal stenosis No significant central cord compression/space-occupying lesions Bowel incontinence, improving History of previous L5-S1 MIS TLIF stable appearing hardware Lumbar spondylosis Other medical comorbidities Plan: Dr. Stone was available today at bedside to discuss treatment with patient. We again confirmed no orthopedic surgical intervention recommended at this time. Plan to send patient home on a Medrol Dosepak to help taper off steroids. Patient will be scheduled to follow-up in our office in the next 2 weeks for recheck. DVT prophylaxis per primary medical service Other medical specialty recommendations appreciated Discharge planning: Stable for discharge home today Time with Patient: Less than 30
--- NOTE | 2024-06-17 20:48 | DS ---
DISCHARGE SUMMARY FINAL DIAGNOSES: 1. Fall and severe back pain, possibly degenerative joint disease. 2. History of back pain and surgery. 3. Acute on chronic low back pain. 4. Multiple medical issues. DISCHARGE DISPOSITION: The patient will be discharged in stable condition and guarded prognosis. Dr. Stone has cleared the patient. HISTORY OF PRESENT ILLNESS: This is a 38-year-old woman, who was admitted with back pain and some incontinence. The patient improved significantly. Symptomatic treatment was given. MRI did not show any acute abnormality. Dr. Stone recommended the patient to be discharged and follow up in the outpatient setting. PHYSICAL EXAMINATION: VITAL SIGNS: Stable. CARDIOVASCULAR: S1, S2. ABDOMEN: Soft. DISCHARGE MEDICATIONS: Continue the home medications. Follow up with Dr. Tijerina. Follow up with Dr. Stone and Gissel Sinclair. MMMANIL / TOMMYN: [id number] /
== END 2024-06-17 15:17 | disposition home or self-care (01) ==
LOC: EC 01:38 → 6NMEDSUR 04:30
PROVIDERS: ADMIT Internal Medicine; ATTEND Internal Medicine
DX: M54.50 Low back pain, unspecified (principal); R15.9 Full incontinence of feces; M47.26 Other spondylosis with radiculopathy, lumbar region; M48.061 Spinal stenosis, lumbar region without neurogenic claudication; G89.29 Other chronic pain; K21.9 Gastro-esophageal reflux disease without esophagitis; F32.A Depression, unspecified; F41.9 Anxiety disorder, unspecified; G43.909 Migraine, unspecified, not intractable, without status migrainosus; I47.10 Supraventricular tachycardia, unspecified; J45.909 Unspecified asthma, uncomplicated; E11.9 Type 2 diabetes mellitus without complications; E78.5 Hyperlipidemia, unspecified; I10 Essential (primary) hypertension; Z79.899 Other long term (current) drug therapy; Z88.6 Allergy status to analgesic agent; Z88.8 Allergy status to other drugs, medicaments and biological substances
CPT/HCPCS: 96376 ×4; 96372 ×2; 96374; 96375; 99284; 80053; 80048; 83735; 85025 ×2; 83036; 71045; 72148; G0378 ×3; J2270; J1644 ×2; J1100 ×4; J2405 ×2; J1171 ×3